=== PATIENT | female | born 1955 | race Two or more races ===

== ENCOUNTER 2016-10-27 11:21 | Inpatient (IN) | payer OTHER ==
[~2016-10-27] VITALS: Ht 152.4 cm; Wt 64.4 kg
[~2016-10-27 11:21] MED LIST: ANUSOL HC1 SUPP RECTAL; ATIVAN1 MG ORAL; AZITHROMYCIN250 MG ORAL; BACTRIM-DS1 EA ORAL; BACTRIM-DS1 EA PO; CARAFATE1 G1 ORAL; CLONIDINE HCL0.1 M1 PO; COLACE100 MG ORAL; DOC-Q-LACE100 M1 ORAL; GABAPENTIN300 MG ORAL; IBUPROFEN600 MG ORAL; KEFLEX500 MG ORAL; KEFLEX500 MG PO; LEVAQUIN500 MG ORAL; LOMOTIL TABLET1 EACH ORAL; LORAZEPAM0.5 MG ORAL; MACROBID100 MG ORAL; METRONIDAZOLE500 MG ORAL; NORCO 10-325 T1 EACH ORAL; NORCO 5-325 TA1 EACH PO; OMEPRAZOLE20 M2 ORAL; PEPCID AC20 M2 PO; PERCOCET 5-3251 EACH ORAL; POTASSIUM GLUC500 GM PO; PREDNISONE5 MG ORAL; PREVACID30 MG ORAL; PROMETHAZINE-D118 ML ORAL; PROTONIX40 MG ORAL; REGLAN10 MG ORAL; REMICADE10 MG IV; RESTORIL15 MG ORAL; RESTORIL7.5 MG ORAL; VICODIN 5-5001 EACH ORAL; ZOFRAN ODT4 MG ORAL
[2016-10-27 12:00] VITALS: BP 166/66
[2016-10-27] MEDS ORDERED: Morphine Sulfate 4mg/ml Inj IM ONE (12:45)
[2016-10-27 13:10] LABS: APPEARANCE,URINE SLIGHTLY CLOUDY; KETONES,URINE NEGATIVE (NEGATIVE); LEUKOCYTE ESTERASE ,URINE NEGATIVE (NEGATIVE); NITRITE,URINE NEGATIVE (NEGATIVE); PROTEIN,URINE NEGATIVE (NEGATIVE); UROBILINOGEN,URINE NORMAL MG/DL (0.0-1.0)
[2016-10-27 13:25] LABS: BACTERIA,URINE FEW /HPF; RBC,URINE 0-2 /HPF (0 - 2); SQUAMOUS EPITHELIAL CELL,UR FEW /LPF (NONE/OCC); WBC,URINE 0-2 /HPF (0 - 2)
[2016-10-27 13:30] VITALS: BP 129/72
[2016-10-27] MEDS ORDERED: Heparin 2000 units/Ns 1000ml IV ONE (14:00)
[2016-10-27] MEDS ORDERED: LANSOPRAZOLE30 M2 PO (14:07)
[2016-10-27] MEDS ORDERED: Lidocaine 1% Plain 30 ml INJ ONE (14:30)
[2016-10-27] MEDS ORDERED: Sodium Bicarbonate 8.4% 50ml Carp IV ONE (14:30)
[2016-10-27 15:41] VITALS: BP 170/88
[2016-10-27 15:54] LABS: BASOPHILS % (AUTO) 0.7 % (0.0-2.0); EOSINOPHILS % (AUTO) 0.2 % (0.0-3.0); LYMPHOCYTES % (AUTO) 17.4 % (20.0-45.0); MEAN CORPUSCULAR HEMOGLOBIN 24.9 PG (27.0-31.0); MEAN CORPUSCULAR HGB CONC 32.2 G/DL (32.0-36.0); MEAN CORPUSCULAR VOLUME 77 FL (80-99); MEAN PLATELET VOLUME 6.2 FL (6.5-10.1); MONOCYTES % (AUTO) 4.4 % (1.0-10.0); NEUTROPHILS % (AUTO) 77.4 % (45.0-75.0); PLATELET COUNT 460 K/UL (150-450); RED BLOOD COUNT 5.06 M/UL (4.20-5.40); RED CELL DISTRIBUTION WIDTH 15.5 % (11.6-14.8); WHITE BLOOD COUNT 14.5 K/UL (4.8-10.8)
[2016-10-27 16:05] LABS: PROTHROMBIN TIME 9.8 SEC (9.30-11.50)
--- NOTE | 2016-10-27 16:05 | Diagnostic Imaging Report ---
Indications: Needs long-term IV access Technique: Ultrasound confirms patent compressible brachial vein. Total sterile technique, including sterile probe cover and sterile gel, hat, mask,, sterile gown, large sterile drape, and preparation with 2% chlorhexidine utilized. Local anesthesia with 1% lidocaine. Under real-time ultrasound guidance, puncture brachial vein using 21-gauge needle, documented and archived, passage 0.018 guidewire under direct fluoroscopy, which was used to determine appropriate catheter length, exchange for 5 Turkish peel-away sheath. 5 Turkish Bard dual-lumen power PICC cut to 30 cm. It was inserted through the peel-away sheath. Peel-away sheath and guidewire removed. Catheter fixed to the skin. Both catheter ports aspirated and flushed. Patient tolerated procedure well, without immediate complication. Digital radiograph documents satisfactory catheter tip position, at the cavoatrial junction. Total fluoroscopy time 1.5 minutes. Total dose area product 158 dGycm2 Impression: Successful placement of left PICC under sonographic and fluoroscopic guidance, as described above.
[2016-10-27] MEDS ORDERED: Morphine Sulfate 4mg/ml Inj IVP ONE (16:15)
[2016-10-27] MEDS ORDERED: LORazepam 1mg tab ORAL ONE (16:15)
[2016-10-27 16:16] LABS: TROPONIN I < 0.30 ng/mL (<=0.30)
[2016-10-27 16:22] LABS: ALANINE AMINOTRANSFERASE 23 U/L (3-33); ALBUMIN/GLOBULIN RATIO 1.3 (1.0-2.7); ANION GAP 18 (5-15); ASPARTATE AMINO TRANSFERASE 20 U/L (5-40); CALCIUM 9.8 mg/dL (8.6-10.2); CARBON DIOXIDE 23 mEQ/L (20-30); CHLORIDE 101 mEQ/L (98-107); CREATININE 0.6 mg/dL (0.5-0.9); GLOMERULAR FILTRATION RATE > 60 mL/min (>60); HEMOLYSIS 2; MAGNESIUM 2.1 mg/dL (1.7-2.5); SODIUM 142 mEQ/L (135-145); TOTAL PROTEIN 7.2 g/dL (6.6-8.7)
[2016-10-27 16:23] LABS: REFLEX LACTIC ACID YES OR NO YES
[2016-10-27 16:32] LABS: CKMB 2.4 ng/mL (< 3.8)
--- NOTE | 2016-10-27 16:47 | Emergency Room Report ---
History of Present Illness General Chief Complaint: Generalized Weakness Source: Patient Present Illness HPI Patient has a history of IBS. She also has a history of diverticulitis. She complains of abdominal pain that is progressively worsened over the past 2 weeks. She denies nausea or vomiting. She denies dysuria or hematuria. She denies fever or chills. She states she feels terrible. Allergies: Coded Allergies: HYDROCODONE BIT (Verified Allergy, Severe, Hives, 05/16/13) Patient History Past Medical History: see triage record Past Surgical History: other - L. knee replacement, "colon surgery" Social History: Denies: alcohol use, drug use, smoking Reviewed Nursing Documentation: PMH: Agreed, PSxH: Agreed Nursing Documentation-PMH Hx Cardiac Problems: No Hx Hypertension: No Hx Pacemaker: No Hx Asthma: No Hx COPD: No Hx Diabetes: No Hx Cancer: No Hx Gastrointestinal Problems: Yes - s/p ASAD 26 years ago, diverticulitis, IBS, C-Diff Hx Dialysis: No History Of Psychiatric Problem: Yes - Anxiety Hx Neurological Problems: No Hx Cerebrovascular Accident: No Hx Seizures: No Hx Headaches: Yes Hx Numbness: Yes Review of Systems All Other Systems: negative except mentioned in HPI Physical Exam Vital Signs Date Time Temp Pulse Resp B/P Pulse Ox O2 Delivery O2 Flow Rate FiO2 10/27/16 11:28 98.2 114 26 170/68 99 Room Air Sp02 EP Interpretation: reviewed, normal General Appearance: no apparent distress, alert, GCS 15, non-toxic Head: normocephalic, atraumatic Eyes: bilateral eye PERRL, bilateral eye normal inspection ENT: hearing grossly normal, normal pharynx, no angioedema, normal voice Neck: full range of motion, supple/symm/no masses Respiratory: chest non-tender, lungs clear, normal breath sounds, speaking full sentences Cardiovascular #1: regular rate, rhythm, no edema Gastrointestinal: normal bowel sounds, soft, non-distended, no guarding, no rebound, tenderness - Diffusely TTP Rectal: deferred Musculoskeletal: back normal, gait/station normal, normal range of motion, non- tender Neurologic: alert, oriented x3, responsive, motor strength/tone normal, sensory intact, speech normal Psychiatric: judgement/insight normal, memory normal, mood/affect normal, no suicidal/homicidal ideation Skin: normal color, no rash, warm/dry, well hydrated Medical Decision Making Diagnostic Impression: Primary Impression: Abdominal pain ER Course Patient presents with ongoing abdominal pain. She has a history of diverticulitis and some colon surgery. Laboratory workup shows a mild leukocytosis and slightly elevated lactate. The patient is pending a CT abdomen and pelvis. The sister nor did Dr. Leon. Anticipate admission for abdominal pain regardless. At this time diagnosis is pending. Differential includes diverticulitis, inflammatory bowel disease, IBS, colitis to name a few. Please see Dr. Leon's note. Labs Test 10/27/16 12:15 10/27/16 15:35 Urine Color Yellow Urine Appearance Slightly cloudy Urine pH 7.0 (4.5-8.0) Urine Specific [place] 1.005 (1.005-1.035) Urine Protein Negative (NEGATIVE) Urine Glucose (UA) Negative (NEGATIVE) Urine Ketones Negative (NEGATIVE) Urine Occult Blood 1+ (NEGATIVE) Urine Nitrite Negative (NEGATIVE) Urine Bilirubin Negative (NEGATIVE) Urine Urobilinogen Normal MG/DL (0.0-1.0) Urine Leukocyte Esterase Negative (NEGATIVE) Urine RBC 0-2 /HPF (0 - 2) Urine WBC 0-2 /HPF (0 - 2) Urine Squamous Epithelial Cells Few /LPF (NONE/OCC) Urine Bacteria Few /HPF (NONE) White Blood Count 14.5 K/UL (4.8-10.8) Red Blood Count 5.06 M/UL (4.20-5.40) Hemoglobin 12.6 G/DL (12.0-16.0) Hematocrit 39.2 % (37.0-47.0) Mean Corpuscular Volume 77 FL (80-99) Mean Corpuscular Hemoglobin 24.9 PG (27.0-31.0) Mean Corpuscular Hemoglobin Concent 32.2 G/DL (32.0-36.0) Red Cell Distribution Width 15.5 % (11.6-14.8) Platelet Count 460 K/UL (150-450) Mean Platelet Volume 6.2 FL (6.5-10.1) Neutrophils (%) (Auto) 77.4 % (45.0-75.0) Lymphocytes (%) (Auto) 17.4 % (20.0-45.0) Monocytes (%) (Auto) 4.4 % (1.0-10.0) Eosinophils (%) (Auto) 0.2 % (0.0-3.0) Basophils (%) (Auto) 0.7 % (0.0-2.0) Prothrombin Time 9.8 SEC (9.30-11.50) Prothromb Time International Ratio 1.0 (0.9-1.1) Activated Partial Thromboplast Time 25 SEC (23-33) Sodium Level 142 mEQ/L (135-145) Potassium Level 4.0 mEQ/L (3.4-4.9) Chloride Level 101 mEQ/L (98-107) Carbon Dioxide Level 23 mEQ/L (20-30) Anion Gap 18 (5-15) Blood Urea Nitrogen 8 mg/dL (7-23) Creatinine 0.6 mg/dL (0.5-0.9) Estimat Glomerular Filtration Rate > 60 mL/min (>60) Glucose Level 112 mg/dL (74-106) Lactic Acid Level 2.70 mmol/L (0.66-2.22) Calcium Level 9.8 mg/dL (8.6-10.2) Magnesium Level 2.1 mg/dL (1.7-2.5) Total Bilirubin < 0.2 mg/dL (0.0-1.2) Aspartate Amino Transf (AST/SGOT) 20 U/L (5-40) Alanine Aminotransferase (ALT/SGPT) 23 U/L (3-33) Alkaline Phosphatase 117 U/L (35-104) Total Creatine Kinase 48 U/L (26-140) Creatine Kinase MB 2.4 ng/mL (< 3.8) Creatine Kinase MB Relative Index 5.0 Troponin I < 0.30 ng/mL (<=0.30) Total Protein 7.2 g/dL (6.6-8.7) Albumin 4.1 g/dL (3.5-5.2) Globulin 3.1 g/dL Albumin/Globulin Ratio 1.3 (1.0-2.7) EKG Diagnostic Results Rate: tachycardiac ST Segments: no acute changes Other Impression S.tachycardia Rhythm Strip Diag. Results EP Interpretation: yes Rate: 100's Rhythm: no PVC's, no ectopy CT/MRI/US Diagnostic Results CT/MRI/US Diagnostic Results : Imaging Test Ordered: CT abd/pelvis pending Last Vital Signs Date Time Temp Pulse Resp B/P Pulse Ox O2 Delivery O2 Flow Rate FiO2 10/27/16 16:11 98.3 10/27/16 15:41 120 21 170/88 97 Room Air Disposition: ADMITTED INPATIENT Condition: Serious Referrals: SAV ARCINIEGA,REFERRING (PCP) TIO RAMIREZ D.O. Oct 27, 2016 16:47
[2016-10-27 18:00] VITALS: BP 123/77
[2016-10-27] MEDS ORDERED: Ampicillin/Sulbactam Sod 3 GM in NS 110 ML IVPB ONE (18:45)
[2016-10-27] MEDS ORDERED: Unasyn 3gm Inj ONE (18:47)
--- NOTE | 2016-10-27 18:57 | Emergency Room Report ---
Physical Exam Vital Signs Date Time Temp Pulse Resp B/P Pulse Ox O2 Delivery O2 Flow Rate FiO2 10/27/16 11:28 98.2 114 26 170/68 99 Room Air Medical Decision Making Diagnostic Impression: Primary Impression: Intractable abdominal pain ER Course Hospital Course 61-year-old female presents to ED with abd pain Clinical course Patient initially seen and evaluated by Dr Morales; please see her note for full history and physical Patient had poor IV access. PICC Line placed Labs - noted leukocytosis, Hb/Hct stable, electrolytes ok. CT abdomen and pelvis - post surgical changes, no acute process, status post cholecystectomy Patient continues to complain of pain. Case discussed with Dr. Campbell and he agreed to accept the patient to his service for further care and support I feel this is a highly complex case requiring extensive working including EKG/ Rhythm strip, Xray/CT/US, Blood/urine lab work, repeat exams while in ED, and administration of strong opiates/narcotics for pain control, admission to hospital or close patient follow up. Diagnosis - intractable abd pain Patient admitted to floor in serious condition Labs Test 10/27/16 12:15 10/27/16 15:35 10/27/16 18:00 Urine Color Yellow Urine Appearance Slightly cloudy Urine pH 7.0 (4.5-8.0) Urine Specific [place] 1.005 (1.005-1.035) Urine Protein Negative (NEGATIVE) Urine Glucose (UA) Negative (NEGATIVE) Urine Ketones Negative (NEGATIVE) Urine Occult Blood 1+ (NEGATIVE) Urine Nitrite Negative (NEGATIVE) Urine Bilirubin Negative (NEGATIVE) Urine Urobilinogen Normal MG/DL (0.0-1.0) Urine Leukocyte Esterase Negative (NEGATIVE) Urine RBC 0-2 /HPF (0 - 2) Urine WBC 0-2 /HPF (0 - 2) Urine Squamous Epithelial Cells Few /LPF (NONE/OCC) Urine Bacteria Few /HPF (NONE) White Blood Count 14.5 K/UL (4.8-10.8) Red Blood Count 5.06 M/UL (4.20-5.40) Hemoglobin 12.6 G/DL (12.0-16.0) Hematocrit 39.2 % (37.0-47.0) Mean Corpuscular Volume 77 FL (80-99) Mean Corpuscular Hemoglobin 24.9 PG (27.0-31.0) Mean Corpuscular Hemoglobin Concent 32.2 G/DL (32.0-36.0) Red Cell Distribution Width 15.5 % (11.6-14.8) Platelet Count 460 K/UL (150-450) Mean Platelet Volume 6.2 FL (6.5-10.1) Neutrophils (%) (Auto) 77.4 % (45.0-75.0) Lymphocytes (%) (Auto) 17.4 % (20.0-45.0) Monocytes (%) (Auto) 4.4 % (1.0-10.0) Eosinophils (%) (Auto) 0.2 % (0.0-3.0) Basophils (%) (Auto) 0.7 % (0.0-2.0) Prothrombin Time 9.8 SEC (9.30-11.50) Prothromb Time International Ratio 1.0 (0.9-1.1) Activated Partial Thromboplast Time 25 SEC (23-33) Sodium Level 142 mEQ/L (135-145) Potassium Level 4.0 mEQ/L (3.4-4.9) Chloride Level 101 mEQ/L (98-107) Carbon Dioxide Level 23 mEQ/L (20-30) Anion Gap 18 (5-15) Blood Urea Nitrogen 8 mg/dL (7-23) Creatinine 0.6 mg/dL (0.5-0.9) Estimat Glomerular Filtration Rate > 60 mL/min (>60) Glucose Level 112 mg/dL (74-106) Lactic Acid Level 2.70 mmol/L (0.66-2.22) Calcium Level 9.8 mg/dL (8.6-10.2) Magnesium Level 2.1 mg/dL (1.7-2.5) Total Bilirubin < 0.2 mg/dL (0.0-1.2) Aspartate Amino Transf (AST/SGOT) 20 U/L (5-40) Alanine Aminotransferase (ALT/SGPT) 23 U/L (3-33) Alkaline Phosphatase 117 U/L (35-104) Total Creatine Kinase 48 U/L (26-140) Creatine Kinase MB 2.4 ng/mL (< 3.8) Creatine Kinase MB Relative Index 5.0 Troponin I < 0.30 ng/mL (<=0.30) Total Protein 7.2 g/dL (6.6-8.7) Albumin 4.1 g/dL (3.5-5.2) Globulin 3.1 g/dL Albumin/Globulin Ratio 1.3 (1.0-2.7) CT/MRI/US Diagnostic Results CT/MRI/US Diagnostic Results : Imaging Test Ordered: CT A/P Impression no acute process. post surgical changes distal colon. cholecystecotmy. Last Vital Signs Date Time Temp Pulse Resp B/P Pulse Ox O2 Delivery O2 Flow Rate FiO2 10/27/16 17:34 98.3 10/27/16 15:41 120 21 170/88 97 Room Air Status: unchanged Disposition: ADMITTED INPATIENT Condition: Serious Referrals: SAV ARCINIEGA,REFERRING (PCP) ONI MARROQUIN M.D. Oct 27, 2016 18:57
[2016-10-27] MEDS ORDERED: Morphine Sulfate 4mg/ml Inj IVPB PRN (20:15)
[2016-10-27 20:42] VITALS: BP 159/125
[2016-10-27 21:12] VITALS: BP 152/89
[2016-10-27] MEDS: MORPHINE SULFATE IVPB PRN (21:16)
[2016-10-27] MEDS: NS IVPB PRN (21:16)
--- NOTE | 2016-10-27 22:03 | Consultation ---
Consult Note Consult Note DATE OF CONSULTATION: 10/27/16 HEMATOLOGY/ONCOLOGY CONSULTATION CONSULTING PHYSICIAN: Brennan Esqueda M.D. REFERRING PHYSICIAN: Carie Campbell M.D. REASON FOR CONSULTATION: Evaluation of leukocytosis, thrombocytosis IDENTIFYING DATA: Dear Dr. Carie Campbell, 61-year-old female with past medical history, which is significant for chronic pain and rheumatoid arthritis at this time presents to the emergency room with diarrhea as well as nausea and vomiting. Symptoms were similar to prior admission on 08/15/16. Infectious Disease service and the patient was noted to have leukocytosis. CAT scan of the chest noted to have 5 cm nodule in the lobe of the thyroid. Was evaluated on prior admission by hematology. Patient continues to have a elevated wbc as well as a thromboytosis. Therefore, Hematology service was consulted for evaluation. PAST MEDICAL HISTORY: Rheumatoid arthritis, GERD, diarrhea, C. difficile colitis, and numbness PAST SURGICAL HISTORY: Total abdominal hysterectomy 26 years ago. MEDICATIONS: Prednisone, Neurontin, Ativan, Zofran, Restoril, morphine, Tylenol. pantoprazole, prednisone, sucralfate, temazepam, morphine, Zofran, and Minerva. ALLERGIES: Minerva SOCIAL HISTORY: Lives at home with her . Denies any alcohol, tobacco, or illicit drug use. FAMILY HISTORY: Noncontributory. REVIEW OF SYSTEMS: Constitutional: No fever, chills, or night sweats. Skin: No rashes or itching. HEENT: No headache, hearing or vision change. Breasts: No lumps, pain, or discharge. Pulmonary: No cough. No shortness of breath. Cardiovascular: No chest pain, tightness, or palpitations. Gastrointestinal: No nausea, vomiting, or diarrhea. Genitourinary: No dysuria, frequency, or urgency. Neurological: No dizziness, fainting, or seizures. PHYSICAL EXAMINATION: VITAL SIGNS: Date Time Temp Pulse Resp B/P Pulse Ox O2 Delivery O2 Flow Rate FiO2 10/27/16 21:12 107 20 152/89 95 Room Air 10/27/16 20:42 99.5 115 18 159/125 99 Room Air 10/27/16 19:14 98.3 99 12 124/71 99 Room Air 10/27/16 18:00 98.0 99 15 123/77 99 Room Air 10/27/16 17:34 98.3 10/27/16 16:11 98.3 10/27/16 15:41 120 21 170/88 97 Room Air 10/27/16 13:30 108 18 129/72 98 Room Air 10/27/16 12:00 98.2 106 16 166/66 97 Room Air 10/27/16 11:28 98.2 114 26 170/68 99 Room Air GENERAL: No acute distress PULMONARY: Decreased breath sounds CARDIOVASCULAR: Regular rate and rhythm. No M/G/R ABDOMEN: Soft, nontender, and nondistended EXTREMITIES: 1+ edema LABORATORY: Test 10/27/16 12:15 10/27/16 15:35 10/27/16 18:00 Urine Color Yellow Urine Appearance Slightly cloudy Urine pH 7.0 (4.5-8.0) Urine Specific [place] 1.005 (1.005-1.035) Urine Protein Negative (NEGATIVE) Urine Glucose (UA) Negative (NEGATIVE) Urine Ketones Negative (NEGATIVE) Urine Occult Blood 1+ (NEGATIVE) H Urine Nitrite Negative (NEGATIVE) Urine Bilirubin Negative (NEGATIVE) Urine Urobilinogen Normal MG/DL (0.0-1.0) Urine Leukocyte Esterase Negative (NEGATIVE) Urine RBC 0-2 /HPF (0 - 2) Urine WBC 0-2 /HPF (0 - 2) Urine Squamous Epithelial Cells Few /LPF (NONE/OCC) Urine Bacteria Few /HPF (NONE) White Blood Count 14.5 K/UL (4.8-10.8) H Red Blood Count 5.06 M/UL (4.20-5.40) Hemoglobin 12.6 G/DL (12.0-16.0) Hematocrit 39.2 % (37.0-47.0) Mean Corpuscular Volume 77 FL (80-99) L Mean Corpuscular Hemoglobin 24.9 PG (27.0-31.0) L Mean Corpuscular Hemoglobin Concent 32.2 G/DL (32.0-36.0) Red Cell Distribution Width 15.5 % (11.6-14.8) H Platelet Count 460 K/UL (150-450) H Mean Platelet Volume 6.2 FL (6.5-10.1) L Neutrophils (%) (Auto) 77.4 % (45.0-75.0) H Lymphocytes (%) (Auto) 17.4 % (20.0-45.0) L Monocytes (%) (Auto) 4.4 % (1.0-10.0) Eosinophils (%) (Auto) 0.2 % (0.0-3.0) Basophils (%) (Auto) 0.7 % (0.0-2.0) Erythrocyte Sedimentation Rate Pending Reticulocyte Count Pending Prothrombin Time 9.8 SEC (9.30-11.50) Prothromb Time International Ratio 1.0 (0.9-1.1) Activated Partial Thromboplast Time 25 SEC (23-33) Sodium Level 142 mEQ/L (135-145) Potassium Level 4.0 mEQ/L (3.4-4.9) Chloride Level 101 mEQ/L (98-107) Carbon Dioxide Level 23 mEQ/L (20-30) Anion Gap 18 (5-15) H Blood Urea Nitrogen 8 mg/dL (7-23) Creatinine 0.6 mg/dL (0.5-0.9) Estimat Glomerular Filtration Rate > 60 mL/min (>60) Glucose Level 112 mg/dL (74-106) H Lactic Acid Level 2.70 mmol/L (0.66-2.22) H 2.00 mmol/L (0.66-2.22) Calcium Level 9.8 mg/dL (8.6-10.2) Magnesium Level 2.1 mg/dL (1.7-2.5) Iron Level Pending Unsaturated Iron Binding Pending Ferritin Pending Total Bilirubin < 0.2 mg/dL (0.0-1.2) Aspartate Amino Transf (AST/SGOT) 20 U/L (5-40) Alanine Aminotransferase (ALT/SGPT) 23 U/L (3-33) Alkaline Phosphatase 117 U/L (35-104) H Total Creatine Kinase 48 U/L (26-140) Creatine Kinase MB 2.4 ng/mL (< 3.8) Creatine Kinase MB Relative Index 5.0 Troponin I < 0.30 ng/mL (<=0.30) C-Reactive Protein, Quantitative Pending Total Protein 7.2 g/dL (6.6-8.7) Albumin 4.1 g/dL (3.5-5.2) Globulin 3.1 g/dL Albumin/Globulin Ratio 1.3 (1.0-2.7) Vitamin B12 Level Pending Folate Pending Assessment/Plan ASSESSMENT: 1. A 2.3 cm lower pole thyroid mass noted, on thyroid us as well, TSH/T3/T4 are wnl 2. Anemia secondary to chronic disease. s/p egd which showed gastritis 3. Leukocytosis, 2/2 infection, continue to monitor 4. Hypertension secondary to prior infection. 5. Hemorrhoids 6. Clostridium difficile colitis. 7. Gastritis. RECOMMENDATIONS: 1. Monitor counts. 2. Peripheral smear ordered 3. Thyroid ultrasound reviewed and has seen endo 4. Anemia workup ordered 6. Pain management recs to follow 7. Endo f/u in future 8. Discussed with staff. Thank you for this kind referral, please do not hesitate to contact me with any further questions, MD Yin Silverman Roman L. Oct 27, 2016 22:03
--- NOTE | 2016-10-27 22:31 | Infectious Diseases Prog Note ---
Assessment/Plan Problems: (1) Leukocytosis Assessment & Plan: dehydration VS colitis , will start unasyn and flagyl, send blood culture and stool for C diff (2) Abdominal pain Assessment & Plan: colitis VS IBS flare, continue pain management , consult GI (3) Diverticulitis Assessment & Plan: on IV antibiotics , monitor symptoms. Subjective Allergies: Coded Allergies: HYDROCODONE BIT (Verified Allergy, Severe, Hives, 05/16/13) Objective Vital Signs Last 24 Hour Vital Signs Date Time Temp Pulse Resp B/P Pulse Ox O2 Delivery O2 Flow Rate FiO2 10/27/16 21:12 107 20 152/89 95 Room Air 10/27/16 20:42 99.5 115 18 159/125 99 Room Air 10/27/16 19:14 98.3 99 12 124/71 99 Room Air 10/27/16 18:00 98.0 99 15 123/77 99 Room Air 10/27/16 17:34 98.3 10/27/16 16:11 98.3 10/27/16 15:41 120 21 170/88 97 Room Air 10/27/16 13:30 108 18 129/72 98 Room Air 10/27/16 12:00 98.2 106 16 166/66 97 Room Air 10/27/16 11:28 98.2 114 26 170/68 99 Room Air Height (Feet): 5 Height (Inches): 0.00 Weight (Pounds): 142 Laboratory Tests Test 10/27/16 12:15 10/27/16 15:35 10/27/16 18:00 Urine Color Yellow Urine Appearance Slightly cloudy Urine pH 7.0 (4.5-8.0) Urine Specific [place] 1.005 (1.005-1.035) Urine Protein Negative (NEGATIVE) Urine Glucose (UA) Negative (NEGATIVE) Urine Ketones Negative (NEGATIVE) Urine Occult Blood 1+ (NEGATIVE) H Urine Nitrite Negative (NEGATIVE) Urine Bilirubin Negative (NEGATIVE) Urine Urobilinogen Normal MG/DL (0.0-1.0) Urine Leukocyte Esterase Negative (NEGATIVE) Urine RBC 0-2 /HPF (0 - 2) Urine WBC 0-2 /HPF (0 - 2) Urine Squamous Epithelial Cells Few /LPF (NONE/OCC) Urine Bacteria Few /HPF (NONE) White Blood Count 14.5 K/UL (4.8-10.8) H Red Blood Count 5.06 M/UL (4.20-5.40) Hemoglobin 12.6 G/DL (12.0-16.0) Hematocrit 39.2 % (37.0-47.0) Mean Corpuscular Volume 77 FL (80-99) L Mean Corpuscular Hemoglobin 24.9 PG (27.0-31.0) L Mean Corpuscular Hemoglobin Concent 32.2 G/DL (32.0-36.0) Red Cell Distribution Width 15.5 % (11.6-14.8) H Platelet Count 460 K/UL (150-450) H Mean Platelet Volume 6.2 FL (6.5-10.1) L Neutrophils (%) (Auto) 77.4 % (45.0-75.0) H Lymphocytes (%) (Auto) 17.4 % (20.0-45.0) L Monocytes (%) (Auto) 4.4 % (1.0-10.0) Eosinophils (%) (Auto) 0.2 % (0.0-3.0) Basophils (%) (Auto) 0.7 % (0.0-2.0) Neutrophils % (Manual) Pending Lymphocytes % (Manual) Pending Platelet Estimate Pending Platelet Morphology Pending Erythrocyte Sedimentation Rate Pending Reticulocyte Count Pending Prothrombin Time 9.8 SEC (9.30-11.50) Prothromb Time International Ratio 1.0 (0.9-1.1) Activated Partial Thromboplast Time 25 SEC (23-33) Sodium Level 142 mEQ/L (135-145) Potassium Level 4.0 mEQ/L (3.4-4.9) Chloride Level 101 mEQ/L (98-107) Carbon Dioxide Level 23 mEQ/L (20-30) Anion Gap 18 (5-15) H Blood Urea Nitrogen 8 mg/dL (7-23) Creatinine 0.6 mg/dL (0.5-0.9) Estimat Glomerular Filtration Rate > 60 mL/min (>60) Glucose Level 112 mg/dL (74-106) H Lactic Acid Level 2.70 mmol/L (0.66-2.22) H 2.00 mmol/L (0.66-2.22) Calcium Level 9.8 mg/dL (8.6-10.2) Magnesium Level 2.1 mg/dL (1.7-2.5) Iron Level 27 ug/dL (37-145) L Total Iron Binding Capacity 451 ug/dL (250-400) H Percent Iron Saturation 6 % (15-50) L Unsaturated Iron Binding 424 ug/dL (112-346) H Ferritin 35 ng/mL (13-150) Total Bilirubin < 0.2 mg/dL (0.0-1.2) Aspartate Amino Transf (AST/SGOT) 20 U/L (5-40) Alanine Aminotransferase (ALT/SGPT) 23 U/L (3-33) Alkaline Phosphatase 117 U/L (35-104) H Total Creatine Kinase 48 U/L (26-140) Creatine Kinase MB 2.4 ng/mL (< 3.8) Creatine Kinase MB Relative Index 5.0 Troponin I < 0.30 ng/mL (<=0.30) C-Reactive Protein, Quantitative 2.0 mg/dL (< 0.5) H Total Protein 7.2 g/dL (6.6-8.7) Albumin 4.1 g/dL (3.5-5.2) Globulin 3.1 g/dL Albumin/Globulin Ratio 1.3 (1.0-2.7) Vitamin B12 Level 441 pg/mL (211-946) Folate Pending Current Medications Medications (Trade) Dose Ordered Sig/Gabriel Route PRN Reason Start Time Stop Time Status Last Admin Dose Admin Acetaminophen (Tylenol) 650 mg Q4H PRN ORAL Mild Pain/Temp > 100.5 10/27/16 20:15 11/26/16 20:14 Gabapentin (Neurontin) 300 mg THREE TIMES A DAY ORAL 10/28/16 09:00 11/27/16 08:59 Lansoprazole (Prevacid) 30 mg DAILY ORAL 10/28/16 09:00 11/27/16 08:59 Morphine Sulfate/ Sodium Chloride (Morphine Sulfate/Sodium Chloride) 56 ml @ 223.751 mls/hr Q4H PRN IVPB MODERATE TO SEVERE PAIN 10/27/16 20:45 11/03/16 20:44 10/27/16 21:16 Ondansetron HCl 4 mg 4 mg Q6H PRN IVP Nausea & Vomiting 10/27/16 20:15 11/26/16 20:14 Prednisone (predniSONE) 15 mg DAILY ORAL 10/28/16 09:00 11/27/16 08:59 Sodium Chloride (0.45% NS 1000ml) 1,000 ml @ 75 mls/hr [id number] IV 10/27/16 21:00 11/26/16 20:59 10/27/16 20:42 Sucralfate (Carafate) 1 gm TID ORAL 10/28/16 09:00 11/27/16 08:59 Temazepam 15 mg 15 mg HSPRN PRN ORAL Insomnia 10/27/16 20:15 11/03/16 20:14 Ty Nguyen M.D. Oct 27, 2016 22:31
[2016-10-27] MEDS: metroNIDAZOLE 500mg 100 ML IVPB SCH (22:57)
[2016-10-27 23:25] LABS: BAND NEUTROPHILS % (MANUAL) 0 % (0-8); BASOPHILS % (MANUAL) 0 % (0-2); EOSINOPHILS % (MANUAL) 1 % (0-3); LYMPHOCYTES % (MANUAL) 12 % (20-45); NEUTROPHILS % (MANUAL) 81 % (45-75); TOTAL CELLS COUNTED 100
[2016-10-27 23:26] LABS: ANISOCYTOSIS 1+; PLATELET ESTIMATE INCREASED; POLYCHROMASIA 1+
[2016-10-27 23:28] LABS: PATH BLOOD SMEAR/OMC SENT TO PATHOLOGIST
[2016-10-28] VITALS: BP 141/84
[2016-10-28] MEDS ORDERED: Morphine Sulfate 4mg/ml Inj ONE ×3 (01:03→09:41)
[2016-10-28] MEDS: MORPHINE SULFATE IVPB PRN ×5 (01:09→22:00)
[2016-10-28] MEDS: NS IVPB PRN ×5 (01:09→22:00)
[2016-10-28] MEDS ORDERED: Ampicillin/Sulbactam Sod 3 GM in NS 110 ML IVPB SCH (03:00)
[2016-10-28] MEDS ORDERED: Unasyn 3gm Inj ONE (03:19)
[2016-10-28 04:00] VITALS: BP 136/74
[2016-10-28] MEDS: metroNIDAZOLE 500mg 100 ML IVPB SCH ×3 (05:19→22:06)
[2016-10-28 07:55] VITALS: BP 145/55
--- NOTE | 2016-10-28 08:06 | General Progress Note ---
Assessment/Plan Assessment/Plan (1) Multiple joint pain (2) Rheumatoid arthritis (3) Intractable Abdominal pain (4) IBS Assessment & Plan: We will continue the patient on Morphine 4mg IVPB Q4H PRN severe pain and start Percocet 5/325mg 1 tab Q4H PRN moderate pain. The patient was discussed with Dr. Hdez and Dr. Hdez concurred. Subjective Date patient seen: Oct 28, 2016 Time patient seen: 09:15 - am Allergies: Coded Allergies: HYDROCODONE BIT (Verified Allergy, Severe, Hives, 05/16/13) Subjective REVIEW OF SYSTEMS: Denies rash, fever, chills, sweating, dizziness, drowsiness, blurred vision, sore throat, change in hearing or weight. No nausea, vomiting, or blood in the stool or urine. No bowel or bladder incontinence. No dysuria. She is complaining of abdominal pain, multiple joint pain. SUBJECTIVE: Pt has been seen on prior admission and continues to have joint pain and now has severe abdominal pain and reports a h/o IBS. She was started on Morphine 4mg IVPB Q4H PRN pain. At this time pain is severe and has been reduced on the Morphine. Pt is waiting to see GI specialist. Objective Last 24 Hour Vital Signs Date Time Temp Pulse Resp B/P Pulse Ox O2 Delivery O2 Flow Rate FiO2 10/28/16 07:55 97.4 93 21 145/55 98 Room Air 10/28/16 04:00 100.0 109 20 136/74 96 Room Air 10/28/16 00:00 101.7 104 20 141/84 97 Room Air 10/27/16 21:12 107 20 152/89 95 Room Air 10/27/16 20:42 99.5 115 18 159/125 99 Room Air 10/27/16 19:14 98.3 99 12 124/71 99 Room Air 10/27/16 18:00 98.0 99 15 123/77 99 Room Air 10/27/16 17:34 98.3 10/27/16 16:11 98.3 10/27/16 15:41 120 21 170/88 97 Room Air 10/27/16 13:30 108 18 129/72 98 Room Air 10/27/16 12:00 98.2 106 16 166/66 97 Room Air 10/27/16 11:28 98.2 114 26 170/68 99 Room Air Intake and Output 10/27/16 10/28/16 19:00 07:00 Intake Total 0 ml 206 ml Balance 0 ml 206 ml Intake Oral 0 ml IV Total 206 ml Laboratory Tests 10/27/16 12:15: Urine Color Yellow, Urine Appearance Slightly cloudy, Urine pH 7.0, Urine Specific [place] 1.005, Urine Protein Negative, Urine Glucose (UA) Negative, Urine Ketones Negative, Urine Occult Blood 1+H, Urine Nitrite Negative, Urine Bilirubin Negative, Urine Urobilinogen Normal, Urine Leukocyte Esterase Negative , Urine RBC 0-2, Urine WBC 0-2, Urine Squamous Epithelial Cells Few, Urine Bacteria Few 10/27/16 15:35: White Blood Count 14.5H, Red Blood Count 5.06, Hemoglobin 12.6, Hematocrit 39.2 , Mean Corpuscular Volume 77L, Mean Corpuscular Hemoglobin 24.9L, Mean Corpuscular Hemoglobin Concent 32.2, Red Cell Distribution Width 15.5H, Platelet Count 460H, Mean Platelet Volume 6.2L, Neutrophils (%) (Auto) 77.4H, Lymphocytes (%) (Auto) 17.4L, Monocytes (%) (Auto) 4.4, Eosinophils (%) (Auto) 0.2, Basophils (%) (Auto) 0.7, Differential Total Cells Counted 100, Neutrophils % (Manual) 81H, Lymphocytes % (Manual) 12L, Monocytes % (Manual) 6, Eosinophils % (Manual) 1, Basophils % (Manual) 0, Band Neutrophils 0, Platelet Estimate IncreasedH, Platelet Morphology See comment, Giant Platelets Occasional , Polychromasia 1+, Anisocytosis 1+, Erythrocyte Sedimentation Rate 46H, Reticulocyte Count 1.0, Prothrombin Time 9.8, Prothromb Time International Ratio 1.0, Activated Partial Thromboplast Time 25, Sodium Level 142, Potassium Level 4.0, Chloride Level 101, Carbon Dioxide Level 23, Anion Gap 18H, Blood Urea Nitrogen 8, Creatinine 0.6, Estimat Glomerular Filtration Rate > 60, Glucose Level 112H, Lactic Acid Level 2.70H, Calcium Level 9.8, Magnesium Level 2.1, Iron Level 27L, Total Iron Binding Capacity 451H, Percent Iron Saturation 6L, Unsaturated Iron Binding 424H, Ferritin 35, Total Bilirubin < 0.2, Aspartate Amino Transf (AST/SGOT) 20, Alanine Aminotransferase (ALT/SGPT) 23, Alkaline Phosphatase 117H, Total Creatine Kinase 48, Creatine Kinase MB 2.4, Creatine Kinase MB Relative Index 5.0, Troponin I < 0.30, C-Reactive Protein, Quantitative 2.0H, Total Protein 7.2, Albumin 4.1, Globulin 3.1, Albumin/ Globulin Ratio 1.3, Vitamin B12 Level 441, Folate [Pending] 10/27/16 18:00: Lactic Acid Level 2.00 Height (Feet): 5 Height (Inches): 0.00 Weight (Pounds): 142 Objective PHYSICAL EXAMINATION: GENERAL: Alert, awake, and oriented x3. HEENT: PERRLA. NECK: Range of motion is full in all directions. No tenderness in paracervical muscles. No adenopathy. LUNGS: Clear. HEART: S1 and S2, regular. ABDOMEN: Obese, tenderness to palpation. BACK: Range of motion is decreased in flexion and extension with tenderness to paraspinal muscles. No tenderness to trapezial or rhomboid muscles. EXTREMITIES: No cyanosis. No clubbing. No edema. NEUROLOGICAL EXAM: No focal deficits. MARTHA NOVAK Oct 28, 2016 08:06
[2016-10-28 08:15] LABS: BASOPHILS % (AUTO) 0.6 % (0.0-2.0); EOSINOPHILS % (AUTO) 0.6 % (0.0-3.0); LYMPHOCYTES % (AUTO) 23.5 % (20.0-45.0); MEAN CORPUSCULAR HGB CONC 32.5 G/DL (32.0-36.0); MEAN CORPUSCULAR VOLUME 77 FL (80-99); MEAN PLATELET VOLUME 6.4 FL (6.5-10.1); MONOCYTES % (AUTO) 3.9 % (1.0-10.0); NEUTROPHILS % (AUTO) 71.5 % (45.0-75.0); PLATELET COUNT 393 K/UL (150-450); RED BLOOD COUNT 4.65 M/UL (4.20-5.40); RED CELL DISTRIBUTION WIDTH 15.7 % (11.6-14.8); WHITE BLOOD COUNT 13.9 K/UL (4.8-10.8)
[2016-10-28 08:28] LABS: ALANINE AMINOTRANSFERASE 34 U/L (3-33); ALBUMIN/GLOBULIN RATIO 1.3 (1.0-2.7); ANION GAP 17 (5-15); ASPARTATE AMINO TRANSFERASE 50 U/L (5-40); CALCIUM 9.2 mg/dL (8.6-10.2); CARBON DIOXIDE 24 mEQ/L (20-30); CHLORIDE 99 mEQ/L (98-107); CREATININE 0.7 mg/dL (0.5-0.9); GLOMERULAR FILTRATION RATE > 60 mL/min (>60); HEMOLYSIS 2; POTASSIUM 3.7 mEQ/L (3.4-4.9); SODIUM 140 mEQ/L (135-145); TOTAL PROTEIN 6.8 g/dL (6.6-8.7)
--- NOTE | 2016-10-28 08:46 | Diagnostic Imaging Report ---
Indication: SOB Technique: One view of the chest Comparison: 04/14/2016 Findings: Less optimal inspiration currently. The heart is upper limits normal in size. Lungs and pleural spaces are clear. Previously demonstrated PICC is no longer present Impression: No acute process
--- NOTE | 2016-10-28 09:03 | General Progress Note ---
Assessment/Plan Assessment/Plan ASSESSMENT: 1. Abdominal pain c/w with either IBS flare v diverticulitis 2. Anemia secondary to chronic disease. s/p egd which showed gastritis 3. Leukocytosis, 2/2 infection, continue to monitor 4. Hypertension secondary to prior infection. 5. A 2.3 cm lower pole thyroid mass noted, on thyroid us as well, TSH/T3/T4 are wnl 6. Clostridium difficile colitis. 7. Gastritis. RECOMMENDATIONS: 1. Monitor counts. 2. Peripheral smear pending 3. Antibiotics as needed 4. F/U on pain management recs 6. 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 Endo f/u in future 8. DW staff. Thank you, Brennan Esqueda MD Subjective Constitutional: Reports: no symptoms HEENT: Reports: no symptoms Cardiovascular: Reports: no symptoms Respiratory: Reports: no symptoms Gastrointestinal/Abdominal: Reports: no symptoms Genitourinary: Reports: no symptoms Neurologic/Psychiatric: Reports: no symptoms Endocrine: Reports: no symptoms Hematologic/Lymphatic: Reports: anemia Allergies: Coded Allergies: HYDROCODONE BIT (Verified Allergy, Severe, Hives, 05/16/13) Subjective does have severe abdominal pain c/w colitis flare, no hematochezia or hematemesis Objective Last 24 Hour Vital Signs Date Time Temp Pulse Resp B/P Pulse Ox O2 Delivery O2 Flow Rate FiO2 10/28/16 07:55 97.4 93 21 145/55 98 Room Air 10/28/16 04:00 100.0 109 20 136/74 96 Room Air 10/28/16 00:00 101.7 104 20 141/84 97 Room Air 10/27/16 21:12 107 20 152/89 95 Room Air 10/27/16 20:42 99.5 115 18 159/125 99 Room Air 10/27/16 19:14 98.3 99 12 124/71 99 Room Air 10/27/16 18:00 98.0 99 15 123/77 99 Room Air 10/27/16 17:34 98.3 10/27/16 16:11 98.3 10/27/16 15:41 120 21 170/88 97 Room Air 10/27/16 13:30 108 18 129/72 98 Room Air 10/27/16 12:00 98.2 106 16 166/66 97 Room Air 10/27/16 11:28 98.2 114 26 170/68 99 Room Air Intake and Output 2/7/17 2/8/17 19:00 07:00 Intake Total 0 ml 206 ml Balance 0 ml 206 ml Intake Oral 0 ml IV Total 206 ml Laboratory Tests 10/27/16 12:15: Urine Color Yellow, Urine Appearance Slightly cloudy, Urine pH 7.0, Urine Specific [place] 1.005, Urine Protein Negative, Urine Glucose (UA) Negative, Urine Ketones Negative, Urine Occult Blood 1+H, Urine Nitrite Negative, Urine Bilirubin Negative, Urine Urobilinogen Normal, Urine Leukocyte Esterase Negative , Urine RBC 0-2, Urine WBC 0-2, Urine Squamous Epithelial Cells Few, Urine Bacteria Few 10/27/16 15:35: White Blood Count 14.5H, Red Blood Count 5.06, Hemoglobin 12.6, Hematocrit 39.2 , Mean Corpuscular Volume 77L, Mean Corpuscular Hemoglobin 24.9L, Mean Corpuscular Hemoglobin Concent 32.2, Red Cell Distribution Width 15.5H, Platelet Count 460H, Mean Platelet Volume 6.2L, Neutrophils (%) (Auto) 77.4H, Lymphocytes (%) (Auto) 17.4L, Monocytes (%) (Auto) 4.4, Eosinophils (%) (Auto) 0.2, Basophils (%) (Auto) 0.7, Differential Total Cells Counted 100, Neutrophils % (Manual) 81H, Lymphocytes % (Manual) 12L, Monocytes % (Manual) 6, Eosinophils % (Manual) 1, Basophils % (Manual) 0, Band Neutrophils 0, Platelet Estimate IncreasedH, Platelet Morphology See comment, Giant Platelets Occasional , Polychromasia 1+, Anisocytosis 1+, Erythrocyte Sedimentation Rate 46H, Reticulocyte Count 1.0, Prothrombin Time 9.8, Prothromb Time International Ratio 1.0, Activated Partial Thromboplast Time 25, Sodium Level 142, Potassium Level 4.0, Chloride Level 101, Carbon Dioxide Level 23, Anion Gap 18H, Blood Urea Nitrogen 8, Creatinine 0.6, Estimat Glomerular Filtration Rate > 60, Glucose Level 112H, Lactic Acid Level 2.70H, Calcium Level 9.8, Magnesium Level 2.1, Iron Level 27L, Total Iron Binding Capacity 451H, Percent Iron Saturation 6L, Unsaturated Iron Binding 424H, Ferritin 35, Total Bilirubin < 0.2, Aspartate Amino Transf (AST/SGOT) 20, Alanine Aminotransferase (ALT/SGPT) 23, Alkaline Phosphatase 117H, Total Creatine Kinase 48, Creatine Kinase MB 2.4, Creatine Kinase MB Relative Index 5.0, Troponin I < 0.30, C-Reactive Protein, Quantitative 2.0H, Total Protein 7.2, Albumin 4.1, Globulin 3.1, Albumin/ Globulin Ratio 1.3, Vitamin B12 Level 441, Folate [Pending] 10/27/16 18:00: Lactic Acid Level 2.00 10/28/16 07:50: White Blood Count 13.9H, Red Blood Count 4.65, Hemoglobin 11.6L, Hematocrit 35.8L, Mean Corpuscular Volume 77L, Mean Corpuscular Hemoglobin 25.0L, Mean Corpuscular Hemoglobin Concent 32.5, Red Cell Distribution Width 15.7H, Platelet Count 393, Mean Platelet Volume 6.4L, Neutrophils (%) (Auto) 71.5, Lymphocytes (%) (Auto) 23.5, Monocytes (%) (Auto) 3.9, Eosinophils (%) (Auto) 0.6, Basophils (%) (Auto) 0.6, Sodium Level 140, Potassium Level 3.7, Chloride Level 99, Carbon Dioxide Level 24, Anion Gap 17H, Blood Urea Nitrogen 11, Creatinine 0.7, Estimat Glomerular Filtration Rate > 60, Glucose Level 140H, Calcium Level 9.2, Total Bilirubin 0.4, Aspartate Amino Transf (AST/SGOT) 50H, Alanine Aminotransferase (ALT/SGPT) 34H, Alkaline Phosphatase 167H, Total Protein 6.8, Albumin 3.9, Globulin 2.9, Albumin/Globulin Ratio 1.3 Height (Feet): 5 Height (Inches): 0.00 Weight (Pounds): 142 General Appearance: no apparent distress EENT: TMs normal Neck: normal alignment Cardiovascular: normal rate Respiratory/Chest: lungs clear Abdomen: soft Extremities: non-tender Edema: no edema noted Leg (L), no edema noted Leg (R) Edema: mild edema Neurologic: alert Skin: warm/dry Brennan Esqueda Oct 28, 2016 09:03
[2016-10-28] MEDS: PredniSONE 5mg tab ORAL SCH (09:44)
[2016-10-28] MEDS: Sucralfate 1gm tab ORAL SCH ×3 (09:44→17:20)
[2016-10-28 11:29] VITALS: BP 140/70
--- NOTE | 2016-10-28 12:38 | History and Physical Report ---
DATE OF ADMISSION: 10/27/2016 HISTORY OF PRESENT ILLNESS: The patient is admitted for intractable abdominal pain. The patient has irritable bowel syndrome. The patient also complains of this getting worse over the past two weeks abdominal pain as well as nausea. No vomiting. The patient also gets constipation. The patient also has rheumatoid arthritis and severe anxiety. The patient has history of diverticulitis as well. The patient whenever I go into the room he was kind of calm, but when she saw me she was twisting in pain, complaining of abdominal pain, but when I did examine the patient's abdomen was soft and benign. PAST MEDICAL HISTORY: History of diverticulitis, history of proctitis, history of GI bleeding, history of diverticulosis, chronic pain syndrome, anxiety, fatty liver, history of GERD, rheumatoid arthritis, history of MAC, history of hemorrhoids, history of C. diff and history of insomnia. PAST SURGICAL HISTORY: Removal of the part of the bowels that was causing recurrent diverticulitis. MEDICATIONS: Remicade, gabapentin, lorazepam, Prevacid, Percocet, Carafate, Restoril, questionable prednisone, we are not sure about the prednisone the patient. ALLERGIES: To Vicodin. SOCIAL HISTORY: Denies smoking, alcohol, or illicit drugs. FAMILY HISTORY: Noncontributory. REVIEW OF SYSTEMS: HEENT: Denies headache. Respiratory: Denies shortness of breath. No cough. Cardiovascular: Denies chest pain. Gastrointestinal: Reports abdominal pain that is getting worse for the past two weeks associated with nausea and constipation. No rectal bleeding. No vomiting. Extremities: Denies pain in lower extremities. Central Nervous System: feels weak. PHYSICAL EXAMINATION: VITAL SIGNS: Temperature 98.3 degrees, pulse 99, and blood pressure 124/71. HEENT: PERRLA. NECK: Supple. No lymphadenopathy. CHEST: Clear to auscultation. GASTROINTESTINAL: Abdomen is soft. No organomegaly. Positive bowel sounds. EXTREMITIES: No edema. Reflexes are equal on both sides. Able to move all four extremities. LABORATORY AND DIAGNOSTIC DATA: WBC is 14.1, hemoglobin 12.6, and platelets 460,000. Lactic acid of 270. Sodium is 140, potassium 3.7, BUN is 11, creatinine 0.7, and glucose of 140. ASSESSMENT AND PLAN: 1. Possible mild dehydration. 2. Abdominal pain. 3. Irritable bowel syndrome. 4. Nausea. 5. Constipation. 6. Chronic pain syndrome. 7. Severe anxiety. I have asked Dr. Lee, Dr. Nguyen, Dr. Hdez, and Dr. Holman, to see the patient for the above-mentioned diagnoses and treatment. Carie Campbell M.D. DR: Ethan JOB#: [id number] CC:
[2016-10-28] MEDS: Ampicillin/Sulbactam Sod 3 GM in NS 110 ML IVPB SCH ×2 (14:23→21:10)
[2016-10-28 16:00] VITALS: BP 137/78
--- NOTE | 2016-10-28 18:13 | Infectious Diseases Prog Note ---
Assessment/Plan Problems: (1) Leukocytosis Assessment & Plan: dehydration VS colitis , will start unasyn and flagyl, send blood culture and stool for C diff (2) Abdominal pain Assessment & Plan: colitis VS IBS flare, continue pain management , consult GI (3) Diverticulitis Assessment & Plan: on IV antibiotics , monitor symptoms. Subjective Gastrointestinal/Abdominal: Reports: bloating, nausea, other - pain Allergies: Coded Allergies: HYDROCODONE BIT (Verified Allergy, Severe, Hives, 05/16/13) All Systems: reviewed and negative except above Objective Vital Signs Last 24 Hour Vital Signs Date Time Temp Pulse Resp B/P Pulse Ox O2 Delivery O2 Flow Rate FiO2 10/28/16 16:44 98.2 10/28/16 11:29 98.2 96 19 140/70 97 Room Air 10/28/16 07:55 97.4 93 21 145/55 98 Room Air 10/28/16 04:00 100.0 109 20 136/74 96 Room Air 10/28/16 00:00 101.7 104 20 141/84 97 Room Air 10/27/16 21:12 107 20 152/89 95 Room Air 10/27/16 20:42 99.5 115 18 159/125 99 Room Air 10/27/16 19:14 98.3 99 12 124/71 99 Room Air Height (Feet): 5 Height (Inches): 0.00 Weight (Pounds): 142 General Appearance: WD/WN, no acute distress HEENT: normocephalic, atraumatic, anicteric, mucous membranes moist Respiratory/Chest: chest wall non-tender, lungs clear, normal breath sounds, no respiratory distress, no accessory muscle use Cardiovascular: normal peripheral pulses, normal rate, regular rhythm, no gallop/murmur Abdomen: normal bowel sounds, no organomegaly, non distended, no mass, no scars , distended, tender Extremities: no cyanosis, no clubbing Skin: no rash, no lesions, no ulcers Laboratory Tests Test 10/28/16 07:50 White Blood Count 13.9 K/UL (4.8-10.8) H Red Blood Count 4.65 M/UL (4.20-5.40) Hemoglobin 11.6 G/DL (12.0-16.0) L Hematocrit 35.8 % (37.0-47.0) L Mean Corpuscular Volume 77 FL (80-99) L Mean Corpuscular Hemoglobin 25.0 PG (27.0-31.0) L Mean Corpuscular Hemoglobin Concent 32.5 G/DL (32.0-36.0) Red Cell Distribution Width 15.7 % (11.6-14.8) H Platelet Count 393 K/UL (150-450) Mean Platelet Volume 6.4 FL (6.5-10.1) L Neutrophils (%) (Auto) 71.5 % (45.0-75.0) Lymphocytes (%) (Auto) 23.5 % (20.0-45.0) Monocytes (%) (Auto) 3.9 % (1.0-10.0) Eosinophils (%) (Auto) 0.6 % (0.0-3.0) Basophils (%) (Auto) 0.6 % (0.0-2.0) Sodium Level 140 mEQ/L (135-145) Potassium Level 3.7 mEQ/L (3.4-4.9) Chloride Level 99 mEQ/L (98-107) Carbon Dioxide Level 24 mEQ/L (20-30) Anion Gap 17 (5-15) H Blood Urea Nitrogen 11 mg/dL (7-23) Creatinine 0.7 mg/dL (0.5-0.9) Estimat Glomerular Filtration Rate > 60 mL/min (>60) Glucose Level 140 mg/dL (74-106) H Calcium Level 9.2 mg/dL (8.6-10.2) Total Bilirubin 0.4 mg/dL (0.0-1.2) Aspartate Amino Transf (AST/SGOT) 50 U/L (5-40) H Alanine Aminotransferase (ALT/SGPT) 34 U/L (3-33) H Alkaline Phosphatase 167 U/L (35-104) H Total Protein 6.8 g/dL (6.6-8.7) Albumin 3.9 g/dL (3.5-5.2) Globulin 2.9 g/dL Albumin/Globulin Ratio 1.3 (1.0-2.7) Current Medications Medications (Trade) Dose Ordered Sig/Gabriel Route PRN Reason Start Time Stop Time Status Last Admin Dose Admin Acetaminophen (Tylenol) 650 mg Q4H PRN ORAL Mild Pain/Temp > 100.5 10/27/16 20:15 11/26/16 20:14 10/28/16 04:06 Ampicillin Sodium/ Sulbactam Sodium/ Sodium Chloride (Unasyn/Sodium Chloride) 110 ml @ 220 mls/hr Q8H IVPB 10/28/16 13:00 11/04/16 12:59 10/28/16 14:23 Gabapentin (Neurontin) 300 mg THREE TIMES A DAY ORAL 10/28/16 09:00 11/27/16 08:59 10/28/16 17:20 Lorazepam (Ativan) 1 mg Q6H PRN ORAL For Anxiety 10/28/16 11:45 11/04/16 11:44 Metronidazole 100 ml @ 100 mls/hr Q8HR IVPB 10/28/16 14:00 11/04/16 13:59 10/28/16 14:26 Morphine Sulfate 4 mg/Sodium Chloride 56 ml @ 223.751 mls/hr Q4H PRN IVPB MODERATE TO SEVERE PAIN 10/27/16 20:45 11/03/16 20:44 10/28/16 16:14 Ondansetron HCl 4 mg 4 mg Q6H PRN IVP Nausea & Vomiting 10/27/16 20:15 11/26/16 20:14 10/28/16 01:30 Pantoprazole (Protonix) 40 mg DAILY ORAL 10/28/16 09:00 11/27/16 08:59 10/28/16 09:44 Prednisone (predniSONE) 15 mg DAILY ORAL 10/28/16 09:00 11/27/16 08:59 10/28/16 09:44 Sodium Chloride (0.45% NS 1000ml) 1,000 ml @ 75 mls/hr [id number] IV 10/27/16 21:00 11/26/16 20:59 10/28/16 10:49 Sucralfate (Carafate) 1 gm TID ORAL 10/28/16 09:00 11/27/16 08:59 10/28/16 17:20 Temazepam 15 mg 15 mg HSPRN PRN ORAL Insomnia 10/27/16 20:15 11/03/16 20:14 Ty Nguyen M.D. Oct 28, 2016 18:12
[2016-10-28 20:00] VITALS: BP 147/64
--- NOTE | 2016-10-28 21:38 | Consultation ---
DATE OF CONSULTATION: INFECTIOUS DISEASE CONSULTATION CONSULTING PHYSICIAN: Ty Nguyen M.D. REQUESTING PHYSICIAN: Carie Campbell M.D. REASON FOR CONSULTATION: Fever, abdominal pain, rule out colitis and sepsis, recommendation for antibiotics therapy. HISTORY OF PRESENT ILLNESS: The patient is a 61-year-old female with history of rheumatoid arthritis, presented to [facility] with recurrent abdominal pain and constipation. The patient's symptom has been going on for couple of days. She has been constipated, had difficulty moving her bowels with significant pain when she does so. The patient had history of IBS and she has been using over the counter medication for it without significant help. The patient was noted to have leukocytosis in the emergency room, had a CT scan of the abdomen and pelvis showed postsurgical changes, but no acute process. Temperature was elevated. The patient received antibiotics therapy and was admitted to the hospital for further evaluation and management by Gastroenterology and I was consulted for antibiotics treatment and management of possible sepsis and colitis. REVIEW OF SYSTEMS: A 14-point of systems reviewed were all negative apart from the one I mentioned above in my history and physical. PAST MEDICAL HISTORY: Significant for rheumatoid arthritis, gastroesophageal reflux disease, diarrhea, C. difficile colitis, and IBS. PAST SURGICAL HISTORY: She had total abdominal hysterectomy 26 years ago. ALLERGIES: She is allergic to [place]. MEDICATIONS: She received Unasyn in the emergency room. SOCIAL HISTORY: The patient lives at home with family. Denied using any drugs, tobacco, or alcohol. FAMILY HISTORY: Not contributory. PHYSICAL EXAMINATION: VITAL SIGNS: Temperature 99.5, pulse 115, respirations 18, blood pressure 159/125, and O2 saturation 99% on room air. GENERAL: A middle-aged female, obese, up in bed, awake, alert, comfortable, not in distress. HEENT: Normocephalic and atraumatic. Pupils both reactive to light equally. Moist oral mucosa. No exudate. NECK: Supple. No lymphadenopathy. CARDIOVASCULAR: Regular rate and rhythm. No murmur or gallop. LUNGS: Clear bilaterally. No wheezing or rhonchi. Normal breathing effort. ABDOMEN: Soft, obese, distended, and mildly tender. No rebound. No organomegaly. No ascites. EXTREMITIES: No edema. No cyanosis. LABORATORY AND DIAGNOSTIC DATA: Labs: White count 14.5, hemoglobin 12.6, hematocrit 39.2, and platelet count of 460,000. Sedimentation rate of 46, BUN of 8, and creatinine of 0.6. AST of 20, ALT of 23, and alkaline phosphatase of 117. Urinalysis was negative for infection. Microbiology, no results available yet. Imaging: Chest x-ray showed no acute process. ASSESSMENT AND PLAN: 1. Leukocytosis, suspect colitis versus dehydration versus intra-abdominal pathology. We will start Unasyn and Flagyl empiric treatment. Send blood culture and stool for Clostridium difficile. 2. Abdominal pain. Suspect colitis versus irritable bowel syndrome flare. Continue pain management. Gastroenterology is following. May need colonoscopy. Continue wide-spectrum antibiotics therapy with Unasyn and Flagyl pending further culture results and images. 3. Possible diverticulitis. The patient already on intravenous antibiotics. Monitor symptoms closely. 4. Rheumatoid arthritis, stable on Remicade and oral steroid. Follow up with Rheumatology. Ty Nguyen M.D. DR: JAYME JOB#: [id number] CC:
--- NOTE | 2016-10-28 22:07 | Consultation ---
DATE OF CONSULTATION: HISTORY OF PRESENT ILLNESS: The patient is a 61-year-old female with a history of anxiety disorder, IBS has been admitted for exacerbation of abdominal pain. During the evaluation, the patient presented with anxiety, agitation, psychomotor agitation, and irritable mood. Increase of her abdominal pain which is not controllable with the pain medications. She also has difficulty sleeping, has fatigue. PAST MEDICAL HISTORY: She was diagnosed with anxiety disorder has been treated with anxiolytics in the past. No psychiatric hospitalizations. No suicide attempt. PAST MEDICAL HISTORY: Includes diverticulosis, gastrointestinal bleeding, IBS, fatty liver, gastroesophageal reflux disease, rheumatoid arthritis, PAST SURGICAL HISTORY: Includes removal of part of the bowel due to diverticulitis. MEDICATIONS: Include Percocet, Prevacid, loratadine, gabapentin, Restoril, Carafate. ALLERGIES: Vicodin. SUBSTANCE ABUSE HISTORY: No history of illicit drug use or alcohol. FAMILY HISTORY: Noncontributory. MENTAL STATUS EXAMINATION: Alert and oriented x4. Mood is anxious. Affect is constricted. Congruent with mood. Thought process, there is a paucity of thought content. No suicidal or homicidal ideation. ASSESSMENT: AXIS I: Anxiety disorder. AXIS II: Deferred. AXIS III: As above. AXIS IV: Moderate. AXIS V: Global assessment of functioning is 25. PLAN: 1. The patient will be started on Ativan as needed 1 mg every 4 hours as needed for anxiety and agitation. 2. Provide the patient with supportive therapy and reality orientation. 3. We will continue to follow and readjust the medications Fabiana Bryant M.D. DR: Joaquín JOB#: [id number] CC:
[2016-10-29] VITALS: BP 135/68
[2016-10-29] MEDS ORDERED: Morphine Sulfate 4mg/ml Inj ONE ×2 (00:34→06:28)
[2016-10-29] MEDS: NS IVPB PRN ×5 (00:48→22:24)
[2016-10-29] MEDS: MORPHINE SULFATE IVPB PRN ×5 (00:48→22:24)
[2016-10-29] MEDS: Oxycodone/Acetaminophen 5-325 ORAL PRN (03:10)
[2016-10-29 03:52] VITALS: BP 127/74
[2016-10-29] MEDS: Ampicillin/Sulbactam Sod 3 GM in NS 110 ML IVPB SCH ×3 (04:35→20:18)
[2016-10-29] MEDS: metroNIDAZOLE 500mg 100 ML IVPB SCH ×3 (05:29→21:38)
--- NOTE | 2016-10-29 06:18 | Consultation ---
DATE OF CONSULTATION: 10/28/2016 GASTROLOGY CONSULTATION CHIEF COMPLAINT: I was asked to see this patient for evaluation of abdominal pain. HISTORY OF PRESENT ILLNESS: This patient is a 61-year-old woman who comes in to the hospital for abdominal pain. The patient was tearful and crying throughout the examination and it is hard to have her focus and answering the questions. However, she does state that she has had irritable bowel syndrome for about 10 years. She also states she has been diagnosed with diverticulosis and also has had a partial colectomy 10 years ago. She states she has pain and she starts crying during the interview and she states that she had two to three weeks of abdominal pain with nausea and vomiting. She has had regular bowel movements without any constipation. She does have bloating and diffuse abdominal discomfort. She states that she has been evaluated for these abdominal ailments for the past 10 years multiple times. Her last colonoscopy was three years ago, which was unremarkable and her last endoscopy was two months ago at [facility]. She is unaware of the name of the doctors or those health institutions but she states that nothing significant was found. She is repeatedly requesting narcotic medications and she takes Percocet at home. She is also on prednisone at home. The patient did have some lactic acidosis, which was mild on admission and also she had a degree of leukocytosis on admission, which has improved. Her blood tests show microcytic changes and also mild anemia. Chemistry panel is remarkable for mild iron deficient anemia. Her liver tests are also mildly elevated. PAST MEDICAL HISTORY: Remarkable for history of rheumatoid arthritis, history of gastroesophageal disease, and history of Clostridium difficile colitis. PAST SURGICAL HISTORY: Status post total abdominal hysterectomy years ago. MEDICATIONS: The patient's home medications include temazepam, morphine, [place], Restoril, Ativan and Neurontin as well as Tylenol. ALLERGIES: [place]. FAMILY HISTORY: Noncontributory. SOCIAL HISTORY: The patient lives at home with her . She denies alcohol or drug use. REVIEW OF SYSTEMS: Otherwise negative. PHYSICAL EXAMINATION: GENERAL: The patient is a tearful, isolative woman, seen in her room. HEENT: Normocephalic and atraumatic. Sclerae anicteric. Oropharynx clear. NECK: Supple. CHEST: Clear to auscultation. CARDIOVASCULAR: Regular rate. ABDOMEN: Soft and diffusely tender when the patient was not distracted but apparently was nontender with the patient was distracted. The patient also complains of tenderness with pressing of skin at different times of examination. There is no organomegaly. EXTREMITIES: No edema. NEUROLOGIC: Nonfocal. LABORATORY AND DIAGNOSTIC DATA: Noted. ASSESSMENT: This patient presents with abdominal pain of unclear etiology. She has had some leukocytosis and lactic acidosis, which are mainly concerning for a more significant pathology. On the other hand, the patient appears to have this on a long-term basis and has had extensive gastrointestinal workup including endoscopy and colonoscopy. I would await the results of the CT scan on this patient, which was done today to evaluate the findings. In the meantime, we need to observe the patient very closely and in the meantime give her a course of broad-spectrum antibiotics with Flagyl. It would also be reasonable to rule out any acid secretion. We will check the patient's stool occult blood and try to obtain her outside records with respect to her and recent endoscopy and colonoscopy. RECOMMENDATIONS: Per above discussion. All orders written in the chart. Thank you for asking me to participate in the care of this patient. Blake Lee M.D. DR: RAJEEV JOB#: [id number] CC:
[2016-10-29] MEDS: Sucralfate 1gm tab ORAL SCH ×3 (08:06→17:41)
[2016-10-29] MEDS: LORazepam 1mg tab ORAL PRN (08:07)
[2016-10-29] MEDS: PredniSONE 5mg tab ORAL SCH (08:07)
[2016-10-29 08:28] VITALS: BP 136/81
--- NOTE | 2016-10-29 08:41 | General Progress Note ---
Assessment/Plan Assessment/Plan (1) Multiple joint pain (2) Rheumatoid arthritis (3) Intractable Abdominal pain (4) IBS We will continue the patient on Morphine and Percocet. The patient was discussed with Dr. Hdez and Dr. Hdez concurred. Subjective Date patient seen: Oct 29, 2016 Time patient seen: 08:00 - am Allergies: Coded Allergies: HYDROCODONE BIT (Verified Allergy, Severe, Hives, 05/16/13) Subjective REVIEW OF SYSTEMS: Denies rash, fever, chills, sweating, dizziness, drowsiness, blurred vision, sore throat, change in hearing or weight. No nausea, vomiting, or blood in the stool or urine. No bowel or bladder incontinence. No dysuria. She is complaining of abdominal pain, multiple joint pain. SUBJECTIVE: Pt is comfortable in bed reports that the pain is reduced at a 3/10 on the medications. Objective Last 24 Hour Vital Signs Date Time Temp Pulse Resp B/P Pulse Ox O2 Delivery O2 Flow Rate FiO2 10/29/16 08:28 98.2 83 15 136/81 97 Room Air 10/29/16 03:52 98.4 88 20 127/74 95 Room Air 10/29/16 00:00 99.1 102 20 135/68 96 Room Air 10/28/16 22:30 96.9 10/28/16 20:00 96.9 96 16 147/64 94 Room Air 10/28/16 16:00 99.1 96 16 137/78 95 Room Air 10/28/16 11:29 98.2 96 19 140/70 97 Room Air Intake and Output 10/28/16 10/29/16 19:00 07:00 Intake Total 600 ml 280 ml Output Total 300 ml Balance 300 ml 280 ml Intake Oral 0 ml 280 ml IV Total 600 ml Output Urine Total 300 ml # Voids 5 # Bowel Movements 1 Laboratory Tests 10/29/16 06:00: Stool Occult Blood Negative Height (Feet): 5 Height (Inches): 0.00 Weight (Pounds): 142 Objective PHYSICAL EXAMINATION: GENERAL: Alert, awake, and oriented x3. HEENT: PERRLA. NECK: Range of motion is full in all directions. No tenderness in paracervical muscles. No adenopathy. LUNGS: Clear. HEART: S1 and S2, regular. ABDOMEN: Obese, tenderness to palpation. BACK: Range of motion is decreased in flexion and extension with tenderness to paraspinal muscles. No tenderness to trapezial or rhomboid muscles. EXTREMITIES: No cyanosis. No clubbing. No edema. NEUROLOGICAL EXAM: No focal deficits. MARTHA NOVAK Oct 29, 2016 08:41
[2016-10-29] MEDS: Pantoprazole Inj IVP SCH (08:59)
--- NOTE | 2016-10-29 10:46 | General Progress Note ---
Assessment/Plan Problem List: (1) Vomiting (2) anxiety (3) Diverticulosis ICD Codes: K57.90 - Diverticulosis SNOMED: 755240906 (4) Fatty liver ICD Codes: K76.0 - Fatty liver SNOMED: 955977844 (5) Abdominal pain ICD Codes: R10.9 - Unspecified abdominal pain SNOMED: 24168250 (6) Depressed affect ICD Codes: F32.9 - Depressed affect SNOMED: 295684627 Status: progressing Assessment/Plan intractable abd pain however the abdomen is soft no vomit today afebrile Subjective ROS Limited/Unobtainable: Yes Allergies: Coded Allergies: HYDROCODONE BIT (Verified Allergy, Severe, Hives, 05/16/13) Subjective abdominal pain Objective Last 24 Hour Vital Signs Date Time Temp Pulse Resp B/P Pulse Ox O2 Delivery O2 Flow Rate FiO2 10/29/16 08:28 98.2 83 15 136/81 97 Room Air 10/29/16 03:52 98.4 88 20 127/74 95 Room Air 10/29/16 00:00 99.1 102 20 135/68 96 Room Air 10/28/16 22:30 96.9 10/28/16 20:00 96.9 96 16 147/64 94 Room Air 10/28/16 16:00 99.1 96 16 137/78 95 Room Air 10/28/16 11:29 98.2 96 19 140/70 97 Room Air Intake and Output 10/28/16 10/29/16 19:00 07:00 Intake Total 600 ml 280 ml Output Total 300 ml Balance 300 ml 280 ml Intake Oral 0 ml 280 ml IV Total 600 ml Output Urine Total 300 ml # Voids 5 # Bowel Movements 1 Laboratory Tests 10/29/16 06:00: Stool Occult Blood Negative Height (Feet): 5 Height (Inches): 0.00 Weight (Pounds): 142 Abdomen: soft, tender Carie Campbell MD Oct 29, 2016 10:46
[2016-10-29 12:01] VITALS: BP 126/56
--- NOTE | 2016-10-29 15:20 | General Progress Note ---
Assessment/Plan Assessment/Plan ASSESSMENT: 1. Abdominal pain c/w with likely diverticulitis - improved on antibiotics, significantly 2. Anemia secondary to chronic disease. s/p egd which showed gastritis 3. Leukocytosis, 2/2 infection, continue to monitor 4. Thrombocytosis due to prior infection. 5. A 2.3 cm lower pole thyroid mass noted, on thyroid us as well, TSH/T3/T4 are wnl 6. Clostridium difficile colitis. 7. Gastritis. RECOMMENDATIONS: 1. Monitor counts. 2. Peripheral smear reviewed, wnl 3. Antibiotics as needed 4. F/U on pain management recs 6. Currently on wax molder pump 7. Endo f/u in future 8. DW staff. Thank you, Brennan Esqueda MD Subjective Constitutional: Reports: no symptoms HEENT: Reports: no symptoms Cardiovascular: Reports: no symptoms Respiratory: Reports: no symptoms Gastrointestinal/Abdominal: Reports: poor appetite Genitourinary: Reports: no symptoms Neurologic/Psychiatric: Reports: no symptoms Endocrine: Reports: no symptoms Hematologic/Lymphatic: Reports: anemia Allergies: Coded Allergies: HYDROCODONE BIT (Verified Allergy, Severe, Hives, 05/16/13) Subjective does have severe abdominal pain c/w diverticulitis, no bleeding, no hematochezia or hematemesis Objective Last 24 Hour Vital Signs Date Time Temp Pulse Resp B/P Pulse Ox O2 Delivery O2 Flow Rate FiO2 10/29/16 12:01 97.9 77 15 126/56 95 Room Air 10/29/16 08:28 98.2 83 15 136/81 97 Room Air 10/29/16 03:52 98.4 88 20 127/74 95 Room Air 10/29/16 00:00 99.1 102 20 135/68 96 Room Air 10/28/16 22:30 96.9 10/28/16 20:00 96.9 96 16 147/64 94 Room Air 10/28/16 16:00 99.1 96 16 137/78 95 Room Air Intake and Output 10/28/16 10/29/16 19:00 07:00 Intake Total 600 ml 280 ml Output Total 300 ml Balance 300 ml 280 ml Intake Oral 0 ml 280 ml IV Total 600 ml Output Urine Total 300 ml # Voids 5 # Bowel Movements 1 Laboratory Tests 10/29/16 06:00: Stool Occult Blood Negative Height (Feet): 5 Height (Inches): 0.00 Weight (Pounds): 142 General Appearance: no apparent distress EENT: TMs normal Neck: supple Cardiovascular: normal rate Respiratory/Chest: chest wall non-tender Abdomen: non tender, no organomegaly Extremities: non-tender Edema: 1+ Leg (L), 1+ Leg (R) Edema: mild edema Neurologic: alert Skin: normal pigmentation Brennan Esqueda Oct 29, 2016 15:20
[2016-10-29 16:00] VITALS: BP 143/69
--- NOTE | 2016-10-29 17:05 | Infectious Diseases Prog Note ---
Assessment/Plan Problems: (1) Leukocytosis Assessment & Plan: dehydration VS colitis , on unasyn and flagyl, blood culture is pending , and stool for C diff is pending too (2) Abdominal pain Assessment & Plan: colitis VS IBS flare, continue pain management , GI is following , may need colonoscopy (3) Diverticulitis Assessment & Plan: on IV antibiotics , monitor symptoms. (4) Rheumatoid arthritis Assessment & Plan: stable om Remicade , and steroids Subjective Gastrointestinal/Abdominal: Reports: bloating, constipation, nausea Allergies: Coded Allergies: HYDROCODONE BIT (Verified Allergy, Severe, Hives, 05/16/13) All Systems: reviewed and negative except above Objective Vital Signs Last 24 Hour Vital Signs Date Time Temp Pulse Resp B/P Pulse Ox O2 Delivery O2 Flow Rate FiO2 10/29/16 16:00 98.2 87 20 143/69 93 Room Air 10/29/16 12:01 97.9 77 15 126/56 95 Room Air 10/29/16 08:28 98.2 83 15 136/81 97 Room Air 10/29/16 03:52 98.4 88 20 127/74 95 Room Air 10/29/16 00:00 99.1 102 20 135/68 96 Room Air 10/28/16 22:30 96.9 10/28/16 20:00 96.9 96 16 147/64 94 Room Air Height (Feet): 5 Height (Inches): 0.00 Weight (Pounds): 142 General Appearance: WD/WN, no acute distress HEENT: normocephalic, atraumatic, anicteric, mucous membranes moist Respiratory/Chest: chest wall non-tender, lungs clear, normal breath sounds, no respiratory distress, no accessory muscle use Cardiovascular: normal peripheral pulses, normal rate, regular rhythm, no gallop/murmur Abdomen: normal bowel sounds, no organomegaly, no mass, no scars, distended, tender Extremities: no cyanosis, no clubbing Skin: no rash, no lesions, no ulcers Microbiology Date/Time Source Procedure Growth Status 10/27/16 15:35 Blood Blood Culture - Preliminary NO GROWTH AFTER 24 HOURS Resulted 10/27/16 15:20 Blood Blood Culture - Preliminary NO GROWTH AFTER 24 HOURS Resulted Laboratory Tests Test 10/29/16 06:00 Stool Occult Blood Negative (NEGATIVE) Current Medications Medications (Trade) Dose Ordered Sig/Gabriel Route PRN Reason Start Time Stop Time Status Last Admin Dose Admin Acetaminophen (Tylenol) 650 mg Q4H PRN ORAL Mild Pain/Temp > 100.5 10/27/16 20:15 11/26/16 20:14 10/28/16 04:06 Al Hydroxide/Mg Hydroxide (Mylanta) 30 ml Q4H PRN ORAL Abdominal cramps 10/28/16 19:30 11/27/16 19:29 10/28/16 19:32 Ampicillin Sodium/ Sulbactam Sodium/ Sodium Chloride (Unasyn/Sodium Chloride) 110 ml @ 220 mls/hr Q8H IVPB 10/28/16 13:00 11/04/16 12:59 10/29/16 12:40 Gabapentin (Neurontin) 300 mg THREE TIMES A DAY ORAL 10/28/16 09:00 11/27/16 08:59 10/29/16 12:39 Lorazepam (Ativan) 1 mg Q6H PRN ORAL For Anxiety 10/28/16 11:45 11/04/16 11:44 10/29/16 08:07 Metronidazole 100 ml @ 100 mls/hr Q8HR IVPB 10/28/16 14:00 11/04/16 13:59 10/29/16 14:32 Morphine Sulfate/ Sodium Chloride (Morphine Sulfate/Sodium Chloride) 56 ml @ 223.751 mls/hr Q4H PRN IVPB SEVERE PAIN 10/28/16 22:59 11/03/16 20:44 10/29/16 13:06 Ondansetron HCl 4 mg 4 mg Q6H PRN IVP Nausea & Vomiting 10/27/16 20:15 11/26/16 20:14 10/29/16 00:54 Oxycodone/ Acetaminophen 1 tab 1 tab Q4H PRN ORAL moderate pain 10/28/16 23:00 11/04/16 22:59 10/29/16 03:10 Pantoprazole (Protonix) 40 mg DAILY IVP 10/29/16 09:00 11/28/16 08:59 10/29/16 08:59 Prednisone (predniSONE) 15 mg DAILY ORAL 10/28/16 09:00 11/27/16 08:59 10/29/16 08:07 Sodium Chloride (0.45% NS 1000ml) 1,000 ml @ 75 mls/hr [id number] IV 10/27/16 21:00 11/26/16 20:59 10/29/16 12:40 Sucralfate (Carafate) 1 gm TID ORAL 10/28/16 09:00 11/27/16 08:59 10/29/16 12:39 Temazepam 15 mg 15 mg HSPRN PRN ORAL Insomnia 10/27/16 20:15 11/03/16 20:14 Ty Nguyen M.D. Oct 29, 2016 17:05
--- NOTE | 2016-10-29 17:51 | General Progress Note ---
Assessment/Plan Assessment/Plan Assessment - longstanding IBS - abdominal pain , ? functional - abnormal LFT - mild leukocytosis Recommendations - po as tolerated - check hepatitis serologies - OOB - d/c planning - outpatient f/u Subjective Allergies: Coded Allergies: HYDROCODONE BIT (Verified Allergy, Severe, Hives, 05/16/13) Subjective Feels better still with some pain going through PT CT results pending Objective Last 24 Hour Vital Signs Date Time Temp Pulse Resp B/P Pulse Ox O2 Delivery O2 Flow Rate FiO2 10/29/16 16:00 98.2 87 20 143/69 93 Room Air 10/29/16 12:01 97.9 77 15 126/56 95 Room Air 10/29/16 08:28 98.2 83 15 136/81 97 Room Air 10/29/16 03:52 98.4 88 20 127/74 95 Room Air 10/29/16 00:00 99.1 102 20 135/68 96 Room Air 10/28/16 22:30 96.9 10/28/16 20:00 96.9 96 16 147/64 94 Room Air Intake and Output 10/28/16 10/29/16 19:00 07:00 Intake Total 600 ml 280 ml Output Total 300 ml Balance 300 ml 280 ml Intake Oral 0 ml 280 ml IV Total 600 ml Output Urine Total 300 ml # Voids 5 # Bowel Movements 1 Laboratory Tests 10/29/16 06:00: Stool Occult Blood Negative Height (Feet): 5 Height (Inches): 0.00 Weight (Pounds): 142 Objective WDWN NCAT supple CTA RRR Soft ND, no mass no edema Non focal MAREN GUZMAN Oct 29, 2016 17:51
[2016-10-29 19:00] VITALS: BP 145/74
[2016-10-30] VITALS: BP 111/57
[2016-10-30] MEDS: Oxycodone/Acetaminophen 5-325 ORAL PRN (02:44)
[2016-10-30] MEDS: Ampicillin/Sulbactam Sod 3 GM in NS 110 ML IVPB SCH ×2 (03:59→12:56)
[2016-10-30 04:00] VITALS: BP 146/54
[2016-10-30] MEDS: metroNIDAZOLE 500mg 100 ML IVPB SCH ×2 (05:08→14:02)
[2016-10-30] MEDS: LORazepam 1mg tab ORAL PRN ×2 (05:14→19:36)
[2016-10-30 08:00] VITALS: BP 129/56
[2016-10-30] MEDS: NS IVPB PRN ×4 (08:17→21:49)
[2016-10-30] MEDS: MORPHINE SULFATE IVPB PRN ×4 (08:17→21:49)
[2016-10-30] MEDS: PredniSONE 5mg tab ORAL SCH (08:56)
[2016-10-30] MEDS: Pantoprazole Inj IVP SCH (08:56)
[2016-10-30] MEDS: Sucralfate 1gm tab ORAL SCH ×3 (08:56→18:19)
--- NOTE | 2016-10-30 09:36 | General Progress Note ---
Assessment/Plan Assessment/Plan (1) Multiple joint pain (2) Rheumatoid arthritis (3) Intractable Abdominal pain (4) IBS We will continue the patient on Morphine and Percocet. The patient was discussed with Dr. Hdez and Dr. Hdez concurred. Subjective Date patient seen: Oct 30, 2016 Time patient seen: 08:00 - am Allergies: Coded Allergies: HYDROCODONE BIT (Verified Allergy, Severe, Hives, 05/16/13) Subjective REVIEW OF SYSTEMS: Denies rash, fever, chills, sweating, dizziness, drowsiness, blurred vision, sore throat, change in hearing or weight. No nausea, vomiting, or blood in the stool or urine. No bowel or bladder incontinence. No dysuria. She is complaining of abdominal pain, multiple joint pain. SUBJECTIVE: Pain has been fluctuating and is at a 8/10 at this time reduced to a 4/10 on medication. Objective Last 24 Hour Vital Signs Date Time Temp Pulse Resp B/P Pulse Ox O2 Delivery O2 Flow Rate FiO2 10/30/16 08:00 98.4 96 20 129/56 100 Room Air 10/30/16 04:00 98.1 78 20 146/54 97 Room Air 10/30/16 03:43 98.1 10/30/16 01:37 98.1 10/30/16 00:00 98.1 76 20 111/57 96 Room Air 10/29/16 19:00 96.8 84 20 145/74 95 Room Air 10/29/16 16:00 98.2 87 20 143/69 93 Room Air 10/29/16 12:01 97.9 77 15 126/56 95 Room Air Intake and Output 10/29/16 10/30/16 19:00 07:00 Intake Total 1203 ml 1091 ml Output Total 200 ml Balance 1003 ml 1091 ml Intake Oral 0 ml IV Total 1203 ml 1091 ml Output Urine Total 200 ml # Voids 5 Height (Feet): 5 Height (Inches): 0.00 Weight (Pounds): 142 Objective PHYSICAL EXAMINATION: GENERAL: Alert, awake, and oriented x3. HEENT: PERRLA. NECK: Range of motion is full in all directions. No tenderness in paracervical muscles. No adenopathy. LUNGS: Clear. HEART: S1 and S2, regular. ABDOMEN: Obese, tenderness to palpation. BACK: Range of motion is decreased in flexion and extension with tenderness to paraspinal muscles. No tenderness to trapezial or rhomboid muscles. EXTREMITIES: No cyanosis. No clubbing. No edema. NEUROLOGICAL EXAM: No focal deficits. MARTHA NOVAK Oct 30, 2016 09:36
--- NOTE | 2016-10-30 11:00 | General Progress Note ---
Assessment/Plan Assessment/Plan ASSESSMENT: 1. Abdominal pain c/w with likely diverticulitis - has improved significantly on antibiotics 2. Anemia secondary to chronic disease. s/p egd which showed gastritis 3. Leukocytosis, 2/2 infection, continue to monitor 4. Thrombocytosis due to prior infection. 5. A 2.3 cm lower pole thyroid mass noted, on thyroid us as well, TSH/T3/T4 are wnl 6. Clostridium difficile colitis. 7. Gastritis. RECOMMENDATIONS: 1. Monitor counts. 2. Peripheral smear reviewed, wnl 3. Antibiotics as needed 4. F/U on pain management recs 6. Currently is on a chair springer pump 7. Endo f/u in future 8. DW staff. Thank you, Brennan Esqueda MD Subjective Constitutional: Reports: no symptoms HEENT: Reports: no symptoms Cardiovascular: Reports: no symptoms Respiratory: Reports: no symptoms Gastrointestinal/Abdominal: Reports: no symptoms Genitourinary: Reports: no symptoms Neurologic/Psychiatric: Reports: no symptoms Endocrine: Reports: unexplained weight loss Hematologic/Lymphatic: Reports: anemia Allergies: Coded Allergies: HYDROCODONE BIT (Verified Allergy, Severe, Hives, 05/16/13) Subjective does have severe abdominal pain c/w diverticulitis, no bleeding, no hematochezia or hematemesis Objective Last 24 Hour Vital Signs Date Time Temp Pulse Resp B/P Pulse Ox O2 Delivery O2 Flow Rate FiO2 10/30/16 08:00 98.4 96 20 129/56 100 Room Air 10/30/16 04:00 98.1 78 20 146/54 97 Room Air 10/30/16 03:43 98.1 10/30/16 01:37 98.1 10/30/16 00:00 98.1 76 20 111/57 96 Room Air 10/29/16 19:00 96.8 84 20 145/74 95 Room Air 10/29/16 16:00 98.2 87 20 143/69 93 Room Air 10/29/16 12:01 97.9 77 15 126/56 95 Room Air Intake and Output 10/29/16 10/30/16 19:00 07:00 Intake Total 1203 ml 1091 ml Output Total 200 ml Balance 1003 ml 1091 ml Intake Oral 0 ml IV Total 1203 ml 1091 ml Output Urine Total 200 ml # Voids 5 Height (Feet): 5 Height (Inches): 0.00 Weight (Pounds): 142 General Appearance: no apparent distress EENT: TMs normal Neck: normal inspection Cardiovascular: regular rhythm Respiratory/Chest: normal breath sounds Abdomen: soft Extremities: non-tender Edema: 1+ Leg (L), 1+ Pedal (L) Edema: mild edema Neurologic: alert Skin: warm/dry Brennan Esqueda Oct 30, 2016 11:00
[2016-10-30 11:32] LABS: BASOPHILS % (AUTO) 0.5 % (0.0-2.0); EOSINOPHILS % (AUTO) 0.4 % (0.0-3.0); LYMPHOCYTES % (AUTO) 11.1 % (20.0-45.0); MEAN CORPUSCULAR HEMOGLOBIN 24.1 PG (27.0-31.0); MEAN CORPUSCULAR HGB CONC 31.2 G/DL (32.0-36.0); MEAN CORPUSCULAR VOLUME 77 FL (80-99); MEAN PLATELET VOLUME 7.2 FL (6.5-10.1); MONOCYTES % (AUTO) 3.5 % (1.0-10.0); NEUTROPHILS % (AUTO) 84.6 % (45.0-75.0); PLATELET COUNT 380 K/UL (150-450); RED BLOOD COUNT 4.52 M/UL (4.20-5.40); RED CELL DISTRIBUTION WIDTH 15.9 % (11.6-14.8)
[2016-10-30 12:00] VITALS: BP 143/67
[2016-10-30 16:00] VITALS: BP 148/64
--- NOTE | 2016-10-30 17:16 | Infectious Diseases Prog Note ---
Assessment/Plan Problems: (1) Leukocytosis Assessment & Plan: most likely steroids related and dehydration , on unasyn and flagyl, blood culture is negative for 48 hours , and stool for C diff is negative too, will D/C antibiotics and observe . (2) Abdominal pain Assessment & Plan: colitis VS IBS flare, continue pain management , GI is following , may need colonoscopy (3) Rheumatoid arthritis Assessment & Plan: stable om Remicade , and steroids Subjective Gastrointestinal/Abdominal: Reports: bloating, constipation, nausea Allergies: Coded Allergies: HYDROCODONE BIT (Verified Allergy, Severe, Hives, 05/16/13) All Systems: reviewed and negative except above Objective Vital Signs Last 24 Hour Vital Signs Date Time Temp Pulse Resp B/P Pulse Ox O2 Delivery O2 Flow Rate FiO2 10/30/16 16:00 98.8 81 18 148/64 93 Room Air 10/30/16 12:00 98.2 88 18 143/67 97 Room Air 10/30/16 08:00 98.4 96 20 129/56 100 Room Air 10/30/16 04:00 98.1 78 20 146/54 97 Room Air 10/30/16 03:43 98.1 10/30/16 01:37 98.1 10/30/16 00:00 98.1 76 20 111/57 96 Room Air 10/29/16 19:00 96.8 84 20 145/74 95 Room Air Height (Feet): 5 Height (Inches): 0.00 Weight (Pounds): 142 General Appearance: WD/WN, no acute distress HEENT: normocephalic, atraumatic, anicteric, mucous membranes moist Respiratory/Chest: chest wall non-tender, lungs clear, normal breath sounds, no respiratory distress, no accessory muscle use Cardiovascular: normal peripheral pulses, normal rate, regular rhythm, no gallop/murmur, no JVD Abdomen: normal bowel sounds, soft, non tender, no organomegaly, non distended , no mass, no scars Extremities: no cyanosis, no clubbing Skin: no rash, no lesions, no ulcers Laboratory Tests Test 10/30/16 11:20 White Blood Count 15.0 K/UL (4.8-10.8) H Red Blood Count 4.52 M/UL (4.20-5.40) Hemoglobin 10.9 G/DL (12.0-16.0) L Hematocrit 34.9 % (37.0-47.0) L Mean Corpuscular Volume 77 FL (80-99) L Mean Corpuscular Hemoglobin 24.1 PG (27.0-31.0) L Mean Corpuscular Hemoglobin Concent 31.2 G/DL (32.0-36.0) L Red Cell Distribution Width 15.9 % (11.6-14.8) H Platelet Count 380 K/UL (150-450) Mean Platelet Volume 7.2 FL (6.5-10.1) Neutrophils (%) (Auto) 84.6 % (45.0-75.0) H Lymphocytes (%) (Auto) 11.1 % (20.0-45.0) L Monocytes (%) (Auto) 3.5 % (1.0-10.0) Eosinophils (%) (Auto) 0.4 % (0.0-3.0) Basophils (%) (Auto) 0.5 % (0.0-2.0) Hepatitis A IgM Antibody Pending Hepatitis B Surface Antigen Pending Hepatitis B Core IgM Antibody Pending Hepatitis C Antibody Pending Current Medications Medications (Trade) Dose Ordered Sig/Gabriel Route PRN Reason Start Time Stop Time Status Last Admin Dose Admin Acetaminophen (Tylenol) 650 mg Q4H PRN ORAL Mild Pain/Temp > 100.5 10/27/16 20:15 11/26/16 20:14 10/30/16 00:38 Al Hydroxide/Mg Hydroxide (Mylanta) 30 ml Q4H PRN ORAL Abdominal cramps 10/28/16 19:30 11/27/16 19:29 10/28/16 19:32 Ampicillin Sodium/ Sulbactam Sodium/ Sodium Chloride (Unasyn/Sodium Chloride) 110 ml @ 220 mls/hr Q8H IVPB 10/28/16 13:00 11/04/16 12:59 10/30/16 12:56 Gabapentin (Neurontin) 300 mg THREE TIMES A DAY ORAL 10/28/16 09:00 11/27/16 08:59 10/30/16 12:22 Lorazepam (Ativan) 1 mg Q6H PRN ORAL For Anxiety 10/28/16 11:45 11/04/16 11:44 10/30/16 05:14 Metronidazole 100 ml @ 100 mls/hr Q8HR IVPB 10/28/16 14:00 11/04/16 13:59 10/30/16 14:02 Morphine Sulfate/ Sodium Chloride (Morphine Sulfate/Sodium Chloride) 56 ml @ 223.751 mls/hr Q4H PRN IVPB SEVERE PAIN 10/28/16 22:59 11/03/16 20:44 10/30/16 16:29 Ondansetron HCl 4 mg 4 mg Q6H PRN IVP Nausea & Vomiting 10/27/16 20:15 11/26/16 20:14 10/29/16 21:47 Oxycodone/ Acetaminophen 1 tab 1 tab Q4H PRN ORAL moderate pain 10/28/16 23:00 11/04/16 22:59 10/30/16 02:44 Pantoprazole (Protonix) 40 mg DAILY IVP 10/29/16 09:00 11/28/16 08:59 10/30/16 08:56 Prednisone (predniSONE) 15 mg DAILY ORAL 10/28/16 09:00 11/27/16 08:59 10/30/16 08:56 Sodium Chloride (0.45% NS 1000ml) 1,000 ml @ 75 mls/hr [id number] IV 10/27/16 21:00 11/26/16 20:59 10/30/16 15:52 Sucralfate (Carafate) 1 gm TID ORAL 10/28/16 09:00 11/27/16 08:59 10/30/16 12:22 Temazepam 15 mg 15 mg HSPRN PRN ORAL Insomnia 10/27/16 20:15 11/03/16 20:14 10/30/16 00:32 Ty Nguyen M.D. Oct 30, 2016 17:16
[2016-10-30 20:00] VITALS: BP 145/64
--- NOTE | 2016-10-30 23:08 | General Progress Note ---
Assessment/Plan Assessment/Plan Assessment - longstanding IBS - abdominal pain , ? functional - suspect a significant anxiety component - abnormal LFT - ? TINEO - mild leukocytosis Recommendations - po as tolerated - check hepatitis serologies --> negative - OOB - d/c planning - outpatient f/u Subjective Allergies: Coded Allergies: HYDROCODONE BIT (Verified Allergy, Severe, Hives, 05/16/13) Subjective Feels same still with some pain going through PT CT results noted Per radiologist, multiple CT's done in last 3 years Objective Last 24 Hour Vital Signs Date Time Temp Pulse Resp B/P Pulse Ox O2 Delivery O2 Flow Rate FiO2 10/30/16 20:00 98.2 84 16 145/64 95 Room Air 10/30/16 16:00 98.8 81 18 148/64 93 Room Air 10/30/16 12:00 98.2 88 18 143/67 97 Room Air 10/30/16 08:00 98.4 96 20 129/56 100 Room Air 10/30/16 04:00 98.1 78 20 146/54 97 Room Air 10/30/16 03:43 98.1 10/30/16 01:37 98.1 10/30/16 00:00 98.1 76 20 111/57 96 Room Air Intake and Output 10/29/16 10/30/16 19:00 07:00 Intake Total 1203 ml 1091 ml Output Total 200 ml Balance 1003 ml 1091 ml Intake Oral 0 ml IV Total 1203 ml 1091 ml Output Urine Total 200 ml # Voids 5 Laboratory Tests 10/30/16 11:20: White Blood Count 15.0H, Red Blood Count 4.52, Hemoglobin 10.9L, Hematocrit 34.9L, Mean Corpuscular Volume 77L, Mean Corpuscular Hemoglobin 24.1L, Mean Corpuscular Hemoglobin Concent 31.2L, Red Cell Distribution Width 15.9H, Platelet Count 380, Mean Platelet Volume 7.2, Neutrophils (%) (Auto) 84.6H, Lymphocytes (%) (Auto) 11.1L, Monocytes (%) (Auto) 3.5, Eosinophils (%) (Auto) 0.4, Basophils (%) (Auto) 0.5, Hepatitis A IgM Antibody [Pending], Hepatitis B Surface Antigen [Pending], Hepatitis B Core IgM Antibody [Pending], Hepatitis C Antibody [Pending] Height (Feet): 5 Height (Inches): 0.00 Weight (Pounds): 142 Objective WDWN NCAT supple CTA RRR Soft ND, no mass no edema Non focal MAREN GUZMAN Oct 30, 2016 23:08
[2016-10-31] VITALS: BP 133/56
[2016-10-31] MEDS: NS IVPB PRN ×3 (02:42→19:00)
[2016-10-31] MEDS: MORPHINE SULFATE IVPB PRN ×3 (02:42→19:00)
[2016-10-31 04:00] VITALS: BP 142/70
[2016-10-31 07:55] VITALS: BP 147/67
[2016-10-31] MEDS: PredniSONE 5mg tab ORAL SCH (09:16)
[2016-10-31] MEDS: Sucralfate 1gm tab ORAL SCH ×3 (09:16→17:32)
[2016-10-31] MEDS: Pantoprazole Inj IVP SCH (09:16)
[2016-10-31 11:28] VITALS: BP 159/65
--- NOTE | 2016-10-31 12:39 | General Progress Note ---
Assessment/Plan Problem List: (1) Vomiting (2) anxiety (3) Diverticulosis ICD Codes: K57.90 - Diverticulosis SNOMED: 924305551 (4) Fatty liver ICD Codes: K76.0 - Fatty liver SNOMED: 042504375 (5) Abdominal pain ICD Codes: R10.9 - Unspecified abdominal pain SNOMED: 51568361 (6) Depressed affect ICD Codes: F32.9 - Depressed affect SNOMED: 412999310 Status: progressing Assessment/Plan intractable abd pain however the abdomen is soft no vomit today dc planning improving Subjective ROS Limited/Unobtainable: Yes Constitutional: Reports: no symptoms Allergies: Coded Allergies: HYDROCODONE BIT (Verified Allergy, Severe, Hives, 05/16/13) Subjective abdominal pain Objective Last 24 Hour Vital Signs Date Time Temp Pulse Resp B/P Pulse Ox O2 Delivery O2 Flow Rate FiO2 10/31/16 11:28 97.2 80 16 159/65 98 Room Air 10/31/16 10:43 98.2 10/31/16 07:55 98.2 85 16 147/67 94 Room Air 10/31/16 04:00 97.9 80 20 142/70 97 Room Air 10/31/16 00:00 98.2 78 20 133/56 93 Room Air 10/30/16 20:00 98.2 84 16 145/64 95 Room Air 10/30/16 16:00 98.8 81 18 148/64 93 Room Air Intake and Output 10/30/16 10/31/16 19:00 07:00 Intake Total 581 ml 1292 ml Balance 581 ml 1292 ml Intake Oral 300 ml 430 ml IV Total 281 ml 862 ml # Voids 1 4 # Bowel Movements 4 Height (Feet): 5 Height (Inches): 0.00 Weight (Pounds): 142 Neck: supple Cardiovascular: normal rate Respiratory/Chest: lungs clear Abdomen: soft Carie Campbell MD Oct 31, 2016 12:39
--- NOTE | 2016-10-31 15:42 | Infectious Diseases Prog Note ---
Assessment/Plan Problems: (1) Leukocytosis Assessment & Plan: most likely steroids related and dehydration , on unasyn and flagyl, blood culture is negative so far, and stool for C diff is negative too, will monitor off antibiotics . (2) Abdominal pain Assessment & Plan: colitis VS IBS flare, continue pain management , GI is following , may need colonoscopy (3) Rheumatoid arthritis Assessment & Plan: stable om Remicade , and steroids, follow up with rheumatology Subjective Constitutional: Denies: anorexia, chills, drenching sweats, fatigue, fever, no symptoms, other HEENT: Denies: congestion, coryza, dysphagia, hearing change, no symptoms, other, visual change Respiratory: Denies: dry cough, no symptoms, other, productive cough, shortness of breath Breasts: Denies: discharge, no symptoms, other, swelling, tenderness Cardiovascular: Denies: chest pain, dyspnea on exertion, no symptoms, other, palpitations Gastrointestinal/Abdominal: Reports: bloating, nausea Genitourinary: Denies: dysuria, frequency, hematuria, last menstrual period, no symptoms, nocturia, other, vaginal bleed/discharge Neurologic: Denies: confusion, headache, no symptoms, numbness, other, weakness Psychiatric: Denies: anxiety, depression, no symptoms, other Skin: Denies: no symptoms, other, rash, ulcer Endocrine: Denies: feels cold, feels warm, no symptoms, other Allergies: Coded Allergies: HYDROCODONE BIT (Verified Allergy, Severe, Hives, 05/16/13) Objective Vital Signs Last 24 Hour Vital Signs Date Time Temp Pulse Resp B/P Pulse Ox O2 Delivery O2 Flow Rate FiO2 10/31/16 11:28 97.2 80 16 159/65 98 Room Air 10/31/16 10:43 98.2 10/31/16 07:55 98.2 85 16 147/67 94 Room Air 10/31/16 04:00 97.9 80 20 142/70 97 Room Air 10/31/16 00:00 98.2 78 20 133/56 93 Room Air 10/30/16 20:00 98.2 84 16 145/64 95 Room Air 10/30/16 16:00 98.8 81 18 148/64 93 Room Air Height (Feet): 5 Height (Inches): 0.00 Weight (Pounds): 142 General Appearance: WD/WN, no acute distress HEENT: normocephalic, atraumatic, anicteric, mucous membranes moist Respiratory/Chest: chest wall non-tender, lungs clear, normal breath sounds, no respiratory distress, no accessory muscle use Cardiovascular: normal peripheral pulses, normal rate, regular rhythm, no gallop/murmur Abdomen: normal bowel sounds, soft, non tender, no organomegaly, non distended , no mass Extremities: no cyanosis, no clubbing Skin: no rash, no lesions Current Medications Medications (Trade) Dose Ordered Sig/Gabriel Route PRN Reason Start Time Stop Time Status Last Admin Dose Admin Acetaminophen (Tylenol) 650 mg Q4H PRN ORAL Mild Pain/Temp > 100.5 10/27/16 20:15 11/26/16 20:14 10/30/16 00:38 Al Hydroxide/Mg Hydroxide (Mylanta) 30 ml Q4H PRN ORAL Abdominal cramps 10/28/16 19:30 11/27/16 19:29 10/28/16 19:32 Gabapentin (Neurontin) 300 mg THREE TIMES A DAY ORAL 10/28/16 09:00 11/27/16 08:59 10/31/16 13:09 Lorazepam (Ativan) 1 mg Q6H PRN ORAL For Anxiety 10/28/16 11:45 11/04/16 11:44 10/30/16 19:36 Morphine Sulfate/ Sodium Chloride (Morphine Sulfate/Sodium Chloride) 56 ml @ 223.751 mls/hr Q4H PRN IVPB SEVERE PAIN 10/28/16 22:59 11/03/16 20:44 10/31/16 10:13 Ondansetron HCl 4 mg 4 mg Q6H PRN IVP Nausea & Vomiting 10/27/16 20:15 11/26/16 20:14 10/29/16 21:47 Oxycodone/ Acetaminophen 1 tab 1 tab Q4H PRN ORAL moderate pain 10/28/16 23:00 11/04/16 22:59 10/30/16 02:44 Pantoprazole (Protonix) 40 mg DAILY IVP 10/29/16 09:00 11/28/16 08:59 10/31/16 09:16 Prednisone (predniSONE) 15 mg DAILY ORAL 10/28/16 09:00 11/27/16 08:59 10/31/16 09:16 Sodium Chloride (0.45% NS 1000ml) 1,000 ml @ 75 mls/hr [id number] IV 10/27/16 21:00 11/26/16 20:59 10/31/16 07:41 Sucralfate (Carafate) 1 gm TID ORAL 10/28/16 09:00 11/27/16 08:59 10/31/16 13:09 Temazepam (Restoril) 15 mg HSPRN PRN ORAL Insomnia 10/27/16 20:15 11/03/16 20:14 10/30/16 21:39 Ty Nguyen M.D. Oct 31, 2016 15:42
[2016-10-31 15:43] VITALS: BP 154/78
[2016-10-31] MEDS: LORazepam 1mg tab ORAL PRN (15:55)
--- NOTE | 2016-10-31 16:27 | General Progress Note ---
Assessment/Plan Assessment/Plan 1. Abdominal pain c/w with likely diverticulitis - has improved significantly on antibiotics 2. Anemia secondary to chronic disease. s/p egd which showed gastritis 3. Leukocytosis, 2/2 infection, continue to monitor 4. Thrombocytosis due to prior infection. 5. A 2.3 cm lower pole thyroid mass noted, on thyroid us as well, TSH/T3/T4 are wnl 6. Clostridium difficile colitis. 7. Gastritis. RECOMMENDATIONS: 1. Monitor counts. 2. Peripheral smear reviewed, wnl 3. Antibiotics as needed 4. F/U on pain management recs 6. Currently is on a bacteriologist industrial pump 7. Endo f/u in future 8. DW staff. Thank you, Alix Esqueda MD Subjective Constitutional: Reports: no symptoms HEENT: Reports: no symptoms Cardiovascular: Reports: no symptoms Respiratory: Reports: no symptoms Gastrointestinal/Abdominal: Reports: no symptoms Genitourinary: Reports: no symptoms Neurologic/Psychiatric: Reports: no symptoms Endocrine: Reports: no symptoms Hematologic/Lymphatic: Reports: no symptoms Allergies: Coded Allergies: HYDROCODONE BIT (Verified Allergy, Severe, Hives, 05/16/13) Objective Last 24 Hour Vital Signs Date Time Temp Pulse Resp B/P Pulse Ox O2 Delivery O2 Flow Rate FiO2 10/31/16 15:43 98.6 82 15 154/78 97 Room Air 10/31/16 11:28 97.2 80 16 159/65 98 Room Air 10/31/16 10:43 98.2 10/31/16 07:55 98.2 85 16 147/67 94 Room Air 10/31/16 04:00 97.9 80 20 142/70 97 Room Air 10/31/16 00:00 98.2 78 20 133/56 93 Room Air 10/30/16 20:00 98.2 84 16 145/64 95 Room Air Intake and Output 10/30/16 10/31/16 19:00 07:00 Intake Total 581 ml 1292 ml Balance 581 ml 1292 ml Intake Oral 300 ml 430 ml IV Total 281 ml 862 ml # Voids 1 4 # Bowel Movements 4 Height (Feet): 5 Height (Inches): 0.00 Weight (Pounds): 142 General Appearance: no apparent distress EENT: normal ENT inspection Neck: supple Cardiovascular: regular rhythm Respiratory/Chest: lungs clear Abdomen: soft Edema: no edema noted Arm (L), no edema noted Arm (R), no edema noted Leg (L), no edema noted Leg (R), no edema noted Pedal (L), no edema noted Pedal (R), no edema noted Generalized Edema: mild edema Neurologic: abnormal gait Skin: normal pigmentation Lymphatic: normal anterior cervical (L), normal anterior cervical (R), normal axillary (L), normal axillary (R), normal inguinal (L), normal inguinal (R), normal other, normal posterior cervical (L), normal posterior cervical (R), normal submandibular (L), normal submandibular (R), normal supraclavicular (L), normal supraclavicular (R) ALIX ESQUEDA Oct 31, 2016 16:27
[2016-10-31 20:00] VITALS: BP 146/65
--- NOTE | 2016-10-31 21:00 | General Progress Note ---
Assessment/Plan Assessment/Plan Assessment - longstanding IBS - abdominal pain , ? functional - suspect a significant anxiety component - abnormal LFT - ? TINEO - mild leukocytosis Recommendations - po as tolerated - check hepatitis serologies --> negative - OOB - d/c planning - outpatient f/u Subjective Allergies: Coded Allergies: HYDROCODONE BIT (Verified Allergy, Severe, Hives, 05/16/13) Subjective Feels same wants to go home tolerating PO Objective Last 24 Hour Vital Signs Date Time Temp Pulse Resp B/P Pulse Ox O2 Delivery O2 Flow Rate FiO2 10/31/16 19:39 98.6 10/31/16 15:43 98.6 82 15 154/78 97 Room Air 10/31/16 11:28 97.2 80 16 159/65 98 Room Air 10/31/16 07:55 98.2 85 16 147/67 94 Room Air 10/31/16 04:00 97.9 80 20 142/70 97 Room Air 10/31/16 00:00 98.2 78 20 133/56 93 Room Air Intake and Output 10/30/16 10/31/16 19:00 07:00 Intake Total 581 ml 1292 ml Balance 581 ml 1292 ml Intake Oral 300 ml 430 ml IV Total 281 ml 862 ml # Voids 1 4 # Bowel Movements 4 Height (Feet): 5 Height (Inches): 0.00 Weight (Pounds): 142 Objective WDWN NCAT supple CTA RRR Soft ND, no mass no edema Non focal MAREN GUZMAN Oct 31, 2016 21:00
[2016-10-31] MEDS ORDERED: NS 275ml ONE (22:50)
[2016-10-31] MEDS ORDERED: Tubing IV Secondary IV ONE (22:50)
[2016-10-31] MEDS ORDERED: 1/2 NS 1000ml IV ONE (22:50)
[2016-10-31] MEDS ORDERED: NS 550ML IV ONE (22:50)
[2016-11-01] VITALS: BP 147/78
[2016-11-01] MEDS ORDERED: Morphine Sulfate 4mg/ml Inj ONE ×2 (01:12→01:34)
[2016-11-01] MEDS: NS IVPB PRN ×2 (01:52→08:39)
[2016-11-01] MEDS: MORPHINE SULFATE IVPB PRN ×2 (01:52→08:39)
[2016-11-01 04:00] VITALS: BP 140/87
[2016-11-01] MEDS: LORazepam 1mg tab ORAL PRN ×2 (04:34→20:19)
[2016-11-01 08:13] VITALS: BP 150/89
[2016-11-01] MEDS: Sucralfate 1gm tab ORAL SCH ×3 (08:38→17:30)
[2016-11-01] MEDS: PredniSONE 5mg tab ORAL SCH (08:38)
[2016-11-01] MEDS: Pantoprazole Inj IVP SCH (08:38)
--- NOTE | 2016-11-01 10:43 | General Progress Note ---
Assessment/Plan Assessment/Plan (1) Multiple joint pain (2) Rheumatoid arthritis (3) Intractable Abdominal pain (4) IBS We will continue the patient on Morphine and Percocet. The patient was discussed with Dr. Hdez and Dr. Hdez concurred. Subjective Date patient seen: Nov 01, 2016 Time patient seen: 08:00 - am Allergies: Coded Allergies: HYDROCODONE BIT (Verified Allergy, Severe, Hives, 05/16/13) Subjective REVIEW OF SYSTEMS: Denies rash, fever, chills, sweating, dizziness, drowsiness, blurred vision, sore throat, change in hearing or weight. No nausea, vomiting, or blood in the stool or urine. No bowel or bladder incontinence. No dysuria. She is complaining of abdominal pain, multiple joint pain. SUBJECTIVE: Her pain has been reducing and is now a 5/10. Objective Last 24 Hour Vital Signs Date Time Temp Pulse Resp B/P Pulse Ox O2 Delivery O2 Flow Rate FiO2 11/01/16 08:13 97.1 89 19 150/89 96 Room Air 11/01/16 04:00 98.0 88 20 140/87 93 Room Air 11/01/16 00:00 98.1 78 20 147/78 93 Room Air 10/31/16 20:00 98.6 82 20 146/65 94 Room Air 10/31/16 19:39 98.6 10/31/16 15:43 98.6 82 15 154/78 97 Room Air 10/31/16 11:28 97.2 80 16 159/65 98 Room Air Intake and Output 10/31/16 11/01/16 19:00 07:00 Intake Total 1875 ml 1222 ml Output Total 300 ml Balance 1575 ml 1222 ml Intake Oral 1500 ml 660 ml IV Total 375 ml 562 ml Output Urine Total 300 ml # Voids 4 3 # Bowel Movements 1 Height (Feet): 5 Height (Inches): 0.00 Weight (Pounds): 142 Objective PHYSICAL EXAMINATION: GENERAL: Alert, awake, and oriented x3. HEENT: PERRLA. NECK: Range of motion is full in all directions. No tenderness in paracervical muscles. No adenopathy. LUNGS: Clear. HEART: S1 and S2, regular. ABDOMEN: Obese, tenderness to palpation. BACK: Range of motion is decreased in flexion and extension with tenderness to paraspinal muscles. No tenderness to trapezial or rhomboid muscles. EXTREMITIES: No cyanosis. No clubbing. No edema. NEUROLOGICAL EXAM: No focal deficits. MARTHA NOVAK Nov 01, 2016 10:43
[2016-11-01 11:56] VITALS: BP 140/74
--- NOTE | 2016-11-01 13:07 | General Progress Note ---
Assessment/Plan Assessment/Plan ASSESSMENT: 1. Abdominal pain c/w with likely diverticulitis - has improved significantly on antibiotics 2. Anemia secondary to chronic disease. s/p egd which showed gastritis 3. Leukocytosis, 2/2 infection, continue to monitor, between 10-20k 4. Thrombocytosis due to prior infection. 5. A 2.3 cm lower pole thyroid mass noted, on thyroid us as well, TSH/T3/T4 are wnl 6. Clostridium difficile colitis. 7. Gastritis. RECOMMENDATIONS: 1. Monitor counts. 2. Peripheral smear reviewed 3. Antibiotics as needed 4. F/U on pain management recs 6. Currently on percocet and morphine 7. Endo f/u in future 8. DW staff. Thank you, Brennan Esqueda MD Subjective Constitutional: Reports: no symptoms HEENT: Reports: no symptoms Cardiovascular: Reports: no symptoms Respiratory: Reports: no symptoms Gastrointestinal/Abdominal: Reports: poor appetite Genitourinary: Reports: no symptoms Neurologic/Psychiatric: Reports: no symptoms Endocrine: Reports: no symptoms Hematologic/Lymphatic: Reports: anemia Allergies: Coded Allergies: HYDROCODONE BIT (Verified Allergy, Severe, Hives, 05/16/13) Subjective pain much better controlled, no bleeding, no hematochezia or hematemesis Objective Last 24 Hour Vital Signs Date Time Temp Pulse Resp B/P Pulse Ox O2 Delivery O2 Flow Rate FiO2 11/01/16 11:56 97.5 77 19 140/74 96 Room Air 11/01/16 09:09 97.1 11/01/16 08:13 97.1 89 19 150/89 96 Room Air 11/01/16 04:00 98.0 88 20 140/87 93 Room Air 11/01/16 00:00 98.1 78 20 147/78 93 Room Air 10/31/16 20:00 98.6 82 20 146/65 94 Room Air 10/31/16 15:43 98.6 82 15 154/78 97 Room Air Intake and Output 10/31/16 11/01/16 19:00 07:00 Intake Total 1875 ml 1222 ml Output Total 300 ml Balance 1575 ml 1222 ml Intake Oral 1500 ml 660 ml IV Total 375 ml 562 ml Output Urine Total 300 ml # Voids 4 3 # Bowel Movements 1 Height (Feet): 5 Height (Inches): 0.00 Weight (Pounds): 142 General Appearance: no apparent distress EENT: normal ENT inspection Neck: supple Cardiovascular: regular rhythm Respiratory/Chest: lungs clear Abdomen: non tender Extremities: non-tender Edema: 1+ Leg (L), 1+ Leg (R) Neurologic: alert Skin: warm/dry Brennan Esqueda Nov 01, 2016 13:07
[2016-11-01] MEDS: Oxycodone/Acetaminophen 5-325 ORAL PRN ×3 (13:16→22:49)
[2016-11-01 15:45] VITALS: BP 141/63
--- NOTE | 2016-11-01 15:57 | General Progress Note ---
Assessment/Plan Assessment/Plan Assessment - longstanding IBS - abdominal pain , ? functional - suspect a significant anxiety component - abnormal LFT - ? TINEO - mild leukocytosis Recommendations - po as tolerated - check hepatitis serologies --> negative - OOB - OK for d/c planning - outpatient f/u with primary GI - will see intermittently / PRN Subjective Allergies: Coded Allergies: HYDROCODONE BIT (Verified Allergy, Severe, Hives, 05/16/13) Subjective Feels same wants to go home tolerating PO Objective Last 24 Hour Vital Signs Date Time Temp Pulse Resp B/P Pulse Ox O2 Delivery O2 Flow Rate FiO2 11/01/16 15:45 98.4 77 20 141/63 95 11/01/16 14:15 97.5 11/01/16 11:56 97.5 77 19 140/74 96 Room Air 11/01/16 09:09 97.1 11/01/16 08:13 97.1 89 19 150/89 96 Room Air 11/01/16 04:00 98.0 88 20 140/87 93 Room Air 11/01/16 00:00 98.1 78 20 147/78 93 Room Air 10/31/16 20:00 98.6 82 20 146/65 94 Room Air Intake and Output 10/31/16 11/01/16 19:00 07:00 Intake Total 1875 ml 1222 ml Output Total 300 ml Balance 1575 ml 1222 ml Intake Oral 1500 ml 660 ml IV Total 375 ml 562 ml Output Urine Total 300 ml # Voids 4 3 # Bowel Movements 1 Height (Feet): 5 Height (Inches): 0.00 Weight (Pounds): 142 Objective WDWN NCAT supple CTA RRR Soft ND, no mass no edema Non focal MAREN GUZMAN Nov 01, 2016 15:57
[2016-11-01 20:00] VITALS: BP 139/65
[2016-11-01] MEDS ORDERED: MORPHINE SULFATE IVPB PRN (21:30)
[2016-11-01] MEDS ORDERED: NS IVPB PRN (21:30)
[2016-11-02] VITALS: BP 142/64
[2016-11-02] MEDS: Oxycodone/Acetaminophen 5-325 ORAL PRN (03:07)
[2016-11-02 04:00] VITALS: BP 144/64
[2016-11-02 07:50] VITALS: BP 134/78
[2016-11-02] MEDS: Sucralfate 1gm tab ORAL SCH ×2 (08:29→12:39)
[2016-11-02] MEDS: PredniSONE 5mg tab ORAL SCH (08:30)
--- NOTE | 2016-11-02 08:38 | General Progress Note ---
Assessment/Plan Assessment/Plan (1) Multiple joint pain (2) Rheumatoid arthritis (3) Intractable Abdominal pain (4) IBS We will continue the patient on Morphine and Percocet. The patient was discussed with Dr. Hdez and Dr. Hdez concurred. Subjective Date patient seen: Nov 02, 2016 Time patient seen: 07:30 - am Allergies: Coded Allergies: HYDROCODONE BIT (Verified Allergy, Severe, Hives, 05/16/13) Subjective REVIEW OF SYSTEMS: Denies rash, fever, chills, sweating, dizziness, drowsiness, blurred vision, sore throat, change in hearing or weight. No nausea, vomiting, or blood in the stool or urine. No bowel or bladder incontinence. No dysuria. She is complaining of abdominal pain, multiple joint pain. SUBJECTIVE: Pain has been unchanged still has complaints of severe pain which is reduced on the medications to a 5/10. Objective Last 24 Hour Vital Signs Date Time Temp Pulse Resp B/P Pulse Ox O2 Delivery O2 Flow Rate FiO2 11/02/16 07:50 98.2 107 19 134/78 96 Room Air 11/02/16 04:06 98.2 11/02/16 04:00 97.7 82 20 144/64 97 Room Air 11/02/16 00:00 98.2 85 20 142/64 94 Room Air 11/01/16 20:00 97.9 77 20 139/65 98 Room Air 11/01/16 15:45 98.4 77 20 141/63 95 11/01/16 11:56 97.5 77 19 140/74 96 Room Air 11/01/16 09:09 97.1 Intake and Output 11/01/16 11/02/16 18:59 06:59 Intake Total 973.751 ml 1299 ml Output Total 500 ml Balance 473.751 ml 1299 ml Intake Oral 450 ml 720 ml IV Total 523.751 ml 579 ml Output Urine Total 500 ml # Voids 5 Height (Feet): 5 Height (Inches): 0.00 Weight (Pounds): 142 Objective PHYSICAL EXAMINATION: GENERAL: Alert, awake, and oriented x3. HEENT: PERRLA. NECK: Range of motion is full in all directions. No tenderness in paracervical muscles. No adenopathy. LUNGS: Clear. HEART: S1 and S2, regular. ABDOMEN: Obese, tenderness to palpation. BACK: Range of motion is decreased in flexion and extension with tenderness to paraspinal muscles. No tenderness to trapezial or rhomboid muscles. EXTREMITIES: No cyanosis. No clubbing. No edema. NEUROLOGICAL EXAM: No focal deficits. MARTHA NOVAK. Nov 02, 2016 08:38
[2016-11-02] MEDS ORDERED: Oxycodone/Acetaminophen 5-325 ORAL PRN (09:00)
[2016-11-02] MEDS: LORazepam 1mg tab ORAL PRN (10:33)
--- NOTE | 2016-11-02 11:13 | General Progress Note ---
Assessment/Plan Assessment/Plan ASSESSMENT: 1. Abdominal pain c/w with likely diverticulitis - has improved on antibiotics 2. Anemia secondary to chronic disease. s/p egd which showed gastritis 3. Leukocytosis, 2/2 infection, continue to monitor, between 10-20k 4. Thrombocytosis due to previous infection. 5. A 2.3 cm lower pole thyroid mass noted, on thyroid us as well, TSH/T3/T4 are wnl 6. Clostridium difficile colitis. 7. Gastritis. RECOMMENDATIONS: 1. Monitor counts. 2. Peripheral smear reviewed 3. Antibiotics as needed 4. F/U on pain management recs 6. Currently on percocet and morphine 7. Endo f/u in future 8. DW staff. Thank you, Brennan Esqueda MD Subjective Constitutional: Reports: no symptoms HEENT: Reports: no symptoms Cardiovascular: Reports: no symptoms Respiratory: Reports: no symptoms Gastrointestinal/Abdominal: Reports: no symptoms Genitourinary: Reports: no symptoms Neurologic/Psychiatric: Reports: no symptoms Endocrine: Reports: no symptoms Hematologic/Lymphatic: Reports: anemia Allergies: Coded Allergies: HYDROCODONE BIT (Verified Allergy, Severe, Hives, 05/16/13) Subjective pain better controlled, no bleeding, no hematochezia or hematemesis Objective Last 24 Hour Vital Signs Date Time Temp Pulse Resp B/P Pulse Ox O2 Delivery O2 Flow Rate FiO2 11/02/16 07:50 98.2 107 19 134/78 96 Room Air 11/02/16 04:06 98.2 11/02/16 04:00 97.7 82 20 144/64 97 Room Air 11/02/16 00:00 98.2 85 20 142/64 94 Room Air 11/01/16 20:00 97.9 77 20 139/65 98 Room Air 11/01/16 15:45 98.4 77 20 141/63 95 11/01/16 11:56 97.5 77 19 140/74 96 Room Air Intake and Output 11/01/16 11/02/16 19:00 07:00 Intake Total 973.751 ml 1299 ml Output Total 500 ml Balance 473.751 ml 1299 ml Intake Oral 450 ml 720 ml IV Total 523.751 ml 579 ml Output Urine Total 500 ml # Voids 5 Height (Feet): 5 Height (Inches): 0.00 Weight (Pounds): 142 General Appearance: no apparent distress EENT: TMs normal Neck: supple Cardiovascular: regular rhythm Respiratory/Chest: chest wall non-tender Extremities: non-tender Edema: 1+ Leg (L), 1+ Leg (R) Edema: mild edema Neurologic: alert Skin: warm/dry Brennan Esqueda Nov 02, 2016 11:13
[2016-11-02 11:46] VITALS: BP 125/80
--- NOTE | 2016-11-02 12:32 | General Progress Note ---
Assessment/Plan Problem List: (1) Vomiting (2) anxiety (3) Diverticulosis ICD Codes: K57.90 - Diverticulosis SNOMED: 804536867 (4) Fatty liver ICD Codes: K76.0 - Fatty liver SNOMED: 077435497 (5) Abdominal pain ICD Codes: R10.9 - Unspecified abdominal pain SNOMED: 99585157 (6) Depressed affect ICD Codes: F32.9 - Depressed affect SNOMED: 219755531 Status: progressing Assessment/Plan intractable abd pain is much improvedr the abdomen is soft dc if ok w gi Subjective ROS Limited/Unobtainable: Yes Constitutional: Reports: no symptoms Allergies: Coded Allergies: HYDROCODONE BIT (Verified Allergy, Severe, Hives, 05/16/13) Subjective abdominal pain Objective Last 24 Hour Vital Signs Date Time Temp Pulse Resp B/P Pulse Ox O2 Delivery O2 Flow Rate FiO2 11/02/16 11:46 97.9 85 20 125/80 96 Room Air 11/02/16 07:50 98.2 107 19 134/78 96 Room Air 11/02/16 04:06 98.2 11/02/16 04:00 97.7 82 20 144/64 97 Room Air 11/02/16 00:00 98.2 85 20 142/64 94 Room Air 11/01/16 20:00 97.9 77 20 139/65 98 Room Air 11/01/16 15:45 98.4 77 20 141/63 95 Intake and Output 11/01/16 11/02/16 19:00 07:00 Intake Total 973.751 ml 1299 ml Output Total 500 ml Balance 473.751 ml 1299 ml Intake Oral 450 ml 720 ml IV Total 523.751 ml 579 ml Output Urine Total 500 ml # Voids 5 Height (Feet): 5 Height (Inches): 0.00 Weight (Pounds): 142 Cardiovascular: normal rate Respiratory/Chest: lungs clear Abdomen: soft Carie Campbell MD Nov 02, 2016 12:32
[2016-11-02] MEDS ORDERED: 1/2 NS 1000ml IV ONE (14:17)
--- NOTE | 2016-11-03 11:05 | Discharge Summary ---
Discharge Summary Hospital Course Date of Admission Oct 27, 2016 at 18:28 Date of Discharge Nov 02, 2016 at 14:18 Admitting Diagnosis intractable abd pain HPI Rachel Christine is a 61 year old female who was admitted on Oct 27, 2016 at 18: 28 for Intractable Abdominal Pain Hospital Course dc summary dictated # [id number] Discharge Medications Continued Medications: Gabapentin* (Gabapentin*) 300 Mg Capsule 300 MG ORAL TID, CAP Lansoprazole (Lansoprazole) 30 Mg Capsule.dr 30 MG PO, CAP Lorazepam* (Lorazepam*) 0.5 Mg Tablet 1 MG ORAL DAILY PRN for For Anxiety, TAB Oxycodone/Acetaminophen 5-325* (Percocet 5-325 Mg Tablet*) 1 Each Tablet 1 TAB ORAL Q4H PRN for For Pain, TAB Prednisone (Prednisone) 5 Mg Tab 15 MG ORAL DAILY, #10 TAB Sucralfate* (Carafate*) 1 Gm Tablet 1 GM ORAL TID, TAB Temazepam* (Restoril*) 15 Mg Capsule 15 MG ORAL BEDTIME PRN for Insomnia, CAP Discharge Condition Upon Discharge: stable Discharge Disposition Patient was discharged to Home (01) Discharge Diagnoses: Discharge Instructions Discharge Instructions Special Instructions I have been assigned to complete a D/C Summary on this account. I was not involved in the patient management Kierra Ferrera NP ([facility]anchtein) Nov 03, 2016 11:05
--- NOTE | 2016-11-03 14:52 | Cardiology Report ---
APPROVED REPORT EKG Measurement Heart [id number] N[address] abnormality Abnormal ECG
--- NOTE | 2016-11-04 01:39 | Discharge Summary 2 SIG ---
DATE OF ADMISSION: 10/27/2016 DATE OF DISCHARGE: 11/02/2016 REASON FOR HOSPITALIZATION: 61-year-old female with a history of IBS and diverticulitis, came complaining of intractable abdominal pain, which became progressively worse over the past two weeks. The patient also had a history of colon surgery. The patient denied nausea and vomiting. She denied dysuria or hematuria. No fever. No chills. She has a GI doctor, which she follows. She had a history of C. difficile colitis. Workup in the emergency room revealed mild leukocytosis and slightly elevated lactate. CT of the abdomen and pelvis did not reveal any acute intraabdominal pathology. EKG revealed sinus tachycardia, no acute ST changes. Hemoglobin and hematocrit were stable. Electrolytes stable. Again, CT of the abdomen and pelvis revealed postsurgical changes, but no acute process, status post cholecystectomy. The patient medicated for pain and admitted for further management. ADMITTING DIAGNOSES: 1. Intractable abdominal pain. 2. History of IBS and diverticulitis. HOSPITAL STAY: The patient admitted to Med/Surg floor. GI , ID , and pain management specialists consulted. The patient initially with leukocytosis. ID started on empiric antibiotics. No fevers. Blood cultures negative. Per ID, leukocytosis likely reactive secondary to steroids. The patient chronically taking steroids for rheumatoid arthritis, and ID ordered to discontinue antibiotics and observe the patient off antibiotics. No clinical evidence of infection. GI had seen the patient. The patient noted to have elevated LFT. Hepatitis panel was negative. Possible TINEO (nonalcoholic steatohepatitis) as per GI specialist. Mild anemia noted. It Quality Assurance Analyst followed. Anemia likely secondary to chronic disease. The patient had EGD previously and had evidence of gastritis. Anemia workup revealed low iron and higher ferritin. The patient with a history of rheumatoid arthritis and taking Remicade and steroids on a daily basis. Per GI doctor, abdominal pain was most likely functional, possibly a flare of IBS with significant element of anxiety. Pain was controlled with current medication regimen. Pain specialist followed. Antiemetic provided as needed. Able to tolerate diet. No nausea. No vomiting. No diarrhea. The patient cleared by all consultants for discharge and follow up with her primary GI doctor for further management, for assessment of possible TINEO as well as the management of IBS. DISCHARGE DIAGNOSES: 1. Intractable abdominal pain, likely functional with a significant element of anxiety. 2. History of irritable bowel syndrome and diverticulitis. 3. Leukocytosis, likely reactive. 4. Rheumatoid arthritis, stable. 5. Anemia of chronic disease. 6. Elevated liver function test ; possible TINEO. DISCHARGE MEDICATIONS: See medication reconciliation list. DISCHARGE INSTRUCTIONS: The patient was discharged home. Follow up with the primary GI specialist for evaluation of possible TINEO and for management of IBS. Carie Campbell M.D. I have been assigned to dictate discharge summary on this account and I was not involved in the patient's management. Kierra Ferrera ([facility] DR: BERNARDA JOB#: [id number] CC: OSKAR
--- NOTE | 2016-11-06 11:54 | Diagnostic Imaging Report ---
Indications: Abdominal pain, nausea and vomiting, history of diverticulitis Technique: Continuous helical CT imaging of the abdomen and pelvis was performed with automatic exposure control following administration of nonionic IV contrast only, on a Siemens sensation [address] scanner. Axial, coronal, sagittal images were reconstructed at 5 mm slice thickness. No oral contrast was administered per requesting physician's order, despite no contraindications listed in either submitted clinical data or tech note.. CTDI volume(s): 15 mGy Total DLP: 696 mGy-cm Findings: Comparison: 04/20/2016, 12/18/2014, 11/20/2014, 07/29/2014, 05/31/2014, 05/03/2014, 05/30/2014, 11/15/2013, 11/06/2013, 05/16/2013 Lack of oral contrast limits evaluation of gastrointestinal tract, nondilated throughout. Appendix not identified. Anastomotic sutures are again noted encircling rectosigmoid junction. Adjacent 2.5 cm calcified soft tissue mass unchanged.. No obvious mural thickening, adjacent stranding, extraluminal gas or fluid collections identified. Again noted are absence of gallbladder, presence of surgical clips in gallbladder fossa, mild prominence of bile ducts without obvious destructive stone or mass, mild diffusely decreased attenuation of liver parenchyma, 1 cm circumscribed low-attenuation focus upper pole cortex of left kidney, scattered arterial mural calcifications without obvious flow-limiting stenosis or occlusion, supraumbilical ventral hernia containing only fat, absence of uterus, nonvisualization of ovaries, unchanged. Pancreas, spleen, adrenal glands, right kidney, unopacified ureters and urinary bladder, retroperitoneum, mesentery, remainder visualized abdominopelvic anatomy unremarkable. Mild interlobular septal thickening, more discrete irregular pleural-based linear densities in both lung bases. No focal skeletal abnormalities are identified. Disc space narrowing with marginal osteophyte formation, vacuum phenomenon and lumbar, lower thoracic spine. IMPRESSION: No evidence of acute abdominopelvic disease, with limitation as described, unchanged. Subtle but potentially significant abnormalities the gastrointestinal tract may be missed. Repeat CT scan with full oral and IV contrast preparation recommended for more complete evaluation, as clinically indicated Previous cholecystectomy, hysterectomy, colorectal junction region surgery with anastomosis, probable appendectomy Stable 2.5 cm calcified soft tissue mass adjacent to region of rectosigmoid surgery, nonspecific, likely benign Other stable chronic changes as described This correlates with Dr. Bustos's preliminary report. This represents the patient's [address] abdom[address] scan in the last 3-1/2 years, all but 2 performed through the emergency department, all essentially the same, demonstrating no evidence of acute pathology. For the sake of patient safety, in the future the choice to perform repeat CT scanning should be made judiciously and alternative imaging methods not utilizing ionizing radiation should be strongly considered.
== END 2016-11-02 14:18 | disposition home or self-care (01) | DRG 254 ==
LOC: EMR 12:03 → 4E 18:28 → EDBEDREQ 18:47 → EMR 19:15
PROC: 02HV33Z Insertion of Infusion Device into Superior Vena Cava, Percutaneous Approach (ICD-10-PCS; principal; 2016-10-27)
DX: K58.9 Irritable bowel syndrome, unspecified (principal); K75.81 Nonalcoholic steatohepatitis (NASH); K76.0 Fatty (change of) liver, not elsewhere classified; F41.9 Anxiety disorder, unspecified; M06.9 Rheumatoid arthritis, unspecified; D63.8 Anemia in other chronic diseases classified elsewhere; K21.9 Gastro-esophageal reflux disease without esophagitis; E86.0 Dehydration; G89.4 Chronic pain syndrome; K57.92 Diverticulitis of intestine, part unspecified, without perforation or abscess without bleeding; K29.70 Gastritis, unspecified, without bleeding; I10 Essential (primary) hypertension; A04.7 Enterocolitis due to Clostridium difficile; K64.9 Unspecified hemorrhoids; Z88.6 Allergy status to analgesic agent; Z90.49 Acquired absence of other specified parts of digestive tract; D47.3 Essential (hemorrhagic) thrombocythemia
CPT/HCPCS: 36415; 36569; 71010; 74177; 76937; 80053; 81003; 82270; 82550; 82553; 82607; 82728; 82746; 83540; 83550; 83605; 83735; 84484; 85007; 85025; 85044; 85060; 85610; 85651; 85730; 86140; 86705; 86709; 86803; 87040; 87340; 93005; J2405

== ENCOUNTER 2017-04-06 15:23 | Emergency (ER) | payer OTHER ==
[~2017-04-06] VITALS: Ht 152.4 cm; Wt 64.4 kg
[~2017-04-06 15:23] MED LIST changes: +LANSOPRAZOLE30 M2 PO
[2017-04-06] MEDS ORDERED: PredniSONE 20mg tab ORAL ONE (16:00)
[2017-04-06] MEDS ORDERED: Morphine Sulfate 4mg/ml Inj IVP ONE (16:00)
[2017-04-06] MEDS ORDERED: DiphenhydrAMINE 50mg/ml Inj IVP ONE (16:00)
[2017-04-06] MEDS ORDERED: Solu-MEDROL 125mg Inj IVP ONE (16:15)
[2017-04-06 16:40] LABS: MEAN CORPUSCULAR HEMOGLOBIN 25.5 PG (27.0-31.0); MEAN CORPUSCULAR HGB CONC 32.1 G/DL (32.0-36.0); MEAN CORPUSCULAR VOLUME 80 FL (80-99); MEAN PLATELET VOLUME 6.9 FL (6.5-10.1); PLATELET COUNT 309 K/UL (150-450); RED BLOOD COUNT 5.02 M/UL (4.20-5.40); RED CELL DISTRIBUTION WIDTH 16.9 % (11.6-14.8); WHITE BLOOD COUNT 18.3 K/UL (4.8-10.8)
[2017-04-06 16:41] LABS: EOSINOPHILS % (AUTO) 0.1 % (0.0-3.0); LYMPHOCYTES % (AUTO) 23.4 % (20.0-45.0); MONOCYTES % (AUTO) 2.9 % (1.0-10.0); NEUTROPHILS % (AUTO) 72.5 % (45.0-75.0)
[2017-04-06 16:51] LABS: ALANINE AMINOTRANSFERASE 26 U/L (3-33); ALBUMIN/GLOBULIN RATIO 1.4 (1.0-2.7); ANION GAP 19 (5-15); ASPARTATE AMINO TRANSFERASE 28 U/L (5-40); CALCIUM 9.8 mg/dL (8.6-10.2); CARBON DIOXIDE 21 mEQ/L (20-30); CHLORIDE 103 mEQ/L (98-107); CREATININE 0.7 mg/dL (0.5-0.9); GLOMERULAR FILTRATION RATE > 60 mL/min (>60); HEMOLYSIS 34; LIPASE 16 U/L (< 60); POTASSIUM 3.9 mEQ/L (3.4-4.9); SODIUM 143 mEQ/L (135-145); TOTAL PROTEIN 8.1 g/dL (6.6-8.7)
[2017-04-06 16:52] LABS: APPEARANCE,URINE CLEAR; KETONES,URINE NEGATIVE (NEGATIVE); LEUKOCYTE ESTERASE ,URINE 1+ (NEGATIVE); NITRITE,URINE NEGATIVE (NEGATIVE); PH,URINE 6 (4.5-8.0); PROTEIN,URINE NEGATIVE (NEGATIVE); UROBILINOGEN,URINE NORMAL MG/DL (0.0-1.0)
[2017-04-06 17:17] LABS: RBC,URINE 0-2 /HPF (0 - 2)
[2017-04-06 17:18] LABS: BACTERIA,URINE OCCASIONAL /HPF; SQUAMOUS EPITHELIAL CELL,UR FEW /LPF (NONE/OCC); WBC,URINE 0-2 /HPF (0 - 2)
[2017-04-06 19:00] VITALS: BP 179/100
[2017-04-06 20:03] VITALS: BP 179/82
--- NOTE | 2017-04-07 08:40 | Diagnostic Imaging Report ---
Indication: PAIN Technique: Spiral acquisitions obtained through the abdomen and pelvis. No oral contrast utilized, per emergency room physician request No IV contrast utilized, per referring physician request.. Multiplanar reconstructions were generated. Total dose length product findings 6 mGycm. CTDIvol(s) 12 mGy. Dose reduction achieved using automated exposure control Comparison: Contrast CT 10/27/2016 Findings: There is a small fat-containing ventral hernia just to the right of midline just above the umbilicus. The appendix is not identified. No evidence of diverticulosis or diverticulitis. There is a surgical end-to-side anastomotic staple line in the distal sigmoid. There is another staple line at the rectoanal junction. No small bowel distention. No free or loculated intraperitoneal air or fluid. Lack of IV contrast limits assessment of solid organs. The gallbladder is surgically absent. There is mild central intrahepatic biliary ductal ectasia again demonstrated. The liver is mildly hypoattenuating, although this is less striking than on the previous exam. There are scattered small subcentimeter low-attenuation liver lesions, too small to characterize, probably benign simple cortical cysts or bile hamartomas. These are better visualized on the previous contrast infused exam. The pancreas, spleen, adrenals, kidneys are unremarkable. Previously demonstrated left renal cyst is not evident on noncontrast computed exam. No mesenteric or retroperitoneal mass or adenopathy. No pelvic mass or adenopathy. The uterus is absent, presumably postsurgically. The included lung bases demonstrate minimal posterior dependent atelectatic changes. The bones demonstrate degenerative spondylosis changes. Impression: No acute abnormality Post surgical changes, as described, including prior rectosigmoid surgery, hysterectomy, cholecystectomy Mild fatty liver, appears improved from the previous study Subcentimeter low-attenuation liver lesions, too small to characterize, most likely benign simple cysts or bile hamartomas. No further evaluation necessary Incidental findings noted, including posterior dependent pulmonary parenchymal atelectasis, degenerative spondylosis, small fat-containing ventral hernia This agrees with the preliminary interpretation provided overnight by Dr. Bustos The CT scanner at [facility] is accredited by the [employer] and the scans are performed using protocols designed to limit radiation exposure to as low as reasonably achievable to attain images of sufficient resolution adequate for diagnostic evaluation.
--- NOTE | 2017-04-08 06:44 | Emergency Room Report ---
History of Present Illness General Chief Complaint: Abdominal Pain Source: Patient Present Illness HPI Patient is a 61-year-old female who presented after increased abdominal pain. Patient had been recently switched from her previous medications to a new anti- inflammatory medication for her arthritis. Patient denied any fever. She reported having severe pain. Patient had prior visits for chronic pancreatitis as well as for rheumatoid arthritis pain. She denies any vomiting or diarrhea. She is chronically opiate dependent and takes Percocet home. Allergies: Coded Allergies: HYDROCODONE BIT (Verified Allergy, Severe, Hives, 05/16/13) Patient History Past Medical History: see triage record Reviewed Nursing Documentation: PMH: Agreed, PSxH: Agreed Nursing Documentation-PMH Past Medical History: No History, Except For Hx Cardiac Problems: No - Rheumatoid Arthritis Hx Hypertension: No Hx Pacemaker: No Hx Asthma: No Hx COPD: No Hx Diabetes: No Hx Cancer: No Hx Gastrointestinal Problems: Yes - s/p ASAD 26 years ago, diverticulitis, IBS, C-Diff Hx Dialysis: No Hx Neurological Problems: No Hx Cerebrovascular Accident: No Hx Seizures: No Hx Headaches: Yes Hx Numbness: Yes Hx Neurologic Surgery: No Review of Systems All Other Systems: negative except mentioned in HPI Physical Exam Vital Signs Date Time Temp Pulse Resp B/P Pulse Ox O2 Delivery O2 Flow Rate FiO2 04/06/17 15:35 98.4 110 20 171/75 99 Room Air Sp02 EP Interpretation: reviewed, normal General Appearance: normal inspection, well appearing, no apparent distress, alert, GCS 15 Head: atraumatic ENT: normal ENT inspection, hearing grossly normal, normal voice Neck: normal inspection, full range of motion, supple, no bony tend Respiratory: normal inspection, lungs clear, normal breath sounds, no respiratory distress, no retraction, no wheezing Cardiovascular #1: regular rate, rhythm, no edema Gastrointestinal: normal inspection, normal bowel sounds, non tender, soft, no guarding, no hernia Genitourinary: no CVA tenderness Musculoskeletal: back normal, normal range of motion, other - multiple deformity to extremity joints Neurologic: normal inspection, alert, oriented x3, responsive, gang boss III-XII nml as tested, speech normal Psychiatric: normal inspection, judgement/insight normal, mood/affect normal Skin: normal inspection, normal color, no rash Medical Decision Making Diagnostic Impression: Primary Impression: chronic pain ER Course Patient presented for abdominal pain. Differential diagnoses included ischemic bowel, appendicitis, perforated viscus, abdominal aortic aneurysm, inferior myocardial infarction, viral gastroenteritis Because of complexity of patient's case laboratory testing and imaging studies were ordered. Patient was given Solu-Medrol in emergency department. Patient was given pain medications. CT the head and pelvis read by radiologist showed no acute changes or evidence of bowel obstruction. The patient was noted to have elevated white blood count consistent with her chronic steroid use.The patient has adequate doses of her pain medication home.The patient is advised to follow up with primary care doctor in 1-2 days. Patient is advised to return if any worsening condition or if any changes in status that are concerning. Labs Test 04/06/17 16:05 04/06/17 16:15 Urine Color Pale yellow Urine Appearance Clear Urine pH 6 (4.5-8.0) Urine Specific [place] 1.015 (1.005-1.035) Urine Protein Negative (NEGATIVE) Urine Glucose (UA) Negative (NEGATIVE) Urine Ketones Negative (NEGATIVE) Urine Occult Blood Negative (NEGATIVE) Urine Nitrite Negative (NEGATIVE) Urine Bilirubin Negative (NEGATIVE) Urine Urobilinogen Normal MG/DL (0.0-1.0) Urine Leukocyte Esterase 1+ (NEGATIVE) Urine RBC 0-2 /HPF (0 - 2) Urine WBC 0-2 /HPF (0 - 2) Urine Squamous Epithelial Cells Few /LPF (NONE/OCC) Urine Bacteria Occasional /HPF (NONE) White Blood Count 18.3 K/UL (4.8-10.8) Red Blood Count 5.02 M/UL (4.20-5.40) Hemoglobin 12.8 G/DL (12.0-16.0) Hematocrit 39.9 % (37.0-47.0) Mean Corpuscular Volume 80 FL (80-99) Mean Corpuscular Hemoglobin 25.5 PG (27.0-31.0) Mean Corpuscular Hemoglobin Concent 32.1 G/DL (32.0-36.0) Red Cell Distribution Width 16.9 % (11.6-14.8) Platelet Count 309 K/UL (150-450) Mean Platelet Volume 6.9 FL (6.5-10.1) Neutrophils (%) (Auto) 72.5 % (45.0-75.0) Lymphocytes (%) (Auto) 23.4 % (20.0-45.0) Monocytes (%) (Auto) 2.9 % (1.0-10.0) Eosinophils (%) (Auto) 0.1 % (0.0-3.0) Basophils (%) (Auto) 1.0 % (0.0-2.0) Sodium Level 143 mEQ/L (135-145) Potassium Level 3.9 mEQ/L (3.4-4.9) Chloride Level 103 mEQ/L (98-107) Carbon Dioxide Level 21 mEQ/L (20-30) Anion Gap 19 (5-15) Blood Urea Nitrogen 11 mg/dL (7-23) Creatinine 0.7 mg/dL (0.5-0.9) Estimat Glomerular Filtration Rate > 60 mL/min (>60) Glucose Level 128 mg/dL (74-106) Calcium Level 9.8 mg/dL (8.6-10.2) Total Bilirubin 0.4 mg/dL (0.0-1.2) Aspartate Amino Transf (AST/SGOT) 28 U/L (5-40) Alanine Aminotransferase (ALT/SGPT) 26 U/L (3-33) Alkaline Phosphatase 137 U/L (35-104) Total Protein 8.1 g/dL (6.6-8.7) Albumin 4.8 g/dL (3.5-5.2) Globulin 3.3 g/dL Albumin/Globulin Ratio 1.4 (1.0-2.7) Lipase 16 U/L (< 60) Last Vital Signs Date Time Temp Pulse Resp B/P Pulse Ox O2 Delivery O2 Flow Rate FiO2 04/06/17 20:03 88 16 179/82 99 Room Air 04/06/17 17:05 98.5 Status: improved Disposition: HOME, SELF-CARE Condition: Stable Referrals: SAV ARCINIEGA,REFERRING (PCP) Patient Instructions: Chronic Pain Bart Saez Apr 08, 2017 06:44
== END 2017-04-06 19:55 | disposition home or self-care (01) ==
LOC: EMR 15:45
DX: G89.29 Other chronic pain (principal); R10.9 Unspecified abdominal pain; K57.90 Diverticulosis of intestine, part unspecified, without perforation or abscess without bleeding; K58.9 Irritable bowel syndrome, unspecified; M06.9 Rheumatoid arthritis, unspecified; Z88.6 Allergy status to analgesic agent
CPT/HCPCS: 36415; 74176; 80053; 81003; 83690; 85025; 96374; 96375; 99284; J1200; J2270; J2930

== ENCOUNTER 2018-06-08 13:54 | Emergency (ER) | payer OTHER ==
[~2018-06-08] VITALS: Ht 152.4 cm; Wt 65.8 kg
[2018-06-08] MEDS ORDERED: Morphine Sulfate 2mg/ml Inj IM ONE (14:30)
[2018-06-08 14:41] VITALS: BP 165/70
[2018-06-08 15:00] VITALS: BP 165/70
--- NOTE | 2018-06-08 15:21 | Emergency Room Report ---
History of Present Illness General Chief Complaint: Abdominal Pain Source: Patient, Family Member Present Illness HPI 62-year-old female presents ED for evaluation. Patient stating that she's been having difficulty urinating for the last 3 days. States she's had this problem for the last 1 year but states it is any progressively worse. Scheduled to see a urologist via her PMD but is waiting for the referral. Patient states she is only "dribbling" urine. Pain is sharp, 10 out of 10, nonradiating. Denies fevers or chills. Denies flank pain. Denies nausea or vomiting. No other aggravating relieving factors. Denies any other associated symptoms Allergies: Coded Allergies: HYDROCODONE BIT (Verified Allergy, Severe, Hives, 05/16/13) Patient History Past Medical History: other - diverticulitis Past Surgical History: hysterectomy Pertinent Family History: none Social History: Denies: smoking, alcohol use, drug use Now: No Immunizations: UTD Reviewed Nursing Documentation: PMH: Agreed; PSxH: Agreed Nursing Documentation-PMH Hx Cardiac Problems: No - Rheumatoid Arthritis Hx Hypertension: No Hx Pacemaker: No Hx Asthma: No Hx COPD: No Hx Diabetes: No Hx Cancer: No Hx Gastrointestinal Problems: Yes - s/p ASAD 26 years ago, diverticulitis, IBS, C-Diff Hx Dialysis: No Hx Neurological Problems: No Hx Cerebrovascular Accident: No Hx Seizures: No Hx Headaches: Yes Hx Numbness: Yes Hx Neurologic Surgery: No Review of Systems All Other Systems: negative except mentioned in HPI Physical Exam Vital Signs Date Time Temp Pulse Resp B/P (MAP) Pulse Ox O2 Delivery O2 Flow Rate FiO2 06/08/18 14:13 98.3 99 14 165/74 100 Room Air 98.2 Sp02 EP Interpretation: reviewed, normal General Appearance: alert, GCS 15, non-toxic, mild distress Head: normocephalic, atraumatic Eyes: bilateral eye normal inspection, bilateral eye PERRL ENT: hearing grossly normal, normal pharynx, no angioedema, normal voice Neck: full range of motion, supple/symm/no masses Respiratory: chest non-tender, lungs clear, normal breath sounds, speaking full sentences Cardiovascular #1: regular rate, rhythm, no edema Cardiovascular #2: 2+ carotid (R), 2+ carotid (L), 2+ radial (R), 2+ radial (L) , 2+ dorsalis pedis (R), 2+ dorsalis pedis (L) Gastrointestinal: normal bowel sounds, soft, non-distended, no guarding, no rebound, tenderness - suprapubic Rectal: deferred Genitourinary: normal inspection, no CVA tenderness Musculoskeletal: back normal, gait/station normal, normal range of motion, non- tender Neurologic: alert, oriented x3, responsive, motor strength/tone normal, sensory intact, speech normal Psychiatric: judgement/insight normal, memory normal, no suicidal/homicidal ideation, anxious Reflexes: 3+ bicep (R), 3+ bicep (L), 3+ tricep (R), 3+ tricep (L), 3+ knee (R) , 3+ knee (L) Skin: normal color, no rash, warm/dry, well hydrated Lymphatic: no adenopathy Medical Decision Making Diagnostic Impression: Primary Impression: Urinary retention Additional Impression: chronic pain ER Course Hospital Course 62-year-old M presents to ED complaining of urinary retention. Differential diagnoses include: obstruction, UTI, BPH Clinical course Patient placed on stretcher. After initial history and physical I ordered rodrigez with some urine flow. Patient given pain meds I reviewed EMR. Patient is well-known to [facility] [place] been here multiple times for chronic pain and opiate dependence. I spoke to Dr. Cohn (urology); he agrees that patient can be discharged with Rodrigez catheter and leg bag and he will see in his office Diagnosis - urinary retention, chronic pain Stable and discharged home with rodrigez + leg bag. Instructed to followup with PMD/urologist. Return to ED if symptoms recur or worsen Last Vital Signs Date Time Temp Pulse Resp B/P (MAP) Pulse Ox O2 Delivery O2 Flow Rate FiO2 06/08/18 15:00 98.3 99 16 165/70 100 Room Air 208.9 Status: improved Disposition: HOME, SELF-CARE Condition: Stable Referrals: Edgar Cohn M.D. NON PHYSICIAN (PCP) Patient Instructions: Acute Urinary Retention, Female, [id number] Mau Leon MD Jun 08, 2018 15:21
== END 2018-06-08 15:00 | disposition home or self-care (01) ==
LOC: EMR 14:40
DX: G89.29 Other chronic pain (principal); R33.9 Retention of urine, unspecified; R39.12 Poor urinary stream; Z90.710 Acquired absence of both cervix and uterus
CPT/HCPCS: 51702; 96372; 99283; J2270

== ENCOUNTER 2019-03-27 09:24 | Emergency (ER) | payer MEDICARE, OTHER ==
[~2019-03-27] VITALS: Ht 152.4 cm; Wt 60.8 kg
[2019-03-27] MEDS ORDERED: ALPRAZOLAM1 MG ORAL (09:31)
--- NOTE | 2019-03-27 09:43 | NUR ---
ED Nurse Note: pt walked in with c/o anxiety attack, pt stated she has md appt today for axiety and needs xanax 1 mg for the day because she run out of medication. seen by jamison. will continue to monitor.
[2019-03-27 09:45] VITALS: BP 156/79
[2019-03-27] MEDS ORDERED: ALPRAZolam 0.5mg tab ORAL ONE (09:45)
[2019-03-27] MEDS ORDERED: XANAX1 MG ORAL (09:47)
--- NOTE | 2019-03-27 09:57 | NUR ---
ED Nurse Note: pt medicated as ordered. pt able to tolerate
[2019-03-27 10:00] VITALS: BP 156/79
--- NOTE | 2019-03-27 10:00 | NUR ---
ER DISCHARGE NOTE: Patient is cleared to be discharged per ERMD, pt is aox4, on room air, with stable vital signs. pt was given dc and prescription instructions, pt was able to verbalize understanding, pt id band removed without complications. pt is able to ambulate with steady gait. pt took all belongings.
--- NOTE | 2019-03-27 11:15 | Emergency Room Report ---
History of Present Illness General Chief Complaint: Medication Refill Source: Patient, Significant Other Present Illness HPI 63-year-old female presents ED for evaluation. Is here for medication refill. History of anxiety and states that she ran out of her Xanax yesterday. Is not scheduled to see her PMD for another week. States she feels very anxious and is tearful. Denies SI or HI. Denies alcohol or drug use. No other aggravating relieving factors. Denies any other associated symptoms Allergies: Coded Allergies: HYDROCODONE BIT (Verified Allergy, Severe, Hives, 05/16/13) Patient History Past Medical History: psych hx, other Past Surgical History: hysterectomy Pertinent Family History: none Social History: Denies: smoking, alcohol use, drug use Now: No Immunizations: UTD Reviewed Nursing Documentation: PMH: Agreed; PSxH: Agreed Nursing Documentation-PMH Past Medical History: No History, Except For Hx Cardiac Problems: No - Rheumatoid Arthritis Hx Hypertension: No Hx Pacemaker: No Hx Asthma: No Hx COPD: No Hx Diabetes: No Hx Cancer: No Hx Gastrointestinal Problems: Yes - s/p ASAD 26 years ago, diverticulitis, IBS, C-Diff Hx Dialysis: No History Of Psychiatric Problem: Yes - anxiety Hx Neurological Problems: No Hx Cerebrovascular Accident: No Hx Seizures: No Hx Headaches: Yes Hx Numbness: Yes Hx Neurologic Surgery: No Review of Systems All Other Systems: negative except mentioned in HPI Physical Exam Vital Signs Date Time Temp Pulse Resp B/P (MAP) Pulse Ox O2 Delivery O2 Flow Rate FiO2 03/27/19 09:25 97.9 113 24 156/79 (104) 99 Room Air Sp02 EP Interpretation: reviewed, normal General Appearance: no apparent distress, alert, GCS 15, non-toxic Head: normocephalic, atraumatic Eyes: bilateral eye normal inspection, bilateral eye PERRL ENT: hearing grossly normal, normal pharynx, no angioedema, normal voice Neck: full range of motion, supple/symm/no masses Respiratory: chest non-tender, lungs clear, normal breath sounds, speaking full sentences Cardiovascular #1: regular rate, rhythm, no edema Cardiovascular #2: 2+ carotid (R), 2+ carotid (L), 2+ radial (R), 2+ radial (L) , 2+ dorsalis pedis (R), 2+ dorsalis pedis (L) Gastrointestinal: normal bowel sounds, non tender, soft, non-distended, no guarding, no rebound Rectal: deferred Genitourinary: normal inspection, no CVA tenderness Musculoskeletal: back normal, gait/station normal, non-tender Neurologic: alert, oriented x3, responsive, motor strength/tone normal, sensory intact, speech normal Psychiatric: judgement/insight normal, memory normal, no suicidal/homicidal ideation, no delusions, depressed affect, anxious Reflexes: 3+ bicep (R), 3+ bicep (L), 3+ tricep (R), 3+ tricep (L), 3+ knee (R) , 3+ knee (L) Lymphatic: no adenopathy Medical Decision Making Diagnostic Impression: Primary Impression: Encounter for medication refill Additional Impression: Anxiety ER Course 63-year-old female presents to ED refill of her medication. History of anxiety- takes xanax hospital course: After initial history and physical, she produces pill bottle which documents xanax being prescribed her. Given that, I tell patient I will write her for a 3day prescription of xanax. Patient states she will see her PMD this week for refill. Diagnosis-encounter for medication refill, anxiety Stable and discharged to home with prescription for xanax. Followup with PMD. Return to ED if symptoms recur or worsen Last Vital Signs Date Time Temp Pulse Resp B/P (MAP) Pulse Ox O2 Delivery O2 Flow Rate FiO2 03/27/19 10:00 97.9 110 24 156/79 99 Room Air Status: improved Disposition: HOME, SELF-CARE Condition: Stable Scripts Alprazolam* (XANAX*) 1 Mg Tablet 1 TAB ORAL BID, #6 TAB 0 Refills Prov: Mau Leon MD 03/27/19 Referrals: NON PHYSICIAN (PCP) Patient Instructions: Medicine Refill at the Emergency Department Mau Leon MD Mar 27, 2019 11:15
== END 2019-03-27 10:00 | disposition home or self-care (01) ==
LOC: EMR 09:55
DX: F41.9 Anxiety disorder, unspecified (principal); Z76.0 Encounter for issue of repeat prescription; Z88.6 Allergy status to analgesic agent; M06.9 Rheumatoid arthritis, unspecified; Z90.710 Acquired absence of both cervix and uterus
CPT/HCPCS: 99282

== ENCOUNTER 2019-09-13 16:03 | Emergency (ER) | payer MEDICARE, OTHER ==
[~2019-09-13] VITALS: Ht 152.4 cm; Wt 64.9 kg
[~2019-09-13 16:03] MED LIST changes: +ALPRAZOLAM1 MG ORAL; +XANAX1 MG ORAL
[2019-09-13 16:25] VITALS: BP 166/91
--- NOTE | 2019-09-13 16:26 | NUR ---
ED Nurse Note: PT WALKED IN DUE TO LOWER ABD PAIN WITH NAUSEA AND NON RADIATING X 6 DAYS ACCOMPANIED BY DYSURIA AND URINARY FREQUENCY. TEMP 102.2 AND NO MEDICATIONS TAKEN TODAY. AAOX 4 AND AMBULATORY.
[2019-09-13] MEDS ORDERED: cefTRIAXone 2 GM in NS 110 ML IV ONE (16:30)
--- NOTE | 2019-09-13 16:30 | Emergency Room Report ---
History of Present Illness General Chief Complaint: Female Urogenital Problems Source: Patient, Medical Record Present Illness HPI 64-year-old female presents with 6 days of suprapubic abdominal pain and burning on urination. Patient reported fever T-max of 102 today. Patient did not take any antipyretics prior to arrival. Patient has been using Azo with no improvement. Patient does not have a history of frequent urinary tract infections. 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, diverticulitis, IBS, C-Diff Hx Dialysis: No Hx Neurological Problems: No Hx Cerebrovascular Accident: No Hx Seizures: No Hx Headaches: Yes Hx Numbness: Yes Hx Neurologic Surgery: No Review of Systems Constitutional: Denies: chills, fever Respiratory: Denies: cough, shortness of breath Cardiovascular: Denies: chest pain, palpitations Gastrointestinal: Reports: abdominal pain; Denies: diarrhea Genitourinary: Reports: dysuria, frequency; Denies: hematuria, pain Musculoskeletal: Denies: joint swelling Skin: Denies: rash, lesions Neurological: Denies: headache, dizziness Physical Exam Vital Signs Date Time Temp Pulse Resp B/P (MAP) Pulse Ox O2 Delivery O2 Flow Rate FiO2 09/13/19 16:14 102.2 125 18 166/91 (116) 98 Room Air Sp02 EP Interpretation: reviewed General Appearance: well appearing, no apparent distress, non-toxic Head: normocephalic, atraumatic Eyes: bilateral eye normal inspection ENT: hearing grossly normal, EOM grossly intact, moist mucus membranes Neck: supple Respiratory: lungs clear, normal breath sounds, no respiratory distress, speaking full sentences Cardiovascular #1: regular rate, rhythm, normal capillary refill Cardiovascular #2: 2+ radial (R), 2+ radial (L) Gastrointestinal: soft, non-distended, no guarding, no rebound, tenderness - Suprapubic Rectal: deferred Genitourinary: CVA tenderness (R) Musculoskeletal: moves extm spontaneously, no lower extremity edema Neurologic: grossly normal Psychiatric: mood/affect normal Skin: warm/dry, normal turgor Medical Decision Making Diagnostic Impression: Primary Impression: UTI (urinary tract infection) Additional Impression: Sepsis ER Course 64-year-old female presenting with urinary complaints for 1 week duration associated with fever Abdomen tender suprapubically. We will test for urosepsis given patient meets 2 sirs criteria Normotensive at this time no signs of shock Laboratory Tests Test 09/13/19 16:30 09/13/19 17:35 09/13/19 18:00 White Blood Count 23.6 K/UL (4.8-10.8) *H Red Blood Count 5.05 M/UL (4.20-5.40) Hemoglobin 15.1 G/DL (12.0-16.0) Hematocrit 43.5 % (37.0-47.0) Mean Corpuscular Volume 86 FL (80-99) Mean Corpuscular Hemoglobin 30.0 PG (27.0-31.0) Mean Corpuscular Hemoglobin Concent 34.8 G/DL (32.0-36.0) Red Cell Distribution Width 11.8 % (11.6-14.8) Platelet Count 320 K/UL (150-450) Mean Platelet Volume 6.7 FL (6.5-10.1) Neutrophils (%) (Auto) % (45.0-75.0) Lymphocytes (%) (Auto) % (20.0-45.0) Monocytes (%) (Auto) % (1.0-10.0) Eosinophils (%) (Auto) % (0.0-3.0) Basophils (%) (Auto) % (0.0-2.0) Differential Total Cells Counted 100 Neutrophils % (Manual) 83 % (45-75) H Lymphocytes % (Manual) 10 % (20-45) L Monocytes % (Manual) 7 % (1-10) Eosinophils % (Manual) 0 % (0-3) Basophils % (Manual) 0 % (0-2) Band Neutrophils 0 % (0-8) Platelet Estimate Adequate Platelet Morphology Normal Red Blood Cell Morphology Normal Sodium Level 134 MMOL/L (136-145) L Potassium Level 3.5 MMOL/L (3.5-5.1) Chloride Level 99 MMOL/L (98-107) Carbon Dioxide Level 22 MMOL/L (21-32) Anion Gap 13 mmol/L (5-15) Blood Urea Nitrogen 14 mg/dL (7-18) Creatinine 0.9 MG/DL (0.55-1.30) Estimate Glomerular Filtration Rate > 60 mL/min (>60) Glucose Level 155 MG/DL (74-106) H Lactic Acid Level 2.10 mmol/L (0.4-2.0) H Pending Calcium Level 9.4 MG/DL (8.5-10.1) Total Bilirubin 0.9 MG/DL (0.2-1.0) Aspartate Amino Transferase (AST) 27 U/L (15-37) Alanine Aminotransferase (ALT) 22 U/L (12-78) Alkaline Phosphatase 90 U/L (46-116) Total Creatine Kinase 100 U/L (26-308) Creatine Kinase MB 0.6 NG/ML (0.0-3.6) Creatine Kinase MB Relative Index 0.6 Troponin I 0.000 ng/mL (0.000-0.056) Total Protein 8.7 G/DL (6.4-8.2) H Albumin 3.9 G/DL (3.4-5.0) Globulin 4.8 g/dL Albumin/Globulin Ratio 0.8 (1.0-2.7) L Urine Color Yellow Urine Appearance Clear Urine pH 7 (4.5-8.0) Urine Specific [place] 1.005 (1.005-1.035) Urine Protein 2+ (NEGATIVE) H Urine Glucose (UA) Negative (NEGATIVE) Urine Ketones 2+ (NEGATIVE) H Urine Blood 3+ (NEGATIVE) H Urine Nitrite Positive (NEGATIVE) H Urine Bilirubin Negative (NEGATIVE) Urine Urobilinogen Normal MG/DL (0.0-1.0) Urine Leukocyte Esterase 3+ (NEGATIVE) H Urine RBC Pending Urine WBC Pending Urine Squamous Epithelial Cells Pending Urine Bacteria Pending Lab Results Impression Elevated WBC of 23.6, chemistry significant for mild decrease sodium, elevated lactic acid of 2.10, urinalysis shows positive blood, ketones, nitrates Reevaluation Time: 18:12 Reevaluation Impression Patient's care discussed with Dr. Cullen at [facility]. Patient accepted for transfer for urosepsis Disposition: XFER [facility] Condition: Serious Sepsis Event Note Evaluation Current Stage of Sepsis: Sepsis Possible Source: Genitourinary Focused Exam Allergies: Coded Allergies: HYDROCODONE BIT (Verified Allergy, Severe, Hives, 05/16/13) Date Exam Occurred: Sep 13, 2019 Time Exam Occurred: 19:01 Laboratory Studies TestLactic Acid Level 09/13/19 16:30 2.10 mmol/L 09/13/19 18:00 1.60 mmol/L (0.66-2.22) Vital Signs Last 24 Hour Vital Signs Date Time Temp Pulse Resp B/P (MAP) Pulse Ox O2 Delivery O2 Flow Rate FiO2 09/13/19 18:14 100.6 105 14 139/68 96 Room Air 09/13/19 17:50 102.2 09/13/19 16:25 102.2 121 17 166/91 98 Room Air 09/13/19 16:14 102.2 125 18 166/91 (116) 98 Room Air Respiratory Exam: Clear Cardiovascular Exam: RRR, S1, S2, Tachycardia, Other - Tachycardia improved Capillary Refill: Less Than 2 Seconds Peripheral Pulse: Strong Pulse Location: Radial Skin Exam: Normal Emerson Oviedo M.D. Sep 13, 2019 16:30
--- NOTE | 2019-09-13 16:50 | NUR ---
ED Nurse Note: COLLECTED BLOOD SPECIMEN THEN SENT.
[2019-09-13 16:51] LABS: HEMATOCRIT 43.5 % (37.0-47.0); HEMOGLOBIN 15.1 G/DL (12.0-16.0); MEAN CORPUSCULAR VOLUME 86 FL (80-99); PLATELET COUNT 320 K/UL (150-450); RED BLOOD COUNT 5.05 M/UL (4.20-5.40); RED CELL DISTRIBUTION WIDTH 11.8 % (11.6-14.8)
[2019-09-13 16:56] LABS: WHITE BLOOD COUNT 23.6 K/UL (4.8-10.8)
[2019-09-13 17:06] LABS: ANION GAP 13 mmol/L (5-15); BLOOD UREA NITROGEN 14 mg/dL (7-18); CALCIUM 9.4 MG/DL (8.5-10.1); CARBON DIOXIDE 22 MMOL/L (21-32); CHLORIDE 99 MMOL/L (98-107); CREATININE 0.9 MG/DL (0.55-1.30); POTASSIUM 3.5 MMOL/L (3.5-5.1); SODIUM 134 MMOL/L (136-145)
--- NOTE | 2019-09-13 17:14 | NUR ---
ED Nurse Note: PT IN PAIN AT THIS TIME AND IS ASKING FOR PAIN MEDICATION. DR BORGES NOTIFIED. WAITING FOR NEW ORDERS.
[2019-09-13] MEDS ORDERED: Morphine Sulfate 4mg/ml Inj (IV USE ONLY) IVP ONE (17:15)
[2019-09-13 17:19] LABS: ALANINE AMINOTRANSFERASE 22 U/L (12-78); ALBUMIN 3.9 G/DL (3.4-5.0); ALBUMIN/GLOBULIN RATIO 0.8 (1.0-2.7); ALKALINE PHOSPHATASE 90 U/L (46-116); ASPARTATE AMINO TRANSFERASE 27 U/L (15-37); BILIRUBIN,TOTAL 0.9 MG/DL (0.2-1.0); CKMB 0.6 NG/ML (0.0-3.6); CREATINE KINASE 100 U/L (26-308)
--- NOTE | 2019-09-13 17:35 | NUR ---
ED Nurse Note: NOTED REDNESS AND SWELLING IN RIGHT HAND AFTER MORPHINE ADMINISTRATION. DR BORGES WAS NOTIFIED.
[2019-09-13] MEDS ORDERED: DiphenhydrAMINE 50mg/ml Inj IVP ONE (17:45)
[2019-09-13 18:01] LABS: APPEARANCE,URINE CLEAR; BILIRUBIN, URINE NEGATIVE (NEGATIVE); GLUCOSE, URINE (UA) NEGATIVE (NEGATIVE); KETONES,URINE 2+ (NEGATIVE); LEUKOCYTE ESTERASE ,URINE 3+ (NEGATIVE); NITRITE,URINE POSITIVE (NEGATIVE); PH,URINE 7 (4.5-8.0); PROTEIN,URINE 2+ (NEGATIVE); UROBILINOGEN,URINE NORMAL MG/DL (0.0-1.0)
[2019-09-13 18:07] LABS: COLOR,URINE YELLOW
--- NOTE | 2019-09-13 18:08 | NUR ---
ED Nurse Note: COLLECTED REPEAT LACTIC ACID SENT.
[2019-09-13 18:14] VITALS: BP 139/68
--- NOTE | 2019-09-13 18:43 | NUR ---
ED Nurse Note: REPORT GIVEN TO BESSIE CALIX OF [facility].
--- NOTE | 2019-09-13 19:05 | NUR ---
HAND-OFF: Report given to PAVAN CALIX.
--- NOTE | 2019-09-13 19:10 | NUR ---
ED Nurse Note: Report received and endorsed care from YOGI Gresham. Pt is resting comfortably in bed at this time. Pt aware of transfer to [facility]. Pt has 22g IV on R hand, patent and intact with IV fluids infusing. Pt aaox4, no acute distress noted. Vss for pt as charted.
--- NOTE | 2019-09-13 19:20 | NUR ---
Note tayo in EDM - 09/13/19 at 1934 by BEREKET ED Nurse Note: Pt temperature 102.7, ERMD notified. Will follow medication order.
--- NOTE | 2019-09-13 19:20 | NUR ---
ED Nurse Note: Pt temp 102.1, ERMD notified. Will daisha out medications orders.
[2019-09-13] MEDS ORDERED: Acetaminophen 500mg (ES) tab ORAL ONE (19:30)
[2019-09-13 19:45] VITALS: BP 157/62
--- NOTE | 2019-09-13 19:45 | NUR ---
ED Nurse Note: Pt cleared for transfer to [facility] by ARGELIA. Report given to [facility] ambulance unit [id number]. Pt is aaox4, no cardiac or respiratory distress noted. Pt able to ambulate to [facility]. Pt took all belongings. Pt stable upon transfer.
== END 2019-09-13 19:45 | disposition short-term general hospital (02) ==
LOC: EMR 16:59
DX: A41.9 Sepsis, unspecified organism (principal); N39.0 Urinary tract infection, site not specified; M06.9 Rheumatoid arthritis, unspecified
CPT/HCPCS: 36415; 80053; 81003; 82550; 82553; 83605; 84484; 85007; 85025; 87040; 87086; 93005; 96361; 96365; 96375; 99285; J0696; J1200; J2270; J7030

== ENCOUNTER 2020-02-19 20:47 | Emergency (ER) | payer MEDICARE, OTHER ==
[~2020-02-19] VITALS: Ht 152.4 cm; Wt 59.0 kg
[2020-02-19 21:08] VITALS: BP 194/100
--- NOTE | 2020-02-19 21:08 | NUR ---
ED Nurse Note: pt ambulated into ed from home CO abdominal pain 06/29 with frequent vomiting since 1200. Pt stated that she took 1 tab Zantac in AM. Pt vomited approximately 100ml of bile upon being placed in bed and on monitor. IV initiated, blood drawn. Pt unable to provide UA at this time. Pt actively retching frequently. Awaiting ERMD at bedside.
[2020-02-19 21:39] LABS: BASOPHILS % (AUTO) 1.2 % (0.0-2.0); EOSINOPHILS % (AUTO) 0.3 % (0.0-3.0); HEMATOCRIT 48.6 % (37.0-47.0); HEMOGLOBIN 15.3 G/DL (12.0-16.0); LYMPHOCYTES % (AUTO) 29.3 % (20.0-45.0); MEAN CORPUSCULAR VOLUME 89 FL (80-99); MONOCYTES % (AUTO) 4.2 % (1.0-10.0); PLATELET COUNT 322 K/UL (150-450); RED BLOOD COUNT 5.45 M/UL (4.20-5.40); RED CELL DISTRIBUTION WIDTH 14.8 % (11.6-14.8); WHITE BLOOD COUNT 15.4 K/UL (4.8-10.8)
--- NOTE | 2020-02-19 21:40 | NUR ---
ED Nurse Note: ERMD at bedside
[2020-02-19] MEDS ORDERED: Morphine Sulfate 4mg/ml Inj (IV USE ONLY) IVP ONE (21:45)
--- NOTE | 2020-02-19 21:45 | NUR ---
ED Nurse Note: all medications administered, pt tolerated well. no adverse reactions noted. will continue to monitor.
--- NOTE | 2020-02-19 21:49 | Emergency Room Report ---
History of Present Illness General Chief Complaint: Abdominal Pain Source: Patient Present Illness HPI Patient is a 64-year-old female presents after increased epigastric pain. Prior similar symptoms in the past. Prior history of chronic pain syndrome. She reports taking opiates regularly. She is followed by rheumatology and normally gets injections periodically. She is taking Percocet for pain chronically. Reports having increased epigastric pain which does not radiate associated nausea and vomiting. Allergies: Coded Allergies: HYDROCODONE BIT (Verified Allergy, Severe, Hives, 05/16/13) COVID-19 Screening Contact w/high risk pt: No Recent Travel to affected area: No Experienced COVID-19 symptoms?: No COVID-19 Testing performed VP INFORMATICS: No Patient History Past Medical History: see triage record Now: No Reviewed Nursing Documentation: PMH: Agreed; PSxH: Agreed Nursing Documentation-PMH Hx Cardiac Problems: No - Rheumatoid Arthritis Hx Hypertension: No Hx Pacemaker: No Hx Asthma: No Hx COPD: No Hx Diabetes: No Hx Cancer: No Hx Gastrointestinal Problems: Yes - s/p ASAD 26 years ago, diverticulitis, IBS, C-Diff Hx Dialysis: No Hx Neurological Problems: No Hx Cerebrovascular Accident: No Hx Seizures: No Hx Headaches: Yes Hx Numbness: Yes Hx Neurologic Surgery: No Review of Systems All Other Systems: negative except mentioned in HPI Physical Exam Vital Signs Date Time Temp Pulse Resp B/P (MAP) Pulse Ox O2 Delivery O2 Flow Rate FiO2 02/19/20 20:58 99.3 98 28 99 Sp02 EP Interpretation: reviewed, normal General Appearance: normal inspection, well appearing, no apparent distress, alert, GCS 15 Head: atraumatic ENT: normal ENT inspection, hearing grossly normal, normal voice Neck: normal inspection, full range of motion, supple, no bony tend Respiratory: normal inspection, lungs clear, normal breath sounds, no respiratory distress, no retraction, no wheezing Cardiovascular #1: regular rate, rhythm, no edema Gastrointestinal: normal inspection, normal bowel sounds, non tender, soft, no guarding, no hernia Genitourinary: no CVA tenderness Musculoskeletal: normal inspection, back normal, normal range of motion Neurologic: alert, responsive, speech normal, normal inspection Psychiatric: normal inspection, judgement/insight normal, mood/affect normal Medical Decision Making Diagnostic Impression: Primary Impression: Abdominal pain ER Course Patient presented for abdominal pain. Differential diagnoses included ischemic bowel, appendicitis, perforated viscus, abdominal aortic aneurysm, inferior myocardial infarction, viral gastroenteritis among others.Because patient's complexity laboratory testing ordered. Laboratory testing showed elevated white blood count which is patient's baseline. She is chronically on steroids. . Electrolytes were unremarkable. Patient has history of chronic pain which is related to opiate withdrawal. Patient was given pain medications. She was given prescription for further pain medications for home. She is advised to follow-up with her pain management doctor and primary care for recheck. Patient is advised to return if worse. The patient is advised to follow up with primary care doctor in 1-2 days. Patient is advised to return if any worsening condition or if any changes in status that are concerning. This report is dictated with [facility] receiving clerk software which may occasionally lead to discrepancies related to use of this software. Laboratory Tests Test 02/19/20 21:00 White Blood Count 15.4 K/UL (4.8-10.8) H Red Blood Count 5.45 M/UL (4.20-5.40) H Hemoglobin 15.3 G/DL (12.0-16.0) Hematocrit 48.6 % (37.0-47.0) H Mean Corpuscular Volume 89 FL (80-99) Mean Corpuscular Hemoglobin 28.1 PG (27.0-31.0) Mean Corpuscular Hemoglobin Concent 31.6 G/DL (32.0-36.0) L Red Cell Distribution Width 14.8 % (11.6-14.8) Platelet Count 322 K/UL (150-450) Mean Platelet Volume 8.0 FL (6.5-10.1) Neutrophils (%) (Auto) 65.0 % (45.0-75.0) Lymphocytes (%) (Auto) 29.3 % (20.0-45.0) Monocytes (%) (Auto) 4.2 % (1.0-10.0) Eosinophils (%) (Auto) 0.3 % (0.0-3.0) Basophils (%) (Auto) 1.2 % (0.0-2.0) Prothrombin Time 11.3 SEC (9.30-11.50) Prothrombin Time INR 1.0 (0.9-1.1) Activated Partial Thromboplast Time 26 SEC (23-33) Sodium Level 139 MMOL/L (136-145) Potassium Level 3.7 MMOL/L (3.5-5.1) Chloride Level 103 MMOL/L (98-107) Carbon Dioxide Level 22 MMOL/L (21-32) Anion Gap 14 mmol/L (5-15) Blood Urea Nitrogen 17 mg/dL (7-18) Creatinine 1.0 MG/DL (0.55-1.30) Estimated Glomerular Filtration Rate 55.5 mL/min (>60) Glucose Level 153 MG/DL (74-106) H Calcium Level 10.4 MG/DL (8.5-10.1) H Total Bilirubin 0.4 MG/DL (0.2-1.0) Aspartate Amino Transferase (AST) 23 U/L (15-37) Alanine Aminotransferase (ALT) 32 U/L (12-78) Alkaline Phosphatase 100 U/L (46-116) Total Protein 8.4 G/DL (6.4-8.2) H Albumin 4.4 G/DL (3.4-5.0) Globulin 4.0 g/dL Albumin/Globulin Ratio 1.1 (1.0-2.7) Lipase 93 U/L (73-393) Last Vital Signs Date Time Temp Pulse Resp B/P (MAP) Pulse Ox O2 Delivery O2 Flow Rate FiO2 02/19/20 20:58 99.3 98 28 99 Status: improved Disposition: HOME, SELF-CARE Condition: Stable Scripts Oxycodone/Acetaminophen 5-325* (PERCOCET 5-325 MG TABLET*) 1 Each Tablet 1 TAB ORAL Q6H PRN for For Pain, #10 TAB 0 Refills Prov: Bart Saez MD 02/19/20 Referrals: NON PHYSICIAN (PCP) Bart Saez MD Feb 19, 2020 21:49
[2020-02-19 21:52] LABS: ANION GAP 14 mmol/L (5-15); BLOOD UREA NITROGEN 17 mg/dL (7-18); CALCIUM 10.4 MG/DL (8.5-10.1); CARBON DIOXIDE 22 MMOL/L (21-32); CHLORIDE 103 MMOL/L (98-107); POTASSIUM 3.7 MMOL/L (3.5-5.1); SODIUM 139 MMOL/L (136-145)
[2020-02-19 21:57] LABS: ALANINE AMINOTRANSFERASE 32 U/L (12-78); ALBUMIN 4.4 G/DL (3.4-5.0); ALBUMIN/GLOBULIN RATIO 1.1 (1.0-2.7); ALKALINE PHOSPHATASE 100 U/L (46-116); ASPARTATE AMINO TRANSFERASE 23 U/L (15-37); BILIRUBIN,TOTAL 0.4 MG/DL (0.2-1.0)
--- NOTE | 2020-02-19 22:30 | NUR ---
ED Nurse Note: Pt refuses to provide UA
[2020-02-19] MEDS ORDERED: PERCOCET 5-3251 EACH ORAL (23:14)
[2020-02-19 23:17] VITALS: BP 142/92
--- NOTE | 2020-02-19 23:17 | NUR ---
ER DISCHARGE NOTE: Patient is cleared to be discharged home per ERMD, pt is aox4, 98% on room air, with stable vital signs. pt was given dc instructions, pt was able to verbalize understanding, pt id band and iv site removed without complications. pt is able to ambulate with steady gait. pt took all belongings.
== END 2020-02-19 23:17 | disposition home or self-care (01) ==
LOC: EMR 21:36
DX: R10.13 Epigastric pain (principal); Z88.6 Allergy status to analgesic agent; M06.9 Rheumatoid arthritis, unspecified
CPT/HCPCS: 36415; 80053; 83690; 85025; 85610; 85730; 93005; 96374; 96375; 99284; J2270; J2405; J7040; S0028

== ENCOUNTER 2020-07-25 00:36 | Inpatient (IN) | payer MEDICARE, OTHER ==
[~2020-07-25] VITALS: Ht 152.4 cm; Wt 70.3 kg
[2020-07-25] VITALS (8 sets, daily range): BP systolic 92–171; BP diastolic 49–96
[2020-07-25] MEDS ORDERED: Morphine Sulfate 4mg/ml Inj (IV USE ONLY) IVP ONE (00:45)
[2020-07-25] MEDS ORDERED: Acetaminophen 500mg (ES) tab ORAL ONE (00:45)
--- NOTE | 2020-07-25 00:46 | NUR ---
ED Nurse Note: pt biba from home CO fever and elevated HR per EMS. Pt states that fever began yesterday. Pt denied taking medication at home. Pt aao x 4, ambulates with steady gait, skin intact. Pt placed in gown on cardiac nurse specialist. SPAR CAP BEVELER at bedside for EKG. ERMD at bedside. Awaiting further orders. will continue to monitor.
--- NOTE | 2020-07-25 00:51 | Emergency Room Report ---
History of Present Illness General Chief Complaint: Fever Source: Patient Present Illness HPI This is a 65-year-old female with history of rheumatoid arthritis. She presents with chief complaint of fever and body pain. Onset for 24 hours. Fever spike to 103 tonight. She has generalized body pain which she described as 10 out of 10. No cough or congestion. Does have some dysuria and frequency. No hematu taylor. Did not take any medicine for this. No sick contact. Not on any immunosuppressive medication. Allergies: Coded Allergies: HYDROCODONE BIT (Verified Allergy, Severe, Hives, 05/16/13) COVID-19 Screening Contact w/high risk pt: No Recent Travel to affected area: No Experienced COVID-19 symptoms?: Yes COVID-19 Testing performed MATERIALS PLANNER/PRODUCTION PLANNER: No Patient History Past Medical History: see triage record, old chart reviewed Past Surgical History: other Pertinent Family History: none Social History: Denies: smoking Last Menstrual Period: n/a Now: No Immunizations: other Reviewed Nursing Documentation: PMH: Agreed; PSxH: Agreed Nursing Documentation-PMH Past Medical History: No Stated History Hx Cardiac Problems: No - Rheumatoid Arthritis Hx Hypertension: No Hx Pacemaker: No Hx Asthma: No Hx COPD: No Hx Diabetes: No Hx Cancer: No Hx Gastrointestinal Problems: Yes - s/p ASAD 26 years ago, diverticulitis, IBS, C-Diff Hx Dialysis: No Hx Neurological Problems: No Hx Cerebrovascular Accident: No Hx Seizures: No Hx Headaches: Yes Hx Numbness: Yes Hx Neurologic Surgery: No Review of Systems Constitutional: Reports: chills, fever Eye: Denies: eye pain, blurred vision ENT: Denies: ear pain, nose congestion, throat swelling Respiratory: Denies: cough, shortness of breath Cardiovascular: Denies: chest pain, palpitations Gastrointestinal: Denies: abdominal pain, diarrhea, nausea, vomiting Genitourinary: Reports: dysuria, frequency Musculoskeletal: Reports: back pain, joint pain Skin: Denies: rash Neurological: Denies: headache, numbness Endocrine: Denies: increased thirst, increased urine Hematologic/Lymphatic: Denies: easy bruising All Other Systems: negative except mentioned in HPI Physical Exam Vital Signs Date Time Temp Pulse Resp B/P (MAP) Pulse Ox O2 Delivery O2 Flow Rate FiO2 07/25/20 00:36 102.9 150 18 171/87 (115) 96 Room Air Vitals with fever, tachycardia and hypotension Sp02 EP Interpretation: reviewed, normal General Appearance: well appearing, no apparent distress, alert Head: normocephalic, atraumatic Eyes: bilateral eye PERRL, bilateral eye EOMI ENT: hearing grossly normal, normal pharynx Neck: full range of motion, supple, no meningismus Respiratory: chest non-tender, lungs clear, normal breath sounds Cardiovascular #1: regular rate, rhythm, no murmur Gastrointestinal: normal bowel sounds, non tender, no mass, no organomegaly, no bruit, non-distended Musculoskeletal: back normal, normal range of motion, gait/station normal, other - Degenerative joint changes consistent with rheumatoid arthritis Psychiatric: mood/affect normal Procedures Critical Care Time Critical Care Time Critical care is mandated in this patient who presented with sepsis and NSTEMI. Patient require my urgent intervention to attenuate the risks of the metabolic collapse which may lead to cardiovascular collapse and . Critical care t liya is 35 minutes excluding any reportable procedure. Critical care time included evaluation, multiple reevaluation, looking at old charts, interpreting laboratory and diagnostic data, discussing case with patient and family and consultants, and charting. Medical Decision Making Diagnostic Impression: Primary Impression: Sepsis Qualified Codes: A41.9 - Sepsis, unspecified organism; R65.20 - Severe sepsis without septic shock Additional Impressions: NSTEMI, initial episode of care UTI (urinary tract infection) Qualified Codes: N30.00 - Acute cystitis without hematuria Hypokalemia ER Course This patient presents with sepsis and generalized myalgia. Source is urine. She has no respiratory complaint. Her Covid testing was negative. However, her inflammatory markers are elevated. She does have ST depression inferior laterally on EKG. Troponin is positive. This may be secondary to her sepsis and tachycardia from demand ischemia. She received aspirin and Lovenox here. She has no chest pain. Antibiotics also given. Will admit for further work-up. I discussed the case with Dr. Cates who accepted pt for admission. EKG Diagnostic Results Troponin ordered: Yes Rate: tachycardiac Rhythm: NSR ST Segments: other - diffuse st depression Other Impression EKG #2: Sinus tachycardia at 108. ST depression much improved. ST depression is inferior laterally. Rhythm Strip Diag. Results EP Interpretation: yes Rate: 109 Rhythm: NSR, no PVC's, no ectopy Chest X-Ray Diagnostic Results Chest X-Ray Diagnostic Results : Chest X-Ray Ordered: Yes # of Views/Limited/Complete: 1 View Indication: Other EP Interpretation: Yes Interpretation: no consolidation, no effusion, no pneumothorax, no acute cardiopulmonary disease Impression: No acute disease Electronically Signed by: Mauro Jacome MD Last Vital Signs Date Time Temp Pulse Resp B/P (MAP) Pulse Ox O2 Delivery O2 Flow Rate FiO2 07/25/20 00:36 102.9 150 18 171/87 (115) 96 Room Air Status: improved Disposition: ADMITTED INPATIENT Condition: Serious Referrals: NOT CHOSEN IPA/,REFERRING (PCP) Mauro Jacome MD Jul 25, 2020 00:51
--- NOTE | 2020-07-25 01:00 | NUR ---
ED Nurse Note: all medication administered, pt tolerated well no ss of distress noted. will continue to monitor.
--- NOTE | 2020-07-25 01:10 | NUR ---
ED Nurse Note: all blood work, COVID swab sent to lab
[2020-07-25 01:34] LABS: HEMATOCRIT 49.3 % (37.0-47.0); HEMOGLOBIN 16.5 G/DL (12.0-16.0); MEAN CORPUSCULAR VOLUME 90 FL (80-99); PLATELET COUNT 143 K/UL (150-450); RED BLOOD COUNT 5.45 M/UL (4.20-5.40); RED CELL DISTRIBUTION WIDTH 14.3 % (11.6-14.8)
[2020-07-25 01:36] LABS: WHITE BLOOD COUNT 25.5 K/UL (4.8-10.8)
--- NOTE | 2020-07-25 01:40 | NUR ---
ED Nurse Note: Flu swab sent to lab
[2020-07-25 01:50] LABS: CALCIUM 9.3 MG/DL (8.5-10.1); CREATININE 1.4 MG/DL (0.55-1.30); POTASSIUM 2.8 MMOL/L (3.5-5.1)
[2020-07-25] MEDS ORDERED: Aspirin Baby 81mg ORAL ONE (02:00)
[2020-07-25] MEDS ORDERED: Enoxaparin 80mg Inj SUBQ ONE (02:00)
[2020-07-25 02:10] LABS: ALBUMIN 3.9 G/DL (3.4-5.0); ALBUMIN/GLOBULIN RATIO 1.1 (1.0-2.7); CKMB 6.6 NG/ML (0.0-3.6); INR 1.1 (0.9-1.1)
[2020-07-25] MEDS ORDERED: cefTRIAXone 1 GM in NS 55 ML IVPB ONE (02:15)
--- NOTE | 2020-07-25 02:29 | NUR ---
russell, patients [phone]
[2020-07-25] MEDS ORDERED: Azithromycin 500 MG in NS 275 ML IV ONE (02:30)
--- NOTE | 2020-07-25 02:30 | NUR ---
ED Nurse Note: all medications administered, pt tolerated well no ss of distress noted. will continue to monitor.
--- NOTE | 2020-07-25 03:00 | NUR ---
ED Nurse Note: lactic reflex sent to lab
--- NOTE | 2020-07-25 03:36 | NUR ---
ED Nurse Note: urine sent to lab
[2020-07-25 03:40] LABS: APPEARANCE,URINE SLIGHTLY CLOUDY; BILIRUBIN, URINE NEGATIVE (NEGATIVE); GLUCOSE, URINE (UA) NEGATIVE (NEGATIVE); KETONES,URINE 1+ (NEGATIVE); LEUKOCYTE ESTERASE ,URINE 3+ (NEGATIVE); NITRITE,URINE POSITIVE (NEGATIVE); PH,URINE 6 (4.5-8.0); PROTEIN,URINE 4+ (NEGATIVE); UROBILINOGEN,URINE NORMAL MG/DL (0.0-1.0)
[2020-07-25 03:49] LABS: COLOR,URINE YELLOW
--- NOTE | 2020-07-25 04:16 | NUR ---
ED Nurse Note: Report given to YOGI Peña SDU
--- NOTE | 2020-07-25 04:30 | Emergency Room Report ---
Sepsis Event Note Evaluation Current Stage of Sepsis: Sepsis Possible Source: Genitourinary Focused Exam Allergies: Coded Allergies: HYDROCODONE BIT (Verified Allergy, Severe, Hives, 05/16/13) Date Exam Occurred: Jul 25, 2020 Time Exam Occurred: 04:29 Laboratory Studies Laboratory Tests Test 07/25/20 00:40 07/25/20 02:10 07/25/20 03:00 White Blood Count 25.5 K/UL (4.8-10.8) *H Red Blood Count 5.45 M/UL (4.20-5.40) H Hemoglobin 16.5 G/DL (12.0-16.0) H Hematocrit 49.3 % (37.0-47.0) H Mean Corpuscular Volume 90 FL (80-99) Mean Corpuscular Hemoglobin 30.2 PG (27.0-31.0) Mean Corpuscular Hemoglobin Concent 33.4 G/DL (32.0-36.0) Red Cell Distribution Width 14.3 % (11.6-14.8) Platelet Count 143 K/UL (150-450) L Mean Platelet Volume 9.3 FL (6.5-10.1) Neutrophils (%) (Auto) % (45.0-75.0) Lymphocytes (%) (Auto) % (20.0-45.0) Monocytes (%) (Auto) % (1.0-10.0) Eosinophils (%) (Auto) % (0.0-3.0) Basophils (%) (Auto) % (0.0-2.0) Differential Total Cells Counted 100 Neutrophils % (Manual) 85 % (45-75) H Lymphocytes % (Manual) 14 % (20-45) L Monocytes % (Manual) 1 % (1-10) Eosinophils % (Manual) 0 % (0-3) Basophils % (Manual) 0 % (0-2) Band Neutrophils 0 % (0-8) Platelet Estimate Decreased L Platelet Morphology Normal Prothrombin Time 12.9 SEC (9.30-11.50) H Prothromb Time International Ratio 1.1 (0.9-1.1) Activated Partial Thromboplast Time 30 SEC (23-33) D-Dimer 13.87 mg/L FEU (0.00-0.49) H Sodium Level 136 MMOL/L (136-145) Potassium Level 2.8 MMOL/L (3.5-5.1) L Chloride Level 98 MMOL/L (98-107) Carbon Dioxide Level 20 MMOL/L (21-32) L Anion Gap 18 mmol/L (5-15) H Blood Urea Nitrogen 14 mg/dL (7-18) Creatinine 1.4 MG/DL (0.55-1.30) H Estimat Glomerular Filtration Rate 37.5 mL/min (>60) Glucose Level 144 MG/DL (74-106) H Lactic Acid Level 6.80 mmol/L (0.4-2.0) H 4.60 mmol/L (0.66-2.22) H Calcium Level 9.3 MG/DL (8.5-10.1) Ferritin 161 NG/ML (8-388) Total Bilirubin 1.0 MG/DL (0.2-1.0) Aspartate Amino Transf (AST/SGOT) 61 U/L (15-37) H Alanine Aminotransferase (ALT/SGPT) 46 U/L (12-78) Alkaline Phosphatase 217 U/L (46-116) H Lactate Dehydrogenase 333 U/L (81-234) H Total Creatine Kinase 526 U/L (26-308) H Creatine Kinase MB 6.6 NG/ML (0.0-3.6) H Creatine Kinase MB Relative Index 1.2 Troponin I 3.588 ng/mL (0.000-0.056) C-Reactive Protein, Quantitative 20.2 mg/dL (0.00-0.90) H Pro-B-Type Natriuretic Peptide 6608 pg/mL (0-125) H Total Protein 7.3 G/DL (6.4-8.2) Albumin 3.9 G/DL (3.4-5.0) Globulin 3.4 g/dL Albumin/Globulin Ratio 1.1 (1.0-2.7) Lipase 37 U/L (73-393) L Urine Color Yellow Urine Appearance Slightly cloudy Urine pH 6 (4.5-8.0) Urine Specific [place] 1.015 (1.005-1.035) Urine Protein 4+ (NEGATIVE) H Urine Glucose (UA) Negative (NEGATIVE) Urine Ketones 1+ (NEGATIVE) H Urine Blood 5+ (NEGATIVE) H Urine Nitrite Positive (NEGATIVE) H Urine Bilirubin Negative (NEGATIVE) Urine Urobilinogen Normal MG/DL (0.0-1.0) Urine Leukocyte Esterase 3+ (NEGATIVE) H Urine RBC Tntc /HPF (0 - 2) H Urine WBC Tntc /HPF (0 - 2) H Urine Squamous Epithelial Cells Few /LPF (NONE/OCC) Urine Bacteria Many /HPF (NONE) H Urine Mucus Few /LPF (NONE/OCC) H Vital Signs Last 24 Hour Vital Signs Date Time Temp Pulse Resp B/P (MAP) Pulse Ox O2 Delivery O2 Flow Rate FiO2 07/25/20 03:30 101.6 117 21 97/49 98 Room Air 07/25/20 01:30 101.6 107 18 102/96 98 Room Air 07/25/20 01:28 101.6 07/25/20 01:27 103.0 07/25/20 00:46 102.9 150 18 171/87 96 Room Air 07/25/20 00:46 150 18 Room Air 07/25/20 00:36 102.9 150 18 171/87 (115) 96 Room Air Respiratory Exam: Clear Cardiovascular Exam: RRR Capillary Refill: Less Than 2 Seconds Peripheral Pulse: Strong Pulse Location: Radial Skin Exam: Normal Turgor Mauro Jacome MD Jul 25, 2020 04:30
--- NOTE | 2020-07-25 04:45 | NUR ---
ER DISCHARGE NOTE: Patient is cleared to be discharged to SDU unit per ERMD, pt is aox4, 98% on room air, with stable vital signs. pt was able to verbalize understanding. pt is able to ambulate with steady gait. pt took all belongings. Report given to YOGI Valero on SDU unit. Pt transferred to unit with 1 RN and 1 BUILDING ADMIN on cardiac rn.
--- NOTE | 2020-07-25 06:00 | NUR ---
NURSE NOTES: Pt JOHAN guajardo from ED direct to room 237-2. Pt A/Ox4. PERRLA. Able to make needs known. Pt c/o pain 10/10 on back and lower extremities. 5-lead EKG shows SR at 111 bpm. BP 92/50. 97.0 Temp axil. Pt observed with N/V but no signs of emesis in basin upon observation. Pt has ambulated with walker ([facility] Walker) to bathroom x3 times during admission. Noted with UTI. On room air saturating 98%. Bed kept in lowest and locked position. Bed alarm on. Will monitor.
--- NOTE | 2020-07-25 06:39 | NUR ---
NURSE NOTES: Per Dr. Cates. Okay to start heparin drip at 1400 for NSTEMI. aware of platelets of 143. New TORB orders initiated. Will continue monitoring.
--- NOTE | 2020-07-25 06:40 | NUR ---
NURSE NOTES: Pt starting at 1400 because was given Lovenox earlier in MD. Will endorse plan of care to AM RN.
--- NOTE | 2020-07-25 07:38 | NUR ---
NURSE HAND-OFF REPORT: Important Events on Shift: KCl, Heparin Drip, and PCR Swab today. Patient Status: Stable Diet: Cardiac Pending Orders: N Pending Results/Labs: PTT after Heparin Pending MD notification: N Latest Vital Signs: Temperature 97.0 , Pulse 108 , B/P 92 /50 , Respiratory Rate 18 , O2 SAT 98 , Room Air, O2 Flow Rate . Vital Sign Comment: WNL; Afebrile EKG Rhythm: Sinus Tachycardia Rhythm change?: Jie ARIAS Notified?: Jie Cates MD Response: Order Received& Read Back Latest Perez Fall Score: 50 Fall Risk: High Risk Safety Measures: Call light Within Reach, Bed Alarm Zone 1, Side Rails Side Rails x3, Bed position Low and Locked. Fall Precautions: Yellow Socks Yellow Gown Door Sign Patient Fall Education Report given to YOGI Dent.
--- NOTE | 2020-07-25 07:40 | NUR ---
NURSE NOTES: Received patient from YOGI Gastelum under the care of Dr. Cates for the admitting dx. of NSTEMI and sepsis. Patient noted allergic to hydrocodone. Full code status. On contact and droplet precautions for PUI status, observed and maintained at all times. Patient is alert and communicative with clear speech in lithuanian. Will continue to monitor.
--- NOTE | 2020-07-25 08:00 | NUR ---
NURSE NOTES: Started patient on KCl 10meq IVP x 4 bags. IV site benign and no sign of irritation noted. Will continue to monitor.
[2020-07-25] MEDS: Atorvastatin 80mg tab ORAL SCH (08:40)
[2020-07-25] MEDS: Aspirin Baby 81mg ORAL SCH (08:40)
[2020-07-25 09:26] LABS: HEMATOCRIT 49.9 % (37.0-47.0); HEMOGLOBIN 15.4 G/DL (12.0-16.0); MEAN CORPUSCULAR VOLUME 96 FL (80-99); PLATELET COUNT 132 K/UL (150-450); RED CELL DISTRIBUTION WIDTH 15.3 % (11.6-14.8)
[2020-07-25 09:27] LABS: WHITE BLOOD COUNT 24.7 K/UL (4.8-10.8)
--- NOTE | 2020-07-25 09:43 | History & Physical ---
History of Present Illness General Reason for Hospitalization: Fever Present Illness HPI 65-year-old female with history of rheumatoid arthritis. She presents with chief complaint of fever and body pain. Onset for 24 hours. Fever spike to 103 tonight. She has generalized body pain which she described as 10 out of 10. No cough or congestion. Endorses dysuria and frequency. No hematuria Labs notable for lactic acidosis Leukocytosis UTI Elevated troponin MANDY hypokalemia Allergies: Coded Allergies: HYDROCODONE BIT (Verified Allergy, Severe, Hives, 05/16/13) COVID-19 Screening Contact w/high risk pt: No Recent Travel to affected area: No Experienced COVID-19 symptoms?: Yes Coronavirus symptoms experienc: Fever (T>100.4F or >38C), Shortness of Breath, Cough Medication History Scheduled Alprazolam* (Xanax*), 1 MG ORAL Q12HR, (Reported) Gabapentin* (Gabapentin*), 300 MG ORAL TID, (Reported) Infliximab (Remicade), 0 IV ONCE, (Reported) Prednisone (Prednisone), 15 MG ORAL DAILY, (Reported) Sucralfate* (Carafate*), 1 GM ORAL TID, (Reported) Scheduled PRN Lorazepam* (Lorazepam*), 1 MG ORAL DAILY PRN for For Anxiety, (Reported) Oxycodone/Acetaminophen 5-325* (Percocet 5-325 Mg Tablet*), 1 TAB ORAL Q4H PRN for For Pain, (Reported) Temazepam* (Restoril*), 15 MG ORAL BEDTIME PRN for Insomnia, (Reported) Miscellaneous Medications Lansoprazole (Lansoprazole), 30 MG PO, (Reported) Discontinued Medications Alprazolam* (Xanax*), 1 TAB ORAL BID Discontinued Reason: Therapy completed Oxycodone/Acetaminophen 5-325* (Percocet 5-325 Mg Tablet*), 1 TAB ORAL Q6H PRN for For Pain Discontinued Reason: Therapy completed Patient History Healthcare decision maker Resuscitation status Advanced Directive on File Review of Systems Review of Symptoms General ROS: no weight loss or fever Psychological ROS: no depression or mood changes, no memory loss Ophthalmic ROS: no visual changes or eye irritation ENT ROS: no nasal congestion, hearing loss, dizziness Allergy and Immunology ROS: no allergic symptoms or urticaria Hematological and Lymphatic ROS: no swollen glands, unusual bleeding or bruising Endocrine ROS: no polyuria, polydipsia, weight changes, temperature intolerance Respiratory ROS: no cough, shortness of breath, or wheezing Cardiovascular ROS: no chest pain or dyspnea on exertion Gastrointestinal ROS: denies abdominal pain, bright red blood in stool. Musculoskeletal ROS: no myalgias or arthralgias Neurological ROS: no TIA or stroke symptoms Dermatological ROS: no new or changing skin lesions, rashes or pruritis Physical Exam Physical Exam General appearance: alert, cooperative, no distress, appears stated age Head: Normocephalic, without obvious abnormality, atraumatic Eyes: conjunctivae/corneas clear. PERRL, EOM's intact. Fundi benign Throat: Lips, mucosa, and tongue normal. Teeth and gums normal Neck: supple, symmetrical, trachea midline, no adenopathy, thyroid: not enlarged, symmetric, no tenderness/mass/nodules, no carotid bruit and no JVD Lungs: clear to auscultation bilaterally Heart: regular rate and rhythm, S1, S2 normal, no murmur, click, rub or gallop Abdomen: soft, non-tender. Bowel sounds normal. No masses, no organomegaly Extremities: extremities normal, atraumatic, no cyanosis or edema Pulses: 2+ and symmetric Skin: Skin color, texture, turgor normal. No rashes or lesions Neurologic: Grossly normal Last 24 Hour Vital Signs Date Time Temp Pulse Resp B/P (MAP) Pulse Ox O2 Delivery O2 Flow Rate FiO2 07/25/20 06:15 108 07/25/20 05:30 97.0 111 18 92/50 (64) 98 07/25/20 04:50 Room Air 07/25/20 04:45 101.6 111 16 87/67 98 Room Air 07/25/20 03:30 101.6 117 21 97/49 98 Room Air 07/25/20 01:30 101.6 107 18 102/96 98 Room Air 07/25/20 01:28 101.6 07/25/20 01:27 103.0 07/25/20 00:46 102.9 150 18 171/87 96 Room Air 07/25/20 00:46 150 18 Room Air 07/25/20 00:36 102.9 150 18 171/87 (115) 96 Room Air Intake and Output 07/24/20 07/25/20 19:00 07:00 Intake Total 3250 ml Balance 3250 ml Intake Oral 250 ml IV Total 3000 ml # Voids 3 Laboratory Tests Test 07/25/20 00:40 07/25/20 02:10 07/25/20 03:00 07/25/20 08:40 White Blood Count 25.5 K/UL (4.8-10.8) *H 24.7 K/UL (4.8-10.8) *H Red Blood Count 5.45 M/UL (4.20-5.40) H 5.20 M/UL (4.20-5.40) Hemoglobin 16.5 G/DL (12.0-16.0) H 15.4 G/DL (12.0-16.0) Hematocrit 49.3 % (37.0-47.0) H 49.9 % (37.0-47.0) H Mean Corpuscular Volume 90 FL (80-99) 96 FL (80-99) Mean Corpuscular Hemoglobin 30.2 PG (27.0-31.0) 29.7 PG (27.0-31.0) Mean Corpuscular Hemoglobin Concent 33.4 G/DL (32.0-36.0) 30.9 G/DL (32.0-36.0) L Red Cell Distribution Width 14.3 % (11.6-14.8) 15.3 % (11.6-14.8) H Platelet Count 143 K/UL (150-450) L 132 K/UL (150-450) L Mean Platelet Volume 9.3 FL (6.5-10.1) 10.6 FL (6.5-10.1) H Neutrophils (%) (Auto) % (45.0-75.0) % (45.0-75.0) Lymphocytes (%) (Auto) % (20.0-45.0) % (20.0-45.0) Monocytes (%) (Auto) % (1.0-10.0) % (1.0-10.0) Eosinophils (%) (Auto) % (0.0-3.0) % (0.0-3.0) Basophils (%) (Auto) % (0.0-2.0) % (0.0-2.0) Differential Total Cells Counted 100 Neutrophils % (Manual) 85 % (45-75) H Pending Lymphocytes % (Manual) 14 % (20-45) L Pending Monocytes % (Manual) 1 % (1-10) Eosinophils % (Manual) 0 % (0-3) Basophils % (Manual) 0 % (0-2) Band Neutrophils 0 % (0-8) Platelet Estimate Decreased L Pending Platelet Morphology Normal Pending Prothrombin Time 12.9 SEC (9.30-11.50) H Prothromb Time International Ratio 1.1 (0.9-1.1) Activated Partial Thromboplast Time 30 SEC (23-33) D-Dimer 13.87 mg/L FEU (0.00-0.49) H Sodium Level 136 MMOL/L (136-145) Potassium Level 2.8 MMOL/L (3.5-5.1) L Chloride Level 98 MMOL/L (98-107) Carbon Dioxide Level 20 MMOL/L (21-32) L Anion Gap 18 mmol/L (5-15) H Blood Urea Nitrogen 14 mg/dL (7-18) Creatinine 1.4 MG/DL (0.55-1.30) H Estimat Glomerular Filtration Rate 37.5 mL/min (>60) Glucose Level 144 MG/DL (74-106) H Lactic Acid Level 6.80 mmol/L (0.4-2.0) H 4.60 mmol/L (0.66-2.22) H Calcium Level 9.3 MG/DL (8.5-10.1) Ferritin 161 NG/ML (8-388) Total Bilirubin 1.0 MG/DL (0.2-1.0) Aspartate Amino Transf (AST/SGOT) 61 U/L (15-37) H Alanine Aminotransferase (ALT/SGPT) 46 U/L (12-78) Alkaline Phosphatase 217 U/L (46-116) H Lactate Dehydrogenase 333 U/L (81-234) H Total Creatine Kinase 526 U/L (26-308) H Creatine Kinase MB 6.6 NG/ML (0.0-3.6) H Creatine Kinase MB Relative Index 1.2 Troponin I 3.588 ng/mL (0.000-0.056) Pending C-Reactive Protein, Quantitative 20.2 mg/dL (0.00-0.90) H Pro-B-Type Natriuretic Peptide 6608 pg/mL (0-125) H Total Protein 7.3 G/DL (6.4-8.2) Albumin 3.9 G/DL (3.4-5.0) Globulin 3.4 g/dL Albumin/Globulin Ratio 1.1 (1.0-2.7) Lipase 37 U/L (73-393) L Urine Color Yellow Urine Appearance Slightly cloudy Urine pH 6 (4.5-8.0) Urine Specific [place] 1.015 (1.005-1.035) Urine Protein 4+ (NEGATIVE) H Urine Glucose (UA) Negative (NEGATIVE) Urine Ketones 1+ (NEGATIVE) H Urine Blood 5+ (NEGATIVE) H Urine Nitrite Positive (NEGATIVE) H Urine Bilirubin Negative (NEGATIVE) Urine Urobilinogen Normal MG/DL (0.0-1.0) Urine Leukocyte Esterase 3+ (NEGATIVE) H Urine RBC Tntc /HPF (0 - 2) H Urine WBC Tntc /HPF (0 - 2) H Urine Squamous Epithelial Cells Few /LPF (NONE/OCC) Urine Bacteria Many /HPF (NONE) H Urine Mucus Few /LPF (NONE/OCC) H Microbiology Date/Time Source Procedure Growth Status 07/25/20 01:40 Nasal Nares - Final Complete 07/25/20 01:40 Nasal Nares - Final Complete 07/25/20 01:20 Nasopharynx SARS-CoV-2 RdRp Gene Assay - Final Complete Height (Feet): 5 Height (Inches): 0.00 Weight (Pounds): 155 Medications Current Medications Medications (Trade) Dose Ordered Sig/Gabriel Route PRN Reason Start Time Stop Time Status Last Admin Dose Admin Acetaminophen (Tylenol) 650 mg Q4HR PRN ORAL TEMP>100.5 07/25/20 04:30 Aspirin (ASA) 81 mg DAILY ORAL 07/25/20 09:00 09/08/20 08:59 07/25/20 08:40 Atorvastatin Calcium (Lipitor) 80 mg DAILY ORAL 07/25/20 09:00 10/23/20 08:59 07/25/20 08:40 Gabapentin (Neurontin) 300 mg TID ORAL 07/25/20 09:00 08/24/20 08:59 07/25/20 08:40 Heparin Sodium/ Dextrose 500 ml @ 16.874 mls/ hr ADJUST PER PROTOCOL IV 07/25/20 14:00 08/24/20 13:59 Ondansetron HCl (Zofran) 4 mg Q4HR PRN IVP Nausea & Vomiting 07/25/20 07:30 08/24/20 05:29 Oxycodone/ Acetaminophen (Percocet 5-325) 1 tab Q4H PRN ORAL For Pain 07/25/20 06:00 08/01/20 05:59 Pantoprazole (Protonix) 40 mg BID ORAL 07/25/20 09:00 08/24/20 08:59 07/25/20 08:40 Piperacillin Sod/ Tazobactam Sod 3.375 gm/Sodium Chloride 110 ml @ 27.5 mls/hr Q8H IVPB 07/25/20 08:00 08/01/20 07:59 Potassium Chloride 100 ml @ 100 mls/hr Q1HR IVPB 07/25/20 08:00 07/25/20 11:59 07/25/20 08:40 Sodium Chloride 1,000 ml @ 75 mls/hr [id number] IV 07/25/20 08:00 08/24/20 07:59 Sucralfate (Carafate) 1 gm BEFORE MEALS ORAL 07/25/20 11:30 10/23/20 11:29 Temazepam (Restoril) 15 mg BEDTIME PRN ORAL Insomnia 07/25/20 05:30 08/01/20 05:29 Vancomycin HCl (Vanco pharmacy to dose) 1 ea DAILY PRN MISC Per rx protocol 07/25/20 05:30 08/24/20 05:29 Vancomycin HCl 1 gm/Dextrose 275 ml @ 183.708 mls/hr Q24H IVPB 07/25/20 12:00 07/30/20 11:59 Assessment/Plan Diagnosis [place] [facility]: #Septic shock due to UTi #NSTEMI #MANDY #UTI #Sinus tach #RA - admit to [facility] - IVF - IV abx- vanco and zosyn - ID eval - follow cx - check COVID PCR - ASA - statin - echo - pain control - hold pred for now - hold infliximab for now - [facility] Hospital declaration Disposition: Once the patient is stable to leave the hospital, I anticipate the patient will likely be discharged to the following environment: H with Estimated discharge date: 07/30/20 I spent 70 minutes on this patient's case, and 35 minutes was dedicated to counseling and/or care coordination. MIPS (Merit-based Incentive Payment System) Applicable CPT: 17321, 19155 CHECK ALL THAT ARE MET: Measure #5 (CHF): All ages. Prescribe IVONE/ARB upon discharge for patients with left ventricular systolic dysfunction. If not, the reason is clearly documented in the medical chart. Measure #8 (CHF): All ages. Prescribe a beta sagar upon discharge for patients with left ventricular systolic dysfunction. If not, the reason is clearly documented in the medical chart. Measure #47 Advance care plan or surrogate decision maker documented in the medical record. Measure #130 The provider has documented, updated, or reviewed the patients current medication list and has documented it in the patients note. Measure #374 (All): Send report to referring provider. Measure #407(Sepsis due to MSSA bacteremia): Age 18+ Patient treated with a beta-lactam antibiotic (Nafcillin, Oxacillin or Cefazolin) as definitive therapy. MEDICAL COMPLEXITY High complexity medical decision making (need 2/3 categories) Problem - need 4 points Acute/new problem with new plan for workup (4 points, 1 max) Acute/new problem without additional workup (3 points, 1 max) Unstable chronic problem actively being managed (2 point each, 2 max) Stable chronic problem actively being managed (1 point each, 2 max) Self-limited/transient process (constipation, muscle ache, etc) (1 point each, 2 max) Data - need 4 points Reviewed labs/imaging studies (1 points, 2 max) Independent review of imaging (EKG, xrays, etc) (2 points, 2 max) Discussed case with consult/other MD/RN (2 points, 2 max) High Risk - qualify if have one of the following: Severe exacerbation of acute problem, acute mental status change, IV narcotics, monitoring drug levels (vancomycin, INR, tacrolimus etc) Ross Cates M.D. Jul 25, 2020 09:43
--- NOTE | 2020-07-25 10:00 | NUR ---
NURSE NOTES: Seen and examined by Dr. Garcia and Dr. San with new orders noted and carried out.
[2020-07-25] MEDS: oxyCODONE HCL/Acetaminophen 5/325mg ORAL PRN ×2 (10:03→23:29)
--- NOTE | 2020-07-25 10:42 | Cardiac Electrophysiology PN ---
Subjective Subjective [id number] Objective Last 24 Hour Vital Signs Date Time Temp Pulse Resp B/P (MAP) Pulse Ox O2 Delivery O2 Flow Rate FiO2 07/25/20 08:00 96.1 119 20 100/64 (76) 98 07/25/20 08:00 Room Air 07/25/20 06:15 108 07/25/20 05:30 97.0 111 18 92/50 (64) 98 07/25/20 04:50 Room Air 07/25/20 04:45 101.6 111 16 87/67 98 Room Air 07/25/20 03:30 101.6 117 21 97/49 98 Room Air 07/25/20 01:30 101.6 107 18 102/96 98 Room Air 07/25/20 01:28 101.6 07/25/20 01:27 103.0 07/25/20 00:46 102.9 150 18 171/87 96 Room Air 07/25/20 00:46 150 18 Room Air 07/25/20 00:36 102.9 150 18 171/87 (115) 96 Room Air Intake and Output 07/24/20 07/25/20 19:00 07:00 Intake Total 3250 ml Balance 3250 ml Intake Oral 250 ml IV Total 3000 ml # Voids 3 Laboratory Tests Test 07/25/20 00:40 07/25/20 02:10 07/25/20 03:00 07/25/20 08:40 White Blood Count 25.5 K/UL (4.8-10.8) *H 24.7 K/UL (4.8-10.8) *H Red Blood Count 5.45 M/UL (4.20-5.40) H 5.20 M/UL (4.20-5.40) Hemoglobin 16.5 G/DL (12.0-16.0) H 15.4 G/DL (12.0-16.0) Hematocrit 49.3 % (37.0-47.0) H 49.9 % (37.0-47.0) H Mean Corpuscular Volume 90 FL (80-99) 96 FL (80-99) Mean Corpuscular Hemoglobin 30.2 PG (27.0-31.0) 29.7 PG (27.0-31.0) Mean Corpuscular Hemoglobin Concent 33.4 G/DL (32.0-36.0) 30.9 G/DL (32.0-36.0) L Red Cell Distribution Width 14.3 % (11.6-14.8) 15.3 % (11.6-14.8) H Platelet Count 143 K/UL (150-450) L 132 K/UL (150-450) L Mean Platelet Volume 9.3 FL (6.5-10.1) 10.6 FL (6.5-10.1) H Neutrophils (%) (Auto) % (45.0-75.0) % (45.0-75.0) Lymphocytes (%) (Auto) % (20.0-45.0) % (20.0-45.0) Monocytes (%) (Auto) % (1.0-10.0) % (1.0-10.0) Eosinophils (%) (Auto) % (0.0-3.0) % (0.0-3.0) Basophils (%) (Auto) % (0.0-2.0) % (0.0-2.0) Differential Total Cells Counted 100 100 Neutrophils % (Manual) 85 % (45-75) H 58 % (45-75) Lymphocytes % (Manual) 14 % (20-45) L 21 % (20-45) Monocytes % (Manual) 1 % (1-10) 3 % (1-10) Eosinophils % (Manual) 0 % (0-3) 0 % (0-3) Basophils % (Manual) 0 % (0-2) 0 % (0-2) Band Neutrophils 0 % (0-8) 18 % (0-8) H Platelet Estimate Decreased L Decreased L Platelet Morphology Normal Normal Prothrombin Time 12.9 SEC (9.30-11.50) H Prothromb Time International Ratio 1.1 (0.9-1.1) Activated Partial Thromboplast Time 30 SEC (23-33) D-Dimer 13.87 mg/L FEU (0.00-0.49) H Sodium Level 136 MMOL/L (136-145) Potassium Level 2.8 MMOL/L (3.5-5.1) L Chloride Level 98 MMOL/L (98-107) Carbon Dioxide Level 20 MMOL/L (21-32) L Anion Gap 18 mmol/L (5-15) H Blood Urea Nitrogen 14 mg/dL (7-18) Creatinine 1.4 MG/DL (0.55-1.30) H Estimat Glomerular Filtration Rate 37.5 mL/min (>60) Glucose Level 144 MG/DL (74-106) H Lactic Acid Level 6.80 mmol/L (0.4-2.0) H 4.60 mmol/L (0.66-2.22) H Calcium Level 9.3 MG/DL (8.5-10.1) Ferritin 161 NG/ML (8-388) Total Bilirubin 1.0 MG/DL (0.2-1.0) Aspartate Amino Transf (AST/SGOT) 61 U/L (15-37) H Alanine Aminotransferase (ALT/SGPT) 46 U/L (12-78) Alkaline Phosphatase 217 U/L (46-116) H Lactate Dehydrogenase 333 U/L (81-234) H Total Creatine Kinase 526 U/L (26-308) H Creatine Kinase MB 6.6 NG/ML (0.0-3.6) H Creatine Kinase MB Relative Index 1.2 Troponin I 3.588 ng/mL (0.000-0.056) 2.985 ng/mL (0.000-0.056) C-Reactive Protein, Quantitative 20.2 mg/dL (0.00-0.90) H Pro-B-Type Natriuretic Peptide 6608 pg/mL (0-125) H Total Protein 7.3 G/DL (6.4-8.2) Albumin 3.9 G/DL (3.4-5.0) Globulin 3.4 g/dL Albumin/Globulin Ratio 1.1 (1.0-2.7) Lipase 37 U/L (73-393) L Urine Color Yellow Urine Appearance Slightly cloudy Urine pH 6 (4.5-8.0) Urine Specific [place] 1.015 (1.005-1.035) Urine Protein 4+ (NEGATIVE) H Urine Glucose (UA) Negative (NEGATIVE) Urine Ketones 1+ (NEGATIVE) H Urine Blood 5+ (NEGATIVE) H Urine Nitrite Positive (NEGATIVE) H Urine Bilirubin Negative (NEGATIVE) Urine Urobilinogen Normal MG/DL (0.0-1.0) Urine Leukocyte Esterase 3+ (NEGATIVE) H Urine RBC Tntc /HPF (0 - 2) H Urine WBC Tntc /HPF (0 - 2) H Urine Squamous Epithelial Cells Few /LPF (NONE/OCC) Urine Bacteria Many /HPF (NONE) H Urine Mucus Few /LPF (NONE/OCC) H Red Blood Cell Morphology Anisocytosis 1+ Test 07/25/20 10:00 Activated Partial Thromboplast Time Pending Lactic Acid Level Pending Microbiology Date/Time Source Procedure Growth Status 07/25/20 01:40 Nasal Nares - Final Complete 07/25/20 01:40 Nasal Nares - Final Complete 07/25/20 01:20 Nasopharynx SARS-CoV-2 RdRp Gene Assay - Final Complete Augustine Che MD Jul 25, 2020 10:42
[2020-07-25] MEDS: Piperacillin/Tazobactam 3.375 GM in NS 110 ML IVPB SCH ×3 (10:45→23:29)
--- NOTE | 2020-07-25 11:15 | Consultation ---
DATE OF CONSULTATION: 07/25/2020 PULMONARY CONSULTATION CONSULTING PHYSICIAN: Obed Ann MD. HISTORY OF PRESENT ILLNESS: This is a 65-year-old female with history of rheumatoid arthritis. She came to the hospital with fever and body aches. She also was febrile. She was seen and admitted to the hospital due to abnormal findings of marked leukocytosis, hypokalemia, renal failure, lactic acidemia as well as an x-ray chest which was essentially read as negative. The patient had further workup done, which showed evidence of elevated troponin of 3.5. PAST MEDICAL HISTORY: Notable for rheumatoid arthritis. The patient also has history of irritable bowel syndrome and diverticulitis. PREVIOUS SURGERIES: Notable for hysterectomy. REVIEW OF SYSTEMS: Denies any headaches, hematemesis, melena, or hematochezia. She admits to having chills, fevers, dysuria, and back pain. MEDICATIONS: Include Tylenol, aspirin, Lipitor, Neurontin, KCl, Zofran, Percocet, Protonix, Zosyn, Carafate, and temazepam. She is also on a heparin drip. PHYSICAL EXAMINATION: GENERAL: Reveals a 65-year-old female. VITAL SIGNS: Blood pressure is 92/50, heart rate 110, respirations 18. O2 saturation 98% on room air. HEENT: Unremarkable. CHEST: Decreased breath sounds bilaterally. ABDOMEN: Soft. EXTREMITIES: There is no edema. LABORATORY DATA: Notable for potassium 2.8, creatinine 1.4. Lactic acid , now 4.6. Troponin 3.5. The patient has elevation of LDH of 333 with total CK of 526, CK-MB of 6.6. Alkaline phosphatase 217. CRP is 202. Coags are negative. Urinalysis, negative. D-dimer is 13. EKG shows normal sinus rhythm with ST depression. IMAGING: X-ray chest negative. IMPRESSION: 1. Non-ST elevation MO. 2. Rheumatoid arthritis. 3. Hypokalemia. 4. Marked leukocytosis. DISCUSSION: I am unclear about the origin of leukocytosis. It would be appropriate to treat empirically for pneumonia. She has no urinary symptoms, no abdominal findings. I would be comfortable treating this presumptively as a pneumonia with broad-spectrum antibiotics. Her initial SARS COVID-19 test is negative. We will follow carefully. Thank you for this consultation. Obed Ann M.D. DR: NISHA JOB#: [id number] CC:
[2020-07-25] MEDS ORDERED: Heparin 5000 units/ml inj IV SCH (11:30)
[2020-07-25] MEDS: Sucralfate 1gm tab ORAL SCH ×2 (11:30→16:30)
[2020-07-25] MEDS ORDERED: Heparin 25,000u/D5W 500ml 500 ML IV SCH ×2 (11:30→14:00)
[2020-07-25] MEDS ORDERED: LR 1000ml 1,000 ML IVLG ONE (11:45)
[2020-07-25] MEDS: Vancomycin 1gm/D5W 275ml IVPB SCH ×2 (12:00)
--- NOTE | 2020-07-25 12:02 | General Progress Note ---
Subjective Constitutional: Reports: weakness; Denies: no symptoms, chills, diaphoresis, fever, malaise, other HEENT: Denies: no symptoms, eye pain, blurred vision, tearing, double vision, ear pain, ear discharge, nose pain, nose congestion, throat pain, throat swelling, mouth pain, mouth swelling, other Cardiovascular: Denies: no symptoms, chest pain, edema, irregular heart rate, lightheadedness, palpitations, syncope, other Respiratory: Reports: cough, sputum; Denies: no symptoms, orthopnea, shortness of breath, SOB with excertion, SOB at rest, stridor, wheezing, other Gastrointestinal/Abdominal: Denies: no symptoms, abdomen distended, abdominal pain, black stools, tarry stools, blood in stool, constipated, diarrhea, difficulty swallowing, nausea, poor appetite, poor fluid intake, rectal bleeding, vomiting, other Genitourinary: Denies: no symptoms, burning, discharge, frequency, flank pain, hematuria, incontinence, pain, urgency, other Neurologic/Psychiatric: Denies: no symptoms, anxiety, depressed, emotional problems, headache, numbness, paresthesia, pre-existing deficit, seizure, tingling, tremors, weakness, other Endocrine: Denies: no symptoms, excessive sweating, flushing, intolerance to cold, intolerance to heat, increased hunger, increased thirst, increased urine, unexplained weight gain, unexplained weight loss, other Hematologic/Lymphatic: Denies: no symptoms, anemia, easy bleeding, easy bruising, other Allergies: Coded Allergies: HYDROCODONE BIT (Verified Allergy, Severe, Hives, 05/16/13) Subjective Mrs. Christine is a 65F with PMH of RA, OA and osteoporosis who presented after one day of weakness, fevers, and body aches. She noted urinary incontinence, wet cough, malaise and worsening fevers over last 24 hours. No sick contacts or travels. No COVID exposure. She also has some diarrhea. She is on an infusion medication for her RA q3 months but unsure name. No other home medications. Has been feeling well up until yesterday. This morning patient feels very weak. Complains of back pain which is chronic. Denies feeling fever. Tired. Objective Last 24 Hour Vital Signs Date Time Temp Pulse Resp B/P (MAP) Pulse Ox O2 Delivery O2 Flow Rate FiO2 11/5/20 08:00 96.1 119 20 100/64 (76) 98 07/25/20 08:00 Room Air 07/25/20 06:15 108 07/25/20 05:30 97.0 111 18 92/50 (64) 98 07/25/20 04:50 Room Air 07/25/20 04:45 101.6 111 16 87/67 98 Room Air 07/25/20 03:30 101.6 117 21 97/49 98 Room Air 07/25/20 01:30 101.6 107 18 102/96 98 Room Air 07/25/20 01:28 101.6 07/25/20 01:27 103.0 07/25/20 00:46 102.9 150 18 171/87 96 Room Air 07/25/20 00:46 150 18 Room Air 07/25/20 00:36 102.9 150 18 171/87 (115) 96 Room Air Intake and Output 07/24/20 07/25/20 19:00 07:00 Intake Total 3250 ml Balance 3250 ml Intake Oral 250 ml IV Total 3000 ml # Voids 3 Laboratory Tests 07/25/20 00:40: White Blood Count 25.5*H, Red Blood Count 5.45H, Hemoglobin 16.5H, Hematocrit 49.3H, Mean Corpuscular Volume 90, Mean Corpuscular Hemoglobin 30.2, Mean Corpuscular Hemoglobin Concent 33.4, Red Cell Distribution Width 14.3, Platelet Count 143L, Mean Platelet Volume 9.3, Neutrophils (%) (Auto) , Lymphocytes (%) (Auto) , Monocytes (%) (Auto) , Eosinophils (%) (Auto) , Basophils (%) (Auto) , Differential Total Cells Counted 100, Neutrophils % (Manual) 85H, Lymphocytes % (Manual) 14L, Monocytes % (Manual) 1, Eosinophils % (Manual) 0, Basophils % (Manual) 0, Band Neutrophils 0, Platelet Estimate DecreasedL, Platelet Morphology Normal, Prothrombin Time 12.9H, Prothromb Time International Ratio 1.1, Activated Partial Thromboplast Time 30, D-Dimer 13.87H, Sodium Level 136, Potassium Level 2.8L, Chloride Level 98, Carbon Dioxide Level 20L, Anion Gap 18H , Blood Urea Nitrogen 14, Creatinine 1.4H, Estimat Glomerular Filtration Rate 37.5, Glucose Level 144H, Lactic Acid Level 6.80H, Calcium Level 9.3, Ferritin 161, Total Bilirubin 1.0, Aspartate Amino Transf (AST/SGOT) 61H, Alanine Aminotransferase (ALT/SGPT) 46, Alkaline Phosphatase 217H, Lactate Dehydrogenase 333H, Total Creatine Kinase 526H, Creatine Kinase MB 6.6H, Creatine Kinase MB Relative Index 1.2, Troponin I 3.588H, C-Reactive Protein, Quantitative 20.2H, Pro-B-Type Natriuretic Peptide 6608H, Total Protein 7.3, Albumin 3.9, Globulin 3.4, Albumin/Globulin Ratio 1.1, Lipase 37L 07/25/20 02:10: Urine Color Yellow, Urine Appearance Slightly cloudy, Urine pH 6, Urine Specific [place] 1.015, Urine Protein 4+H, Urine Glucose (UA) Negative, Urine Ketones 1+H , Urine Blood 5+H, Urine Nitrite PositiveH, Urine Bilirubin Negative, Urine Urobilinogen Normal, Urine Leukocyte Esterase 3+H, Urine RBC TntcH, Urine WBC TntcH, Urine Squamous Epithelial Cells Few, Urine Bacteria ManyH, Urine Mucus FewH 07/25/20 03:00: Lactic Acid Level 4.60H 07/25/20 08:40: White Blood Count 24.7*H, Red Blood Count 5.20, Hemoglobin 15.4, Hematocrit 49.9H, Mean Corpuscular Volume 96, Mean Corpuscular Hemoglobin 29.7, Mean Corpuscular Hemoglobin Concent 30.9L, Red Cell Distribution Width 15.3H, Platelet Count 132L, Mean Platelet Volume 10.6H, Neutrophils (%) (Auto) , Lymphocytes (%) (Auto) , Monocytes (%) (Auto) , Eosinophils (%) (Auto) , Basophils (%) (Auto) , Differential Total Cells Counted 100, Neutrophils % (Manual) 58, Lymphocytes % (Manual) 21, Monocytes % (Manual) 3, Eosinophils % (Manual) 0, Basophils % (Manual) 0, Band Neutrophils 18H, Platelet Estimate DecreasedL, Platelet Morphology Normal, Troponin I 2.985H, Red Blood Cell Morphology , Anisocytosis 1+ 07/25/20 10:00: Activated Partial Thromboplast Time 40H, Lactic Acid Level 9.90H Height (Feet): 5 Height (Inches): 0.00 Weight (Pounds): 155 General Appearance: alert, moderate distress, alert oriented x3 EENT: PERRL/EOMI, normal ENT inspection Neck: non-tender, normal inspection Cardiovascular: normal rate, regular rhythm, no JVD Respiratory/Chest: lungs clear, normal breath sounds, respiratory distress Abdomen: non tender, soft, no organomegaly Extremities: normal range of motion, non-tender Edema: no edema noted Arm (L), no edema noted Arm (R), no edema noted Leg (L), no edema noted Leg (R), no edema noted Pedal (L), no edema noted Pedal (R), no edema noted 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 Christine is a 65F with PMH of RA, OA and osteoporosis admitted for fevers, malaise. A: # Severe Sepsis (Leukocytosis + fevers + Tachycardia) 2/2 UTI, ?PNA # NSTEMI Type 1 vs Type 2 # UTI # Anion Gap Metabolic Acidosis 2/2 Lactic Acid # Severe Lactic Acidosis # MANDY 2/2 pre-renal azotemia vs Sepsis ATN # Prolong Qt # Leukocytosis # Thrombocytopenia # Hypokalemia # Hx of Rheumatoid Arthritis on Biologic infusion # Hx of OA # Hx of osteoporosis P: - s/p sepsis bolus in ED, SBP remains high 90-100s - will bolus additional LR - increase IVF - trend lactic acid; most recent 9 - keep MAP > 65, monitor for BP support with need for pressors - continue broad spec coverage w/ vanc, zosyn - f/u CRX, MRSA, BC, UC - COVID neg - troponin elevated - ekg: anterolateral ST depression, QTc 548 - avoid prolonging qt agents - heparin gtt per cardio - f/u ECHO for heart function, wall motion, valvular and pressure eval - f/u A1c, lipid profile - Dr. Cates, Nephrology, recs appreciated - consult Dr. Gallego, ID, recs appreciated - consult Dr. Che Cardiology, recs appreciated - consult Dr. Ann, Pulm, recs appreciated CODE: Full GI: none DVT: Heparin gtt Diet: cardio Dispo: severe sepsis work up Darshan San D.O Jul 25, 2020 12:02
--- NOTE | 2020-07-25 12:30 | Consultation ---
DATE OF CONSULTATION: 07/25/2020 CARDIOLOGY CONSULTATION CONSULTING PHYSICIAN: Augustine Che MD. REFERRING PHYSICIAN: Ross Cates MD REASON FOR CONSULTATION: Tachycardia with heart rate of 170s and elevated troponin. HISTORY OF PRESENT ILLNESS: The patient is a 65-year-old lady with history of rheumatoid arthritis was admitted to the hospital with fever of temperature 103 as well as generalized body pain that was 10/10. The patient did not have any chest pain or shortness of breath but at the time of my evaluation complains of severe back pain. Blood pressure was , pulse was 150s. Her troponin was also elevated. Cardiology consultation was obtained for further evaluation. REVIEW OF SYSTEMS: Negative other than what was mentioned in the history of present illness. PAST MEDICAL HISTORY: As mentioned above. FAMILY HISTORY: Noncontributory. SOCIAL HISTORY: She lives at home. Does not smoke or drink alcohol. PHYSICAL EXAMINATION: VITAL SIGNS: Blood pressure 100/64, pulse is 119, respirations 18, temperature max is 102, currently 96.1. HEAD AND NECK: Showed no JVD. LUNGS: Clear. CARDIOVASCULAR: Regular S1 and S2 with no gallop or murmur, tachycardic. ABDOMEN: Soft. EXTREMITIES: No pitting edema. LABORATORY AND DIAGNOSTIC DATA: Labs show white count of 25.5, hemoglobin 16.5, hematocrit 49.3, and platelet count 143. Sodium is 133, potassium 2.8, BUN of 14, creatinine 1.4, glucose of 144. Lactic acid 6.8. Troponin was 3.5, down to 2.9. Her EKG showed sinus rhythm with nonspecific ST-T wave abnormality. Echocardiogram is pending. ASSESSMENT AND PLAN: 1. Non-ST elevation myocardial infarction with troponin of 3.5. The patient however does not have any chest pain or shortness of breath and no evidence of ST elevation. The patient however also has renal failure, creatinine 1.4, and she is septic, lactic acid of 6.8, [place] [address]. We will repeat EKG and cardiac enzymes. Get an echocardiogram for further evaluation. In the meantime, keep the patient on aspirin and Lipitor. Hold off on beta-sagar in view of hypotension, blood pressure in the 80s. 2. Tachycardia with sinus tachycardia due to sepsis. The patient already on broad-spectrum IV antibiotics. 3. Hyperlipidemia on Lipitor. 4. Fever, cough, and body ache. Rapid COVID test is negative, awaiting PCR. 5. Severe back pain. The patient has chronic back pain, was on prednisone, gabapentin, and Xanax at home. Further evaluation by Rheumatology. 6. Renal failure, creatinine 1.4, as well as hypokalemia that was replaced. Thank you very much, Dr. Cates, for allowing me to participate in the care of this patient. Please do not hesitate to contact me for any questions regarding my evaluation. Sincerely, Augustine Che M.D. DR: Arabella JOB#: [id number] CC:
--- NOTE | 2020-07-25 13:27 | NUR ---
CASE MANAGEMENT: INITIAL REVIEW 65 YO F BIBA FROM HOME CC: FEVER AND SOB. PMHx; RA. s/p ASAD 26 years ago, diverticulitis, IBS, C-Diff. SI;SEPSIS. NSTEMI. VS: T 102.9 HR 150 RR 18 B/P 171/87 SATS 96% ON RA LABS: WBC 25.5 K 2.8 CO2 20 CR 1.4 GLU 144 LACTIC ACID 6.8 AST 61 ALP 217 LDH 333 TOTAL CK 526 CKMB 6.6 TROPONIN 3.588 CRP 20.2 BNP 6608 IS: NS BOLUS X2 TYLENOL PO X1 MORPHINE IV X1 ZOFRAN IV X1 LOVENOX SUBQ X1 ASA PO X1 CEFTRIAXONE IV X1 KCL PO X1 AZITHROMYCIN IV X1 CXR Impression: No acute disease PATIENT ADMITTED TO SDU 07/25/2020 @ 0230 DCP: HOME PLAN OF CARE: ID CONSULT
--- NOTE | 2020-07-25 13:53 | Infectious Diseases Prog Note ---
Assessment/Plan Assessment/Plan Full consult to follow: A) 1) uti, pyelonephritis, fevers, sepsis, leukocytosis 2) STEMI 3) rule out covid-19 infection - rapid test neg, pcr ordered 4) pmh noted 5) allergies - hydrocodone P) 1) zosyn and vancomycin 2) f/u on cultures, labs and chest 3) will f/u 4) thank you Subjective Allergies: Coded Allergies: HYDROCODONE BIT (Verified Allergy, Severe, Hives, 05/16/13) Objective Last 24 Hour Vital Signs Date Time Temp Pulse Resp B/P (MAP) Pulse Ox O2 Delivery O2 Flow Rate FiO2 07/25/20 08:00 96.1 119 20 100/64 (76) 98 07/25/20 08:00 Room Air 07/25/20 07:48 89 07/25/20 06:15 108 07/25/20 05:30 97.0 111 18 92/50 (64) 98 07/25/20 04:50 Room Air 07/25/20 04:45 101.6 111 16 87/67 98 Room Air 07/25/20 03:30 101.6 117 21 97/49 98 Room Air 07/25/20 01:30 101.6 107 18 102/96 98 Room Air 07/25/20 01:28 101.6 07/25/20 01:27 103.0 07/25/20 00:46 102.9 150 18 171/87 96 Room Air 07/25/20 00:46 150 18 Room Air 07/25/20 00:36 102.9 150 18 171/87 (115) 96 Room Air Height (Feet): 5 Height (Inches): 0.00 Weight (Pounds): 155 Microbiology Date/Time Source Procedure Growth Status 07/25/20 01:40 Nasal Nares - Final Complete 07/25/20 01:40 Nasal Nares - Final Complete 07/25/20 01:20 Nasopharynx SARS-CoV-2 RdRp Gene Assay - Final Complete Laboratory Tests Test 07/25/20 00:40 07/25/20 02:10 07/25/20 03:00 07/25/20 08:40 White Blood Count 25.5 K/UL (4.8-10.8) *H 24.7 K/UL (4.8-10.8) *H Red Blood Count 5.45 M/UL (4.20-5.40) H 5.20 M/UL (4.20-5.40) Hemoglobin 16.5 G/DL (12.0-16.0) H 15.4 G/DL (12.0-16.0) Hematocrit 49.3 % (37.0-47.0) H 49.9 % (37.0-47.0) H Mean Corpuscular Volume 90 FL (80-99) 96 FL (80-99) Mean Corpuscular Hemoglobin 30.2 PG (27.0-31.0) 29.7 PG (27.0-31.0) Mean Corpuscular Hemoglobin Concent 33.4 G/DL (32.0-36.0) 30.9 G/DL (32.0-36.0) L Red Cell Distribution Width 14.3 % (11.6-14.8) 15.3 % (11.6-14.8) H Platelet Count 143 K/UL (150-450) L 132 K/UL (150-450) L Mean Platelet Volume 9.3 FL (6.5-10.1) 10.6 FL (6.5-10.1) H Neutrophils (%) (Auto) % (45.0-75.0) % (45.0-75.0) Lymphocytes (%) (Auto) % (20.0-45.0) % (20.0-45.0) Monocytes (%) (Auto) % (1.0-10.0) % (1.0-10.0) Eosinophils (%) (Auto) % (0.0-3.0) % (0.0-3.0) Basophils (%) (Auto) % (0.0-2.0) % (0.0-2.0) Differential Total Cells Counted 100 100 Neutrophils % (Manual) 85 % (45-75) H 58 % (45-75) Lymphocytes % (Manual) 14 % (20-45) L 21 % (20-45) Monocytes % (Manual) 1 % (1-10) 3 % (1-10) Eosinophils % (Manual) 0 % (0-3) 0 % (0-3) Basophils % (Manual) 0 % (0-2) 0 % (0-2) Band Neutrophils 0 % (0-8) 18 % (0-8) H Platelet Estimate Decreased L Decreased L Platelet Morphology Normal Normal Prothrombin Time 12.9 SEC (9.30-11.50) H Prothromb Time International Ratio 1.1 (0.9-1.1) Activated Partial Thromboplast Time 30 SEC (23-33) D-Dimer 13.87 mg/L FEU (0.00-0.49) H Sodium Level 136 MMOL/L (136-145) Potassium Level 2.8 MMOL/L (3.5-5.1) L Chloride Level 98 MMOL/L (98-107) Carbon Dioxide Level 20 MMOL/L (21-32) L Anion Gap 18 mmol/L (5-15) H Blood Urea Nitrogen 14 mg/dL (7-18) Creatinine 1.4 MG/DL (0.55-1.30) H Estimat Glomerular Filtration Rate 37.5 mL/min (>60) Glucose Level 144 MG/DL (74-106) H Lactic Acid Level 6.80 mmol/L (0.4-2.0) H 4.60 mmol/L (0.66-2.22) H Calcium Level 9.3 MG/DL (8.5-10.1) Ferritin 161 NG/ML (8-388) Total Bilirubin 1.0 MG/DL (0.2-1.0) Aspartate Amino Transf (AST/SGOT) 61 U/L (15-37) H Alanine Aminotransferase (ALT/SGPT) 46 U/L (12-78) Alkaline Phosphatase 217 U/L (46-116) H Lactate Dehydrogenase 333 U/L (81-234) H Total Creatine Kinase 526 U/L (26-308) H Creatine Kinase MB 6.6 NG/ML (0.0-3.6) H Creatine Kinase MB Relative Index 1.2 Troponin I 3.588 ng/mL (0.000-0.056) 2.985 ng/mL (0.000-0.056) C-Reactive Protein, Quantitative 20.2 mg/dL (0.00-0.90) H Pro-B-Type Natriuretic Peptide 6608 pg/mL (0-125) H Total Protein 7.3 G/DL (6.4-8.2) Albumin 3.9 G/DL (3.4-5.0) Globulin 3.4 g/dL Albumin/Globulin Ratio 1.1 (1.0-2.7) Lipase 37 U/L (73-393) L Urine Color Yellow Urine Appearance Slightly cloudy Urine pH 6 (4.5-8.0) Urine Specific [place] 1.015 (1.005-1.035) Urine Protein 4+ (NEGATIVE) H Urine Glucose (UA) Negative (NEGATIVE) Urine Ketones 1+ (NEGATIVE) H Urine Blood 5+ (NEGATIVE) H Urine Nitrite Positive (NEGATIVE) H Urine Bilirubin Negative (NEGATIVE) Urine Urobilinogen Normal MG/DL (0.0-1.0) Urine Leukocyte Esterase 3+ (NEGATIVE) H Urine RBC Tntc /HPF (0 - 2) H Urine WBC Tntc /HPF (0 - 2) H Urine Squamous Epithelial Cells Few /LPF (NONE/OCC) Urine Bacteria Many /HPF (NONE) H Urine Mucus Few /LPF (NONE/OCC) H Red Blood Cell Morphology Anisocytosis 1+ Test 07/25/20 10:00 07/25/20 12:30 Activated Partial Thromboplast Time 40 SEC (23-33) H Lactic Acid Level 9.90 mmol/L (0.4-2.0) H 5.80 mmol/L (0.4-2.0) H Troponin I 6.943 ng/mL (0.000-0.056) Current Medications Medications (Trade) Dose Ordered Sig/Gabriel Route PRN Reason Start Time Stop Time Status Last Admin Dose Admin Aspirin (ASA) 81 mg DAILY ORAL 07/25/20 09:00 09/08/20 08:59 07/25/20 08:40 Atorvastatin Calcium (Lipitor) 80 mg DAILY ORAL 07/25/20 09:00 10/23/20 08:59 07/25/20 08:40 Gabapentin (Neurontin) 300 mg TID ORAL 07/25/20 09:00 08/24/20 08:59 07/25/20 13:10 Heparin Sodium/ Dextrose 500 ml @ 16.874 mls/ hr ADJUST PER PROTOCOL IV 07/25/20 14:00 08/24/20 13:59 Oxycodone/ Acetaminophen (Percocet 5-325) 1 tab Q4H PRN ORAL For Pain 07/25/20 06:00 08/01/20 05:59 07/25/20 10:03 Pantoprazole (Protonix) 40 mg BID ORAL 07/25/20 09:00 08/24/20 08:59 07/25/20 08:40 Piperacillin Sod/ Tazobactam Sod 3.375 gm/Sodium Chloride 110 ml @ 27.5 mls/hr Q8H IVPB 07/25/20 08:00 08/01/20 07:59 07/25/20 10:45 Prochlorperazine (Compazine) 10 mg Q6H PRN IVP Nausea & Vomiting 07/25/20 12:15 08/24/20 12:14 Sodium Chloride 1,000 ml @ 150 mls/hr Q6H40M IV 07/25/20 08:00 08/24/20 07:59 07/25/20 08:00 Sucralfate (Carafate) 1 gm BEFORE MEALS ORAL 07/25/20 11:30 10/23/20 11:29 07/25/20 11:30 Temazepam (Restoril) 15 mg BEDTIME PRN ORAL Insomnia 07/25/20 05:30 08/01/20 05:29 Vancomycin HCl (Vanco pharmacy to dose) 1 ea DAILY PRN MISC Per rx protocol 07/25/20 05:30 08/24/20 05:29 Vancomycin HCl 1 gm/Dextrose 275 ml @ 183.708 mls/hr Q24H IVPB 07/25/20 12:00 07/30/20 11:59 07/25/20 12:00 Brice Call MD Jul 25, 2020 13:53
--- NOTE | 2020-07-25 14:35 | General Progress Note ---
Advance Care Planning Advance Care Planning Advance Care Planning [facility] An independent Hospitalist group, where every patient is our [facility] Internal Medicine Hospitalist Advanced Care Planning Note Please contact us at Date of Discussion: A [id number] discussion with the patient regarding the patient's advanced care planning took place during this hospitalization on the above date. The discussion included the explanation and discussion of advance directives and associated forms/documents, as well as the patient's current code status. We also discussed at length the patient's medical conditions (both acute and chroni c), general prognosis, treatment options, and goals of care. The following summarizes the discussion: Advance Care Planning/Goals of Care: - Will attempt to fill out an AD and/or POLST with the patient prior to discharge, if not already completed - Continue current evaluation and management of any acute and chronic medical issues - Will continue to support the patient/family - Will continue to discuss both short- and long-term goals of care DPOA-HC/Surrogate Decision Maker: None currently appointed Code Status: Full Code Advanced Care Planning Forms/Documents Completed: Deferred until later encounter/visit A total of 17 minutes was spent on this discussion, including counseling, answering questions, and completing, if any, pertinent advanced care planning forms/documents. Time of note may not reflect time of encounter. Darshan San D.O Jul 25, 2020 14:35
--- NOTE | 2020-07-25 14:42 | Consultation ---
History of Present Illness General Date patient seen: Jul 25, 2020 Reason for Hospitalization: Fever Present Illness HPI This is a six 5-year-old female [employer] who presented [facility] complaining of generalized pain including abdominal pain was found to be febrile leukocytosis lactic acidosis septic admitted further care management and work-up. Given abdominal pain surgery called to evaluate assist with care patient seen, patient evaluate, chart reviewed. No nausea vomiting. Labs reviewed imaging reviewed Allergies: Coded Allergies: HYDROCODONE BIT (Verified Allergy, Severe, Hives, 05/16/13) COVID-19 Screening Contact w/high risk pt: No Recent Travel to affected area: No Experienced COVID-19 symptoms?: Yes Coronavirus symptoms experienc: Fever (T>100.4F or >38C), Shortness of Breath, Cough Medication History Scheduled Alprazolam* (Xanax*), 1 MG ORAL Q12HR, (Reported) Gabapentin* (Gabapentin*), 300 MG ORAL TID, (Reported) Infliximab (Remicade), 0 IV ONCE, (Reported) Prednisone (Prednisone), 15 MG ORAL DAILY, (Reported) Sucralfate* (Carafate*), 1 GM ORAL TID, (Reported) Scheduled PRN Lorazepam* (Lorazepam*), 1 MG ORAL DAILY PRN for For Anxiety, (Reported) Oxycodone/Acetaminophen 5-325* (Percocet 5-325 Mg Tablet*), 1 TAB ORAL Q4H PRN for For Pain, (Reported) Temazepam* (Restoril*), 15 MG ORAL BEDTIME PRN for Insomnia, (Reported) Miscellaneous Medications Lansoprazole (Lansoprazole), 30 MG PO, (Reported) Discontinued Medications Alprazolam* (Xanax*), 1 TAB ORAL BID Discontinued Reason: Therapy completed Oxycodone/Acetaminophen 5-325* (Percocet 5-325 Mg Tablet*), 1 TAB ORAL Q6H PRN for For Pain Discontinued Reason: Therapy completed Patient History History Provided By: Patient, Medical Record, PMD Healthcare decision maker Resuscitation status Advanced Directive on File Past Medical/Surgical History Past Medical/Surgical History: (1) Perforation of tympanic membrane (2) Cellulitis (3) Chest pain (4) proctitis (5) Chest pain (6) Acute gastrointestinal bleeding (7) Acute gastrointestinal bleeding (8) Acute gastrointestinal bleeding (9) Acute gastrointestinal bleeding (10) NSAIDS use (11) Cough (12) Bronchitis (13) Chest pain (14) Cough (15) Abdominal pain (16) Abdominal pain (17) Medication withdrawal (18) Arthritis (19) Gastroenteritis (20) Reflux esophagitis (21) Abdominal pain (22) Anxiety (23) Joint pain (24) Infection (25) blood pressure (26) Multiple joint pain (27) Rheumatoid arthritis (28) Anemia (29) CAD (coronary artery disease) (30) Leukocytosis (31) Generalized weakness (32) intractable joint pain (33) Gastritis (34) Rheumatoid arthritis (35) Diarrhea (36) Leukocytosis (37) Abdominal pain (38) Dehydration, moderate (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 difficile colitis (44) Reflux gastritis (45) Diverticulitis (46) Leukocytosis (47) Fatty liver (48) Diverticulosis (49) Abdominal pain (50) Vomiting (51) Depressed affect (52) anxiety (53) Rheumatoid arthritis (54) chronic pain (55) Medication withdrawal (56) Abdominal pain (57) Urinary retention (58) chronic pain (59) Anxiety (60) Encounter for medication refill (61) Intractable abdominal pain (62) Abdominal pain (63) Hypokalemia (64) Sepsis (65) UTI (urinary tract infection) (66) NSTEMI, initial episode of care Review of Systems Review of Symptoms General ROS: no weight loss or fever Psychological ROS: no depression or mood changes, no memory loss Ophthalmic ROS: no visual changes or eye irritation ENT ROS: no nasal congestion, hearing loss, dizziness Allergy and Immunology ROS: no allergic symptoms or urticaria Hematological and Lymphatic ROS: no swollen glands, unusual bleeding or bruising Endocrine ROS: no polyuria, polydipsia, weight changes, temperature intolerance Respiratory ROS: no cough, shortness of breath, or wheezing Cardiovascular ROS: no chest pain or dyspnea on exertion Gastrointestinal ROS: denies abdominal pain, bright red blood in stool. Musculoskeletal ROS: no myalgias or arthralgias Neurological ROS: no TIA or stroke symptoms Dermatological ROS: no new or changing skin lesions, rashes or pruritis Physical Exam Physical Exam General appearance: alert, cooperative, no distress, appears stated age Head: Normocephalic, without obvious abnormality, atraumatic Eyes: conjunctivae/corneas clear. PERRL, EOM's intact. Fundi benign Throat: Lips, mucosa, and tongue normal. Teeth and gums normal Neck: supple, symmetrical, trachea midline, no adenopathy, thyroid: not enlarged, symmetric, no tenderness/mass/nodules, no carotid bruit and no JVD Lungs: clear to auscultation bilaterally Heart: regular rate and rhythm, S1, S2 normal, no murmur, click, rub or gallop Abdomen: soft, non-tender. Bowel sounds normal. No masses, no organomegaly Extremities: extremities normal, atraumatic, no cyanosis or edema Pulses: 2+ and symmetric Skin: Skin color, texture, turgor normal. No rashes or lesions Neurologic: Grossly normal Last 24 Hour Vital Signs Date Time Temp Pulse Resp B/P (MAP) Pulse Ox O2 Delivery O2 Flow Rate FiO2 07/25/20 08:00 96.1 119 20 100/64 (76) 98 07/25/20 08:00 Room Air 07/25/20 07:48 89 07/25/20 06:15 108 07/25/20 05:30 97.0 111 18 92/50 (64) 98 07/25/20 04:50 Room Air 07/25/20 04:45 101.6 111 16 87/67 98 Room Air 07/25/20 03:30 101.6 117 21 97/49 98 Room Air 07/25/20 01:30 101.6 107 18 102/96 98 Room Air 07/25/20 01:28 101.6 07/25/20 01:27 103.0 07/25/20 00:46 102.9 150 18 171/87 96 Room Air 07/25/20 00:46 150 18 Room Air 07/25/20 00:36 102.9 150 18 171/87 (115) 96 Room Air Intake and Output 07/24/20 07/25/20 19:00 07:00 Intake Total 3250 ml Balance 3250 ml Intake Oral 250 ml IV Total 3000 ml # Voids 3 Laboratory Tests Test 07/25/20 00:40 07/25/20 02:10 07/25/20 03:00 07/25/20 08:40 White Blood Count 25.5 K/UL (4.8-10.8) *H 24.7 K/UL (4.8-10.8) *H Red Blood Count 5.45 M/UL (4.20-5.40) H 5.20 M/UL (4.20-5.40) Hemoglobin 16.5 G/DL (12.0-16.0) H 15.4 G/DL (12.0-16.0) Hematocrit 49.3 % (37.0-47.0) H 49.9 % (37.0-47.0) H Mean Corpuscular Volume 90 FL (80-99) 96 FL (80-99) Mean Corpuscular Hemoglobin 30.2 PG (27.0-31.0) 29.7 PG (27.0-31.0) Mean Corpuscular Hemoglobin Concent 33.4 G/DL (32.0-36.0) 30.9 G/DL (32.0-36.0) L Red Cell Distribution Width 14.3 % (11.6-14.8) 15.3 % (11.6-14.8) H Platelet Count 143 K/UL (150-450) L 132 K/UL (150-450) L Mean Platelet Volume 9.3 FL (6.5-10.1) 10.6 FL (6.5-10.1) H Neutrophils (%) (Auto) % (45.0-75.0) % (45.0-75.0) Lymphocytes (%) (Auto) % (20.0-45.0) % (20.0-45.0) Monocytes (%) (Auto) % (1.0-10.0) % (1.0-10.0) Eosinophils (%) (Auto) % (0.0-3.0) % (0.0-3.0) Basophils (%) (Auto) % (0.0-2.0) % (0.0-2.0) Differential Total Cells Counted 100 100 Neutrophils % (Manual) 85 % (45-75) H 58 % (45-75) Lymphocytes % (Manual) 14 % (20-45) L 21 % (20-45) Monocytes % (Manual) 1 % (1-10) 3 % (1-10) Eosinophils % (Manual) 0 % (0-3) 0 % (0-3) Basophils % (Manual) 0 % (0-2) 0 % (0-2) Band Neutrophils 0 % (0-8) 18 % (0-8) H Platelet Estimate Decreased L Decreased L Platelet Morphology Normal Normal Prothrombin Time 12.9 SEC (9.30-11.50) H Prothromb Time International Ratio 1.1 (0.9-1.1) Activated Partial Thromboplast Time 30 SEC (23-33) D-Dimer 13.87 mg/L FEU (0.00-0.49) H Sodium Level 136 MMOL/L (136-145) Potassium Level 2.8 MMOL/L (3.5-5.1) L Chloride Level 98 MMOL/L (98-107) Carbon Dioxide Level 20 MMOL/L (21-32) L Anion Gap 18 mmol/L (5-15) H Blood Urea Nitrogen 14 mg/dL (7-18) Creatinine 1.4 MG/DL (0.55-1.30) H Estimat Glomerular Filtration Rate 37.5 mL/min (>60) Glucose Level 144 MG/DL (74-106) H Lactic Acid Level 6.80 mmol/L (0.4-2.0) H 4.60 mmol/L (0.66-2.22) H Calcium Level 9.3 MG/DL (8.5-10.1) Ferritin 161 NG/ML (8-388) Total Bilirubin 1.0 MG/DL (0.2-1.0) Aspartate Amino Transf (AST/SGOT) 61 U/L (15-37) H Alanine Aminotransferase (ALT/SGPT) 46 U/L (12-78) Alkaline Phosphatase 217 U/L (46-116) H Lactate Dehydrogenase 333 U/L (81-234) H Total Creatine Kinase 526 U/L (26-308) H Creatine Kinase MB 6.6 NG/ML (0.0-3.6) H Creatine Kinase MB Relative Index 1.2 Troponin I 3.588 ng/mL (0.000-0.056) 2.985 ng/mL (0.000-0.056) C-Reactive Protein, Quantitative 20.2 mg/dL (0.00-0.90) H Pro-B-Type Natriuretic Peptide 6608 pg/mL (0-125) H Total Protein 7.3 G/DL (6.4-8.2) Albumin 3.9 G/DL (3.4-5.0) Globulin 3.4 g/dL Albumin/Globulin Ratio 1.1 (1.0-2.7) Lipase 37 U/L (73-393) L Urine Color Yellow Urine Appearance Slightly cloudy Urine pH 6 (4.5-8.0) Urine Specific [place] 1.015 (1.005-1.035) Urine Protein 4+ (NEGATIVE) H Urine Glucose (UA) Negative (NEGATIVE) Urine Ketones 1+ (NEGATIVE) H Urine Blood 5+ (NEGATIVE) H Urine Nitrite Positive (NEGATIVE) H Urine Bilirubin Negative (NEGATIVE) Urine Urobilinogen Normal MG/DL (0.0-1.0) Urine Leukocyte Esterase 3+ (NEGATIVE) H Urine RBC Tntc /HPF (0 - 2) H Urine WBC Tntc /HPF (0 - 2) H Urine Squamous Epithelial Cells Few /LPF (NONE/OCC) Urine Bacteria Many /HPF (NONE) H Urine Mucus Few /LPF (NONE/OCC) H Red Blood Cell Morphology Anisocytosis 1+ Test 07/25/20 10:00 07/25/20 12:30 Activated Partial Thromboplast Time 40 SEC (23-33) H Lactic Acid Level 9.90 mmol/L (0.4-2.0) H 5.80 mmol/L (0.4-2.0) H Troponin I 6.943 ng/mL (0.000-0.056) Microbiology Date/Time Source Procedure Growth Status 07/25/20 01:40 Nasal Nares - Final Complete 07/25/20 01:40 Nasal Nares - Final Complete 07/25/20 01:20 Nasopharynx SARS-CoV-2 RdRp Gene Assay - Final Complete Height (Feet): 5 Height (Inches): 0.00 Weight (Pounds): 155 Medications Current Medications Medications (Trade) Dose Ordered Sig/Gabriel Route PRN Reason Start Time Stop Time Status Last Admin Dose Admin Aspirin (ASA) 81 mg DAILY ORAL 07/25/20 09:00 09/08/20 08:59 07/25/20 08:40 Atorvastatin Calcium (Lipitor) 80 mg DAILY ORAL 07/25/20 09:00 10/23/20 08:59 07/25/20 08:40 Gabapentin (Neurontin) 300 mg TID ORAL 07/25/20 09:00 08/24/20 08:59 07/25/20 13:10 Heparin Sodium/ Dextrose 500 ml @ 16.874 mls/ hr ADJUST PER PROTOCOL IV 07/25/20 14:00 08/24/20 13:59 Oxycodone/ Acetaminophen (Percocet 5-325) 1 tab Q4H PRN ORAL For Pain 07/25/20 06:00 08/01/20 05:59 07/25/20 10:03 Pantoprazole (Protonix) 40 mg BID ORAL 07/25/20 09:00 08/24/20 08:59 07/25/20 08:40 Piperacillin Sod/ Tazobactam Sod 3.375 gm/Sodium Chloride 110 ml @ 27.5 mls/hr Q8H IVPB 07/25/20 08:00 08/01/20 07:59 07/25/20 10:45 Prochlorperazine (Compazine) 10 mg Q6H PRN IVP Nausea & Vomiting 07/25/20 12:15 08/24/20 12:14 Sodium Chloride 1,000 ml @ 150 mls/hr Q6H40M IV 07/25/20 08:00 08/24/20 07:59 07/25/20 08:00 Sucralfate (Carafate) 1 gm BEFORE MEALS ORAL 07/25/20 11:30 10/23/20 11:29 07/25/20 11:30 Temazepam (Restoril) 15 mg BEDTIME PRN ORAL Insomnia 07/25/20 05:30 08/01/20 05:29 Vancomycin HCl (Vanco pharmacy to dose) 1 ea DAILY PRN MISC Per rx protocol 07/25/20 05:30 08/24/20 05:29 Vancomycin HCl 1 gm/Dextrose 275 ml @ 183.708 mls/hr Q24H IVPB 07/25/20 12:00 07/30/20 11:59 07/25/20 12:00 Assessment/Plan Problem List: (1) Hypokalemia ICD Codes: E87.6 - Hypokalemia SNOMED: 61275805 (2) Rheumatoid arthritis ICD Codes: M06.9 - Rheumatoid arthritis SNOMED: 99030832 (3) Rheumatoid arthritis ICD Codes: M06.9 - Rheumatoid arthritis, unspecified SNOMED: 41566478 (4) Rheumatoid arthritis ICD Codes: M06.9 - Rheumatoid arthritis, unspecified SNOMED: 85270586 (5) Fatty liver ICD Codes: K76.0 - Fatty liver SNOMED: 043128604 (6) Joint pain ICD Codes: M25.50 - Pain in unspecified joint SNOMED: 35972223 (7) Urinary retention ICD Codes: R33.9 - Retention of urine, unspecified SNOMED: 420296212 (8) Anemia ICD Codes: D64.9 - Anemia, unspecified SNOMED: 923631853 (9) Anxiety ICD Codes: F41.9 - Anxiety disorder, unspecified SNOMED: 48297736 (10) Anxiety ICD Codes: F41.1 - Generalized anxiety disorder SNOMED: 40406525 (11) Arthritis ICD Codes: M19.90 - Unspecified osteoarthritis, unspecified site SNOMED: 7838839 (12) Generalized weakness ICD Codes: R53.1 - Weakness SNOMED: 80424451 (13) CAD (coronary artery disease) ICD Codes: I25.10 - CAD (coronary artery disease) SNOMED: 447901697 (14) Cough ICD Codes: R05 - Cough SNOMED: 29269992 (15) Cough ICD Codes: R05 - Cough SNOMED: 27315553 (16) Diarrhea ICD Codes: R19.7 - Diarrhea, unspecified SNOMED: 74587201 (17) Diverticulitis ICD Codes: K57.92 - Dvtrcli of intest, part unsp, w/o perf or abscess w/o bleed SNOMED: 154311840 (18) Diverticulosis ICD Codes: K57.90 - Diverticulosis SNOMED: 672545350 (19) Gastritis ICD Codes: K29.70 - Gastritis SNOMED: 4437621 (20) Gastroenteritis ICD Codes: K52.9 - Noninfective gastroenteritis and colitis, unspecified SNOMED: 49835392 (21) Infection ICD Codes: B99.9 - Unspecified infectious disease SNOMED: 20029957 (22) Leukocytosis ICD Codes: D72.829 - Leukocytosis SNOMED: 409001812 (23) Leukocytosis Assessment & Plan: 65-year-old female with abdominal pain lactic acidosis leukocytosis elevated liver enzymes trend febrile septic admitted for the care management IV antibiotics per infectious disease currently no imaging pending. Labs noted lactic acidosis improved with fluids UTI noted likely urosepsis.. Abdominal examination fairly benign no nausea vomiting. Okay for diet IV fluids KUB ordered Ultrasound ordered given liver enzyme elevation Elevated liver enzymes trend Unlikely bowel insult or ischemia. We will follow with recommendations thank you Mehran adame patient's care ICD Codes: D72.829 - Elevated white blood cell count, unspecified SNOMED: 095771837 (24) Leukocytosis ICD Codes: D72.829 - Elevated white blood cell count, unspecified SNOMED: 064024316 (25) Sepsis Assessment & Plan: iv abx iv fluids trend labs imaging ordered will follow with rec ICD Codes: A41.9 - Sepsis SNOMED: 97200944 Qualifiers: Qualified Codes: A41.9 - Sepsis, unspecified organism; R65.20 - Severe sepsis without septic shock (26) UTI (urinary tract infection) ICD Codes: N39.0 - UTI (urinary tract infection) SNOMED: 58480486 Qualifiers: Qualified Codes: N30.00 - Acute cystitis without hematuria (27) Reflux esophagitis ICD Codes: K21.0 - Gastro-esophageal reflux disease with esophagitis SNOMED: 328063254 (28) Abdominal pain ICD Codes: R10.9 - Unspecified abdominal pain SNOMED: 56773421 (29) Abdominal pain ICD Codes: R10.9 - Unspecified abdominal pain SNOMED: 14053516 (30) Abdominal pain ICD Codes: R10.9 - Unspecified abdominal pain SNOMED: 37310442 (31) Abdominal pain ICD Codes: R10.9 - Unspecified abdominal pain SNOMED: 99257710 (32) Abdominal pain ICD Codes: R10.9 - Unspecified abdominal pain SNOMED: 90486002 (33) Bronchitis ICD Codes: J40 - Bronchitis, not specified as acute or chronic SNOMED: 82779624 (34) Chest pain (35) Chest pain (36) Chest pain ICD Codes: R07.9 - Chest pain, unspecified SNOMED: 32601636 (37) Hemorrhoids ICD Codes: K64.9 - Hemorrhoids SNOMED: 89166519 (38) Vomiting (39) Multiple joint pain ICD Codes: M25.50 - Pain in unspecified joint SNOMED: 33933807 (40) Acute gastrointestinal bleeding ICD Codes: K92.0 - Hematemesis SNOMED: 39081782 (41) Acute gastrointestinal bleeding ICD Codes: K92.0 - Hematemesis SNOMED: 04078551 (42) Acute gastrointestinal bleeding ICD Codes: K92.0 - Hematemesis SNOMED: 64569544 (43) Acute gastrointestinal bleeding ICD Codes: K92.2 - Gastrointestinal hemorrhage, unspecified SNOMED: 94978892 (44) Hepatic steatosis ICD Codes: K76.0 - Hepatic steatosis SNOMED: 783980312 (45) Nausea & vomiting ICD Codes: R11.2 - Nausea with vomiting, unspecified SNOMED: 90399374 (46) Dehydration, moderate ICD Codes: E86.0 - Dehydration SNOMED: 5179263056964 (47) Reflux gastritis ICD Codes: K29.60 - Other gastritis without bleeding SNOMED: 59281629 (48) C. difficile colitis ICD Codes: A04.7 - C. difficile colitis SNOMED: 394193118 (49) Medication withdrawal ICD Codes: F19.939 - Other psychoactive substance use, unsp with withdrawal, unsp SNOMED: 730045564 (50) Medication withdrawal ICD Codes: F19.939 - Other psychoactive substance use, unsp with withdrawal, unsp SNOMED: 601151189 (51) NSTEMI, initial episode of care ICD Codes: I21.4 - Non-ST elevation (NSTEMI) myocardial infarction SNOMED: 93672830 (52) Mycobacterium avium complex colonization ICD Codes: Z22.39 - Carrier of other specified bacterial diseases SNOMED: 54776106 (53) Encounter for medication refill ICD Codes: Z76.0 - Encounter for issue of repeat prescription SNOMED: 165369904, 817316871, 124328193 (54) Intractable abdominal pain ICD Codes: R10.9 - Unspecified abdominal pain SNOMED: 53958975, 237073314 (55) Depressed affect ICD Codes: F32.9 - Depressed affect SNOMED: 856376678 (56) Abdominal pain (57) Abdominal pain (58) Cellulitis (59) intractable joint pain (60) NSAIDS use (61) blood pressure (62) Perforation of tympanic membrane (63) anxiety (64) chronic pain (65) chronic pain (66) proctitis Dominick Silva Jul 25, 2020 14:42
[2020-07-25] MEDS: Heparin 25,000u/D5W 500ml 500 ML IV SCH (14:53)
--- NOTE | 2020-07-25 14:53 | Diagnostic Imaging Report ---
Indication: Shortness of breath Technique: One view of the chest Comparison: 10/27/2016 Findings: Lungs and pleural spaces are clear. Heart size is normal. No significant change Impression: No acute process
--- NOTE | 2020-07-25 14:59 | Diagnostic Imaging Report ---
Indication: Cough Technique: One view of the chest Comparison: 07/25/2020 Findings: Lungs and pleural spaces are clear. Heart size is normal. No significant change Impression: No acute process
--- NOTE | 2020-07-25 15:00 | NUR ---
NURSE NOTES: Heparin drip started. Corresponding labs ordered. Patient in stable condition. Will continue to monitor.
--- NOTE | 2020-07-25 19:21 | Diagnostic Imaging Report ---
EXAM: US Abdomen Complete CLINICAL HISTORY: ABN LABS TECHNIQUE: Real-time ultrasound of the abdomen with image documentation. COMPARISON: No relevant prior studies available. FINDINGS: Liver: Echogenic liver which may be fatty infiltration. Gallbladder: Cholecystectomy. Common bile duct: CBD 4 mm. Pancreas: Unremarkable as visualized. Kidneys: No hydronephrosis. Spleen: Unremarkable. Aorta: Unremarkable as visualized. Inferior vena cava: Unremarkable as visualized. IMPRESSION: Echogenic liver which may be fatty infiltration.
--- NOTE | 2020-07-25 19:30 | NUR ---
NURSE NOTES: pt report received from Filipe RN. pt remains stable. pt is alert and oriented times 4, able to follow commands. pt is on bead inspector showing NSR. pt is on non rebreather, sating 98% O2, no acute resp distress noted. pt bed is low, locked, armed, call light within reach, bed rails up times 3. will follow plan of care.
--- NOTE | 2020-07-25 19:50 | NUR ---
NURSE HAND-OFF REPORT: Important Events on Shift:Heparin drip started. Patient Status: Stable Diet: Regular Pending Orders: Pending Results/Labs: Pending MD notification: Latest Vital Signs: Temperature 97.3 , Pulse 102 , B/P 114 /52 , Respiratory Rate 20 , O2 SAT 100 , Room Air, O2 Flow Rate . Vital Sign Comment: EKG Rhythm: Sinus Tachycardia Rhythm change?: N Notified?: N -Dr. Darryn ARIAS Response: Order Received& Read Back Latest Perez Fall Score: 50 Fall Risk: High Risk Safety Measures: Call light Within Reach, Bed Alarm Zone 1, Side Rails Side Rails x3, Bed position Low and Locked. Fall Precautions: Yellow Socks Yellow Gown Report given to YOGI Aguero.
--- NOTE | 2020-07-25 20:05 | NUR ---
NURSE NOTES: russell Christine called, gave med reconciliation of pt. will input med reconciliation.
[2020-07-25] MEDS ORDERED: NORCO 10-325 T1 EACH ORAL (20:34)
[2020-07-25] MEDS ORDERED: SIMPONI50 MG/0.5 IV (20:34)
[2020-07-25] MEDS ORDERED: PREDNISOLONE5 G1 MC (20:34)
[2020-07-25] MEDS ORDERED: GABAPENTIN100 MG ORAL (20:34)
[2020-07-25] MEDS ORDERED: OMEPRAZOLE20 M2 ORAL (20:34)
[2020-07-25 22:24] LABS: CALCIUM 7.5 MG/DL (8.5-10.1); CREATININE 1.1 MG/DL (0.55-1.30)
--- NOTE | 2020-07-25 22:48 | NUR ---
NURSE NOTES: pts PTT is 66. following Heparin drip protocol, no changes to heparin drip. timed APPT ordered for 07/26/2020 0400.
--- NOTE | 2020-07-25 23:11 | NUR ---
NURSE NOTES: spoke to Kathe Pharmacist. stated pt has taken Percocet before with no reaction. pharmacist stated if pt has taken Percocet before and no reaction has happened before, medication should be ok to give.
[2020-07-26] VITALS: BP 107/52
--- NOTE | 2020-07-26 02:00 | NUR ---
NURSE NOTES: safely assisted pt bed side commode. no stool noted. pt urinated. urine appears yellow, no abnormalities to urine. pt safely placed back to bed with bed armed.
[2020-07-26 04:00] VITALS: BP 119/58
--- NOTE | 2020-07-26 04:10 | NUR ---
NURSE NOTES: Shelley, nuclear technician in pts room, drawing AM labs.
--- NOTE | 2020-07-26 04:52 | NUR ---
NURSE NOTES: called doctor Brice Ferreira reported pts blood culture came back gram negative, times 4 bottles. awaiting call back, awaiting new orders.
--- NOTE | 2020-07-26 05:00 | NUR ---
NURSE NOTES: pts shift physical assessment paper charting is filed in pts chart.
--- NOTE | 2020-07-26 05:00 | NUR ---
NURSE NOTES: Doctor Brice Saldivar called back in regards to pts blood culture. ordered Amikacin 400mg IV times 1 pharm to dose.
[2020-07-26 05:08] LABS: HEMATOCRIT 38.1 % (37.0-47.0); HEMOGLOBIN 12.3 G/DL (12.0-16.0); MEAN CORPUSCULAR VOLUME 91 FL (80-99); PLATELET COUNT 87 K/UL (150-450); RED BLOOD COUNT 4.17 M/UL (4.20-5.40); RED CELL DISTRIBUTION WIDTH 15.1 % (11.6-14.8)
[2020-07-26] MEDS ORDERED: Amikacin Rx to dose MISC PRN (05:15)
[2020-07-26 05:34] LABS: WHITE BLOOD COUNT 51.5 K/UL (4.8-10.8)
[2020-07-26 05:37] LABS: CHOLESTEROL 72 MG/DL (< 200); HDL CHOLESTEROL 10 MG/DL (40-60); TRIGLYCERIDES 141 MG/DL (30-150)
[2020-07-26 05:49] LABS: CALCIUM 7.2 MG/DL (8.5-10.1); PHOSPHORUS 1.8 MG/DL (2.5-4.9); POTASSIUM 3.6 MMOL/L (3.5-5.1)
[2020-07-26] MEDS: Sucralfate 1gm tab ORAL SCH ×3 (06:54→17:10)
[2020-07-26] MEDS ORDERED: NS IV SCH (07:00)
[2020-07-26] MEDS ORDERED: AMIKACIN IV SCH (07:00)
--- NOTE | 2020-07-26 07:20 | NUR ---
NURSE NOTES: received patient from mimi thorne. patient is on hep drip at prescribed rate.NS @150 ml/ hr, no infiltration, patent and running. noted to be alert oriented.able to verbalize needs. noted to be SR, no acute events reported last night. skin is intact. on RA, tolerating well. will continue plan of care.
--- NOTE | 2020-07-26 07:25 | NUR ---
NURSE HAND-OFF REPORT: Important Events on Shift:[Monitoring lab values] Patient Status: [a symptomatic] Diet: [as per doctor order] Pending Orders: [Salam A to follow up with WBC trend. Darryn to follow up with PLT and trop.] Pending Results/Labs:[Salam A to follow up with WBC trend. Darryn to follow up with trop and PLT] Pending MD notification:[Salam A to follow up with WBC trend. Darryn to follow up with trop and PLT] Latest Vital Signs: Temperature 97.3 , Pulse 100 , B/P 119 /58 , Respiratory Rate 20 , O2 SAT 99 , Room Air, O2 Flow Rate . Vital Sign Comment: [stable] EKG Rhythm: Sinus Rhythm Rhythm change?: N Notified?: N -Dr. Darryn ARIAS Response: Order Received& Read Back Latest Perez Fall Score: 50 Fall Risk: High Risk Safety Measures: Call light Within Reach, Bed Alarm Zone 3, Side Rails Side Rails x3, Bed position Low and Locked. Fall Precautions: Yellow Socks Yellow Gown Patient Fall Education Report given to [Edita CALIX].
[2020-07-26 08:00] VITALS: BP 150/78
--- NOTE | 2020-07-26 08:00 | NUR ---
NURSE NOTES: performed EKG on pt. EKG filed in pts chart.
--- NOTE | 2020-07-26 08:11 | NUR ---
NURSE NOTES: called doctor Brice Ferreira reported critical WBC currently 51.5. awaiting call back. awaiting new orders.
[2020-07-26] MEDS: Aspirin Baby 81mg ORAL SCH (09:13)
[2020-07-26] MEDS: Atorvastatin 80mg tab ORAL SCH (09:13)
--- NOTE | 2020-07-26 09:18 | NUR ---
CASE MANAGEMENT: REVIEW 07/26/2020 SI:SEPSIS. NSTEMI. VS: T 97.9 HR 94 RR 19 B/P 150/78 SATS 100% ON RA LABS: WBC 51.5 CL 110 CO2 20 CA 7.2 IS:NS @ 150 ML/HR ASA PO QD LIPITOR PO QHS CARAFATE PO QAM HEPARIN DRIP PER PARAMETERS VANCO IV Q24H AMIKACIN IV Q36H MEROPENEM IV Q8H PLAN OF CARE: VENOUS DUPLEX ID CONSULT
[2020-07-26] MEDS: Meropenem 1 GM in NS 55 ML IVPB SCH ×2 (09:44→17:11)
[2020-07-26] MEDS ORDERED: LR 1000ml ONE (09:46)
[2020-07-26] MEDS ORDERED: Tubing IV Secondary IV ONE (09:46)
[2020-07-26] MEDS ORDERED: NS 275ml ONE (09:46)
--- NOTE | 2020-07-26 09:51 | General Progress Note ---
Subjective Constitutional: Reports: malaise; Denies: no symptoms, chills, diaphoresis, fever, weakness, other HEENT: Denies: no symptoms, eye pain, blurred vision, tearing, double vision, ear pain, ear discharge, nose pain, nose congestion, throat pain, throat swelling, mouth pain, mouth swelling, other Cardiovascular: Denies: no symptoms, chest pain, edema, irregular heart rate, lightheadedness, palpitations, syncope, other Respiratory: Denies: no symptoms, cough, orthopnea, shortness of breath, SOB with excertion, SOB at rest, sputum, stridor, wheezing, other Gastrointestinal/Abdominal: Denies: no symptoms, abdomen distended, abdominal pain, black stools, tarry stools, blood in stool, constipated, diarrhea, difficulty swallowing, nausea, poor appetite, poor fluid intake, rectal bleeding, vomiting, other Genitourinary: Denies: no symptoms, burning, discharge, frequency, flank pain, hematuria, incontinence, pain, urgency, other Neurologic/Psychiatric: Denies: no symptoms, anxiety, depressed, emotional problems, headache, numbness, paresthesia, pre-existing deficit, seizure, ti ngling, tremors, weakness, other Endocrine: Denies: no symptoms, excessive sweating, flushing, intolerance to cold, intolerance to heat, increased hunger, increased thirst, increased urine, unexplained weight gain, unexplained weight loss, other Hematologic/Lymphatic: Denies: no symptoms, anemia, easy bleeding, easy bruising, other Allergies: Coded Allergies: HYDROCODONE BIT (Verified Allergy, Severe, Hives, 05/16/13) Subjective No acute events overnight. No fevers. Still feels weak. Complaining about her home xanax and would like to have it. As back pain from the arthritis. WBC significantly increased will have repeat lab draw. Objective Last 24 Hour Vital Signs Date Time Temp Pulse Resp B/P (MAP) Pulse Ox O2 Delivery O2 Flow Rate FiO2 07/26/20 08:00 97.9 94 19 150/78 (102) 100 07/26/20 04:00 97.3 100 20 119/58 (78) 99 07/26/20 03:36 83 07/26/20 00:00 96 07/26/20 00:00 97.9 94 20 107/52 (70) 100 07/25/20 23:59 97.5 07/25/20 20:00 97.7 95 20 131/74 (93) 99 07/25/20 19:42 102 07/25/20 16:00 97.3 116 20 114/52 (72) 100 07/25/20 16:00 102 07/25/20 16:00 Room Air 07/25/20 12:00 116 07/25/20 12:00 Room Air 07/25/20 12:00 97.3 106 20 123/58 (79) 100 Intake and Output 07/25/20 07/26/20 19:00 07:00 Intake Total 416.874 ml 2057.488 ml Balance 416.874 ml 2057.488 ml Intake Oral 250 ml IV Total 166.874 ml 2057.488 ml # Voids 5 # Bowel Movements 8 1 Laboratory Tests 07/25/20 10:00: Activated Partial Thromboplast Time 40H, Lactic Acid Level 9.90H 07/25/20 12:30: Lactic Acid Level 5.80H, Troponin I 6.943H 07/25/20 22:05: Activated Partial Thromboplast Time 66H, Lactic Acid Level 2.50H, Troponin I 3.741H, Sodium Level 142, Potassium Level 4.0, Chloride Level 108H, Carbon Dioxide Level 19L, Anion Gap 15, Blood Urea Nitrogen 15, Creatinine 1.1, Estimat Glomerular Filtration Rate 49.6, Glucose Level 102, Calcium Level 7.5L 07/26/20 00:50: Lactic Acid Level 1.50 07/26/20 04:00: White Blood Count 51.5#*H, Red Blood Count 4.17L, Hemoglobin 12.3, Hematocrit 38.1, Mean Corpuscular Volume 91, Mean Corpuscular Hemoglobin 29.5, Mean Corpuscular Hemoglobin Concent 32.3, Red Cell Distribution Width 15.1H, Platelet Count 87L, Mean Platelet Volume 10.3H, Neutrophils (%) (Auto) , Lymphocytes (%) (Auto) , Monocytes (%) (Auto) , Eosinophils (%) (Auto) , Basophils (%) (Auto) , Neutrophils % (Manual) [Pending], Lymphocytes % (Manual) [Pending], Platelet Estimate [Pending], Platelet Morphology [Pending], Activated Partial Thromboplast Time 91H, Sodium Level 141, Potassium Level 3.6, Chloride Level 110H, Carbon Dioxide Level 20L, Anion Gap 11, Blood Urea Nitrogen 14, Creatinine 1.0, Estimat Glomerular Filtration Rate 55.3, Glucose Level 97, Hemoglobin A1c 7.1H, Lactic Acid Level 1.20, Calcium Level 7.2L, Phosphorus Level 1.8L, Magnesium Level 1.9, Troponin I 2.903H, Pro-B-Type Natriuretic Peptide [id number], Triglycerides Level 141, Cholesterol Level 72, LDL Cholesterol 22, HDL Cholesterol 10L, Cholesterol/HDL Ratio 7.2H, Thyroid Stimulating Hormone (TSH) 0.718, Free Thyroxine 1.00 07/26/20 09:00: Lactic Acid Level [Pending] Height (Feet): 5 Height (Inches): 0.00 Weight (Pounds): 155 General Appearance: alert, moderate distress, alert oriented x3 EENT: PERRL/EOMI Neck: non-tender, normal alignment Cardiovascular: normal rate, regular rhythm, no JVD Respiratory/Chest: lungs clear, normal breath sounds, no respiratory distress Abdomen: normal bowel sounds, non tender, soft Extremities: normal range of motion, non-tender Edema: no edema noted Arm (L), no edema noted Arm (R), no edema noted Leg (L), no edema noted Leg (R), no edema noted Pedal (L), no edema noted Pedal (R), no edema noted Generalized Edema: trace edema 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 Christine is a 65F with PMH of RA, OA and osteoporosis admitted for fevers, malaise. A: # Severe Sepsis (Leukocytosis + fevers + Tachycardia) 2/2 UTI, bacteremia # NSTEMI Type 1 vs Type 2 # Gram Negative Bacteremia # UTI # Anion Gap Metabolic Acidosis 2/2 Lactic Acid # Severe Lactic Acidosis - improved # MANDY 2/2 pre-renal azotemia vs Sepsis ATN # Prolong Qt # Leukocytosis # Thrombocytopenia likely 2/2 sepsis # New Diagnosis Type 2 DM # Hx of Rheumatoid Arthritis on Biologic infusion # Hx of OA # Hx of osteoporosis # NAFLD P: - hemodynamically stable - keep MAP > 65, monitor for BP support with need for pressors - lactic acidosis resolved - on vancomycin, merrem, and amikacin per ID - UC negative preliminary - BC +gram negative rods, speciation pending - CXR negative for acute cardiopulmonary diseases - troponin downtrending - ekg: anterolateral ST depression, QTc 548 - avoid prolonging qt agents - heparin gtt per cardio - ECHO: EF 65%, no wall motion abnormalities, mild LVH RSVP 15 - ISS - trend platelets - f/u HIV, hepatitis C - repeat CBC with significant elevation of leukocytosis - inflammatory markers elevated - Dr. Cates, Nephrology, recs appreciated - consult Dr. Gallego, ID, recs appreciated - consult Dr. Che Cardiology, recs appreciated - consult Dr. Ann, Pulm, recs appreciated CODE: Full GI: none DVT: Heparin gtt Diet: cardio Dispo: severe sepsis work up Time spent on this encounter was 35 minutes which included 25 minutes of counseling and care coordination. I discussed with the nurse at bedside. Time of note may not reflect time patient was seen. Darshan San D.O Jul 26, 2020 09:50
--- NOTE | 2020-07-26 10:13 | Diagnostic Imaging Report ---
Indication: Abdominal pain Technique: Supine view of the abdomen Comparison: No comparison radiographs. Reference made to abdomen pelvis CT dated 10/27/2016 Findings: Bowel gas pattern is unremarkable. There is evidence of prior bowel surgery in the pelvis. There are cholecystectomy clips again demonstrated. No masses or unusual calcifications Impression: No acute process
--- NOTE | 2020-07-26 10:30 | Pulmonology Progress Note ---
Subjective Interval Events: None new Constitutional: Reports: no symptoms HEENT: Repors: no symptoms Respiratory: Reports: no symptoms Cardiovascular: Reports: no symptoms Gastrointestinal/Abdominal: Reports: no symptoms Allergies: Coded Allergies: HYDROCODONE BIT (Verified Allergy, Severe, Hives, 05/16/13) Objective Last 24 Hour Vital Signs Date Time Temp Pulse Resp B/P (MAP) Pulse Ox O2 Delivery O2 Flow Rate FiO2 07/26/20 08:00 97.9 94 19 150/78 (102) 100 07/26/20 04:00 97.3 100 20 119/58 (78) 99 07/26/20 03:36 83 07/26/20 00:00 96 07/26/20 00:00 97.9 94 20 107/52 (70) 100 07/25/20 23:59 97.5 07/25/20 20:00 97.7 95 20 131/74 (93) 99 07/25/20 19:42 102 07/25/20 16:00 97.3 116 20 114/52 (72) 100 07/25/20 16:00 102 07/25/20 16:00 Room Air 07/25/20 12:00 116 07/25/20 12:00 Room Air 07/25/20 12:00 97.3 106 20 123/58 (79) 100 Intake and Output 07/25/20 07/26/20 19:00 07:00 Intake Total 416.874 ml 2057.488 ml Balance 416.874 ml 2057.488 ml Intake Oral 250 ml IV Total 166.874 ml 2057.488 ml # Voids 5 # Bowel Movements 8 1 General Appearance: no acute distress HEENT: normocephalic Respiratory: chest wall non-tender, lungs clear Cardiovascular: normal peripheral pulses, normal rate Abdomen: normal bowel sounds Microbiology Date/Time Source Procedure Growth Status 07/25/20 12:30 Blood Blood Culture - Preliminary Resulted 07/25/20 02:10 Urine,Clean Catch Urine Culture - Preliminary NO GROWTH Resulted 07/25/20 01:40 Nasal Nares - Final Complete 07/25/20 01:40 Nasal Nares - Final Complete 07/25/20 01:20 Nasopharynx SARS-CoV-2 RdRp Gene Assay - Final Complete 07/25/20 00:55 Blood Blood Culture - Preliminary Resulted 11/5/20 00:40 Blood Blood Culture - Preliminary Resulted Laboratory Tests 07/25/20 12:30: Lactic Acid Level 5.80H, Troponin I 6.943H 07/25/20 22:05: Lactic Acid Level 2.50H, Troponin I 3.741H, Activated Partial Thromboplast Time 66H, Sodium Level 142, Potassium Level 4.0, Chloride Level 108H, Carbon Dioxide Level 19L, Anion Gap 15, Blood Urea Nitrogen 15, Creatinine 1.1, Estimat Glomerular Filtration Rate 49.6, Glucose Level 102, Calcium Level 7.5L 07/26/20 00:50: Lactic Acid Level 1.50 07/26/20 04:00: Lactic Acid Level 1.20, Troponin I 2.903H, Activated Partial Thromboplast Time 91H, Sodium Level 141, Potassium Level 3.6, Chloride Level 110H, Carbon Dioxide Level 20L, Anion Gap 11, Blood Urea Nitrogen 14, Creatinine 1.0, Estimat Glomerular Filtration Rate 55.3, Glucose Level 97, Calcium Level 7.2L, White Blood Count 51.5#*H, Red Blood Count 4.17L, Hemoglobin 12.3, Hematocrit 38.1, Mean Corpuscular Volume 91, Mean Corpuscular Hemoglobin 29.5, Mean Corpuscular Hemoglobin Concent 32.3, Red Cell Distribution Width 15.1H, Platelet Count 87L, Mean Platelet Volume 10.3H, Neutrophils (%) (Auto) , Lymphocytes (%) (Auto) , Monocytes (%) (Auto) , Eosinophils (%) (Auto) , Basophils (%) (Auto) , Neutrophils % (Manual) [Pending], Lymphocytes % (Manual) [Pending], Platelet Estimate [Pending], Platelet Morphology [Pending], Hemoglobin A1c 7.1H, Phosphorus Level 1.8L, Magnesium Level 1.9, Pro-B-Type Natriuretic Peptide 94196R, Triglycerides Level 141, Cholesterol Level 72, LDL Cholesterol 22, HDL Cholesterol 10L, Cholesterol/HDL Ratio 7.2H, Thyroid Stimulating Hormone (TSH) 0.718, Free Thyroxine 1.00 07/26/20 09:00: Lactic Acid Level 2.30H Current Medications Medications (Trade) Dose Ordered Sig/Gabriel Route PRN Reason Start Time Stop Time Status Last Admin Dose Admin Acetaminophen/ Hydrocodone Bitart ([place] 10/325) 1 tab Q4H PRN ORAL Severe Pain (Pain Scale 7-10) 07/26/20 09:45 08/02/20 09:44 UNV Acetaminophen/ Hydrocodone Bitart ([place] 5/325) 1 tab Q4H PRN ORAL Moderate Pain (Pain Scale 4-6) 07/26/20 09:45 08/02/20 09:44 UNV Alprazolam (Xanax) 1 mg DAILY ORAL 07/26/20 10:00 08/02/20 09:59 Amikacin Protocol (Amikacin pharmacy to dose) 1 ea DAILY PRN MISC Per rx protocol 07/26/20 05:15 08/25/20 05:14 Amikacin Sulfate 825 mg/Sodium Chloride 113.3 ml @ 113.3 mls/ hr Q36H IV 07/26/20 10:00 08/02/20 09:59 Aspirin (ASA) 81 mg DAILY ORAL 07/25/20 09:00 09/08/20 08:59 07/26/20 09:13 Atorvastatin Calcium (Lipitor) 80 mg DAILY ORAL 07/25/20 09:00 10/23/20 08:59 07/26/20 09:13 Dextrose (Dextrose 50%) 25 ml Q30M PRN IV Hypoglycemia 07/26/20 10:15 10/24/20 10:14 Dextrose (Dextrose 50%) 50 ml Q30M PRN IV Hypoglycemia 07/26/20 10:15 10/24/20 10:14 Gabapentin (Neurontin) 300 mg TID ORAL 07/25/20 09:00 08/24/20 08:59 07/26/20 09:13 Heparin Sodium/ Dextrose 500 ml @ 16.874 mls/ hr ADJUST PER PROTOCOL IV 07/25/20 14:00 08/24/20 13:59 07/25/20 14:53 Insulin Aspart (NovoLOG) BEFORE MEALS AND HS SUBQ 07/26/20 11:30 10/24/20 11:29 Meropenem 1 gm/ Sodium Chloride 55 ml @ 110 mls/hr Q8HR@0100,0900,1700 IVPB 07/26/20 09:00 07/31/20 08:59 07/26/20 09:44 Pantoprazole (Protonix) 40 mg BID ORAL 07/25/20 09:00 08/24/20 08:59 07/26/20 09:13 Prochlorperazine (Compazine) 10 mg Q6H PRN IVP Nausea & Vomiting 07/25/20 12:15 08/24/20 12:14 Sodium Chloride 1,000 ml @ 150 mls/hr Q6H40M IV 07/25/20 08:00 08/24/20 07:59 07/26/20 06:55 Sucralfate (Carafate) 1 gm BEFORE MEALS ORAL 07/25/20 11:30 10/23/20 11:29 07/26/20 06:54 Temazepam (Restoril) 15 mg BEDTIME PRN ORAL Insomnia 07/25/20 05:30 08/01/20 05:29 Vancomycin HCl (Vanco pharmacy to dose) 1 ea DAILY PRN MISC Per rx protocol 07/25/20 05:30 08/24/20 05:29 Vancomycin HCl 1 gm/Dextrose 275 ml @ 183.708 mls/hr Q24H IVPB 07/25/20 12:00 07/30/20 11:59 07/25/20 12:00 Assessment/Plan Assessment/Plan IMPRESSION: 1. Non-ST elevation UT. 2. Rheumatoid arthritis. 3. Hypokalemia. 4. Marked leukocytosis. Now over 50K DISCUSSION: I am unclear about the origin of leukocytosis. It would be appropriate to treat empirically for pneumonia. She has no urinary symptoms and no abdominal findings. it is appropriate to treat presumptively as a pneumonia with broad-spectrum antibiotics. Her initial SARS COVID-19 test is negative. I will follow carefully. Zuly Fernández Omar Syed MD Jul 26, 2020 10:30
[2020-07-26] MEDS: ALPRAZolam 0.5mg tab ORAL SCH (11:19)
[2020-07-26] MEDS: AMIKACIN IV SCH (11:20)
[2020-07-26] MEDS: NS IV SCH (11:20)
[2020-07-26] MEDS: NovoLOG Insulin Flexpen SUBQ SCH ×3 (11:30→20:12)
[2020-07-26 12:00] VITALS: BP 133/77
[2020-07-26] MEDS: Vancomycin 1gm/D5W 275ml IVPB SCH ×2 (12:42)
--- NOTE | 2020-07-26 13:03 | Cardiac Electrophysiology PN ---
Assessment/Plan Assessment/Plan 1. Non-ST elevation myocardial infarction with troponin peak of 6.9. Now down to 2.9 The patient however does not have any chest pain or shortness of breath and no evidence of ST elevation. The patient however also has renal failure, creatinine 1.4, and she is septic, lactic acid [place] 6.8[place] [address]. Echocardiogram EF 65%. Continue on aspirin and Lipitor. Hold off on beta-sagar in view of hypotension, blood pressure in the 80s. 2. Tachycardia with sinus tachycardia due to sepsis. The patient already on broad-spectrum IV antibiotics. 3. Hyperlipidemia on Lipitor. 4. Fever, cough, and body ache. Rapid COVID test is negative, awaiting PCR. 5. Severe back pain. The patient has chronic back pain, was on prednisone, gabapentin, and Xanax at home. Further evaluation by Rheumatology. 6. Renal failure, creatinine 1.4, as well as hypokalemia that was replaced. Subjective Subjective No CP or SOB. Rapid Covid was negative. Awaiting Covid PCR. Troponin peak 6 that is down to 2.9 Objective Last 24 Hour Vital Signs Date Time Temp Pulse Resp B/P (MAP) Pulse Ox O2 Delivery O2 Flow Rate FiO2 07/26/20 12:00 96.8 94 19 133/77 (95) 97 07/26/20 10:52 Room Air 07/26/20 08:00 97.9 94 19 150/78 (102) 100 07/26/20 07:59 86 07/26/20 04:00 97.3 100 20 119/58 (78) 99 07/26/20 03:36 83 07/26/20 00:00 96 07/26/20 00:00 97.9 94 20 107/52 (70) 100 07/25/20 23:59 97.5 07/25/20 20:00 97.7 95 20 131/74 (93) 99 07/25/20 19:42 102 07/25/20 16:00 97.3 116 20 114/52 (72) 100 07/25/20 16:00 102 07/25/20 16:00 Room Air l Intake and Output 07/25/20 07/26/20 19:00 07:00 Intake Total 416.874 ml 2057.488 ml Balance 416.874 ml 2057.488 ml Intake Oral 250 ml IV Total 166.874 ml 2057.488 ml # Voids 5 # Bowel Movements 8 1 Laboratory Tests Test 07/25/20 22:05 07/26/20 00:50 07/26/20 04:00 07/26/20 09:00 Activated Partial Thromboplast Time 66 SEC (23-33) H 91 SEC (23-33) H Sodium Level 142 MMOL/L (136-145) 141 MMOL/L (136-145) Potassium Level 4.0 MMOL/L (3.5-5.1) 3.6 MMOL/L (3.5-5.1) Chloride Level 108 MMOL/L (98-107) H 110 MMOL/L (98-107) H Carbon Dioxide Level 19 MMOL/L (21-32) L 20 MMOL/L (21-32) L Anion Gap 15 mmol/L (5-15) 11 mmol/L (5-15) Blood Urea Nitrogen 15 mg/dL (7-18) 14 mg/dL (7-18) Creatinine 1.1 MG/DL (0.55-1.30) 1.0 MG/DL (0.55-1.30) Estimat Glomerular Filtration Rate 49.6 mL/min (>60) 55.3 mL/min (>60) Glucose Level 102 MG/DL (74-106) 97 MG/DL (74-106) Lactic Acid Level 2.50 mmol/L (0.4-2.0) H 1.50 mmol/L (0.4-2.0) 1.20 mmol/L (0.4-2.0) 2.30 mmol/L (0.4-2.0) H Calcium Level 7.5 MG/DL (8.5-10.1) L 7.2 MG/DL (8.5-10.1) L Troponin I 3.741 ng/mL (0.000-0.056) 2.903 ng/mL (0.000-0.056) White Blood Count 51.5 K/UL (4.8-10.8) #*H Red Blood Count 4.17 M/UL (4.20-5.40) L Hemoglobin 12.3 G/DL (12.0-16.0) Hematocrit 38.1 % (37.0-47.0) Mean Corpuscular Volume 91 FL (80-99) Mean Corpuscular Hemoglobin 29.5 PG (27.0-31.0) Mean Corpuscular Hemoglobin Concent 32.3 G/DL (32.0-36.0) Red Cell Distribution Width 15.1 % (11.6-14.8) H Platelet Count 87 K/UL (150-450) L Mean Platelet Volume 10.3 FL (6.5-10.1) H Neutrophils (%) (Auto) % (45.0-75.0) Lymphocytes (%) (Auto) % (20.0-45.0) Monocytes (%) (Auto) % (1.0-10.0) Eosinophils (%) (Auto) % (0.0-3.0) Basophils (%) (Auto) % (0.0-2.0) Differential Total Cells Counted 100 Neutrophils % (Manual) 73 % (45-75) Lymphocytes % (Manual) 7 % (20-45) L Monocytes % (Manual) 2 % (1-10) Eosinophils % (Manual) 0 % (0-3) Basophils % (Manual) 0 % (0-2) Band Neutrophils 18 % (0-8) H Platelet Estimate Decreased L Platelet Morphology Normal Anisocytosis 1+ Hemoglobin A1c 7.1 % (4.3-6.0) H Phosphorus Level 1.8 MG/DL (2.5-4.9) L Magnesium Level 1.9 MG/DL (1.8-2.4) Pro-B-Type Natriuretic Peptide 17870 pg/mL (0-125) H Triglycerides Level 141 MG/DL (30-150) Cholesterol Level 72 MG/DL (< 200) LDL Cholesterol 22 mg/dL (<100) HDL Cholesterol 10 MG/DL (40-60) L Cholesterol/HDL Ratio 7.2 (3.3-4.4) H Thyroid Stimulating Hormone (TSH) 0.718 uiU/mL (0.358-3.740) Free Thyroxine 1.00 NG/DL (0.76-1.46) Test 07/26/20 11:24 POC Whole Blood Glucose 93 MG/DL (74-106) Microbiology Date/Time Source Procedure Growth Status 07/25/20 12:30 Blood Blood Culture - Preliminary Resulted 07/25/20 10:00 Nasopharynx Coronavirus COVID-19 PCR ([facility]) - Final Complete 07/25/20 02:10 Urine,Clean Catch Urine Culture - Preliminary NO GROWTH Resulted 07/25/20 01:40 Nasal Nares - Final Complete 07/25/20 01:40 Nasal Nares - Final Complete 07/25/20 01:20 Nasopharynx SARS-CoV-2 RdRp Gene Assay - Final Complete 07/25/20 00:55 Blood Blood Culture - Preliminary Resulted 07/25/20 00:40 Blood Blood Culture - Preliminary Resulted Objective HEAD AND NECK: no JVD. LUNGS: Clear. CARDIOVASCULAR: Regular S1 and S2 with no gallop or murmur, tachycardic. ABDOMEN: Soft. EXTREMITIES: No pitting edema. Augustine Che MD Jul 26, 2020 13:03
--- NOTE | 2020-07-26 13:10 | NUR ---
[facility] PLAN FAX [phone] TELE [phone] CM- NOT ASSIGNED YET PENDING [facility] FAX [phone] TLELE [phone]
--- NOTE | 2020-07-26 13:28 | Nephrology Progress Note ---
Assessment/Plan Plan #Septic shock due to UTi #NSTEMI #MANDY #UTI #Sinus tach #RA - IVF - IV abx- vanco and meropenem, amikacin - ID eval - follow cx - check COVID PCR - ASA - statin - echo - pain control - hold pred for now - hold infliximab for now Subjective ROS Limited/Unobtainable: No Constitutional: Reports: weakness HEENT: Denies: no symptoms, eye pain, blurred vision, tearing, double vision, ear pain, ear discharge, nose pain, nose congestion, throat pain, throat swelling, mouth pain, mouth swelling, other Genitourinary: Denies: no symptoms, burning, discharge, frequency, flank pain, hematuria, incontinence, pain, urgency, other Neurologic/Psychiatric: Denies: no symptoms, anxiety, depressed, emotional problems, headache, numbness, paresthesia, pre-existing deficit, seizure, tingling, tremors, weakness, other Subjective Complains of diffuse pain WBC uptrending Objective Objective Last 24 Hour Vital Signs Date Time Temp Pulse Resp B/P (MAP) Pulse Ox O2 Delivery O2 Flow Rate FiO2 07/26/20 12:00 90 07/26/20 12:00 96.8 94 19 133/77 (95) 97 07/26/20 10:52 Room Air 07/26/20 08:00 97.9 94 19 150/78 (102) 100 07/26/20 07:59 86 07/26/20 04:00 97.3 100 20 119/58 (78) 99 07/26/20 03:36 83 07/26/20 00:00 96 07/26/20 00:00 97.9 94 20 107/52 (70) 100 07/25/20 23:59 97.5 07/25/20 20:00 97.7 95 20 131/74 (93) 99 07/25/20 19:42 102 07/25/20 16:00 97.3 116 20 114/52 (72) 100 07/25/20 16:00 102 07/25/20 16:00 Room Air Intake and Output 07/25/20 07/26/20 19:00 07:00 Intake Total 416.874 ml 2057.488 ml Balance 416.874 ml 2057.488 ml Intake Oral 250 ml IV Total 166.874 ml 2057.488 ml # Voids 5 # Bowel Movements 8 1 Laboratory Tests 07/25/20 22:05: Activated Partial Thromboplast Time 66H, Sodium Level 142, Potassium Level 4.0, Chloride Level 108H, Carbon Dioxide Level 19L, Anion Gap 15, Blood Urea Nitrogen 15, Creatinine 1.1, Estimat Glomerular Filtration Rate 49.6, Glucose Level 102, Lactic Acid Level 2.50H, Calcium Level 7.5L, Troponin I 3.741H 07/26/20 00:50: Lactic Acid Level 1.50 07/26/20 04:00: Activated Partial Thromboplast Time 91H, Sodium Level 141, Potassium Level 3.6, Chloride Level 110H, Carbon Dioxide Level 20L, Anion Gap 11, Blood Urea Nitrogen 14, Creatinine 1.0, Estimat Glomerular Filtration Rate 55.3, Glucose Level 97, Lactic Acid Level 1.20, Calcium Level 7.2L, Troponin I 2.903H, White Blood Count 51.5#*H, Red Blood Count 4.17L, Hemoglobin 12.3, Hematocrit 38.1, Mean Corpuscular Volume 91, Mean Corpuscular Hemoglobin 29.5, Mean Corpuscular Hemoglobin Concent 32.3, Red Cell Distribution Width 15.1H, Platelet Count 87L, Mean Platelet Volume 10.3H, Neutrophils (%) (Auto) , Lymphocytes (%) (Auto) , Monocytes (%) (Auto) , Eosinophils (%) (Auto) , Basophils (%) (Auto) , Differential Total Cells Counted 100, Neutrophils % (Manual) 73, Lymphocytes % (Manual) 7L, Monocytes % (Manual) 2, Eosinophils % (Manual) 0, Basophils % (Manual) 0, Band Neutrophils 18H, Platelet Estimate DecreasedL, Platelet Morphology Normal, Anisocytosis 1+, Hemoglobin A1c 7.1H, Phosphorus Level 1.8L, Magnesium Level 1.9, Pro-B-Type Natriuretic Peptide 83678R, Triglycerides Level 141, Cholesterol Level 72, LDL Cholesterol 22, HDL Cholesterol 10L, Cholesterol/HDL Ratio 7.2H, Thyroid Stimulating Hormone (TSH) 0.718, Free Thyroxine 1.00 07/26/20 09:00: Lactic Acid Level 2.30H 07/26/20 11:24: POC Whole Blood Glucose 93 Height (Feet): 5 Height (Inches): 0.00 Weight (Pounds): 155 General Appearance: alert, mild distress EENT: PERRL/EOMI, normal ENT inspection Neck: non-tender, normal alignment Cardiovascular: normal peripheral pulses, normal rate Respiratory/Chest: chest wall non-tender, lungs clear Abdomen: normal bowel sounds, non tender Extremities: non-tender, normal inspection Neurologic: alert, oriented x 3 Ross Cates M.D. Jul 26, 2020 13:28
[2020-07-26] MEDS: HYDROcodone/Acetamin 5/325 tab ORAL PRN ×2 (14:12→14:13)
[2020-07-26] MEDS: Heparin 25,000u/D5W 500ml 500 ML IV SCH (15:03)
[2020-07-26 16:00] VITALS: BP 128/77
--- NOTE | 2020-07-26 16:12 | Infectious Diseases Prog Note ---
Assessment/Plan Assessment/Plan Full consult dictated: A) 1) uti, pyelonephritis, gram neg bacteremia, fevers, sepsis, leukocytosis 2) NSTEMI 3) rule out covid-19 infection - rapid test neg, pcr ordered 4) pmh noted 5) allergies - hydrocodone P) 1) meropenem and amikacin 2) f/u on cultures, labs, CT abdomen and pelvis ordered 3) will f/u 4) d/w RN Subjective Allergies: Coded Allergies: HYDROCODONE BIT (Verified Allergy, Severe, Hives, 05/16/13) Objective Last 24 Hour Vital Signs Date Time Temp Pulse Resp B/P (MAP) Pulse Ox O2 Delivery O2 Flow Rate FiO2 07/26/20 12:00 90 07/26/20 12:00 96.8 94 19 133/77 (95) 97 07/26/20 10:52 Room Air 07/26/20 08:00 97.9 94 19 150/78 (102) 100 07/26/20 07:59 86 07/26/20 04:00 97.3 100 20 119/58 (78) 99 07/26/20 03:36 83 07/26/20 00:00 96 07/26/20 00:00 97.9 94 20 107/52 (70) 100 07/25/20 23:59 97.5 07/25/20 20:00 97.7 95 20 131/74 (93) 99 07/25/20 19:42 102 Height (Feet): 5 Height (Inches): 0.00 Weight (Pounds): 155 Microbiology Date/Time Source Procedure Growth Status 07/25/20 12:30 Blood Blood Culture - Preliminary Resulted 07/25/20 10:00 Nasopharynx Coronavirus COVID-19 PCR ([facility]) - Final Complete 07/25/20 02:10 Urine,Clean Catch Urine Culture - Preliminary NO GROWTH Resulted 07/25/20 01:40 Nasal Nares - Final Complete 07/25/20 01:40 Nasal Nares - Final Complete 07/25/20 01:20 Nasopharynx SARS-CoV-2 RdRp Gene Assay - Final Complete 07/25/20 00:55 Blood Blood Culture - Preliminary Resulted 07/25/20 00:40 Blood Blood Culture - Preliminary Resulted Laboratory Tests Test 07/25/20 22:05 07/26/20 00:50 07/26/20 04:00 07/26/20 09:00 Activated Partial Thromboplast Time 66 SEC (23-33) H 91 SEC (23-33) H Sodium Level 142 MMOL/L (136-145) 141 MMOL/L (136-145) Potassium Level 4.0 MMOL/L (3.5-5.1) 3.6 MMOL/L (3.5-5.1) Chloride Level 108 MMOL/L (98-107) H 110 MMOL/L (98-107) H Carbon Dioxide Level 19 MMOL/L (21-32) L 20 MMOL/L (21-32) L Anion Gap 15 mmol/L (5-15) 11 mmol/L (5-15) Blood Urea Nitrogen 15 mg/dL (7-18) 14 mg/dL (7-18) Creatinine 1.1 MG/DL (0.55-1.30) 1.0 MG/DL (0.55-1.30) Estimat Glomerular Filtration Rate 49.6 mL/min (>60) 55.3 mL/min (>60) Glucose Level 102 MG/DL (74-106) 97 MG/DL (74-106) Lactic Acid Level 2.50 mmol/L (0.4-2.0) H 1.50 mmol/L (0.4-2.0) 1.20 mmol/L (0.4-2.0) 2.30 mmol/L (0.4-2.0) H Calcium Level 7.5 MG/DL (8.5-10.1) L 7.2 MG/DL (8.5-10.1) L Troponin I 3.741 ng/mL (0.000-0.056) 2.903 ng/mL (0.000-0.056) White Blood Count 51.5 K/UL (4.8-10.8) #*H Red Blood Count 4.17 M/UL (4.20-5.40) L Hemoglobin 12.3 G/DL (12.0-16.0) Hematocrit 38.1 % (37.0-47.0) Mean Corpuscular Volume 91 FL (80-99) Mean Corpuscular Hemoglobin 29.5 PG (27.0-31.0) Mean Corpuscular Hemoglobin Concent 32.3 G/DL (32.0-36.0) Red Cell Distribution Width 15.1 % (11.6-14.8) H Platelet Count 87 K/UL (150-450) L Mean Platelet Volume 10.3 FL (6.5-10.1) H Neutrophils (%) (Auto) % (45.0-75.0) Lymphocytes (%) (Auto) % (20.0-45.0) Monocytes (%) (Auto) % (1.0-10.0) Eosinophils (%) (Auto) % (0.0-3.0) Basophils (%) (Auto) % (0.0-2.0) Differential Total Cells Counted 100 Neutrophils % (Manual) 73 % (45-75) Lymphocytes % (Manual) 7 % (20-45) L Monocytes % (Manual) 2 % (1-10) Eosinophils % (Manual) 0 % (0-3) Basophils % (Manual) 0 % (0-2) Band Neutrophils 18 % (0-8) H Platelet Estimate Decreased L Platelet Morphology Normal Anisocytosis 1+ Hemoglobin A1c 7.1 % (4.3-6.0) H Phosphorus Level 1.8 MG/DL (2.5-4.9) L Magnesium Level 1.9 MG/DL (1.8-2.4) Pro-B-Type Natriuretic Peptide 64486 pg/mL (0-125) H Triglycerides Level 141 MG/DL (30-150) Cholesterol Level 72 MG/DL (< 200) LDL Cholesterol 22 mg/dL (<100) HDL Cholesterol 10 MG/DL (40-60) L Cholesterol/HDL Ratio 7.2 (3.3-4.4) H Thyroid Stimulating Hormone (TSH) 0.718 uiU/mL (0.358-3.740) Free Thyroxine 1.00 NG/DL (0.76-1.46) Test 07/26/20 11:24 07/26/20 15:50 POC Whole Blood Glucose 93 MG/DL (74-106) Troponin I Pending Current Medications Medications (Trade) Dose Ordered Sig/Gabriel Route PRN Reason Start Time Stop Time Status Last Admin Dose Admin Acetaminophen/ Hydrocodone Bitart ([place] 10/325) 1 tab Q4H PRN ORAL Severe Pain (Pain Scale 7-10) 07/26/20 09:45 08/02/20 09:44 Acetaminophen/ Hydrocodone Bitart ([place] 5/325) 1 tab Q4H PRN ORAL Moderate Pain (Pain Scale 4-6) 07/26/20 09:45 08/02/20 09:44 07/26/20 14:12 Alprazolam (Xanax) 1 mg DAILY ORAL 07/26/20 10:00 08/02/20 09:59 07/26/20 11:19 Amikacin Protocol (Amikacin pharmacy to dose) 1 ea DAILY PRN MISC Per rx protocol 07/26/20 05:15 08/25/20 05:14 Amikacin Sulfate 825 mg/Sodium Chloride 113.3 ml @ 113.3 mls/ hr Q36H IV 07/26/20 10:00 08/02/20 09:59 07/26/20 11:20 Aspirin (ASA) 81 mg DAILY ORAL 07/25/20 09:00 09/08/20 08:59 07/26/20 09:13 Atorvastatin Calcium (Lipitor) 80 mg DAILY ORAL 07/25/20 09:00 10/23/20 08:59 07/26/20 09:13 Barium Sulfate (Readi-Cat 2) 450 ml NOW PRN ORAL Radiology Procedure 07/26/20 10:45 07/28/20 10:44 Dextrose (Dextrose 50%) 25 ml Q30M PRN IV Hypoglycemia 07/26/20 10:15 10/24/20 10:14 Dextrose (Dextrose 50%) 50 ml Q30M PRN IV Hypoglycemia 07/26/20 10:15 10/24/20 10:14 Gabapentin (Neurontin) 300 mg TID ORAL 07/25/20 09:00 08/24/20 08:59 07/26/20 12:42 Heparin Sodium/ Dextrose 500 ml @ 16.874 mls/ hr ADJUST PER PROTOCOL IV 07/25/20 14:00 08/24/20 13:59 07/26/20 15:03 Insulin Aspart (NovoLOG) BEFORE MEALS AND HS SUBQ 07/26/20 11:30 10/24/20 11:29 Meropenem 1 gm/ Sodium Chloride 55 ml @ 110 mls/hr Q8HR@0100,0900,1700 IVPB 07/26/20 09:00 07/31/20 08:59 07/26/20 09:44 Pantoprazole (Protonix) 40 mg BID ORAL 07/25/20 09:00 08/24/20 08:59 07/26/20 09:13 Prochlorperazine (Compazine) 10 mg Q6H PRN IVP Nausea & Vomiting 07/25/20 12:15 08/24/20 12:14 Sodium Chloride 1,000 ml @ 150 mls/hr Q6H40M IV 07/25/20 08:00 08/24/20 07:59 07/26/20 12:42 Sucralfate (Carafate) 1 gm BEFORE MEALS ORAL 07/25/20 11:30 10/23/20 11:29 07/26/20 11:19 Temazepam (Restoril) 15 mg BEDTIME PRN ORAL Insomnia 07/25/20 05:30 08/01/20 05:29 Vancomycin HCl (Vanco pharmacy to dose) 1 ea DAILY PRN MISC Per rx protocol 07/25/20 05:30 08/24/20 05:29 Vancomycin HCl 1 gm/Dextrose 275 ml @ 183.708 mls/hr Q24H IVPB 07/25/20 12:00 07/30/20 11:59 07/26/20 12:42 Brice Call MD Jul 26, 2020 16:12
--- NOTE | 2020-07-26 16:27 | Surgery Progress Note ---
Surgery Progress Note Subjective Symptoms: improved Additional Comments us and kub reviewed no acute events Objective Last 24 Hour Vital Signs Date Time Temp Pulse Resp B/P (MAP) Pulse Ox O2 Delivery O2 Flow Rate FiO2 07/26/20 12:00 90 07/26/20 12:00 96.8 94 19 133/77 (95) 97 07/26/20 10:52 Room Air 07/26/20 08:00 97.9 94 19 150/78 (102) 100 07/26/20 07:59 86 07/26/20 04:00 97.3 100 20 119/58 (78) 99 07/26/20 03:36 83 07/26/20 00:00 96 07/26/20 00:00 97.9 94 20 107/52 (70) 100 07/25/20 23:59 97.5 07/25/20 20:00 97.7 95 20 131/74 (93) 99 07/25/20 19:42 102 I&O Intake and Output 07/25/20 07/26/20 19:00 07:00 Intake Total 416.874 ml 2057.488 ml Balance 416.874 ml 2057.488 ml Intake Oral 250 ml IV Total 166.874 ml 2057.488 ml # Voids 5 # Bowel Movements 8 1 Dressing: other Wound: other Cardiovascular: RSR Respiratory: decreased breath sounds Abdomen: non-tender, present bowel sounds Extremities: no tenderness, no cyanosis Laboratory Tests Test 07/25/20 22:05 07/26/20 00:50 07/26/20 04:00 07/26/20 09:00 Activated Partial Thromboplast Time 66 SEC (23-33) H 91 SEC (23-33) H Sodium Level 142 MMOL/L (136-145) 141 MMOL/L (136-145) Potassium Level 4.0 MMOL/L (3.5-5.1) 3.6 MMOL/L (3.5-5.1) Chloride Level 108 MMOL/L (98-107) H 110 MMOL/L (98-107) H Carbon Dioxide Level 19 MMOL/L (21-32) L 20 MMOL/L (21-32) L Anion Gap 15 mmol/L (5-15) 11 mmol/L (5-15) Blood Urea Nitrogen 15 mg/dL (7-18) 14 mg/dL (7-18) Creatinine 1.1 MG/DL (0.55-1.30) 1.0 MG/DL (0.55-1.30) Estimat Glomerular Filtration Rate 49.6 mL/min (>60) 55.3 mL/min (>60) Glucose Level 102 MG/DL (74-106) 97 MG/DL (74-106) Lactic Acid Level 2.50 mmol/L (0.4-2.0) H 1.50 mmol/L (0.4-2.0) 1.20 mmol/L (0.4-2.0) 2.30 mmol/L (0.4-2.0) H Calcium Level 7.5 MG/DL (8.5-10.1) L 7.2 MG/DL (8.5-10.1) L Troponin I 3.741 ng/mL (0.000-0.056) 2.903 ng/mL (0.000-0.056) White Blood Count 51.5 K/UL (4.8-10.8) #*H Red Blood Count 4.17 M/UL (4.20-5.40) L Hemoglobin 12.3 G/DL (12.0-16.0) Hematocrit 38.1 % (37.0-47.0) Mean Corpuscular Volume 91 FL (80-99) Mean Corpuscular Hemoglobin 29.5 PG (27.0-31.0) Mean Corpuscular Hemoglobin Concent 32.3 G/DL (32.0-36.0) Red Cell Distribution Width 15.1 % (11.6-14.8) H Platelet Count 87 K/UL (150-450) L Mean Platelet Volume 10.3 FL (6.5-10.1) H Neutrophils (%) (Auto) % (45.0-75.0) Lymphocytes (%) (Auto) % (20.0-45.0) Monocytes (%) (Auto) % (1.0-10.0) Eosinophils (%) (Auto) % (0.0-3.0) Basophils (%) (Auto) % (0.0-2.0) Differential Total Cells Counted 100 Neutrophils % (Manual) 73 % (45-75) Lymphocytes % (Manual) 7 % (20-45) L Monocytes % (Manual) 2 % (1-10) Eosinophils % (Manual) 0 % (0-3) Basophils % (Manual) 0 % (0-2) Band Neutrophils 18 % (0-8) H Platelet Estimate Decreased L Platelet Morphology Normal Anisocytosis 1+ Hemoglobin A1c 7.1 % (4.3-6.0) H Phosphorus Level 1.8 MG/DL (2.5-4.9) L Magnesium Level 1.9 MG/DL (1.8-2.4) Pro-B-Type Natriuretic Peptide 19367 pg/mL (0-125) H Triglycerides Level 141 MG/DL (30-150) Cholesterol Level 72 MG/DL (< 200) LDL Cholesterol 22 mg/dL (<100) HDL Cholesterol 10 MG/DL (40-60) L Cholesterol/HDL Ratio 7.2 (3.3-4.4) H Thyroid Stimulating Hormone (TSH) 0.718 uiU/mL (0.358-3.740) Free Thyroxine 1.00 NG/DL (0.76-1.46) Test 07/26/20 11:24 07/26/20 15:50 POC Whole Blood Glucose 93 MG/DL (74-106) Troponin I Pending Plan Problems: (1) Hypokalemia (2) Rheumatoid arthritis (3) Rheumatoid arthritis (4) Rheumatoid arthritis (5) Fatty liver (6) Joint pain (7) Urinary retention (8) Anemia (9) Anxiety (10) Anxiety (11) Arthritis (12) Generalized weakness (13) CAD (coronary artery disease) (14) Cough (15) Cough (16) Diarrhea (17) Diverticulitis (18) Diverticulosis (19) Gastritis (20) Gastroenteritis (21) Infection (22) Leukocytosis (23) Leukocytosis Assessment & Plan: 65-year-old female with abdominal pain lactic acidosis leukocytosis elevated liver enzymes trend febrile septic admitted for the care management IV antibiotics per infectious disease currently no imaging pending. Labs noted lactic acidosis improved with fluids UTI noted likely urosepsis.. Abdominal examination fairly benign no nausea vomiting. Okay for diet IV fluids KUB ordered Ultrasound ordered given liver enzyme elevation Elevated liver enzymes trend Unlikely bowel insult or ischemia. We will follow with recommendations thank you Mehran adame patient's care kub and us okay diet okay bowel regimen labs improved (24) Leukocytosis (25) Sepsis Assessment & Plan: iv abx iv fluids trend labs imaging ordered will follow with rec (26) UTI (urinary tract infection) (27) Reflux esophagitis (28) Abdominal pain (29) Abdominal pain (30) Abdominal pain (31) Abdominal pain (32) Abdominal pain (33) Bronchitis (34) Chest pain (35) Chest pain (36) Chest pain (37) Hemorrhoids (38) Vomiting (39) Multiple joint pain (40) Acute gastrointestinal bleeding (41) Acute gastrointestinal bleeding (42) Acute gastrointestinal bleeding (43) Acute gastrointestinal bleeding (44) Hepatic steatosis (45) Nausea & vomiting (46) Dehydration, moderate (47) Reflux gastritis (48) C. 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
--- NOTE | 2020-07-26 18:30 | Consultation ---
DATE OF CONSULTATION: 07/26/2020 INFECTIOUS DISEASE CONSULTATION CONSULTING PHYSICIAN: Brice Call MD ATTENDING PHYSICIAN: Ross Cates MD REFERRING PHYSICIAN: Ross Cates MD REASON FOR CONSULTATION: Gram-negative bacteremia, sepsis, leukocytosis, fevers, UTI, pyelonephritis. CHIEF COMPLAINT: Patient's chief complaint into the hospital is non-STEMI and sepsis. HISTORY OF PRESENT ILLNESS: This is a very pleasant 65-year-old female who has history of multiple medical problems including a history of rheumatoid arthritis. Patient has fevers when she came in as high as 102.9. Patient was noted to have a significant leukocytosis and likely has severe sepsis. Workup shows that she has a urinary tract infection. She likely has pyelonephritis. She also has gram-negative bacteremia. Infectious Disease consultation requested. Patient was on Zosyn and Vanco and I changed her antibiotics to meropenem and amikacin. Imaging studies including a CT scan of the abdomen and pelvis without contrast has been ordered. Chest x-ray shows no acute process and abdominal ultrasound showed echogenic liver and possible fatty infiltration. MAR was noted. Orders noted. Notes and records reviewed. She has had fevers for at least several days. Patient was in COVID isolation, but has had 2 negative tests including a rapid test and a PCR test. Patient is currently in [facility]. I discussed with the RN several times about this case and about management and orders. REVIEW OF SYSTEMS: CONSTITUTIONAL: Patient has generalized fatigue and weakness. She has joint pain and some abdominal discomfort. Otherwise, she came in with fever and chills. HEAD AND NECK: She has no obvious headache, neck stiffness, thrush, or dysphagia. CARDIAC: No chest pain or palpitations. GASTROINTESTINAL: No nausea, vomiting, or diarrhea. Some abdominal discomfort. GENITOURINARY: She has some dysuria and frequency. No CVA tenderness. No Cruz. PULMONARY: No cough, congestion, or shortness of breath. Mild secretions. SKIN: No rash. EXTREMITIES: She has joint pain. NEUROLOGIC: No seizures. Generalized fatigue. No focal weakness. PAST MEDICAL HISTORY: Patient has a past medical history of rheumatoid arthritis. She has a history of being on steroids including prednisone. She has history of looks like CAD and non-STEMI. She currently has a non-STEMI by diagnosis. It looks like she does not have any history of diabetes or hypertension. Other past medical history includes a history of osteoarthritis, osteoporosis, and NAFLD. No history of diabetes or hypertension. ALLERGIES: She has allergies to hydrocodone. SOCIAL HISTORY: Negative for smoking, alcohol, or drug abuse. FAMILY HISTORY: Noncontributory. Negative for tuberculosis or cancer. MEDICATIONS: Upon reviewing the MAR, she is on following medications. She is on insulin. She is on Xanax, amikacin, meropenem. I have stopped Vanco and Zosyn. She is on hydrocodone. She is on heparin, Compazine, sucralfate, atorvastatin, aspirin, pantoprazole, gabapentin, temazepam, sodium chloride. Outside medications were noted and reconciliated. PHYSICAL EXAMINATION: VITAL SIGNS: Temperature 96.8, pulse rate 94, respiratory rate 19, blood pressure 133/77, saturation 97% on room air. Pulse rate has been as high as 94 today. Temperature on admission was actually as high as 103. GENERAL: Alert, responsive, no acute distress. HEAD AND NECK: Oral exam, no thrush. Eye exam, no icterus. Normocephalic. Neck is supple. No JVD. HEART: Regular. No gallop or murmur. No friction rub. ABDOMEN: Soft. Positive bowel sounds. Some discomfort. No rebound. LUNGS: Clear bilaterally. No rhonchi or rales. SKIN: No rash. MUSCULOSKELETAL: No septic arthritis. Legs are without cellulitis. PERIPHERAL VASCULAR: No gangrene or cyanosis. No other rash. GENITOURINARY: No Cruz. No CVA tenderness. LINE SITES: Without phlebitis. NEUROLOGIC: Alert, responsive, nonfocal. Alert and oriented x3. LABORATORY DATA: White count 51.5, hemoglobin 12.3. Creatinine 1.0. Creatinine has been as high as 1.4. Patient's urinalysis had too many to count white blood cells, many bacteria. Cultures, COVID testing by rapid testing is negative. PCR testing is negative. Influenza testing is negative. Blood cultures with multiple bottles of gram-negative rods, identification is pending. IMAGING STUDIES: Chest x-ray shows no acute disease. A CT scan of the abdomen and pelvis has been ordered and is pending. It is without contrast. Abdominal ultrasound shows echogenic liver with fatty infiltration. There is no mention of abscess. ASSESSMENT AND PLAN: 1. Patient has urinary tract infection and pyelonephritis. Patient has gram-negative bacteremia and gram-negative sepsis. Patient has SIRS criteria and sepsis syndrome. Patient has leukocytosis and fevers. Chest x-ray is negative. Rule out any other source of the gram-negative bacteremia. Rule out intraabdominal abscess. Patient was on Vanco and Zosyn. I have changed the antibiotics to meropenem and amikacin for gram-negative coverage. Continue meropenem and amikacin for gram-negative bacteremia and gram-negative sepsis, UTI, pyelonephritis, sepsis, leukocytosis, fevers. Check cultures and laboratories. Check CT scan of the abdomen and pelvis. Check final sensitivities. 2. Severe sepsis with SIRS criteria. 3. Patient has history of rheumatoid arthritis and been immunocompromised with history of steroids and also Remicade. 4. Patient has osteoarthritis. 5. Osteoporosis. 6. Non-STEMI. 7. CAD. 8. NAFLD. 9. Rheumatoid arthritis and immunocompromised. 10. Continue care per primary consultants. 11. Allergies to hydrocodone. 12. Social history is negative. 13. Family history is noncontributory. 14. MAR is noted. 15. Case was discussed with RN. 16. Orders were noted and entered. 17. Patient is COVID negative and isolation will be removed. 18. Case also discussed at length with nursing staff about antibiotic management and the patient's care. Brice Call M.D. DR: MARLYN JOB#: [id number] CC: OSKAR
--- NOTE | 2020-07-26 19:11 | NUR ---
NURSE HAND-OFF REPORT: Important Events on Shift:negative covid test Patient Status: full code Diet: cadriac diet Pending Orders: ct pelvis eleni, vanco trough Pending Results/Labs:vanco trough 07/28 @1130 Pending notification:[] Latest Vital Signs: Temperature 98.2 , Pulse 100 , B/P 128 /77 , Respiratory Rate 19 , O2 SAT 97 , Room Air, O2 Flow Rate . Vital Sign Comment: stable EKG Rhythm: Sinus Rhythm Rhythm change?: N Notified?: N -Dr. Darryn ARIAS Response: Order Received& Read Back Latest Perez Fall Score: 50 Fall Risk: High Risk Safety Measures: Call light Within Reach, Bed Alarm Zone 2, Side Rails Side Rails x2, Bed position Low and Locked. Fall Precautions: Yellow Socks Yellow Gown Report given to dewayne thorne.
--- NOTE | 2020-07-26 19:35 | NUR ---
NURSE NOTES: Received report from Maira Kohler, pt. in bed awake watching television- A/O x's4- able to make needs known, no signs or symptoms of acute cardiac or respiratory distress noted, bed alarm on, side rails up x's3 and safety brakes engaged, pt. aware to ask for assist if ambulating to commode as gait is unsteady-call light within easy reach, pt. appears to be sating well on room air- no distress noted- sating at 99%, pt. appears to be resting comfortably, LFA 20G running heparin drip running at 12U/KG/HR, Rt. AC 22G running NS at 150cc/hr, safety measures continued, Aspiration precautions observed- HOB elevated, will continue with plan of care.
[2020-07-26 20:00] VITALS: BP 132/73
[2020-07-26 20:57] LABS: HEMATOCRIT 40.8 % (37.0-47.0); HEMOGLOBIN 13.5 G/DL (12.0-16.0); MEAN CORPUSCULAR VOLUME 89 FL (80-99); PLATELET COUNT 83 K/UL (150-450); RED BLOOD COUNT 4.59 M/UL (4.20-5.40); RED CELL DISTRIBUTION WIDTH 15.1 % (11.6-14.8)
[2020-07-26 21:02] LABS: WHITE BLOOD COUNT 37.1 K/UL (4.8-10.8)
--- NOTE | 2020-07-26 21:12 | NUR ---
NURSE NOTES: left message for DR. Che regarding troponin trending up - EKG done- shows Sinus Tachycardia at 111- pt. remains stable- awaiting for call back from doctor.
[2020-07-27] VITALS: BP 142/72
[2020-07-27] MEDS: HYDROcodone/Acetamin 10/325 tab ORAL PRN ×4 (00:20→23:05)
[2020-07-27] MEDS: Meropenem 1 GM in NS 55 ML IVPB SCH ×3 (00:57→17:15)
[2020-07-27 04:00] VITALS: BP 145/78
[2020-07-27 04:45] LABS: HEMATOCRIT 37.4 % (37.0-47.0); HEMOGLOBIN 12.3 G/DL (12.0-16.0); MEAN CORPUSCULAR VOLUME 90 FL (80-99); PLATELET COUNT 76 K/UL (150-450); RED BLOOD COUNT 4.15 M/UL (4.20-5.40); RED CELL DISTRIBUTION WIDTH 15.5 % (11.6-14.8)
[2020-07-27 05:02] LABS: ANION GAP 9 mmol/L (5-15); CARBON DIOXIDE 22 MMOL/L (21-32); CHLORIDE 108 MMOL/L (98-107); POTASSIUM 3.2 MMOL/L (3.5-5.1); SODIUM 139 MMOL/L (136-145)
[2020-07-27 05:04] LABS: WHITE BLOOD COUNT 32.3 K/UL (4.8-10.8)
[2020-07-27] MEDS: NovoLOG Insulin Flexpen SUBQ SCH ×4 (05:34→21:00)
--- NOTE | 2020-07-27 05:38 | NUR ---
NURSE NOTES: Spoke with amanda at [facility] regarding PTT result 54- per amanda - she will put in orders for Heparin bolus and to increase 2Units- to equal 14U/KG/HR-will carry out orders. Addendum: 07/27/20 at 0546 by RADHA ITJERINA RN RN correction to message PTT is 57 not 54.
[2020-07-27 05:52] LABS: BLOOD UREA NITROGEN 11 mg/dL (7-18); CALCIUM 6.9 MG/DL (8.5-10.1); CREATININE 0.9 MG/DL (0.55-1.30); PHOSPHORUS 1.5 MG/DL (2.5-4.9)
[2020-07-27] MEDS: Sucralfate 1gm tab ORAL SCH ×3 (05:54→16:30)
--- NOTE | 2020-07-27 05:55 | NUR ---
NURSE NOTES: called pipeline to see why orders for heparin rate change and bolus have not been entered yet- per torsten Gonzalez keyboard is not working and is awaiting for another pharmacist to place orders.
[2020-07-27] MEDS ORDERED: Heparin 25,000u/D5W 500ml 500 ML IV SCH ×2 (06:15→13:30)
[2020-07-27] MEDS ORDERED: Heparin 5000 units/ml inj IV ONE (06:15)
--- NOTE | 2020-07-27 07:05 | NUR ---
NURSE HAND-OFF REPORT: Important Events on Shift:troponin trending up but now trending down. Patient Status: stable Diet: cardiac diet- but now NPO for CT abdomen/pelvis Pending Orders: Pending Results/Labs: Pending MD notification: Latest Vital Signs: Temperature 98.0 , Pulse 92 , B/P 145 /78 , Respiratory Rate 22 , O2 SAT 99 , Room Air, O2 Flow Rate . Vital Sign Comment: EKG Rhythm: Sinus Rhythm- ST Rhythm change?: Y MD Notified?: MD Response: Latest Perez Fall Score: 50 Fall Risk: High Risk Safety Measures: Call light Within Reach, Bed Alarm Zone 2, Side Rails Side Rails x2, Bed position Low and Locked. Fall Precautions: Yellow Socks Yellow Gown Report given to Francisco Javier Rn, aware to f/u on WBC trending down and Troponin trending down- f/u on any abnormal am labs.
--- NOTE | 2020-07-27 07:42 | NUR ---
NURSE NOTES: Pt awake/alert in bed, breathing easily on room air, denies SOB and denies pain at this time. Vital signs stable with SR @ 97 on monitor. IV access RAC with NS @ 150. Purewick in place draining clear yellow urine into collection canister. Pt given oral contrast to drink, finished. Bed left in low position, side rails up x 2 and call light left near pt's hand.
[2020-07-27 08:00] VITALS: BP 146/81
[2020-07-27] MEDS ORDERED: Calcium Chloride 10% 10ml carpuject IVP SCH (08:00)
[2020-07-27] MEDS ORDERED: Phospha 250 Neutral tab ORAL SCH (08:00)
--- NOTE | 2020-07-27 08:50 | Pulmonology Progress Note ---
Subjective ROS Limited/Unobtainable: No Interval Events: None new Constitutional: Reports: no symptoms HEENT: Repors: no symptoms Respiratory: Reports: no symptoms Cardiovascular: Reports: no symptoms Gastrointestinal/Abdominal: Reports: no symptoms Allergies: Coded Allergies: HYDROCODONE BIT (Verified Allergy, Severe, Hives, 05/16/13) Objective Last 24 Hour Vital Signs Date Time Temp Pulse Resp B/P (MAP) Pulse Ox O2 Delivery O2 Flow Rate FiO2 07/27/20 08:03 Room Air 07/27/20 05:40 98.0 07/27/20 04:00 Room Air 07/27/20 04:00 98.0 92 22 145/78 (100) 99 07/27/20 03:32 94 07/27/20 00:50 98.9 07/27/20 00:00 Room Air 07/27/20 00:00 98.9 109 22 142/72 (95) 97 07/26/20 23:39 115 07/26/20 20:00 98.1 98 22 132/73 (92) 98 07/26/20 20:00 104 07/26/20 16:00 100 07/26/20 16:00 98.2 95 19 128/77 (94) 97 07/26/20 12:00 90 07/26/20 12:00 96.8 94 19 133/77 (95) 97 07/26/20 10:52 Room Air Intake and Output 07/26/20 07/27/20 19:00 07:00 Intake Total 2080.622 ml 1779.488 ml Output Total 75 ml Balance 2080.622 ml 1704.488 ml Intake Oral 350 ml IV Total 1730.622 ml 1779.488 ml Output Urine Total 75 ml # Voids 4 6 # Bowel Movements 2 5 General Appearance: no acute distress HEENT: normocephalic Respiratory: chest wall non-tender, lungs clear Cardiovascular: normal peripheral pulses, normal rate Abdomen: normal bowel sounds Microbiology Date/Time Source Procedure Growth Status 07/25/20 18:45 Nasal Aspirate MRSA Culture - Final NO METHICILLIN RESISTANT STAPH AUREUS... Complete 07/25/20 12:30 Blood Blood Culture - Preliminary Resulted 07/25/20 12:20 Blood Blood Culture - Preliminary NO GROWTH AFTER 24 HOURS Resulted 07/25/20 10:00 Nasopharynx Coronavirus COVID-19 PCR ([facility]) - Final Complete 07/25/20 02:10 Urine,Clean Catch Urine Culture - Preliminary Gram Negative Matthew Resulted 07/25/20 01:40 Nasal Nares - Final Complete 07/25/20 01:40 Nasal Nares - Final Complete 07/25/20 01:20 Nasopharynx SARS-CoV-2 RdRp Gene Assay - Final Complete 07/25/20 00:55 Blood Blood Culture - Preliminary Resulted 07/25/20 00:40 Blood Blood Culture - Preliminary Resulted Laboratory Tests 07/26/20 09:00: Lactic Acid Level 2.30H 07/26/20 11:24: POC Whole Blood Glucose 93 07/26/20 15:50: Troponin I 1.361H 07/26/20 17:07: POC Whole Blood Glucose 95 07/26/20 20:00: White Blood Count 37.1*H, Red Blood Count 4.59, Hemoglobin 13.5, Hematocrit 40.8, Mean Corpuscular Volume 89, Mean Corpuscular Hemoglobin 29.4, Mean Corpuscular Hemoglobin Concent 33.1, Red Cell Distribution Width 15.1H, Platelet Count 83L, Mean Platelet Volume 10.0, Neutrophils (%) (Auto) , Lymphocytes (%) (Auto) , Monocytes (%) (Auto) , Eosinophils (%) (Auto) , Basophils (%) (Auto) , Differential Total Cells Counted 100, Neutrophils % (Manual) 75, Lymphocytes % (Manual) 7L, Monocytes % (Manual) 2, Eosinophils % (Manual) 0, Basophils % (Manual) 0, Band Neutrophils 16H, Platelet Estimate DecreasedL, Platelet Morphology Normal, Anisocytosis 1+, Lactic Acid Level 1.90, Troponin I 1.448H, Hepatitis A IgM Antibody [Pending], Hepatitis B Surface Antigen [Pending], Hepatitis B Core IgM Antibody [Pending], Hepatitis C Antibody [Pending], HIV (1&2) Antibody Rapid Negative 07/26/20 20:10: POC Whole Blood Glucose [Pending] 07/26/20 22:20: Random Amikacin Level [Pending] 07/27/20 04:00: White Blood Count 32.3*H, Red Blood Count 4.15L, Hemoglobin 12.3, Hematocrit 37.4, Mean Corpuscular Volume 90, Mean Corpuscular Hemoglobin 29.7, Mean Corpuscular Hemoglobin Concent 32.9, Red Cell Distribution Width 15.5H, Platelet Count 76L, Mean Platelet Volume 9.9, Neutrophils (%) (Auto) , Lymphocytes (%) (Auto) , Monocytes (%) (Auto) , Eosinophils (%) (Auto) , Basophils (%) (Auto) , Neutrophils % (Manual) [Pending], Lymphocytes % (Manual) [Pending], Platelet Estimate [Pending], Platelet Morphology [Pending], Lactic Acid Level 0.70, Troponin I 1.123H, Activated Partial Thromboplast Time 57H, Sodium Level 139, Potassium Level 3.2L, Chloride Level 108H, Carbon Dioxide Level 22, Anion Gap 9, Blood Urea Nitrogen 11, Creatinine 0.9, Estimat Glomerular Filtration Rate > 60, Glucose Level 91, Calcium Level 6.9L, Phosphorus Level 1.5L, Magnesium Level 2.1 07/27/20 05:13: POC Whole Blood Glucose 100 Current Medications Medications (Trade) Dose Ordered Sig/Gabriel Route PRN Reason Start Time Stop Time Status Last Admin Dose Admin Acetaminophen/ Hydrocodone Bitart ([place] 10/325) 1 tab Q4H PRN ORAL Severe Pain (Pain Scale 7-10) 07/26/20 09:45 08/02/20 09:44 07/27/20 05:10 Acetaminophen/ Hydrocodone Bitart ([place] 5/325) 1 tab Q4H PRN ORAL Moderate Pain (Pain Scale 4-6) 07/26/20 09:45 08/02/20 09:44 07/26/20 14:12 Alprazolam (Xanax) 1 mg DAILY ORAL 07/26/20 10:00 08/02/20 09:59 07/26/20 11:19 Amikacin Protocol (Amikacin pharmacy to dose) 1 ea DAILY PRN MISC Per rx protocol 07/26/20 05:15 08/25/20 05:14 Amikacin Sulfate 825 mg/Sodium Chloride 113.3 ml @ 113.3 mls/ hr Q36H IV 07/26/20 10:00 08/02/20 09:59 07/26/20 11:20 Aspirin (ASA) 81 mg DAILY ORAL 07/25/20 09:00 09/08/20 08:59 07/26/20 09:13 Atorvastatin Calcium (Lipitor) 80 mg DAILY ORAL 07/25/20 09:00 10/23/20 08:59 07/26/20 09:13 Barium Sulfate (Readi-Cat 2) 450 ml NOW PRN ORAL Radiology Procedure 07/26/20 10:45 07/28/20 10:44 Calcium Chloride (CaCl Syringe) 1,000 mg ONCE IVP 07/27/20 08:00 07/27/20 10:01 Dextrose (Dextrose 50%) 25 ml Q30M PRN IV Hypoglycemia 07/26/20 10:15 10/24/20 10:14 Dextrose (Dextrose 50%) 50 ml Q30M PRN IV Hypoglycemia 07/26/20 10:15 10/24/20 10:14 Gabapentin (Neurontin) 300 mg TID ORAL 07/25/20 09:00 08/24/20 08:59 07/26/20 17:10 Heparin Sodium/ Dextrose 500 ml @ 19.686 mls/ hr ADJUST PER PROTOCOL IV 07/27/20 06:15 08/26/20 06:14 07/27/20 06:14 Insulin Aspart (NovoLOG) BEFORE MEALS AND HS SUBQ 07/26/20 11:30 10/24/20 11:29 Meropenem 1 gm/ Sodium Chloride 55 ml @ 110 mls/hr Q8HR@0100,0900,1700 IVPB 07/26/20 09:00 07/31/20 08:59 07/27/20 00:57 Pantoprazole (Protonix) 40 mg BID ORAL 07/25/20 09:00 08/24/20 08:59 07/26/20 17:10 Phosphorus (Phospha 250 Neutral) 500 mg ONCE ORAL 07/27/20 08:00 07/27/20 10:01 Potassium Chloride (K-Dur) 60 meq ONCE ORAL 07/27/20 08:00 07/27/20 10:01 Prochlorperazine (Compazine) 10 mg Q6H PRN IVP Nausea & Vomiting 07/25/20 12:15 08/24/20 12:14 07/26/20 19:18 Sodium Chloride 1,000 ml @ 150 mls/hr Q6H40M IV 07/25/20 08:00 08/24/20 07:59 07/27/20 00:57 Sucralfate (Carafate) 1 gm BEFORE MEALS ORAL 07/25/20 11:30 10/23/20 11:29 07/27/20 05:54 Temazepam (Restoril) 15 mg BEDTIME PRN ORAL Insomnia 07/25/20 05:30 08/01/20 05:29 07/26/20 22:20 Assessment/Plan Assessment/Plan IMPRESSION: 1. Non-ST elevation WA. 2. Rheumatoid arthritis. 3. Hypokalemia. 4. Marked leukocytosis. Improved to 32K DISCUSSION: Broad spectrum abx for pyelonephritis Saturating well on RA Replace K Zuly Fernández Omar Syed MD Jul 27, 2020 08:50
--- NOTE | 2020-07-27 09:00 | General Progress Note ---
Subjective Constitutional: Reports: malaise, weakness; Denies: no symptoms, chills, diaphoresis, fever, other HEENT: Denies: no symptoms, eye pain, blurred vision, tearing, double vision, ear pain, ear discharge, nose pain, nose congestion, throat pain, throat swelling, mouth pain, mouth swelling, other Cardiovascular: Denies: no symptoms, chest pain, edema, irregular heart rate, lightheadedness, palpitations, syncope, other Respiratory: Denies: no symptoms, cough, orthopnea, shortness of breath, SOB with excertion, SOB at rest, sputum, stridor, wheezing, other Gastrointestinal/Abdominal: Denies: no symptoms, abdomen distended, abdominal pain, black stools, tarry stools, blood in stool, constipated, diarrhea, difficulty swallowing, nausea, poor appetite, poor fluid intake, rectal bleeding, vomiting, other Genitourinary: Denies: no symptoms, burning, discharge, frequency, flank pain, hematuria, incontinence, pain, urgency, other Neurologic/Psychiatric: Denies: no symptoms, anxiety, depressed, emotional problems, headache, numbness, paresthesia, pre-existing deficit, seizure, tingling, tremors, weakness, other Endocrine: Denies: no symptoms, excessive sweating, flushing, intolerance to cold, intolerance to heat, increased hunger, increased thirst, increased urine, unexplained weight gain, unexplained weight loss, other Hematologic/Lymphatic: Denies: no symptoms, anemia, easy bleeding, easy b ruising, other Allergies: Coded Allergies: HYDROCODONE BIT (Verified Allergy, Severe, Hives, 05/16/13) Subjective No acute events overnight. No fevers. Still complains of generalized malaise, but overall feels a little better then yesterday. Back pain improved. She moved to a new room due to other room AC was unable to be lowered. WBC downtrending. Objective Last 24 Hour Vital Signs Date Time Temp Pulse Resp B/P (MAP) Pulse Ox O2 Delivery O2 Flow Rate FiO2 07/27/20 08:03 Room Air 07/27/20 05:40 98.0 07/27/20 04:00 Room Air 07/27/20 04:00 98.0 92 22 145/78 (100) 99 07/27/20 03:32 94 07/27/20 00:50 98.9 07/27/20 00:00 Room Air 07/27/20 00:00 98.9 109 22 142/72 (95) 97 07/26/20 23:39 115 07/26/20 20:00 98.1 98 22 132/73 (92) 98 07/26/20 20:00 104 07/26/20 16:00 100 07/26/20 16:00 98.2 95 19 128/77 (94) 97 07/26/20 12:00 90 07/26/20 12:00 96.8 94 19 133/77 (95) 97 07/26/20 10:52 Room Air Intake and Output 07/26/20 07/27/20 19:00 07:00 Intake Total 2080.622 ml 1779.488 ml Output Total 75 ml Balance 2080.622 ml 1704.488 ml Intake Oral 350 ml IV Total 1730.622 ml 1779.488 ml Output Urine Total 75 ml # Voids 4 6 # Bowel Movements 2 5 Laboratory Tests 07/26/20 09:00: Lactic Acid Level 2.30H 07/26/20 11:24: POC Whole Blood Glucose 93 07/26/20 15:50: Troponin I 1.361H 07/26/20 17:07: POC Whole Blood Glucose 95 07/26/20 20:00: White Blood Count 37.1*H, Red Blood Count 4.59, Hemoglobin 13.5, Hematocrit 40.8, Mean Corpuscular Volume 89, Mean Corpuscular Hemoglobin 29.4, Mean Corpuscular Hemoglobin Concent 33.1, Red Cell Distribution Width 15.1H, Platelet Count 83L, Mean Platelet Volume 10.0, Neutrophils (%) (Auto) , Lymphocytes (%) (Auto) , Monocytes (%) (Auto) , Eosinophils (%) (Auto) , Basophils (%) (Auto) , Differential Total Cells Counted 100, Neutrophils % (Manual) 75, Lymphocytes % (Manual) 7L, Monocytes % (Manual) 2, Eosinophils % (Manual) 0, Basophils % (Manual) 0, Band Neutrophils 16H, Platelet Estimate DecreasedL, Platelet Morphology Normal, Anisocytosis 1+, Lactic Acid Level 1.90, Troponin I 1.448H, Hepatitis A IgM Antibody [Pending], Hepatitis B Surface Antigen [Pending], Hepatitis B Core IgM Antibody [Pending], Hepatitis C Antibody [Pending], HIV (1&2) Antibody Rapid Negative 07/26/20 20:10: POC Whole Blood Glucose [Pending] 07/26/20 22:20: Random Amikacin Level [Pending] 07/27/20 04:00: White Blood Count 32.3*H, Red Blood Count 4.15L, Hemoglobin 12.3, Hematocrit 37.4, Mean Corpuscular Volume 90, Mean Corpuscular Hemoglobin 29.7, Mean Corpuscular Hemoglobin Concent 32.9, Red Cell Distribution Width 15.5H, Platelet Count 76L, Mean Platelet Volume 9.9, Neutrophils (%) (Auto) , Lymphocytes (%) (Auto) , Monocytes (%) (Auto) , Eosinophils (%) (Auto) , Basophils (%) (Auto) , Neutrophils % (Manual) [Pending], Lymphocytes % (Manual) [Pending], Platelet Estimate [Pending], Platelet Morphology [Pending], Lactic Acid Level 0.70, Troponin I 1.123H, Activated Partial Thromboplast Time 57H, Sodium Level 139, Potassium Level 3.2L, Chloride Level 108H, Carbon Dioxide Level 22, Anion Gap 9, Blood Urea Nitrogen 11, Creatinine 0.9, Estimat Glomerular Filtration Rate > 60, Glucose Level 91, Calcium Level 6.9L, Phosphorus Level 1.5L, Magnesium Level 2.1 07/27/20 05:13: POC Whole Blood Glucose 100 07/27/20 08:15: Lactic Acid Level [Pending] Height (Feet): 5 Height (Inches): 0.00 Weight (Pounds): 155 General Appearance: no apparent distress, alert, alert oriented x3 EENT: PERRL/EOMI Neck: non-tender, normal inspection Cardiovascular: normal rate, regular rhythm, no JVD Respiratory/Chest: lungs clear, normal breath sounds, no respiratory distress Abdomen: normal bowel sounds, non tender, soft Extremities: normal range of motion, non-tender Edema: no edema noted Arm (L), no edema noted Arm (R), no edema noted Leg (L), no edema noted Leg (R), no edema noted Pedal (L), no edema noted Pedal (R), no edema noted Generalized 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 Christine is a 65F with PMH of RA, OA and osteoporosis admitted for fevers, malaise. A: # Severe Sepsis (Leukocytosis + fevers + Tachycardia) 2/2 UTI, bacteremia # NSTEMI Type 1 vs Type 2 # Gram Negative Bacteremia # UTI # Anion Gap Metabolic Acidosis 2/2 Lactic Acid # Severe Lactic Acidosis - improved # MANDY 2/2 pre-renal azotemia vs Sepsis ATN # Prolong Qt # Leukocytosis # Thrombocytopenia likely 2/2 sepsis # New Diagnosis Type 2 DM # Hx of Rheumatoid Arthritis on Biologic infusion # Hx of OA # Hx of osteoporosis # NAFLD P: - hemodynamically stable - keep MAP > 65, monitor for BP support with need for pressors - d/c vancomycin, continue merrem, and amikacin per ID - UC negative preliminary - MRSA negative - BC +gram negative rods, speciation pending - troponin downtrending - ekg: anterolateral ST depression, QTc 548 - avoid prolonging qt agents - heparin gtt per cardio - ECHO: EF 65%, no wall motion abnormalities, mild LVH RSVP 15 - ISS - trend platelets - hold anticoags < 50 - f/u HIV, hepatitis C - leukocytosis slightly improved, monitor - inflammatory markers elevated - Dr. Cates, Nephrology, recs appreciated - consult Dr. Gallego, ID, recs appreciated - consult Dr. Che Cardiology, recs appreciated - consult Dr. Ann, Pulm, recs appreciated CODE: Full GI: none DVT: Heparin gtt Diet: cardio Dispo: severe sepsis work up ongoing Time spent on this encounter was 35 minutes which included 25 minutes of co unseling and care coordination. I discussed with the nurse at bedside. Time of note may not reflect time patient was seen. Darshan San D.O Jul 27, 2020 09:00
[2020-07-27] MEDS ORDERED: Docusate 100mg cap ORAL PRN (09:15)
[2020-07-27] MEDS: Aspirin Baby 81mg ORAL SCH (09:18)
[2020-07-27] MEDS: Atorvastatin 80mg tab ORAL SCH (09:19)
[2020-07-27] MEDS: ALPRAZolam 0.5mg tab ORAL SCH (09:19)
--- NOTE | 2020-07-27 09:50 | Nephrology Progress Note ---
Assessment/Plan Plan #Septic shock due to UTi #NSTEMI #MANDY #UTI #Sinus tach #RA - replete K and phos - IV abx- vanco and meropenem, amikacin - ID eval - follow cx - check COVID PCR - ASA - statin - echo - pain control - hold pred for now - hold infliximab for now Subjective ROS Limited/Unobtainable: No Constitutional: Reports: weakness HEENT: Denies: no symptoms, eye pain, blurred vision, tearing, double vision, ear pain, ear discharge, nose pain, nose congestion, throat pain, throat swelling, mouth pain, mouth swelling, other Genitourinary: Denies: no symptoms, burning, discharge, frequency, flank pain, hematuria, incontinence, pain, urgency, other Neurologic/Psychiatric: Denies: no symptoms, anxiety, depressed, emotional problems, headache, numbness, paresthesia, pre-existing deficit, seizure, tingling, tremors, weakness, other Subjective Complains of diffuse pain WBC now downtrending K and phos low -repleted Objective Objective Last 24 Hour Vital Signs Date Time Temp Pulse Resp B/P (MAP) Pulse Ox O2 Delivery O2 Flow Rate FiO2 07/27/20 08:03 Room Air 07/27/20 08:00 98.0 104 21 146/81 (102) 97 07/27/20 08:00 98 07/27/20 05:40 98.0 07/27/20 04:00 Room Air 07/27/20 04:00 98.0 92 22 145/78 (100) 99 07/27/20 03:32 94 07/27/20 00:50 98.9 07/27/20 00:00 Room Air 07/27/20 00:00 98.9 109 22 142/72 (95) 97 07/26/20 23:39 115 07/26/20 20:00 98.1 98 22 132/73 (92) 98 07/26/20 20:00 104 07/26/20 16:00 100 07/26/20 16:00 98.2 95 19 128/77 (94) 97 07/26/20 12:00 90 07/26/20 12:00 96.8 94 19 133/77 (95) 97 07/26/20 10:52 Room Air Intake and Output 07/26/20 07/27/20 18:59 06:59 Intake Total 2199.496 ml 1827.488 ml Output Total 75 ml Balance 2199.496 ml 1752.488 ml Intake Oral 350 ml IV Total 1849.496 ml 1827.488 ml Output Urine Total 75 ml # Voids 4 6 # Bowel Movements 2 5 Laboratory Tests 07/26/20 11:24: POC Whole Blood Glucose 93 07/26/20 15:50: Troponin I 1.361H 07/26/20 17:07: POC Whole Blood Glucose 95 07/26/20 20:00: Troponin I 1.448H, White Blood Count 37.1*H, Red Blood Count 4.59, Hemoglobin 13.5, Hematocrit 40.8, Mean Corpuscular Volume 89, Mean Corpuscular Hemoglobin 29.4, Mean Corpuscular Hemoglobin Concent 33.1, Red Cell Distribution Width 15.1H, Platelet Count 83L, Mean Platelet Volume 10.0, Neutrophils (%) (Auto) , Lymphocytes (%) (Auto) , Monocytes (%) (Auto) , Eosinophils (%) (Auto) , Basophils (%) (Auto) , Differential Total Cells Counted 100, Neutrophils % (Manual) 75, Lymphocytes % (Manual) 7L, Monocytes % (Manual) 2, Eosinophils % (Manual) 0, Basophils % (Manual) 0, Band Neutrophils 16H, Platelet Estimate DecreasedL, Platelet Morphology Normal, Anisocytosis 1+, Lactic Acid Level 1.90, Hepatitis A IgM Antibody [Pending], Hepatitis B Surface Antigen [Pending], Hepatitis B Core IgM Antibody [Pending], Hepatitis C Antibody [Pending], HIV (1&2) Antibody Rapid Negative 07/26/20 20:10: POC Whole Blood Glucose [Pending] 07/26/20 22:20: Random Amikacin Level [Pending] 07/27/20 04:00: White Blood Count 32.3*H, Red Blood Count 4.15L, Hemoglobin 12.3, Hematocrit 37.4, Mean Corpuscular Volume 90, Mean Corpuscular Hemoglobin 29.7, Mean Corpuscular Hemoglobin Concent 32.9, Red Cell Distribution Width 15.5H, Platelet Count 76L, Mean Platelet Volume 9.9, Neutrophils (%) (Auto) , Lymphocytes (%) (Auto) , Monocytes (%) (Auto) , Eosinophils (%) (Auto) , Basophils (%) (Auto) , Differential Total Cells Counted 100, Neutrophils % (Manual) 82H, Lymphocytes % (Manual) 8L, Monocytes % (Manual) 3, Eosinophils % (Manual) 0, Basophils % (Manual) 0, Band Neutrophils 7, Platelet Estimate DecreasedL, Platelet Morpholo gy Normal, Anisocytosis 1+, Activated Partial Thromboplast Time 57H, Sodium Level 139, Potassium Level 3.2L, Chloride Level 108H, Carbon Dioxide Level 22, Anion Gap 9, Blood Urea Nitrogen 11, Creatinine 0.9, Estimat Glomerular Filtration Rate > 60, Glucose Level 91, Lactic Acid Level 0.70, Calcium Level 6.9L, Phosphorus Level 1.5L, Magnesium Level 2.1, Troponin I 1.123H 07/27/20 05:13: POC Whole Blood Glucose 100 07/27/20 08:15: Lactic Acid Level 0.90 Height (Feet): 5 Height (Inches): 0.00 Weight (Pounds): 155 Ross Cates M.D. Jul 27, 2020 09:49
--- NOTE | 2020-07-27 10:37 | Infectious Diseases Prog Note ---
Assessment/Plan Assessment/Plan ASSESSMENT AND PLAN: 1. gram neg uti/pyelonephritis, gram neg bacteremia/sepsis, severe sepsis, sirs, leukocytosis, fevers - meropenem and amikacin - f/u on cultures and labs - f/u on CT abdomen and pelvis - d/w RN, patient and 2. MANDY - improved 3. Patient has history of rheumatoid arthritis and been immunocompromised with history of steroids and also Remicade. 4. Patient has osteoarthritis. 5. Osteoporosis. 6. Non-STEMI. 7. CAD. 8. NAFLD. 9. Rheumatoid arthritis and immunocompromised. 10. Continue care per primary consultants. 11. Allergies to hydrocodone. 12. Social history is negative. 13. Family history is noncontributory. 14. MAR is noted. 15. Case was discussed with RN. 16. Orders were noted and entered. 17. Patient is COVID negative and isolation will be removed. 18. Case also discussed at length with nursing staff about antibiotic management and the patient's care. Subjective Constitutional: Reports: fatigue, other - feels somewhat better ; Denies: fever HEENT: Denies: dysphagia, congestion Respiratory: Denies: shortness of breath Cardiovascular: Denies: chest pain Gastrointestinal/Abdominal: Denies: nausea, vomiting, diarrhea Genitourinary: Reports: other - no rodrigez, some dysuria and cva pain Neurologic: Denies: headache Psychiatric: Denies: depression Skin: Denies: rash Hematologic: Denies: bleeding Musculoskeletal: Denies: pain Allergies: Coded Allergies: HYDROCODONE BIT (Verified Allergy, Severe, Hives, 05/16/13) Objective Last 24 Hour Vital Signs Date Time Temp Pulse Resp B/P (MAP) Pulse Ox O2 Delivery O2 Flow Rate FiO2 07/27/20 08:03 Room Air 07/27/20 08:00 98.0 104 21 146/81 (102) 97 07/27/20 08:00 98 07/27/20 05:40 98.0 07/27/20 04:00 Room Air 07/27/20 04:00 98.0 92 22 145/78 (100) 99 07/27/20 03:32 94 07/27/20 00:50 98.9 07/27/20 00:00 Room Air 07/27/20 00:00 98.9 109 22 142/72 (95) 97 07/26/20 23:39 115 07/26/20 20:00 98.1 98 22 132/73 (92) 98 07/26/20 20:00 104 07/26/20 16:00 100 07/26/20 16:00 98.2 95 19 128/77 (94) 97 07/26/20 12:00 90 07/26/20 12:00 96.8 94 19 133/77 (95) 97 07/26/20 10:52 Room Air Height (Feet): 5 Height (Inches): 0.00 Weight (Pounds): 155 General Appearance: no acute distress HEENT: normocephalic, atraumatic, anicteric, mucous membranes moist Respiratory/Chest: lungs clear, normal breath sounds, no respiratory distress, no accessory muscle use Cardiovascular: normal rate, regular rhythm, no gallop/murmur, no JVD Abdomen: normal bowel sounds, soft, non tender, no organomegaly, non distended Genitourinary: other - + cva pain, no rodrigez Extremities: no cyanosis Skin: no rash 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 Heart size is normal. No significant change Impression: No acute process Microbiology Date/Time Source Procedure Growth Status 07/25/20 18:45 Nasal Aspirate MRSA Culture - Final NO METHICILLIN RESISTANT STAPH AUREUS... Complete 07/25/20 12:30 Blood Blood Culture - Preliminary Resulted 07/25/20 12:20 Blood Blood Culture - Preliminary NO GROWTH AFTER 24 HOURS Resulted 07/25/20 10:00 Nasopharynx Coronavirus COVID-19 PCR (NASIMA) - Final Complete 07/25/20 02:10 Urine,Clean Catch Urine Culture - Preliminary Gram Negative Matthew Resulted 07/25/20 01:40 Nasal Nares - Final Complete 07/25/20 01:40 Nasal Nares - Final Complete 07/25/20 01:20 Nasopharynx SARS-CoV-2 RdRp Gene Assay - Final Complete 07/25/20 00:55 Blood Blood Culture - Preliminary Resulted 07/25/20 00:40 Blood Blood Culture - Preliminary Resulted Laboratory Tests Test 07/26/20 11:24 07/26/20 15:50 07/26/20 17:07 07/26/20 20:00 POC Whole Blood Glucose 93 MG/DL (74-106) 95 MG/DL (74-106) Troponin I 1.361 ng/mL (0.000-0.056) 1.448 ng/mL (0.000-0.056) White Blood Count 37.1 K/UL (4.8-10.8) *H Red Blood Count 4.59 M/UL (4.20-5.40) Hemoglobin 13.5 G/DL (12.0-16.0) Hematocrit 40.8 % (37.0-47.0) Mean Corpuscular Volume 89 FL (80-99) Mean Corpuscular Hemoglobin 29.4 PG (27.0-31.0) Mean Corpuscular Hemoglobin Concent 33.1 G/DL (32.0-36.0) Red Cell Distribution Width 15.1 % (11.6-14.8) H Platelet Count 83 K/UL (150-450) L Mean Platelet Volume 10.0 FL (6.5-10.1) Neutrophils (%) (Auto) % (45.0-75.0) Lymphocytes (%) (Auto) % (20.0-45.0) Monocytes (%) (Auto) % (1.0-10.0) Eosinophils (%) (Auto) % (0.0-3.0) Basophils (%) (Auto) % (0.0-2.0) Differential Total Cells Counted 100 Neutrophils % (Manual) 75 % (45-75) Lymphocytes % (Manual) 7 % (20-45) L Monocytes % (Manual) 2 % (1-10) Eosinophils % (Manual) 0 % (0-3) Basophils % (Manual) 0 % (0-2) Band Neutrophils 16 % (0-8) H Platelet Estimate Decreased L Platelet Morphology Normal Anisocytosis 1+ Lactic Acid Level 1.90 mmol/L (0.4-2.0) Hepatitis A IgM Antibody Pending Hepatitis B Surface Antigen Pending Hepatitis B Core IgM Antibody Pending Hepatitis C Antibody Pending HIV (1&2) Antibody Rapid Negative (NEGATIVE) Test 07/26/20 20:10 07/26/20 22:20 07/27/20 04:00 07/27/20 05:13 POC Whole Blood Glucose Pending 100 MG/DL (74-106) Random Amikacin Level Pending White Blood Count 32.3 K/UL (4.8-10.8) *H Red Blood Count 4.15 M/UL (4.20-5.40) L Hemoglobin 12.3 G/DL (12.0-16.0) Hematocrit 37.4 % (37.0-47.0) Mean Corpuscular Volume 90 FL (80-99) Mean Corpuscular Hemoglobin 29.7 PG (27.0-31.0) Mean Corpuscular Hemoglobin Concent 32.9 G/DL (32.0-36.0) Red Cell Distribution Width 15.5 % (11.6-14.8) H Platelet Count 76 K/UL (150-450) L Mean Platelet Volume 9.9 FL (6.5-10.1) Neutrophils (%) (Auto) % (45.0-75.0) Lymphocytes (%) (Auto) % (20.0-45.0) Monocytes (%) (Auto) % (1.0-10.0) Eosinophils (%) (Auto) % (0.0-3.0) Basophils (%) (Auto) % (0.0-2.0) Differential Total Cells Counted 100 Neutrophils % (Manual) 82 % (45-75) H Lymphocytes % (Manual) 8 % (20-45) L Monocytes % (Manual) 3 % (1-10) Eosinophils % (Manual) 0 % (0-3) Basophils % (Manual) 0 % (0-2) Band Neutrophils 7 % (0-8) Platelet Estimate Decreased L Platelet Morphology Normal Anisocytosis 1+ Activated Partial Thromboplast Time 57 SEC (23-33) H Sodium Level 139 MMOL/L (136-145) Potassium Level 3.2 MMOL/L (3.5-5.1) L Chloride Level 108 MMOL/L (98-107) H Carbon Dioxide Level 22 MMOL/L (21-32) Anion Gap 9 mmol/L (5-15) Blood Urea Nitrogen 11 mg/dL (7-18) Creatinine 0.9 MG/DL (0.55-1.30) Estimat Glomerular Filtration Rate > 60 mL/min (>60) Glucose Level 91 MG/DL (74-106) Lactic Acid Level 0.70 mmol/L (0.4-2.0) Calcium Level 6.9 MG/DL (8.5-10.1) L Phosphorus Level 1.5 MG/DL (2.5-4.9) L Magnesium Level 2.1 MG/DL (1.8-2.4) Troponin I 1.123 ng/mL (0.000-0.056) Test 07/27/20 08:15 Lactic Acid Level 0.90 mmol/L (0.4-2.0) Current Medications Medications (Trade) Dose Ordered Sig/Gabriel Route PRN Reason Start Time Stop Time Status Last Admin Dose Admin Acetaminophen/ Hydrocodone Bitart ([place] 10/325) 1 tab Q4H PRN ORAL Severe Pain (Pain Scale 7-10) 07/26/20 09:45 08/02/20 09:44 07/27/20 05:10 Acetaminophen/ Hydrocodone Bitart ([place] 5/325) 1 tab Q4H PRN ORAL Moderate Pain (Pain Scale 4-6) 07/26/20 09:45 08/02/20 09:44 07/26/20 14:12 Alprazolam (Xanax) 1 mg DAILY ORAL 07/26/20 10:00 08/02/20 09:59 07/27/20 09:19 Amikacin Protocol (Amikacin pharmacy to dose) 1 ea DAILY PRN MISC Per rx protocol 07/26/20 05:15 08/25/20 05:14 Amikacin Sulfate 825 mg/Sodium Chloride 113.3 ml @ 113.3 mls/ hr Q36H IV 07/26/20 10:00 08/02/20 09:59 07/26/20 11:20 Aspirin (ASA) 81 mg DAILY ORAL 07/25/20 09:00 09/08/20 08:59 07/27/20 09:18 Atorvastatin Calcium (Lipitor) 80 mg DAILY ORAL 07/25/20 09:00 10/23/20 08:59 07/27/20 09:19 Barium Sulfate (Readi-Cat 2) 450 ml NOW PRN ORAL Radiology Procedure 07/26/20 10:45 07/28/20 10:44 Dextrose (Dextrose 50%) 25 ml Q30M PRN IV Hypoglycemia 07/26/20 10:15 10/24/20 10:14 Dextrose (Dextrose 50%) 50 ml Q30M PRN IV Hypoglycemia 07/26/20 10:15 10/24/20 10:14 Docusate Sodium (Colace) 100 mg BID PRN ORAL Constipation 07/27/20 09:15 08/26/20 09:14 Gabapentin (Neurontin) 300 mg TID ORAL 07/25/20 09:00 08/24/20 08:59 07/27/20 09:18 Heparin Sodium/ Dextrose 500 ml @ 19.686 mls/ hr ADJUST PER PROTOCOL IV 07/27/20 06:15 08/26/20 06:14 07/27/20 06:14 Insulin Aspart (NovoLOG) BEFORE MEALS AND HS SUBQ 07/26/20 11:30 10/24/20 11:29 Meropenem 1 gm/ Sodium Chloride 55 ml @ 110 mls/hr Q8HR@0100,0900,1700 IVPB 07/26/20 09:00 07/31/20 08:59 07/27/20 09:00 Pantoprazole (Protonix) 40 mg BID ORAL 07/25/20 09:00 08/24/20 08:59 07/27/20 09:19 Prochlorperazine (Compazine) 10 mg Q6H PRN IVP Nausea & Vomiting 07/25/20 12:15 08/24/20 12:14 07/26/20 19:18 Sodium Chloride 1,000 ml @ 100 mls/hr Q10H IV 07/25/20 08:00 08/24/20 07:59 07/27/20 08:31 Sucralfate (Carafate) 1 gm BEFORE MEALS ORAL 07/25/20 11:30 10/23/20 11:29 07/27/20 05:54 Temazepam (Restoril) 15 mg BEDTIME PRN ORAL Insomnia 07/25/20 05:30 08/01/20 05:29 07/26/20 22:20 Brice Call MD Jul 27, 2020 10:37
--- NOTE | 2020-07-27 10:45 | Diagnostic Imaging Report ---
EXAM: CT Abdomen and Pelvis Without Intravenous Contrast CLINICAL HISTORY: ABSCESS TECHNIQUE: Axial computed tomography images of the abdomen and pelvis without intravenous contrast. Sagittal and coronal reformatted images were created and reviewed. CTDI is 7.3 mGy and DLP is 360.9 mGy-cm. One or more of the following dose reduction techniques were used: automated exposure control, adjustment of the mA and/or kV according to patient size, use of iterative reconstruction technique. COMPARISON: No relevant prior studies available. FINDINGS: Lung bases: See below. Pleural space: Bilateral trace pleural effusions. Dependent atelectasis in bilateral lung bases. ABDOMEN: Liver: Diffusely hypodense liver, suggesting fatty infiltration. Gallbladder and bile ducts: Status post cholecystectomy. No ductal dilation. Pancreas: Unremarkable. No ductal dilation. Spleen: Unremarkable. No splenomegaly. Adrenals: Unremarkable. No mass. Kidneys and ureters: Right perinephric stranding. No hydronephrosis or hydroureter. No visible radiodense stones. Stomach and bowel: Mild wall thickening in the duodenal C-loop. Postsurgical changes in the rectosigmoid junction. Colon and small bowel otherwise appear unremarkable. No evidence of bowel obstruction. PELVIS: Appendix: No findings to suggest acute appendicitis. Bladder: Unremarkable. No stones. Reproductive: The uterus and ovaries are not visualized and may be surgically absent. ABDOMEN and PELVIS: Intraperitoneal space: Unremarkable. No free air. No significant fluid collection. Bones/joints: Multilevel degenerative disc space loss. No acute fracture. No dislocation. Soft tissues: Unremarkable. Vasculature: Unremarkable. No abdominal aortic aneurysm. Lymph nodes: Unremarkable. No enlarged lymph nodes. Other findings: No visible intra-abdominal or intrapelvic abscess. IMPRESSION: 1. No visible intra-abdominal or intrapelvic abscess. 2. Mild wall thickening in the duodenal C-loop. This may represent a mild duodenitis or may be reactive inflammation from a subtle pancreatitis along the duodenal groove. The pancreas otherwise appears unremarkable. Recommend correlation with serum amylase and lipase. 3. Right perinephric stranding. No hydronephrosis or hydroureter. No visible radiodense stones. This raises possibility of UTI or pyelonephritis. Recommend correlation with urinalysis. 4. Bilateral trace pleural effusions. Dependent atelectasis in bilateral lung bases. 5. Status post cholecystectomy.
[2020-07-27 12:00] VITALS: BP 161/85
--- NOTE | 2020-07-27 13:21 | Surgery Progress Note ---
Surgery Progress Note Subjective Additional Comments CT reviewed WBC trending down no n/v Objective Last 24 Hour Vital Signs Date Time Temp Pulse Resp B/P (MAP) Pulse Ox O2 Delivery O2 Flow Rate FiO2 07/27/20 12:00 96.6 107 20 161/85 (110) 100 07/27/20 08:03 Room Air 07/27/20 08:00 98.0 104 21 146/81 (102) 97 07/27/20 08:00 98 07/27/20 05:40 98.0 07/27/20 04:00 Room Air 07/27/20 04:00 98.0 92 22 145/78 (100) 99 07/27/20 03:32 94 07/27/20 00:50 98.9 07/27/20 00:00 Room Air 07/27/20 00:00 98.9 109 22 142/72 (95) 97 07/26/20 23:39 115 07/26/20 20:00 98.1 98 22 132/73 (92) 98 07/26/20 20:00 104 07/26/20 16:00 100 07/26/20 16:00 98.2 95 19 128/77 (94) 97 I&O Intake and Output 07/26/20 07/27/20 19:00 07:00 Intake Total 2080.622 ml 1799.174 ml Output Total 75 ml Balance 2080.622 ml 1724.174 ml Intake Oral 350 ml IV Total 1730.622 ml 1799.174 ml Output Urine Total 75 ml # Voids 4 6 # Bowel Movements 2 5 Dressing: saturated Cardiovascular: RSR Respiratory: decreased breath sounds Abdomen: non-tender, present bowel sounds Extremities: no tenderness, no cyanosis, other Laboratory Tests Test 07/26/20 15:50 07/26/20 17:07 07/26/20 20:00 07/26/20 20:10 Troponin I 1.361 ng/mL (0.000-0.056) 1.448 ng/mL (0.000-0.056) POC Whole Blood Glucose 95 MG/DL (74-106) Pending White Blood Count 37.1 K/UL (4.8-10.8) *H Red Blood Count 4.59 M/UL (4.20-5.40) Hemoglobin 13.5 G/DL (12.0-16.0) Hematocrit 40.8 % (37.0-47.0) Mean Corpuscular Volume 89 FL (80-99) Mean Corpuscular Hemoglobin 29.4 PG (27.0-31.0) Mean Corpuscular Hemoglobin Concent 33.1 G/DL (32.0-36.0) Red Cell Distribution Width 15.1 % (11.6-14.8) H Platelet Count 83 K/UL (150-450) L Mean Platelet Volume 10.0 FL (6.5-10.1) Neutrophils (%) (Auto) % (45.0-75.0) Lymphocytes (%) (Auto) % (20.0-45.0) Monocytes (%) (Auto) % (1.0-10.0) Eosinophils (%) (Auto) % (0.0-3.0) Basophils (%) (Auto) % (0.0-2.0) Differential Total Cells Counted 100 Neutrophils % (Manual) 75 % (45-75) Lymphocytes % (Manual) 7 % (20-45) L Monocytes % (Manual) 2 % (1-10) Eosinophils % (Manual) 0 % (0-3) Basophils % (Manual) 0 % (0-2) Band Neutrophils 16 % (0-8) H Platelet Estimate Decreased L Platelet Morphology Normal Anisocytosis 1+ Lactic Acid Level 1.90 mmol/L (0.4-2.0) Hepatitis A IgM Antibody Pending Hepatitis B Surface Antigen Pending Hepatitis B Core IgM Antibody Pending Hepatitis C Antibody Pending HIV (1&2) Antibody Rapid Negative (NEGATIVE) Test 07/26/20 22:20 07/27/20 04:00 07/27/20 05:13 07/27/20 08:15 Random Amikacin Level Pending White Blood Count 32.3 K/UL (4.8-10.8) *H Red Blood Count 4.15 M/UL (4.20-5.40) L Hemoglobin 12.3 G/DL (12.0-16.0) Hematocrit 37.4 % (37.0-47.0) Mean Corpuscular Volume 90 FL (80-99) Mean Corpuscular Hemoglobin 29.7 PG (27.0-31.0) Mean Corpuscular Hemoglobin Concent 32.9 G/DL (32.0-36.0) Red Cell Distribution Width 15.5 % (11.6-14.8) H Platelet Count 76 K/UL (150-450) L Mean Platelet Volume 9.9 FL (6.5-10.1) Neutrophils (%) (Auto) % (45.0-75.0) Lymphocytes (%) (Auto) % (20.0-45.0) Monocytes (%) (Auto) % (1.0-10.0) Eosinophils (%) (Auto) % (0.0-3.0) Basophils (%) (Auto) % (0.0-2.0) Differential Total Cells Counted 100 Neutrophils % (Manual) 82 % (45-75) H Lymphocytes % (Manual) 8 % (20-45) L Monocytes % (Manual) 3 % (1-10) Eosinophils % (Manual) 0 % (0-3) Basophils % (Manual) 0 % (0-2) Band Neutrophils 7 % (0-8) Platelet Estimate Decreased L Platelet Morphology Normal Anisocytosis 1+ Activated Partial Thromboplast Time 57 SEC (23-33) H Sodium Level 139 MMOL/L (136-145) Potassium Level 3.2 MMOL/L (3.5-5.1) L Chloride Level 108 MMOL/L (98-107) H Carbon Dioxide Level 22 MMOL/L (21-32) Anion Gap 9 mmol/L (5-15) Blood Urea Nitrogen 11 mg/dL (7-18) Creatinine 0.9 MG/DL (0.55-1.30) Estimat Glomerular Filtration Rate > 60 mL/min (>60) Glucose Level 91 MG/DL (74-106) Lactic Acid Level 0.70 mmol/L (0.4-2.0) 0.90 mmol/L (0.4-2.0) Calcium Level 6.9 MG/DL (8.5-10.1) L Phosphorus Level 1.5 MG/DL (2.5-4.9) L Magnesium Level 2.1 MG/DL (1.8-2.4) Troponin I 1.123 ng/mL (0.000-0.056) POC Whole Blood Glucose 100 MG/DL (74-106) Test 07/27/20 12:20 Activated Partial Thromboplast Time 58 SEC (23-33) H Lactic Acid Level 1.80 mmol/L (0.4-2.0) Troponin I 0.714 ng/mL (0.000-0.056) Plan Problems: (1) Hypokalemia (2) Rheumatoid arthritis (3) Rheumatoid arthritis (4) Rheumatoid arthritis (5) Fatty liver (6) Joint pain (7) Urinary retention (8) Anemia (9) Anxiety (10) Anxiety (11) Arthritis (12) Generalized weakness (13) CAD (coronary artery disease) (14) Cough (15) Cough (16) Diarrhea (17) Diverticulitis (18) Diverticulosis (19) Gastritis (20) Gastroenteritis (21) Infection (22) Leukocytosis (23) Leukocytosis Assessment & Plan: 65-year-old female with abdominal pain lactic acidosis leukocytosis elevated liver enzymes trend febrile septic admitted for the care management IV antibiotics per infectious disease currently no imaging pending. Labs noted lactic acidosis improved with fluids UTI noted likely urosepsis.. Abdominal examination fairly benign no nausea vomiting. Okay for diet IV fluids KUB ordered Ultrasound ordered given liver enzyme elevation Elevated liver enzymes trend Unlikely bowel insult or ischemia. We will follow with recommendations thank you Mehran adame patient's care kub and us okay diet okay bowel regimen labs improved (24) Leukocytosis (25) Sepsis Assessment & Plan: iv abx iv fluids trend labs imaging ordered will follow with rec Liver: Diffusely hypodense liver, suggesting fatty infiltration. Gallbladder and bile ducts: Status post cholecystectomy. No ductal dilation. Pancreas: Unremarkable. No ductal dilation. Spleen: Unremarkable. No splenomegaly. Adrenals: Unremarkable. No mass. Kidneys and ureters: Right perinephric stranding. No hydronephrosis or hydroureter. No visible radiodense stones. Stomach and bowel: Mild wall thickening in the duodenal C-loop. Postsurgical changes in the rectosigmoid junction. Colon and small bowel otherwise appear unremarkable. No evidence of bowel obstruction. PELVIS: Appendix: No findings to suggest acute appendicitis. Bladder: Unremarkable. No stones. Reproductive: The uterus and ovaries are not visualized and may be surgically absent. ABDOMEN and PELVIS: Intraperitoneal space: Unremarkable. No free air. No significant fluid collection. Bones/joints: Multilevel degenerative disc space loss. No acute fracture. No dislocation. Soft tissues: Unremarkable. Vasculature: Unremarkable. No abdominal aortic aneurysm. Lymph nodes: Unremarkable. No enlarged lymph nodes. Other findings: No visible intra-abdominal or intrapelvic abscess. IMPRESSION: 1. No visible intra-abdominal or intrapelvic abscess. 2. Mild wall thickening in the duodenal C-loop. This may represent a mild duodenitis or may be reactive inflammation from a subtle pancreatitis along the duodenal groove. The pancreas otherwise appears unremarkable. Recommend correlation with serum amylase and lipase. 3. Right perinephric stranding. No hydronephrosis or hydroureter. No visible radiodense stones. This raises possibility of UTI or pyelonephritis. Recommend correlation with urinalysis. 4. Bilateral trace pleural effusions. Dependent atelectasis in bilateral lung bases. 5. Status post cholecystectomy.a (26) UTI (urinary tract infection) (27) Reflux esophagitis (28) Abdominal pain (29) Abdominal pain (30) Abdominal pain (31) Abdominal pain (32) Abdominal pain (33) Bronchitis (34) Chest pain (35) Chest pain (36) Chest pain (37) Hemorrhoids (38) Vomiting (39) Multiple joint pain (40) Acute gastrointestinal bleeding (41) Acute gastrointestinal bleeding (42) Acute gastrointestinal bleeding (43) Acute gastrointestinal bleeding (44) Hepatic steatosis (45) Nausea & vomiting (46) Dehydration, moderate (47) Reflux gastritis (48) C. 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
[2020-07-27] MEDS ORDERED: Heparin 5000 units/ml inj IV SCH (13:30)
--- NOTE | 2020-07-27 13:47 | Cardiac Electrophysiology PN ---
Assessment/Plan Assessment/Plan 1. Non-ST elevation myocardial infarction with troponin peak of 6.9. Now down to 0.714 Denies any chest pain or shortness of breath and ECG shows no ST elevation. The patient however also has renal failure, creatinine 1.4, and she is septic, lactic acid of 6.8, [place] [address]. EF 65%. Continue on aspirin and Lipitor. Add Lopressor 25 bid 2. Tachycardia with sinus tachycardia due to sepsis. The patient already on broad-spectrum IV antibiotics.Add Lopressor 3. Hyperlipidemia on Lipitor. 4. Gram neg uti/pyelonephritis, bacteremia/sepsis with WBC 50K, Fever, cough, and body ache. COVID test is negative On iv Abx per Dr Gallego 5. Severe back pain. The patient has chronic back pain, was on prednisone, gabapentin, and Xanax at home. Further evaluation by Rheumatology. 6. Renal failure, creatinine 1.4, resolved Cr 1.0 now DW RN Subjective Subjective Off isolation as Covid PCR is negative. Troponin peak 6 that is down to 0.714. No CP or SOB Objective Last 24 Hour Vital Signs Date Time Temp Pulse Resp B/P (MAP) Pulse Ox O2 Delivery O2 Flow Rate FiO2 07/27/20 12:00 96.6 107 20 161/85 (110) 100 07/27/20 08:03 Room Air 07/27/20 08:00 98.0 104 21 146/81 (102) 97 07/27/20 08:00 98 07/27/20 05:40 98.0 07/27/20 04:00 Room Air 07/27/20 04:00 98.0 92 22 145/78 (100) 99 07/27/20 03:32 94 07/27/20 00:50 98.9 07/27/20 00:00 Room Air 07/27/20 00:00 98.9 109 22 142/72 (95) 97 07/26/20 23:39 115 07/26/20 20:00 98.1 98 22 132/73 (92) 98 07/26/20 20:00 104 07/26/20 16:00 100 07/26/20 16:00 98.2 95 19 128/77 (94) 97 Intake and Output 07/26/20 07/27/20 19:00 07:00 Intake Total 2080.622 ml 1799.174 ml Output Total 75 ml Balance 2080.622 ml 1724.174 ml Intake Oral 350 ml IV Total 1730.622 ml 1799.174 ml Output Urine Total 75 ml # Voids 4 6 # Bowel Movements 2 5 Laboratory Tests Test 07/26/20 15:50 07/26/20 17:07 07/26/20 20:00 07/26/20 20:10 Troponin I 1.361 ng/mL (0.000-0.056) 1.448 ng/mL (0.000-0.056) POC Whole Blood Glucose 95 MG/DL (74-106) Pending White Blood Count 37.1 K/UL (4.8-10.8) *H Red Blood Count 4.59 M/UL (4.20-5.40) Hemoglobin 13.5 G/DL (12.0-16.0) Hematocrit 40.8 % (37.0-47.0) Mean Corpuscular Volume 89 FL (80-99) Mean Corpuscular Hemoglobin 29.4 PG (27.0-31.0) Mean Corpuscular Hemoglobin Concent 33.1 G/DL (32.0-36.0) Red Cell Distribution Width 15.1 % (11.6-14.8) H Platelet Count 83 K/UL (150-450) L Mean Platelet Volume 10.0 FL (6.5-10.1) Neutrophils (%) (Auto) % (45.0-75.0) Lymphocytes (%) (Auto) % (20.0-45.0) Monocytes (%) (Auto) % (1.0-10.0) Eosinophils (%) (Auto) % (0.0-3.0) Basophils (%) (Auto) % (0.0-2.0) Differential Total Cells Counted 100 Neutrophils % (Manual) 75 % (45-75) Lymphocytes % (Manual) 7 % (20-45) L Monocytes % (Manual) 2 % (1-10) Eosinophils % (Manual) 0 % (0-3) Basophils % (Manual) 0 % (0-2) Band Neutrophils 16 % (0-8) H Platelet Estimate Decreased L Platelet Morphology Normal Anisocytosis 1+ Lactic Acid Level 1.90 mmol/L (0.4-2.0) Hepatitis A IgM Antibody Pending Hepatitis B Surface Antigen Pending Hepatitis B Core IgM Antibody Pending Hepatitis C Antibody Pending HIV (1&2) Antibody Rapid Negative (NEGATIVE) Test 07/26/20 22:20 07/27/20 04:00 07/27/20 05:13 07/27/20 08:15 Random Amikacin Level Pending White Blood Count 32.3 K/UL (4.8-10.8) *H Red Blood Count 4.15 M/UL (4.20-5.40) L Hemoglobin 12.3 G/DL (12.0-16.0) Hematocrit 37.4 % (37.0-47.0) Mean Corpuscular Volume 90 FL (80-99) Mean Corpuscular Hemoglobin 29.7 PG (27.0-31.0) Mean Corpuscular Hemoglobin Concent 32.9 G/DL (32.0-36.0) Red Cell Distribution Width 15.5 % (11.6-14.8) H Platelet Count 76 K/UL (150-450) L Mean Platelet Volume 9.9 FL (6.5-10.1) Neutrophils (%) (Auto) % (45.0-75.0) Lymphocytes (%) (Auto) % (20.0-45.0) Monocytes (%) (Auto) % (1.0-10.0) Eosinophils (%) (Auto) % (0.0-3.0) Basophils (%) (Auto) % (0.0-2.0) Differential Total Cells Counted 100 Neutrophils % (Manual) 82 % (45-75) H Lymphocytes % (Manual) 8 % (20-45) L Monocytes % (Manual) 3 % (1-10) Eosinophils % (Manual) 0 % (0-3) Basophils % (Manual) 0 % (0-2) Band Neutrophils 7 % (0-8) Platelet Estimate Decreased L Platelet Morphology Normal Anisocytosis 1+ Activated Partial Thromboplast Time 57 SEC (23-33) H Sodium Level 139 MMOL/L (136-145) Potassium Level 3.2 MMOL/L (3.5-5.1) L Chloride Level 108 MMOL/L (98-107) H Carbon Dioxide Level 22 MMOL/L (21-32) Anion Gap 9 mmol/L (5-15) Blood Urea Nitrogen 11 mg/dL (7-18) Creatinine 0.9 MG/DL (0.55-1.30) Estimat Glomerular Filtration Rate > 60 mL/min (>60) Glucose Level 91 MG/DL (74-106) Lactic Acid Level 0.70 mmol/L (0.4-2.0) 0.90 mmol/L (0.4-2.0) Calcium Level 6.9 MG/DL (8.5-10.1) L Phosphorus Level 1.5 MG/DL (2.5-4.9) L Magnesium Level 2.1 MG/DL (1.8-2.4) Troponin I 1.123 ng/mL (0.000-0.056) POC Whole Blood Glucose 100 MG/DL (74-106) Test 07/27/20 12:20 Activated Partial Thromboplast Time 58 SEC (23-33) H Lactic Acid Level 1.80 mmol/L (0.4-2.0) Troponin I 0.714 ng/mL (0.000-0.056) Microbiology Date/Time Source Procedure Growth Status 07/25/20 18:45 Nasal Aspirate MRSA Culture - Final NO METHICILLIN RESISTANT STAPH AUREUS... Complete 07/25/20 12:30 Blood Blood Culture - Preliminary Resulted 07/25/20 12:20 Blood Blood Culture - Preliminary NO GROWTH AFTER 24 HOURS Resulted 07/25/20 10:00 Nasopharynx Coronavirus COVID-19 PCR ([facility]) - Final Complete 07/25/20 02:10 Urine,Clean Catch Urine Culture - Preliminary Gram Negative Matthew Resulted 07/25/20 01:40 Nasal Nares - Final Complete 07/25/20 01:40 Nasal Nares - Final Complete 07/25/20 01:20 Nasopharynx SARS-CoV-2 RdRp Gene Assay - Final Complete 07/25/20 00:55 Blood Blood Culture - Preliminary Resulted 07/25/20 00:40 Blood Blood Culture - Preliminary Resulted Objective HEAD AND NECK: no JVD. LUNGS: Clear. CARDIOVASCULAR: Regular S1 and S2 with no gallop or murmur, tachycardic. ABDOMEN: Soft. EXTREMITIES: No pitting edema. Augustine Che MD Jul 27, 2020 13:47
[2020-07-27 16:00] VITALS: BP 174/91
--- NOTE | 2020-07-27 19:21 | NUR ---
NURSE NOTES: Pt received from OYGI Mcintyre alert and oriented x4 with no acute s/s of distress noted. IV site asymptomatic and patent on R ac 22g and L fa 20g, running NS at 100 as ordered. c unix developer on - Sinus Tachycardia (104). Bed alarm on, fall risk precautions educated. Pt verbalized understanding. Bed in lowest position, call light and belongings within reach.
[2020-07-27 20:00] VITALS: BP 145/74
[2020-07-27 20:13] LABS: HEMATOCRIT 44.4 % (37.0-47.0); HEMOGLOBIN 14.5 G/DL (12.0-16.0); MEAN CORPUSCULAR VOLUME 92 FL (80-99); PLATELET COUNT 98 K/UL (150-450); RED BLOOD COUNT 4.81 M/UL (4.20-5.40); RED CELL DISTRIBUTION WIDTH 15.7 % (11.6-14.8)
[2020-07-27 20:20] LABS: WHITE BLOOD COUNT 25.5 K/UL (4.8-10.8)
[2020-07-27] MEDS ORDERED: NS 275ml ONE (21:01)
[2020-07-27] MEDS: NS IV SCH (21:20)
[2020-07-27] MEDS: AMIKACIN IV SCH (21:20)
[2020-07-27] MEDS: Heparin 5000 units/ml inj SUBQ SCH (21:20)
[2020-07-28] VITALS: BP 152/71
[2020-07-28] MEDS: Meropenem 1 GM in NS 55 ML IVPB SCH ×2 (01:35→08:24)
[2020-07-28 04:00] VITALS: BP 148/72
[2020-07-28] MEDS: HYDROcodone/Acetamin 10/325 tab ORAL PRN (05:03)
[2020-07-28] MEDS: Sucralfate 1gm tab ORAL SCH ×3 (05:03→17:08)
[2020-07-28 05:08] LABS: BASOPHILS % (AUTO) 2.8 % (0.0-2.0); EOSINOPHILS % (AUTO) 0.2 % (0.0-3.0); HEMATOCRIT 39.6 % (37.0-47.0); HEMOGLOBIN 13.1 G/DL (12.0-16.0); LYMPHOCYTES % (AUTO) 14.1 % (20.0-45.0); MEAN CORPUSCULAR VOLUME 90 FL (80-99); NEUTROPHILS % (AUTO) 70.8 % (45.0-75.0); PLATELET COUNT 103 K/UL (150-450); RED BLOOD COUNT 4.39 M/UL (4.20-5.40); RED CELL DISTRIBUTION WIDTH 15.6 % (11.6-14.8); WHITE BLOOD COUNT 16.8 K/UL (4.8-10.8)
[2020-07-28] MEDS: NovoLOG Insulin Flexpen SUBQ SCH ×4 (05:13→21:00)
[2020-07-28 05:31] LABS: ANION GAP 9 mmol/L (5-15); BLOOD UREA NITROGEN 8 mg/dL (7-18); CALCIUM 7.7 MG/DL (8.5-10.1); CARBON DIOXIDE 24 MMOL/L (21-32); CHLORIDE 105 MMOL/L (98-107); CREATININE 0.9 MG/DL (0.55-1.30); PHOSPHORUS 1.6 MG/DL (2.5-4.9); POTASSIUM 2.8 MMOL/L (3.5-5.1); SODIUM 138 MMOL/L (136-145)
--- NOTE | 2020-07-28 07:10 | NUR ---
NURSE HAND-OFF REPORT: Important Events on Shift: Wise PRN given x2. Potassium 2.[address] Che who provided orders for Potassium repeat in the morning, Dr. San personally placed in orders for Potassium. Patient Status: Stable Diet: Cardiac Pending Orders: n/a Pending Results/Labs: n/a Pending MD notification: n/a Latest Vital Signs: Temperature 97.7 , Pulse 88 , B/P 148 /72 , Respiratory Rate 19 , O2 SAT 98 , Room Air, O2 Flow Rate . Vital Sign Comment: WNL EKG Rhythm: Sinus Rhythm Rhythm change?: N MD Notified?: N -Dr. Darryn ARIAS Response: Order Received& Read Back Latest Perez Fall Score: 50 Fall Risk: High Risk Safety Measures: Call light Within Reach, Bed Alarm Zone 2, Side Rails Side Rails x2, Bed position Low and Locked. Fall Precautions: Yes Yellow Socks Yellow Gown Report given to YOGI French and YOGI Goodson.
--- NOTE | 2020-07-28 07:25 | NUR ---
NURSE NOTES: Potassium level of 2.[address] Che[address] Dr. San personally placed in orders for Potassium PO to replenish low potassium. Dr. Che provided order for Potassium redraw tomorrow at 0400. Will follow through with orders and communicate with incoming nurse.
--- NOTE | 2020-07-28 07:35 | NUR ---
NURSE NOTES: Received report from YOGI Jewell.
[2020-07-28] MEDS ORDERED: Phospha 250 Neutral tab ORAL SCH (07:45)
[2020-07-28 08:00] VITALS: BP 144/71
--- NOTE | 2020-07-28 08:12 | NUR ---
NURSE NOTES: Pt is awake, calm, and appropriate. A+Ox4. No signs of respiratory/cardiac distress. Pt is on room air and satting at 99%. case monitor shows SR. Purewick on, draining yellow urine with no sediments. R AC 22g and L FA 20g patent, asymptomatic, intact, and flushing well. L FA running NS 100/hr. Call light within reach, HOB elevated, side rails up x2, bed locked and in lowest position. Will continue to monitor.
[2020-07-28] MEDS: Atorvastatin 80mg tab ORAL SCH (08:24)
[2020-07-28] MEDS: Aspirin Baby 81mg ORAL SCH (08:24)
[2020-07-28] MEDS: ALPRAZolam 0.5mg tab ORAL SCH (08:26)
[2020-07-28] MEDS: Heparin 5000 units/ml inj SUBQ SCH ×2 (08:28→20:54)
[2020-07-28] MEDS: LR 1000ml 1,000 ML IV SCH ×2 (08:31→21:03)
--- NOTE | 2020-07-28 10:48 | NUR ---
NURSE NOTES: Pt complained of [place], but refused [place] PRN. She is calm and cooperative. Called and left message for Dr. Cates for Excedrin. Will continue to monitor.
--- NOTE | 2020-07-28 11:13 | Pulmonology Progress Note ---
Subjective ROS Limited/Unobtainable: No Interval Events: None new Constitutional: Reports: fatigue, other - feels somewhat better ; Denies: fever HEENT: Repors: no symptoms Respiratory: Reports: no symptoms Cardiovascular: Reports: no symptoms Gastrointestinal/Abdominal: Denies: nausea, vomiting, diarrhea Psychiatric: Denies: depression Skin: Denies: rash Musculoskeletal: Denies: pain Allergies: Coded Allergies: HYDROCODONE BIT (Verified Allergy, Severe, Hives, 05/16/13) Objective Last 24 Hour Vital Signs Date Time Temp Pulse Resp B/P (MAP) Pulse Ox O2 Delivery O2 Flow Rate FiO2 07/28/20 08:25 88 148/72 07/28/20 08:00 98.1 101 23 144/71 (95) 100 07/28/20 08:00 88 07/28/20 08:00 Room Air 07/28/20 04:00 Room Air 07/28/20 04:00 97.7 98 19 148/72 (97) 98 07/28/20 04:00 88 07/28/20 00:00 Room Air 07/28/20 00:00 88 07/28/20 00:00 93 07/28/20 00:00 98.1 103 19 152/71 (98) 99 07/27/20 21:19 103 145/74 07/27/20 20:00 97.7 103 21 145/74 (97) 97 07/27/20 20:00 Room Air 07/27/20 19:25 103 07/27/20 17:49 190/116 07/27/20 16:00 104 07/27/20 16:00 97.7 117 24 174/91 (118) 99 07/27/20 15:41 Room Air 07/27/20 12:00 106 07/27/20 12:00 96.6 107 20 161/85 (110) 100 Intake and Output 07/27/20 07/28/20 19:00 07:00 Intake Total 538.744 ml 1276.6 ml Output Total 300 ml Balance 538.744 ml 976.6 ml Intake Oral 360 ml 340 ml IV Total 178.744 ml 936.6 ml Output Urine Total 300 ml # Voids 7 6 # Bowel Movements 5 1 General Appearance: no acute distress HEENT: normocephalic Respiratory: chest wall non-tender, lungs clear Cardiovascular: normal peripheral pulses, normal rate Abdomen: normal bowel sounds Microbiology Date/Time Source Procedure Growth Status 07/25/20 18:45 Nasal Aspirate MRSA Culture - Final NO METHICILLIN RESISTANT STAPH AUREUS... Complete 07/25/20 12:30 Blood Blood Culture - Final Escherichia Coli Complete 07/25/20 12:20 Blood Blood Culture - Final Escherichia Coli Complete Laboratory Tests 07/27/20 12:20: Activated Partial Thromboplast Time 58H, Lactic Acid Level 1.80, Troponin I 0.714H 07/27/20 20:00: Lactic Acid Level 1.30, Troponin I 0.695H, White Blood Count 25.5*H, Red Blood Count 4.81, Hemoglobin 14.5, Hematocrit 44.4, Mean Corpuscular Volume 92, Mean Corpuscular Hemoglobin 30.2, Mean Corpuscular Hemoglobin Concent 32.7, Red Cell Distribution Width 15.7H, Platelet Count 98L, Mean Platelet Volume 9.4, Neutrophils (%) (Auto) , Lymphocytes (%) (Auto) , Monocytes (%) (Auto) , Eosinophils (%) (Auto) , Basophils (%) (Auto) , Differential Total Cells Counted 100, Neutrophils % (Manual) 79H, Lymphocytes % (Manual) 17L, Monocytes % (Manual) 2, Eosinophils % (Manual) 0, Basophils % (Manual) 0, Band Neutrophils 2, Smudge Cells Occasional, Platelet Estimate DecreasedL, Platelet Morphology Normal, Red Blood Cell Morphology Normal 07/27/20 20:06: POC Whole Blood Glucose 104 07/28/20 03:30: Troponin I 0.421H, Sodium Level 138, Potassium Level 2.8L, Chloride Level 105, Carbon Dioxide Level 24, Anion Gap 9, Blood Urea Nitrogen 8, Creatinine 0.9, Estimat Glomerular Filtration Rate > 60, Glucose Level 101, Calcium Level 7.7L, Phosphorus Level 1.6L, Magnesium Level 1.8, C-Reactive Protein, Quantitative 13.3H 07/28/20 04:00: White Blood Count 16.8H, Red Blood Count 4.39, Hemoglobin 13.1, Hematocrit 39.6, Mean Corpuscular Volume 90, Mean Corpuscular Hemoglobin 29.8, Mean Corpuscular Hemoglobin Concent 33.1, Red Cell Distribution Width 15.6H, Platelet Count 103L, Mean Platelet Volume 9.7, Neutrophils (%) (Auto) 70.8, Lymphocytes (%) (Auto) 14.1L, Monocytes (%) (Auto) 12.0H, Eosinophils (%) (Auto) 0.2, Basophils (%) (Auto) 2.8H 07/28/20 05:02: POC Whole Blood Glucose 103 Current Medications Medications (Trade) Dose Ordered Sig/Gabriel Route PRN Reason Start Time Stop Time Status Last Admin Dose Admin Acetaminophen (Tylenol) 650 mg Q4H PRN ORAL Mild Pain (Pain Scale 1-3) 07/28/20 11:00 08/27/20 10:59 Acetaminophen/ Hydrocodone Bitart ([place] 10/325) 1 tab Q4H PRN ORAL Severe Pain (Pain Scale 7-10) 07/26/20 09:45 08/02/20 09:44 07/28/20 05:03 Acetaminophen/ Hydrocodone Bitart ([place] 5/325) 1 tab Q4H PRN ORAL Moderate Pain (Pain Scale 4-6) 07/26/20 09:45 08/02/20 09:44 07/26/20 14:12 Alprazolam (Xanax) 1 mg DAILY ORAL 07/26/20 10:00 08/02/20 09:59 07/28/20 08:26 Amikacin Protocol (Amikacin pharmacy to dose) 1 ea DAILY PRN MISC Per rx protocol 07/26/20 05:15 08/25/20 05:14 Amikacin Sulfate 825 mg/Sodium Chloride 113.3 ml @ 113.3 mls/ hr Q36H IV 07/26/20 10:00 08/02/20 09:59 07/27/20 21:20 Aspirin (ASA) 81 mg DAILY ORAL 07/25/20 09:00 09/08/20 08:59 07/28/20 08:24 Atorvastatin Calcium (Lipitor) 80 mg DAILY ORAL 07/25/20 09:00 10/23/20 08:59 07/28/20 08:24 Dextrose (Dextrose 50%) 25 ml Q30M PRN IV Hypoglycemia 07/26/20 10:15 10/24/20 10:14 Dextrose (Dextrose 50%) 50 ml Q30M PRN IV Hypoglycemia 07/26/20 10:15 10/24/20 10:14 Docusate Sodium (Colace) 100 mg BID PRN ORAL Constipation 07/27/20 09:15 08/26/20 09:14 Gabapentin (Neurontin) 300 mg TID ORAL 07/25/20 09:00 08/24/20 08:59 07/28/20 08:26 Heparin Sodium (Porcine) (Heparin 5000 units/ml) 5,000 units EVERY 12 HOURS SUBQ 07/27/20 21:00 09/10/20 20:59 07/27/20 21:20 Hydralazine HCl (Apresoline) 10 mg Q4H PRN IV For High Blood Pressure 07/27/20 17:15 10/25/20 17:14 07/27/20 17:49 Insulin Aspart (NovoLOG) BEFORE MEALS AND HS SUBQ 07/26/20 11:30 10/24/20 11:29 Lactated Ringer's 1,000 ml @ 75 mls/hr [id number] IV 07/28/20 07:45 08/27/20 07:44 07/28/20 08:31 Meropenem 1 gm/ Sodium Chloride 55 ml @ 110 mls/hr Q8HR@0100,0900,1700 IVPB 07/26/20 09:00 07/31/20 08:59 07/28/20 08:24 Metoprolol Tartrate (Lopressor) 25 mg Q12HR ORAL 07/27/20 21:00 10/25/20 20:59 07/28/20 08:25 Ondansetron HCl (Zofran) 4 mg Q8H PRN IVP Nausea & Vomiting 07/27/20 12:45 08/26/20 12:44 Pantoprazole (Protonix) 40 mg BID ORAL 07/25/20 09:00 08/24/20 08:59 07/28/20 08:26 Prochlorperazine (Compazine) 10 mg Q6H PRN IVP Nausea & Vomiting 07/25/20 12:15 08/24/20 12:14 07/27/20 12:35 Sucralfate (Carafate) 1 gm BEFORE MEALS ORAL 07/25/20 11:30 10/23/20 11:29 07/28/20 05:03 Temazepam (Restoril) 15 mg BEDTIME PRN ORAL Insomnia 11/5/20 05:30 08/01/20 05:29 07/26/20 22:20 Assessment/Plan Assessment/Plan IMPRESSION: 1. Non-ST elevation VT. 2. Rheumatoid arthritis. 3. Hypokalemia. 4. Marked leukocytosis. Improved to 16 K now DISCUSSION: Broad spectrum abx for pyelonephritis Saturating well on RA Zuly Fernández Omar Syed MD Jul 28, 2020 11:13
--- NOTE | 2020-07-28 11:26 | General Progress Note ---
Subjective Constitutional: Reports: weakness; Denies: no symptoms, chills, diaphoresis, fever, malaise, other HEENT: Denies: no symptoms, eye pain, blurred vision, tearing, double vision, ear pain, ear discharge, nose pain, nose congestion, throat pain, throat swelling, mouth pain, mouth swelling, other Cardiovascular: Denies: no symptoms, chest pain, edema, irregular heart rate, lightheadedness, palpitations, syncope, other Respiratory: Denies: no symptoms, cough, orthopnea, shortness of breath, SOB with excertion, SOB at rest, sputum, stridor, wheezing, other Gastrointestinal/Abdominal: Denies: no symptoms, abdomen distended, abdominal pain, black stools, tarry stools, blood in stool, constipated, diarrhea, difficulty swallowing, nausea, poor appetite, poor fluid intake, rectal bleeding, vomiting, other Genitourinary: Denies: no symptoms, burning, discharge, frequency, flank pain, hematuria, incontinence, pain, urgency, other Neurologic/Psychiatric: Denies: no symptoms, anxiety, depressed, emotional problems, headache, numbness, paresthesia, pre-existing deficit, seizure, ti ngling, tremors, weakness, other Endocrine: Denies: no symptoms, excessive sweating, flushing, intolerance to cold, intolerance to heat, increased hunger, increased thirst, increased urine, unexplained weight gain, unexplained weight loss, other Hematologic/Lymphatic: Denies: no symptoms, anemia, easy bleeding, easy bruising, other Allergies: Coded Allergies: HYDROCODONE BIT (Verified Allergy, Severe, Hives, 05/16/13) Subjective No acute events overnight. Feels better this morning but has generalized weakness. No fevers. Inflammatory markers downtrending. Doing better. Objective Last 24 Hour Vital Signs Date Time Temp Pulse Resp B/P (MAP) Pulse Ox O2 Delivery O2 Flow Rate FiO2 07/28/20 08:25 88 148/72 07/28/20 08:00 98.1 101 23 144/71 (95) 100 07/28/20 08:00 88 07/28/20 08:00 Room Air 07/28/20 04:00 Room Air 07/28/20 04:00 97.7 98 19 148/72 (97) 98 07/28/20 04:00 88 11/8/20 00:00 Room Air 07/28/20 00:00 88 07/28/20 00:00 93 07/28/20 00:00 98.1 103 19 152/71 (98) 99 07/27/20 21:19 103 145/74 07/27/20 20:00 97.7 103 21 145/74 (97) 97 07/27/20 20:00 Room Air 07/27/20 19:25 103 07/27/20 17:49 190/116 07/27/20 16:00 104 07/27/20 16:00 97.7 117 24 174/91 (118) 99 07/27/20 15:41 Room Air 07/27/20 12:00 106 07/27/20 12:00 96.6 107 20 161/85 (110) 100 Intake and Output 07/27/20 07/28/20 19:00 07:00 Intake Total 538.744 ml 1276.6 ml Output Total 300 ml Balance 538.744 ml 976.6 ml Intake Oral 360 ml 340 ml IV Total 178.744 ml 936.6 ml Output Urine Total 300 ml # Voids 7 6 # Bowel Movements 5 1 Laboratory Tests 07/27/20 12:20: Activated Partial Thromboplast Time 58H, Lactic Acid Level 1.80, Troponin I 0.714H 07/27/20 20:00: Lactic Acid Level 1.30, Troponin I 0.695H, White Blood Count 25.5*H, Red Blood Count 4.81, Hemoglobin 14.5, Hematocrit 44.4, Mean Corpuscular Volume 92, Mean Corpuscular Hemoglobin 30.2, Mean Corpuscular Hemoglobin Concent 32.7, Red Cell Distribution Width 15.7H, Platelet Count 98L, Mean Platelet Volume 9.4, Ne utrophils (%) (Auto) , Lymphocytes (%) (Auto) , Monocytes (%) (Auto) , Eosinophils (%) (Auto) , Basophils (%) (Auto) , Differential Total Cells Counted 100, Neutrophils % (Manual) 79H, Lymphocytes % (Manual) 17L, Monocytes % (Manual) 2, Eosinophils % (Manual) 0, Basophils % (Manual) 0, Band Neutrophils 2, Smudge Cells Occasional, Platelet Estimate DecreasedL, Platelet Morphology Normal, Red Blood Cell Morphology Normal 07/27/20 20:06: POC Whole Blood Glucose 104 07/28/20 03:30: Troponin I 0.421H, Sodium Level 138, Potassium Level 2.8L, Chloride Level 105, Carbon Dioxide Level 24, Anion Gap 9, Blood Urea Nitrogen 8, Creatinine 0.9, Estimat Glomerular Filtration Rate > 60, Glucose Level 101, Calcium Level 7.7L, Phosphorus Level 1.6L, Magnesium Level 1.8, C-Reactive Protein, Quantitative 13.3H 07/28/20 04:00: White Blood Count 16.8H, Red Blood Count 4.39, Hemoglobin 13.1, Hematocrit 39.6, Mean Corpuscular Volume 90, Mean Corpuscular Hemoglobin 29.8, Mean Corpuscular Hemoglobin Concent 33.1, Red Cell Distribution Width 15.6H, Platelet Count 103L, Mean Platelet Volume 9.7, Neutrophils (%) (Auto) 70.8, Lymphocytes (%) (Auto) 14.1L, Monocytes (%) (Auto) 12.0H, Eosinophils (%) (Auto) 0.2, Basophils (%) (Auto) 2.8H 07/28/20 05:02: POC Whole Blood Glucose 103 Height (Feet): 5 Height (Inches): 0.00 Weight (Pounds): 155 General Appearance: no apparent distress, alert, alert oriented x3 EENT: PERRL/EOMI, normal ENT inspection Neck: normal alignment, normal inspection Cardiovascular: normal rate, regular rhythm, no JVD Respiratory/Chest: lungs clear, normal breath sounds, no respiratory distress Abdomen: normal bowel sounds, non tender, soft Extremities: normal range of motion, non-tender Edema: no edema noted Arm (L), no edema noted Arm (R), no edema noted Leg (L), no edema noted Leg (R), no edema noted Pedal (L), no edema noted Pedal (R), no edema noted 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 Christine is a 65F with PMH of RA, OA and osteoporosis admitted for fevers, malaise. A: # Severe Sepsis (Leukocytosis + fevers + Tachycardia) 2/2 Bacteremia, Pyelonephritis # Right Sided Pyelonephritis # NSTEMI Type 2 # E. Coli Bacteremia # UTI # Anion Gap Metabolic Acidosis 2/2 Lactic Acid - resolved # Severe Lactic Acidosis - resolved # MANDY 2/2 pre-renal azotemia vs Sepsis ATN - resolved # Prolong Qt # Leukocytosis - improving # Thrombocytopenia likely 2/2 sepsis - improving # New Diagnosis Type 2 DM # Hx of Rheumatoid Arthritis on Biologic infusion # Hx of OA # Hx of osteoporosis # NAFLD P: - hemodynamically stable - keep MAP > 65, monitor for BP support with need for pressors - continue merrem, and amikacin per ID - BC +gram negative rods, Ecoli - CT A/P reviewed showing right sided perinephric stranding cuong pyelo - troponin downtrending - ekg: anterolateral ST depression, QTc 548 - avoid prolonging qt agents - heparin gtt d/c yesterday - ECHO: EF 65%, no wall motion abnormalities, mild LVH RSVP 15 - ISS - trend platelets - hold anticoags < 50 - f/u HIV, hepatitis C > negative - leukocytosis improving - Dr. Cates, Nephrology, recs appreciated - consult Dr. Gallego, ID, recs appreciated - consult Dr. Che Cardiology, recs appreciated - consult Dr. Ann, Pulm, recs appreciated - PT CODE: Full GI: none DVT: Heparin 5000U BID Diet: cardio Dispo: possible discharge tomorrow Time spent on this encounter was 31 minutes which included 21 minutes of counseling and care coordination. I discussed with the nurse at bedside. Time of note may not reflect time patient was seen. Darshan San D.O Jul 28, 2020 11:26
--- NOTE | 2020-07-28 11:30 | NUR ---
Pt denied pain or discomfort. Tylenol PRN held. BG 100, no insulin given. visited for 5 minutes. Addendum: 07/28/20 at 1526 by Gillian Gillis RN NURSE NOTES:
[2020-07-28 12:00] VITALS: BP 149/53
--- NOTE | 2020-07-28 12:24 | Nephrology Progress Note ---
Assessment/Plan Plan #Septic shock due to UTi and pyelnephritis #hypokalemia and hypophosphatemia #NSTEMI #MANDY #UTI #Sinus tach #RA - replete K and phos - IV abx-, amikacin - ID eval - follow cx - check COVID PCR neg - ASA - statin - cardiology eval - pain control - hold pred for now - hold infliximab for now Subjective Subjective Complains of diffuse pain WBC now downtrending K and phos low -repleted Objective Objective Last 24 Hour Vital Signs Date Time Temp Pulse Resp B/P (MAP) Pulse Ox O2 Delivery O2 Flow Rate FiO2 07/28/20 08:25 88 148/72 07/28/20 08:00 98.1 101 23 144/71 (95) 100 07/28/20 08:00 88 07/28/20 08:00 Room Air 07/28/20 04:00 Room Air 07/28/20 04:00 97.7 98 19 148/72 (97) 98 07/28/20 04:00 88 07/28/20 00:00 Room Air 07/28/20 00:00 88 07/28/20 00:00 93 07/28/20 00:00 98.1 103 19 152/71 (98) 99 07/27/20 21:19 103 145/74 07/27/20 20:00 97.7 103 21 145/74 (97) 97 07/27/20 20:00 Room Air 07/27/20 19:25 103 07/27/20 17:49 190/116 07/27/20 16:00 104 07/27/20 16:00 97.7 117 24 174/91 (118) 99 07/27/20 15:41 Room Air Intake and Output 07/27/20 07/28/20 19:00 07:00 Intake Total 538.744 ml 1276.6 ml Output Total 300 ml Balance 538.744 ml 976.6 ml Intake Oral 360 ml 340 ml IV Total 178.744 ml 936.6 ml Output Urine Total 300 ml # Voids 7 6 # Bowel Movements 5 1 Laboratory Tests 07/27/20 20:00: White Blood Count 25.5*H, Red Blood Count 4.81, Hemoglobin 14.5, Hematocrit 44.4, Mean Corpuscular Volume 92, Mean Corpuscular Hemoglobin 30.2, Mean Corpuscular Hemoglobin Concent 32.7, Red Cell Distribution Width 15.7H, Platelet Count 98L, Mean Platelet Volume 9.4, Neutrophils (%) (Auto) , Lymphocytes (%) (Auto) , Monocytes (%) (Auto) , Eosinophils (%) (Auto) , Basophils (%) (Auto) , Differential Total Cells Counted 100, Neutrophils % (Manual) 79H, Lymphocytes % (Manual) 17L, Monocytes % (Manual) 2, Eosinophils % (Manual) 0, Basophils % (Manual) 0, Band Neutrophils 2, Smudge Cells Occasional, Platelet Estimate DecreasedL, Platelet Morphology Normal, Red Blood Cell Morphology Normal, Lactic Acid Level 1.30, Troponin I 0.695H 07/27/20 20:06: POC Whole Blood Glucose 104 07/28/20 03:30: Troponin I 0.421H, Sodium Level 138, Potassium Level 2.8L, Chloride Level 105, Carbon Dioxide Level 24, Anion Gap 9, Blood Urea Nitrogen 8, Creatinine 0.9, Estimat Glomerular Filtration Rate > 60, Glucose Level 101, Calcium Level 7.7L, Phosphorus Level 1.6L, Magnesium Level 1.8, C-Reactive Protein, Quantitative 13.3H 07/28/20 04:00: White Blood Count 16.8H, Red Blood Count 4.39, Hemoglobin 13.1, Hematocrit 39.6, Mean Corpuscular Volume 90, Mean Corpuscular Hemoglobin 29.8, Mean Corpuscular Hemoglobin Concent 33.1, Red Cell Distribution Width 15.6H, Platelet Count 103L, Mean Platelet Volume 9.7, Neutrophils (%) (Auto) 70.8, Lymphocytes (%) (Auto) 14.1L, Monocytes (%) (Auto) 12.0H, Eosinophils (%) (Auto) 0.2, Basophils (%) (Auto) 2.8H 07/28/20 05:02: POC Whole Blood Glucose 103 07/28/20 11:25: POC Whole Blood Glucose 100 Height (Feet): 5 Height (Inches): 0.00 Weight (Pounds): 155 Ross Cates M.D. Jul 28, 2020 12:24
--- NOTE | 2020-07-28 13:00 | NUR ---
NURSE NOTES: Seen by Dr. Gallego. No new orders.
[2020-07-28] MEDS: Potassium Phosphate 15mm/250ml 250 ML IVPB SCH ×2 (13:29→18:27)
--- NOTE | 2020-07-28 13:53 | Infectious Diseases Prog Note ---
Assessment/Plan Assessment/Plan ASSESSMENT AND PLAN: 1. e.coli uti/pyelonephritis, e.coli bacteremia/sepsis, severe sepsis, sirs, leukocytosis, fevers - change antibiotic to ceftriaxone - day # 4 antibiotics total - monitor labs, f/u on surveillance blood cultures - CT abdomen and pelvis with right perinephric stranding - d/w RN and patient 2. MANDY - improved 3. Patient has history of rheumatoid arthritis and been immunocompromised with history of steroids and also Remicade. 4. Patient has osteoarthritis. 5. Osteoporosis. 6. Non-STEMI. 7. CAD. 8. NAFLD. 9. Rheumatoid arthritis and immunocompromised. 10. Continue care per primary consultants. 11. Allergies to hydrocodone. 12. Social history is negative. 13. Family history is noncontributory. 14. MAR is noted. 15. Case was discussed with RN. 16. Orders were noted and entered. 17. Patient is COVID negative and isolation will be removed. 18. Case also discussed at length with nursing staff about antibiotic management and the patient's care. Subjective Constitutional: Reports: fatigue; Denies: fever HEENT: Denies: congestion Respiratory: Denies: shortness of breath Cardiovascular: Denies: chest pain Gastrointestinal/Abdominal: Denies: nausea, vomiting, diarrhea Genitourinary: Reports: dysuria - less, frequency - less; Denies: hematuria, other Neurologic: Denies: headache Skin: Denies: rash Endocrine: Denies: feels warm Musculoskeletal: Denies: pain Allergies: Coded Allergies: HYDROCODONE BIT (Verified Allergy, Severe, Hives, 05/16/13) Objective Last 24 Hour Vital Signs Date Time Temp Pulse Resp B/P (MAP) Pulse Ox O2 Delivery O2 Flow Rate FiO2 07/28/20 08:25 88 148/72 07/28/20 08:00 98.1 101 23 144/71 (95) 100 07/28/20 08:00 88 07/28/20 08:00 Room Air 07/28/20 04:00 Room Air 07/28/20 04:00 97.7 98 19 148/72 (97) 98 07/28/20 04:00 88 07/28/20 00:00 Room Air 07/28/20 00:00 88 07/28/20 00:00 93 07/28/20 00:00 98.1 103 19 152/71 (98) 99 07/27/20 21:19 103 145/74 07/27/20 20:00 97.7 103 21 145/74 (97) 97 07/27/20 20:00 Room Air 07/27/20 19:25 103 07/27/20 17:49 190/116 07/27/20 16:00 104 07/27/20 16:00 97.7 117 24 174/91 (118) 99 07/27/20 15:41 Room Air Height (Feet): 5 Height (Inches): 0.00 Weight (Pounds): 155 General Appearance: no acute distress HEENT: normocephalic, atraumatic, anicteric, mucous membranes moist Respiratory/Chest: lungs clear, normal breath sounds, no respiratory distress, no accessory muscle use Cardiovascular: normal rate, regular rhythm, no gallop/murmur, no JVD Abdomen: normal bowel sounds, soft, non tender, no organomegaly, non distended Genitourinary: other - no rodrigez Extremities: no cyanosis Skin: no rash 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 Heart size is normal. No significant change Impression: No acute process CT abdomen and pelvis: IMPRESSION: 1. No visible intra-abdominal or intrapelvic abscess. 2. Mild wall thickening in the duodenal C-loop. This may represent a mild duodenitis or may be reactive inflammation from a subtle pancreatitis along the duodenal groove. The pancreas otherwise appears unremarkable. Recommend correlation with serum amylase and lipase. 3. Right perinephric stranding. No hydronephrosis or hydroureter. No visible radiodense stones. This raises possibility of UTI or pyelonephritis. Recommend correlation with urinalysis. 4. Bilateral trace pleural effusions. Dependent atelectasis in bilateral lung bases. 5. Status post cholecystectomy. Microbiology Date/Time Source Procedure Growth Status 07/25/20 18:45 Nasal Aspirate MRSA Culture - Final NO METHICILLIN RESISTANT STAPH AUREUS... Complete 07/25/20 12:30 Blood Blood Culture - Final Escherichia Coli Complete 07/25/20 02:10 Urine,Clean Catch Urine Culture - Final Escherichia Coli Complete Microbiology Date/Time Source Procedure Growth Status 07/25/20 18:45 Nasal Aspirate MRSA Culture - Final NO METHICILLIN RESISTANT STAPH AUREUS... Complete Laboratory Tests Test 07/27/20 20:00 07/27/20 20:06 07/28/20 03:30 07/28/20 04:00 White Blood Count 25.5 K/UL (4.8-10.8) *H 16.8 K/UL (4.8-10.8) H Red Blood Count 4.81 M/UL (4.20-5.40) 4.39 M/UL (4.20-5.40) Hemoglobin 14.5 G/DL (12.0-16.0) 13.1 G/DL (12.0-16.0) Hematocrit 44.4 % (37.0-47.0) 39.6 % (37.0-47.0) Mean Corpuscular Volume 92 FL (80-99) 90 FL (80-99) Mean Corpuscular Hemoglobin 30.2 PG (27.0-31.0) 29.8 PG (27.0-31.0) Mean Corpuscular Hemoglobin Concent 32.7 G/DL (32.0-36.0) 33.1 G/DL (32.0-36.0) Red Cell Distribution Width 15.7 % (11.6-14.8) H 15.6 % (11.6-14.8) H Platelet Count 98 K/UL (150-450) L 103 K/UL (150-450) L Mean Platelet Volume 9.4 FL (6.5-10.1) 9.7 FL (6.5-10.1) Neutrophils (%) (Auto) % (45.0-75.0) 70.8 % (45.0-75.0) Lymphocytes (%) (Auto) % (20.0-45.0) 14.1 % (20.0-45.0) L Monocytes (%) (Auto) % (1.0-10.0) 12.0 % (1.0-10.0) H Eosinophils (%) (Auto) % (0.0-3.0) 0.2 % (0.0-3.0) Basophils (%) (Auto) % (0.0-2.0) 2.8 % (0.0-2.0) H Differential Total Cells Counted 100 Neutrophils % (Manual) 79 % (45-75) H Lymphocytes % (Manual) 17 % (20-45) L Monocytes % (Manual) 2 % (1-10) Eosinophils % (Manual) 0 % (0-3) Basophils % (Manual) 0 % (0-2) Band Neutrophils 2 % (0-8) Smudge Cells Occasional Platelet Estimate Decreased L Platelet Morphology Normal Red Blood Cell Morphology Normal Lactic Acid Level 1.30 mmol/L (0.4-2.0) Troponin I 0.695 ng/mL (0.000-0.056) 0.421 ng/mL (0.000-0.056) POC Whole Blood Glucose 104 MG/DL (74-106) Sodium Level 138 MMOL/L (136-145) Potassium Level 2.8 MMOL/L (3.5-5.1) L Chloride Level 105 MMOL/L (98-107) Carbon Dioxide Level 24 MMOL/L (21-32) Anion Gap 9 mmol/L (5-15) Blood Urea Nitrogen 8 mg/dL (7-18) Creatinine 0.9 MG/DL (0.55-1.30) Estimat Glomerular Filtration Rate > 60 mL/min (>60) Glucose Level 101 MG/DL (74-106) Calcium Level 7.7 MG/DL (8.5-10.1) L Phosphorus Level 1.6 MG/DL (2.5-4.9) L Magnesium Level 1.8 MG/DL (1.8-2.4) C-Reactive Protein, Quantitative 13.3 mg/dL (0.00-0.90) H Test 07/28/20 05:02 07/28/20 11:25 07/28/20 12:15 POC Whole Blood Glucose 103 MG/DL (74-106) 100 MG/DL (74-106) Troponin I 0.311 ng/mL (0.000-0.056) Current Medications Medications (Trade) Dose Ordered Sig/Gabriel Route PRN Reason Start Time Stop Time Status Last Admin Dose Admin Acetaminophen (Tylenol) 650 mg Q4H PRN ORAL Mild Pain (Pain Scale 1-3) 11/8/20 11:00 08/27/20 10:59 Acetaminophen/ Hydrocodone Bitart ([place] 10/325) 1 tab Q4H PRN ORAL Severe Pain (Pain Scale 7-10) 07/26/20 09:45 08/02/20 09:44 07/28/20 05:03 Acetaminophen/ Hydrocodone Bitart ([place] 5/325) 1 tab Q4H PRN ORAL Moderate Pain (Pain Scale 4-6) 07/26/20 09:45 08/02/20 09:44 07/26/20 14:12 Alprazolam (Xanax) 1 mg DAILY ORAL 07/26/20 10:00 08/02/20 09:59 07/28/20 08:26 Aspirin (ASA) 81 mg DAILY ORAL 07/25/20 09:00 09/08/20 08:59 07/28/20 08:24 Atorvastatin Calcium (Lipitor) 80 mg DAILY ORAL 07/25/20 09:00 10/23/20 08:59 07/28/20 08:24 Ceftriaxone Sodium 1 gm/ Dextrose 50 ml @ 100 mls/hr Q24H IVPB 07/28/20 14:00 08/04/20 13:59 Dextrose (Dextrose 50%) 25 ml Q30M PRN IV Hypoglycemia 07/26/20 10:15 10/24/20 10:14 Dextrose (Dextrose 50%) 50 ml Q30M PRN IV Hypoglycemia 07/26/20 10:15 10/24/20 10:14 Docusate Sodium (Colace) 100 mg BID PRN ORAL Constipation 07/27/20 09:15 08/26/20 09:14 Gabapentin (Neurontin) 300 mg TID ORAL 07/25/20 09:00 08/24/20 08:59 07/28/20 13:26 Heparin Sodium (Porcine) (Heparin 5000 units/ml) 5,000 units EVERY 12 HOURS SUBQ 07/27/20 21:00 09/10/20 20:59 07/27/20 21:20 Hydralazine HCl (Apresoline) 10 mg Q4H PRN IV For High Blood Pressure 07/27/20 17:15 10/25/20 17:14 07/27/20 17:49 Insulin Aspart (NovoLOG) BEFORE MEALS AND HS SUBQ 07/26/20 11:30 2/4/21 11:29 Lactated Ringer's 1,000 ml @ 75 mls/hr [id number] IV 07/28/20 07:45 08/27/20 07:44 07/28/20 08:31 Metoprolol Tartrate (Lopressor) 25 mg Q12HR ORAL 07/27/20 21:00 10/25/20 20:59 07/28/20 08:25 Ondansetron HCl (Zofran) 4 mg Q8H PRN IVP Nausea & Vomiting 07/27/20 12:45 08/26/20 12:44 Pantoprazole (Protonix) 40 mg BID ORAL 07/25/20 09:00 08/24/20 08:59 07/28/20 08:26 Potassium Phosphate 250 ml @ 62.5 mls/hr Q4H IVPB 07/28/20 13:30 07/28/20 21:29 07/28/20 13:29 Prochlorperazine (Compazine) 10 mg Q6H PRN IVP Nausea & Vomiting 07/25/20 12:15 08/24/20 12:14 07/27/20 12:35 Sucralfate (Carafate) 1 gm BEFORE MEALS ORAL 07/25/20 11:30 10/23/20 11:29 07/28/20 11:41 Temazepam (Restoril) 15 mg BEDTIME PRN ORAL Insomnia 07/25/20 05:30 08/01/20 05:29 07/26/20 22:20 Brice Call MD Jul 28, 2020 13:52
--- NOTE | 2020-07-28 14:55 | Cardiology Report ---
APPROVED REPORT EKG Measurement Heart [id number] [place] 124P71 [id number] <Conclusion> Normal sinus rhythm Nonspecific ST abnormality Abnormal ECG
--- NOTE | 2020-07-28 14:57 | Cardiology Report ---
APPROVED REPORT EKG Measurement Heart [id number] CT 128P53 [id number] <Conclusion> Sinus tachycardia Nonspecific ST abnormality Abnormal ECG
[2020-07-28] MEDS: cefTRIAXone 1 GM in D5W 50 ML IVPB SCH (14:58)
--- NOTE | 2020-07-28 15:01 | Cardiology Report ---
APPROVED REPORT EKG Measurement Heart [id number] [place] 132P55 [id number] <Conclusion> Sinus tachycardia Right superior axis deviation Incomplete right bundle branch block Nonspecific ST abnormality Prolonged QT Abnormal ECG
[2020-07-28 16:00] VITALS: BP 158/83
--- NOTE | 2020-07-28 16:45 | Cardiac Electrophysiology PN ---
Assessment/Plan Assessment/Plan 1. Non-ST elevation myocardial infarction with troponin peak of 6.9. Now down to 0.714 Denies any chest pain or shortness of breath and ECG shows no ST elevation. The patient however also has renal failure, creatinine 1.4, and she is septic, lactic acid of 6.8, [place] [id number]. EF 65%. Continue on aspirin,Lipitor and Lopressor 25 bid Needs Cardiac cath after sepsis is resolved.Watch on tele 2. Sinus tachycardia due to sepsis. The patient already on broad-spectrum IV antibiotics. On Lopressor 3. Hyperlipidemia on Lipitor. 4. Gram neg uti/pyelonephritis, bacteremia/sepsis with WBC 50K, Fever, cough, and body ache. COVID test is negative On iv Abx per Dr Gallego 5. Severe back pain. The patient has chronic back pain, was on prednisone, gabapentin, and Xanax at home. Further evaluation by Rheumatology. 6. Renal failure, creatinine 1.4, resolved Cr 1.0 now DW RN Subjective Subjective Off isolation as Covid PCR is negative. Troponin peak was 6 that is down to 0.714. No CP or SOB. Off heparin drip Objective Last 24 Hour Vital Signs Date Time Temp Pulse Resp B/P (MAP) Pulse Ox O2 Delivery O2 Flow Rate FiO2 07/28/20 15:23 99 07/28/20 12:00 Room Air 07/28/20 12:00 97.3 91 20 149/53 (85) 99 07/28/20 11:41 93 07/28/20 08:25 88 148/72 07/28/20 08:00 98.1 101 23 144/71 (95) 100 07/28/20 08:00 88 07/28/20 08:00 Room Air 07/28/20 04:00 Room Air 07/28/20 04:00 97.7 98 19 148/72 (97) 98 07/28/20 04:00 88 07/28/20 00:00 Room Air 07/28/20 00:00 88 07/28/20 00:00 93 07/28/20 00:00 98.1 103 19 152/71 (98) 99 07/27/20 21:19 103 145/74 07/27/20 20:00 97.7 103 21 145/74 (97) 97 07/27/20 20:00 Room Air 07/27/20 19:25 103 07/27/20 17:49 190/116 Intake and Output 07/27/20 07/28/20 19:00 07:00 Intake Total 538.744 ml 1276.6 ml Output Total 300 ml Balance 538.744 ml 976.6 ml Intake Oral 360 ml 340 ml IV Total 178.744 ml 936.6 ml Output Urine Total 300 ml # Voids 7 6 # Bowel Movements 5 1 Laboratory Tests Test 07/27/20 20:00 07/27/20 20:06 07/28/20 03:30 07/28/20 04:00 White Blood Count 25.5 K/UL (4.8-10.8) *H 16.8 K/UL (4.8-10.8) H Red Blood Count 4.81 M/UL (4.20-5.40) 4.39 M/UL (4.20-5.40) Hemoglobin 14.5 G/DL (12.0-16.0) 13.1 G/DL (12.0-16.0) Hematocrit 44.4 % (37.0-47.0) 39.6 % (37.0-47.0) Mean Corpuscular Volume 92 FL (80-99) 90 FL (80-99) Mean Corpuscular Hemoglobin 30.2 PG (27.0-31.0) 29.8 PG (27.0-31.0) Mean Corpuscular Hemoglobin Concent 32.7 G/DL (32.0-36.0) 33.1 G/DL (32.0-36.0) Red Cell Distribution Width 15.7 % (11.6-14.8) H 15.6 % (11.6-14.8) H Platelet Count 98 K/UL (150-450) L 103 K/UL (150-450) L Mean Platelet Volume 9.4 FL (6.5-10.1) 9.7 FL (6.5-10.1) Neutrophils (%) (Auto) % (45.0-75.0) 70.8 % (45.0-75.0) Lymphocytes (%) (Auto) % (20.0-45.0) 14.1 % (20.0-45.0) L Monocytes (%) (Auto) % (1.0-10.0) 12.0 % (1.0-10.0) H Eosinophils (%) (Auto) % (0.0-3.0) 0.2 % (0.0-3.0) Basophils (%) (Auto) % (0.0-2.0) 2.8 % (0.0-2.0) H Differential Total Cells Counted 100 Neutrophils % (Manual) 79 % (45-75) H Lymphocytes % (Manual) 17 % (20-45) L Monocytes % (Manual) 2 % (1-10) Eosinophils % (Manual) 0 % (0-3) Basophils % (Manual) 0 % (0-2) Band Neutrophils 2 % (0-8) Smudge Cells Occasional Platelet Estimate Decreased L Platelet Morphology Normal Red Blood Cell Morphology Normal Lactic Acid Level 1.30 mmol/L (0.4-2.0) Troponin I 0.695 ng/mL (0.000-0.056) 0.421 ng/mL (0.000-0.056) POC Whole Blood Glucose 104 MG/DL (74-106) Sodium Level 138 MMOL/L (136-145) Potassium Level 2.8 MMOL/L (3.5-5.1) L Chloride Level 105 MMOL/L (98-107) Carbon Dioxide Level 24 MMOL/L (21-32) Anion Gap 9 mmol/L (5-15) Blood Urea Nitrogen 8 mg/dL (7-18) Creatinine 0.9 MG/DL (0.55-1.30) Estimat Glomerular Filtration Rate > 60 mL/min (>60) Glucose Level 101 MG/DL (74-106) Calcium Level 7.7 MG/DL (8.5-10.1) L Phosphorus Level 1.6 MG/DL (2.5-4.9) L Magnesium Level 1.8 MG/DL (1.8-2.4) C-Reactive Protein, Quantitative 13.3 mg/dL (0.00-0.90) H Test 07/28/20 05:02 07/28/20 11:25 07/28/20 12:15 POC Whole Blood Glucose 103 MG/DL (74-106) 100 MG/DL (74-106) Troponin I 0.311 ng/mL (0.000-0.056) Microbiology Date/Time Source Procedure Growth Status 07/25/20 18:45 Nasal Aspirate MRSA Culture - Final NO METHICILLIN RESISTANT STAPH AUREUS... Complete Objective HEAD AND NECK: no JVD. LUNGS: Clear. CARDIOVASCULAR: Regular S1 and S2 with no gallop or murmur, tachycardic. ABDOMEN: Soft. EXTREMITIES: No pitting edema. Augustine Che MD Jul 28, 2020 16:45
[2020-07-28] MEDS: HYDROcodone/Acetamin 5/325 tab ORAL PRN (17:08)
--- NOTE | 2020-07-28 17:30 | NUR ---
NURSE NOTES: at beside. Pt refused cleaning/bathing and linen change. Appears calm and follows commands. Will continue to monitor.
--- NOTE | 2020-07-28 19:00 | Surgery Progress Note ---
Surgery Progress Note Subjective Additional Comments wbc improving on abx comfortable no n/v id input noted Objective Last 24 Hour Vital Signs Date Time Temp Pulse Resp B/P (MAP) Pulse Ox O2 Delivery O2 Flow Rate FiO2 07/28/20 16:00 98.8 102 19 158/83 (108) 97 07/28/20 16:00 Room Air 07/28/20 15:23 99 07/28/20 12:00 Room Air 07/28/20 12:00 97.3 91 20 149/53 (85) 99 07/28/20 11:41 93 07/28/20 08:25 88 148/72 07/28/20 08:00 98.1 101 23 144/71 (95) 100 07/28/20 08:00 88 07/28/20 08:00 Room Air 07/28/20 04:00 Room Air 07/28/20 04:00 97.7 98 19 148/72 (97) 98 07/28/20 04:00 88 07/28/20 00:00 Room Air 07/28/20 00:00 88 07/28/20 00:00 93 07/28/20 00:00 98.1 103 19 152/71 (98) 99 07/27/20 21:19 103 145/74 07/27/20 20:00 97.7 103 21 145/74 (97) 97 07/27/20 20:00 Room Air 07/27/20 19:25 103 I&O Intake and Output 07/27/20 07/28/20 19:00 07:00 Intake Total 538.744 ml 1276.6 ml Output Total 300 ml Balance 538.744 ml 976.6 ml Intake Oral 360 ml 340 ml IV Total 178.744 ml 936.6 ml Output Urine Total 300 ml # Voids 7 6 # Bowel Movements 5 1 Cardiovascular: RSR Respiratory: decreased breath sounds Abdomen: soft, flat, non-tender, present bowel sounds Extremities: no edema, no tenderness, no cyanosis Laboratory Tests Test 07/27/20 20:00 07/27/20 20:06 07/28/20 03:30 07/28/20 04:00 White Blood Count 25.5 K/UL (4.8-10.8) *H 16.8 K/UL (4.8-10.8) H Red Blood Count 4.81 M/UL (4.20-5.40) 4.39 M/UL (4.20-5.40) Hemoglobin 14.5 G/DL (12.0-16.0) 13.1 G/DL (12.0-16.0) Hematocrit 44.4 % (37.0-47.0) 39.6 % (37.0-47.0) Mean Corpuscular Volume 92 FL (80-99) 90 FL (80-99) Mean Corpuscular Hemoglobin 30.2 PG (27.0-31.0) 29.8 PG (27.0-31.0) Mean Corpuscular Hemoglobin Concent 32.7 G/DL (32.0-36.0) 33.1 G/DL (32.0-36.0) Red Cell Distribution Width 15.7 % (11.6-14.8) H 15.6 % (11.6-14.8) H Platelet Count 98 K/UL (150-450) L 103 K/UL (150-450) L Mean Platelet Volume 9.4 FL (6.5-10.1) 9.7 FL (6.5-10.1) Neutrophils (%) (Auto) % (45.0-75.0) 70.8 % (45.0-75.0) Lymphocytes (%) (Auto) % (20.0-45.0) 14.1 % (20.0-45.0) L Monocytes (%) (Auto) % (1.0-10.0) 12.0 % (1.0-10.0) H Eosinophils (%) (Auto) % (0.0-3.0) 0.2 % (0.0-3.0) Basophils (%) (Auto) % (0.0-2.0) 2.8 % (0.0-2.0) H Differential Total Cells Counted 100 Neutrophils % (Manual) 79 % (45-75) H Lymphocytes % (Manual) 17 % (20-45) L Monocytes % (Manual) 2 % (1-10) Eosinophils % (Manual) 0 % (0-3) Basophils % (Manual) 0 % (0-2) Band Neutrophils 2 % (0-8) Smudge Cells Occasional Platelet Estimate Decreased L Platelet Morphology Normal Red Blood Cell Morphology Normal Lactic Acid Level 1.30 mmol/L (0.4-2.0) Troponin I 0.695 ng/mL (0.000-0.056) 0.421 ng/mL (0.000-0.056) POC Whole Blood Glucose 104 MG/DL (74-106) Sodium Level 138 MMOL/L (136-145) Potassium Level 2.8 MMOL/L (3.5-5.1) L Chloride Level 105 MMOL/L (98-107) Carbon Dioxide Level 24 MMOL/L (21-32) Anion Gap 9 mmol/L (5-15) Blood Urea Nitrogen 8 mg/dL (7-18) Creatinine 0.9 MG/DL (0.55-1.30) Estimat Glomerular Filtration Rate > 60 mL/min (>60) Glucose Level 101 MG/DL (74-106) Calcium Level 7.7 MG/DL (8.5-10.1) L Phosphorus Level 1.6 MG/DL (2.5-4.9) L Magnesium Level 1.8 MG/DL (1.8-2.4) C-Reactive Protein, Quantitative 13.3 mg/dL (0.00-0.90) H Test 07/28/20 05:02 07/28/20 11:25 07/28/20 12:15 07/28/20 17:14 POC Whole Blood Glucose 103 MG/DL (74-106) 100 MG/DL (74-106) 92 MG/DL (74-106) Troponin I 0.311 ng/mL (0.000-0.056) Plan Problems: (1) Hypokalemia (2) Rheumatoid arthritis (3) Rheumatoid arthritis (4) Rheumatoid arthritis (5) Fatty liver (6) Joint pain (7) Urinary retention (8) Anemia (9) Anxiety (10) Anxiety (11) Arthritis (12) Generalized weakness (13) CAD (coronary artery disease) (14) Cough (15) Cough (16) Diarrhea (17) Diverticulitis (18) Diverticulosis (19) Gastritis (20) Gastroenteritis (21) Infection (22) Leukocytosis (23) Leukocytosis Assessment & Plan: 65-year-old female with abdominal pain lactic acidosis leukocytosis elevated liver enzymes trend febrile septic admitted for the care management IV antibiotics per infectious disease currently no imaging pending. Labs noted lactic acidosis improved with fluids UTI noted likely urosepsis.. Abdominal examination fairly benign no nausea vomiting. Okay for diet IV fluids KUB ordered Ultrasound ordered given liver enzyme elevation Elevated liver enzymes trend Unlikely bowel insult or ischemia. We will follow with recommendations thank you Mehran adame patient's care kub and us okay diet okay bowel regimen labs improved (24) Leukocytosis (25) Sepsis Assessment & Plan: iv abx iv fluids trend labs imaging ordered will follow with rec Liver: Diffusely hypodense liver, suggesting fatty infiltration. Gallbladder and bile ducts: Status post cholecystectomy. No ductal dilation. Pancreas: Unremarkable. No ductal dilation. Spleen: Unremarkable. No splenomegaly. Adrenals: Unremarkable. No mass. Kidneys and ureters: Right perinephric stranding. No hydronephrosis or hydroureter. No visible radiodense stones. Stomach and bowel: Mild wall thickening in the duodenal C-loop. Postsurgical changes in the rectosigmoid junction. Colon and small bowel otherwise appear unremarkable. No evidence of bowel obstruction. PELVIS: Appendix: No findings to suggest acute appendicitis. Bladder: Unremarkable. No stones. Reproductive: The uterus and ovaries are not visualized and may be surgically absent. ABDOMEN and PELVIS: Intraperitoneal space: Unremarkable. No free air. No significant fluid collection. Bones/joints: Multilevel degenerative disc space loss. No acute fracture. No dislocation. Soft tissues: Unremarkable. Vasculature: Unremarkable. No abdominal aortic aneurysm. Lymph nodes: Unremarkable. No enlarged lymph nodes. Other findings: No visible intra-abdominal or intrapelvic abscess. IMPRESSION: 1. No visible intra-abdominal or intrapelvic abscess. 2. Mild wall thickening in the duodenal C-loop. This may represent a mild duodenitis or may be reactive inflammation from a subtle pancreatitis along the duodenal groove. The pancreas otherwise appears unremarkable. Recommend correlation with serum amylase and lipase. 3. Right perinephric stranding. No hydronephrosis or hydroureter. No visible radiodense stones. This raises possibility of UTI or pyelonephritis. Recommend correlation with urinalysis. 4. Bilateral trace pleural effusions. Dependent atelectasis in bilateral lung bases. 5. Status post cholecystectomy.a (26) UTI (urinary tract infection) (27) Reflux esophagitis (28) Abdominal pain (29) Abdominal pain (30) Abdominal pain (31) Abdominal pain (32) Abdominal pain (33) Bronchitis (34) Chest pain (35) Chest pain (36) Chest pain (37) Hemorrhoids (38) Vomiting (39) Multiple joint pain (40) Acute gastrointestinal bleeding (41) Acute gastrointestinal bleeding (42) Acute gastrointestinal bleeding (43) Acute gastrointestinal bleeding (44) Hepatic steatosis (45) Nausea & vomiting (46) Dehydration, moderate (47) Reflux gastritis (48) C. 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
--- NOTE | 2020-07-28 19:20 | NUR ---
NURSE NOTES: received report from Kellee CALIX. pt remains stable. pt is alert and oriented times 4, no acute neuro deficit. pt is on gambling monitor showing NSR, no acute cardiac distress noted. pt is room air, sating 99% O2. no acute resp distress noted. pt bed is low, locked, armed, call light within reach, bed rails up times 3. will follow plan of care.
--- NOTE | 2020-07-28 19:40 | NUR ---
NURSE HAND-OFF REPORT: Important Events on Shift:[Orders to move to tele] Patient Status: [Stable] Diet: [Cardiac Diet] Pending Orders: [NA] Pending Results/Labs:[NA] Pending MD notification:[NA] Latest Vital Signs: Temperature 98.8 , Pulse 102 , B/P 158 /83 , Respiratory Rate 19 , O2 SAT 97 , Room Air, O2 Flow Rate . Vital Sign Comment: [NA] EKG Rhythm: Sinus Tachycardia Rhythm change?: N MD Notified?: N -Dr. Darryn ARIAS Response: Order Received& Read Back Latest Perez Fall Score: 50 Fall Risk: High Risk Safety Measures: Call light Within Reach, Bed Alarm Zone 2, Side Rails Side Rails x2, Bed position Low and Locked. Fall Precautions: Yellow Socks Yellow Gown Report given to [YOGI Holland].
[2020-07-28 20:00] VITALS: BP 144/82
[2020-07-28] MEDS ORDERED: LR 1000ml ONE (21:41)
[2020-07-28] MEDS ORDERED: Tubing IV Secondary IV ONE (21:41)
[2020-07-28] MEDS ORDERED: NS 275ml ONE (21:41)
--- NOTE | 2020-07-28 23:30 | NUR ---
NURSE NOTES: assisted pt to bed side commode. no stool noted. yellow urine noted. no abnormal odor to urine.
[2020-07-29] VITALS: BP 159/95
[2020-07-29] MEDS: HYDROcodone/Acetamin 5/325 tab ORAL PRN ×3 (01:27→18:50)
--- NOTE | 2020-07-29 01:30 | NUR ---
NURSE NOTES: pt reported generalized pain that feels aching. pt stated pain is 7/ 10. [place] pill given. will reassess pts pain.
--- NOTE | 2020-07-29 03:29 | NUR ---
NURSE NOTES: pt appears to be resting in bed comfortably. no apparent distress noted. vital signs stable.
[2020-07-29 04:00] VITALS: BP 142/93
--- NOTE | 2020-07-29 05:12 | NUR ---
NURSE NOTES: pt is sleeping. vital signs stable. pts IV fluids running as Doctor ordered. bed is low, locked, armed.
[2020-07-29] MEDS: Sucralfate 1gm tab ORAL SCH ×3 (06:18→16:48)
[2020-07-29] MEDS: NovoLOG Insulin Flexpen SUBQ SCH ×4 (06:21→20:40)
[2020-07-29 07:06] LABS: ANION GAP 9 mmol/L (5-15); BLOOD UREA NITROGEN 6 mg/dL (7-18); CALCIUM 7.2 MG/DL (8.5-10.1); CARBON DIOXIDE 24 MMOL/L (21-32); CHLORIDE 104 MMOL/L (98-107); CREATININE 0.9 MG/DL (0.55-1.30); POTASSIUM 3.1 MMOL/L (3.5-5.1); SODIUM 137 MMOL/L (136-145)
[2020-07-29 07:12] LABS: BASOPHILS % (AUTO) 2.6 % (0.0-2.0); EOSINOPHILS % (AUTO) 0.4 % (0.0-3.0); HEMATOCRIT 38.2 % (37.0-47.0); HEMOGLOBIN 12.5 G/DL (12.0-16.0); LYMPHOCYTES % (AUTO) 12.4 % (20.0-45.0); MEAN CORPUSCULAR VOLUME 90 FL (80-99); MONOCYTES % (AUTO) 14.3 % (1.0-10.0); NEUTROPHILS % (AUTO) 70.3 % (45.0-75.0); PLATELET COUNT 135 K/UL (150-450); RED BLOOD COUNT 4.26 M/UL (4.20-5.40); RED CELL DISTRIBUTION WIDTH 15.3 % (11.6-14.8); WHITE BLOOD COUNT 14.2 K/UL (4.8-10.8)
--- NOTE | 2020-07-29 07:20 | NUR ---
NURSE HAND-OFF REPORT: Important Events on Shift:[Pain manage] Patient Status: [Stable] Diet: [As per doctor order] Pending Orders: [NA] Pending Results/Labs:[NA] Pending MD notification:[NA] Latest Vital Signs: Temperature 98.9 , Pulse 105 , B/P 142 /93 , Respiratory Rate 18 , O2 SAT 98 , Room Air, O2 Flow Rate . Vital Sign Comment: [Stable] EKG Rhythm: Sinus Tachycardia Rhythm change?: N MD Notified?: N -Dr. Darryn ARIAS Response: Order Received& Read Back Latest Perez Fall Score: 50 Fall Risk: High Risk Safety Measures: Call light Within Reach, Bed Alarm Zone 2, Side Rails Side Rails x2, Bed position Low and Locked. Fall Precautions: Yellow Socks Yellow Gown Report given to [Geoff RN].
--- NOTE | 2020-07-29 07:42 | NUR ---
NURSE NOTES: Received report from YOGI Aguero. Patient in bed resting, no active s/s cardiac, respiratory distress noticed at this time. Patient AOx4, denies chest pain, but c/o flank pain. Patient on room air, o2 sat 99%. IV on left FA 20G, asymptomatic, patent, intact. IVF LR running @ 100ml/h. Bed side commode easy reach, Bed in lowest position, side rails upx2, call light within reach, bed alarm on, Will continue to monitor.
[2020-07-29 08:00] VITALS: BP 156/93
[2020-07-29] MEDS: ALPRAZolam 0.5mg tab ORAL SCH (08:55)
[2020-07-29] MEDS: Aspirin Baby 81mg ORAL SCH (08:55)
[2020-07-29] MEDS: Atorvastatin 80mg tab ORAL SCH (08:55)
--- NOTE | 2020-07-29 08:58 | General Progress Note ---
Subjective Constitutional: Reports: malaise, weakness; Denies: no symptoms, chills, diaphoresis, fever, other HEENT: Denies: no symptoms, eye pain, blurred vision, tearing, double vision, ear pain, ear discharge, nose pain, nose congestion, throat pain, throat swelling, mouth pain, mouth swelling, other Cardiovascular: Denies: no symptoms, chest pain, edema, irregular heart rate, lightheadedness, palpitations, syncope, other Respiratory: Denies: no symptoms, cough, orthopnea, shortness of breath, SOB with excertion, SOB at rest, sputum, stridor, wheezing, other Gastrointestinal/Abdominal: Denies: no symptoms, abdomen distended, abdominal pain, black stools, tarry stools, blood in stool, constipated, diarrhea, difficulty swallowing, nausea, poor appetite, poor fluid intake, rectal bleeding, vomiting, other Genitourinary: Denies: no symptoms, burning, discharge, frequency, flank pain, hematuria, incontinence, pain, urgency, other Neurologic/Psychiatric: Denies: no symptoms, anxiety, depressed, emotional problems, headache, numbness, paresthesia, pre-existing deficit, seizure, tingling, tremors, weakness, other Endocrine: Denies: no symptoms, excessive sweating, flushing, intolerance to cold, intolerance to heat, increased hunger, increased thirst, increased urine, unexplained weight gain, unexplained weight loss, other Hematologic/Lymphatic: Denies: no symptoms, anemia, easy bleeding, easy b ruising, other Allergies: Coded Allergies: HYDROCODONE BIT (Verified Allergy, Severe, Hives, 05/16/13) Subjective No acute events overnight. Patient still feels generalized weakness and malaise. Has not had physical therapy yet. However does feel strong enough to go home if indicated. No fevers. Objective Last 24 Hour Vital Signs Date Time Temp Pulse Resp B/P (MAP) Pulse Ox O2 Delivery O2 Flow Rate FiO2 07/29/20 08:00 97.5 95 18 156/93 (114) 100 07/29/20 06:49 98.9 07/29/20 04:00 Room Air 07/29/20 04:00 99.0 110 18 142/93 (109) 98 07/29/20 04:00 105 07/29/20 01:57 98.3 07/29/20 00:00 97.3 86 18 159/95 (116) 98 07/29/20 00:00 Room Air 07/28/20 23:29 86 07/28/20 21:02 84 143/74 07/28/20 20:00 92 07/28/20 20:00 Room Air 07/28/20 20:00 99.1 99 20 144/82 (102) 99 07/28/20 16:00 98.8 102 19 158/83 (108) 97 07/28/20 16:00 Room Air 07/28/20 15:23 99 07/28/20 12:00 Room Air 07/28/20 12:00 97.3 91 20 149/53 (85) 99 07/28/20 11:41 93 Intake and Output 07/28/20 07/29/20 19:00 07:00 Intake Total 2016.25 ml 825 ml Output Total 1200 ml 1001 ml Balance 816.25 ml -176 ml Intake Oral 800 ml IV Total 1216.25 ml 825 ml Output Urine Total 1200 ml 1000 ml Stool Total 1 ml Laboratory Tests 07/28/20 11:25: POC Whole Blood Glucose 100 07/28/20 12:15: Troponin I 0.311H 07/28/20 17:14: POC Whole Blood Glucose 92 07/28/20 21:01: POC Whole Blood Glucose 89 07/29/20 03:52: White Blood Count 14.2H, Red Blood Count 4.26, Hemoglobin 12.5, Hematocrit 38.2, Mean Corpuscular Volume 90, Mean Corpuscular Hemoglobin 29.4, Mean Corpuscular Hemoglobin Concent 32.8, Red Cell Distribution Width 15.3H, Platelet Count 135L, Mean Platelet Volume 8.1, Neutrophils (%) (Auto) 70.3, Lymphocytes (%) (Auto) 12.4L, Monocytes (%) (Auto) 14.3H, Eosinophils (%) (Auto) 0.4, Basophils (%) (Auto) 2.6H, Sodium Level 137, Potassium Level 3.1L, Chloride Level 104, Carbon Dioxide Level 24, Anion Gap 9, Blood Urea Nitrogen 6L, Creatinine 0.9, Estimat Glomerular Filtration Rate > 60, Glucose Level 84, Calcium Level 7.2L, Phosphorus Level 2.3L, Magnesium Level 1.8 11/9/20 06:21: POC Whole Blood Glucose 97 Height (Feet): 5 Height (Inches): 0.00 Weight (Pounds): 155 General Appearance: no apparent distress, alert, alert oriented x3 EENT: PERRL/EOMI Neck: non-tender, normal inspection Cardiovascular: normal rate, regular rhythm, no JVD Respiratory/Chest: lungs clear, normal breath sounds, no respiratory distress Abdomen: normal bowel sounds, non tender, soft Extremities: normal range of motion, non-tender Edema: no edema noted Arm (L), no edema noted Arm (R), no edema noted Leg (L), no edema noted Leg (R), no edema noted Pedal (L), no edema noted Pedal (R), no edema noted Generalized Neurologic: monotyper II-XII grossly normal, alert, oriented x 3 Skin: normal pigmentation, warm/dry Assessment/Plan Assessment/Plan: Mrs. Christine is a 65F with PMH of RA, OA and osteoporosis admitted for fevers, malaise. A: # Severe Sepsis (Leukocytosis + fevers + Tachycardia) 2/2 Bacteremia, Pyelonephritis # Right Sided Pyelonephritis # NSTEMI Type 2 # E. Coli Bacteremia # UTI # Anion Gap Metabolic Acidosis 2/2 Lactic Acid - resolved # Severe Lactic Acidosis - resolved # MANDY 2/2 pre-renal azotemia vs Sepsis ATN - resolved # Prolong Qt # Leukocytosis - improving # Thrombocytopenia likely 2/2 sepsis - improving # New Diagnosis Type 2 DM # Hx of Rheumatoid Arthritis on Biologic infusion # Hx of OA # Hx of osteoporosis # NAFLD P: - hemodynamically stable - keep MAP > 65, monitor for BP support with need for pressors - On Rocephin per ID - BC +gram negative rods, Ecoli - CT A/P reviewed showing right sided perinephric stranding likley pyelo - avoid prolonging qt agents - ISS - trend plateletsimproving - hold anticoags < 50 - leukocytosis improving - Dr. Cates, Nephrology, recs appreciated - consult Dr. Gallego, ID, recs appreciated - consult Dr. Che Cardiology, recs appreciated - consult Dr. Ann, Pulm, recs appreciated - PT CODE: Full GI: none DVT: Heparin 5000U BID Diet: cardio Dispo: possible discharge tomorrow, pending ID clearance Time spent on this encounter was 31 minutes which included 18 minutes of counseling and care coordination. I discussed with the nurse at bedside. Time of note may not reflect time patient was seen. Darshan San D.O Jul 29, 2020 08:58
[2020-07-29] MEDS: Heparin 5000 units/ml inj SUBQ SCH ×2 (09:00→20:40)
[2020-07-29] MEDS ORDERED: Calcium Gluconate 1gm/50ml 50 ML IVPB ONE (09:00)
--- NOTE | 2020-07-29 09:50 | NUR ---
PT EVALUATION NOTE Patient seen for initial evaluation and treatment initiated. Patient presents with generalized weakness and BLE pain which impairs patient's ability to perform mobility tasks safely. Patient able to transfer with SBA and FWW, unsteady upon standing. Patient able to ambulate 15 ft with CGA and FWW. Activity tolerance limited by c/o BLE pain. Patient will benefit from skilled inpatient PT intervention to increase strength and postural stability for improved balance, functional mobility and safety. Recommend discharge home with family assistance and home PT vs short term SNF for continued rehab. Patient lives in a second floor apartment without elevator access with her and son. Patient has necessary DME at home. Addendum: 07/29/20 at 1252 by TIFFANY BRYAN PT Amended: Links added.
--- NOTE | 2020-07-29 10:04 | Cardiology Report ---
APPROVED REPORT EXAM: Two-dimensional and M-mode echocardiogram with Doppler and color Doppler. INDICATION Arrhythmia M-Mode DIMENSIONS IVSd0.7 (0.7-1.1cm)Left Atrium (MM)3.0 (1.6-4.0cm) LVDd2.9 (3.5-5.6cm)Aortic Root2.7 (2.0-3.7cm) PWd0.9 (0.7-1.1cm)Aortic Cusp Exc.1.7 (1.5-2.0cm) IVSs1.2 cmEPSS0.3 (>1.0cm) LVDs1.3 (2.5-4.0cm) PWs1.1 cm Other Information Technically limited study due to poor parasternal windows <Conclusion> Normal left ventricular chamber size, systolic function and wall motion to extent visualized. Left ventricular ejection fraction grossly estimated to be 65 %. Borderline left ventricular hypertrophy. Anterior Echo-free space, may be due to pericardial fat or effusion. All other cardiac chamber sizes are within normal limits. Focal aortic valve sclerosis with adequate cusp excursion. Thickened mitral valve leaflets with normal excursion. Mitral annulus and aortic root calcification. Pulmonic valve not well visualized. Normal tricuspid valve structure. IVC at normal size with physiologic collapse. A color flow and spectral Doppler study was performed and revealed: No aortic regurgitation. Trace to mild mitral regurgitation. Mitral diastolic velocities suggest normal LV diastolic function. Trace tricuspid regurgitation. Tricuspid systolic velocities suggests peak right ventricular systolic pressure of 15 mmHg. No pulmonic regurgitation present.
[2020-07-29] MEDS: LR 1000ml 1,000 ML IV SCH (10:25)
--- NOTE | 2020-07-29 10:29 | NUR ---
NURSE NOTES: Patient accidently pulled out IV, no IV access at this time, Per Dr. San, PICC insertion ordered. Called Radiology, spoke to Lukasz, picc insertion will be done between [id number]. Called pharmacist, Horace, clarified order for calcium gluconate cannot given at this time.
--- NOTE | 2020-07-29 10:58 | Pulmonology Progress Note ---
Subjective ROS Limited/Unobtainable: No Interval Events: None new Constitutional: Reports: fatigue; Denies: fever HEENT: Repors: no symptoms Respiratory: Reports: no symptoms Cardiovascular: Reports: no symptoms Gastrointestinal/Abdominal: Denies: nausea, vomiting, diarrhea Psychiatric: Denies: depression Skin: Denies: rash Musculoskeletal: Denies: pain Allergies: Coded Allergies: HYDROCODONE BIT (Verified Allergy, Severe, Hives, 05/16/13) Objective Last 24 Hour Vital Signs Date Time Temp Pulse Resp B/P (MAP) Pulse Ox O2 Delivery O2 Flow Rate FiO2 07/29/20 08:56 95 156/93 07/29/20 08:00 134 07/29/20 08:00 97.5 95 18 156/93 (114) 100 07/29/20 08:00 Room Air 07/29/20 06:49 98.9 07/29/20 04:00 Room Air 07/29/20 04:00 99.0 110 18 142/93 (109) 98 07/29/20 04:00 105 07/29/20 01:57 98.3 07/29/20 00:00 97.3 86 18 159/95 (116) 98 07/29/20 00:00 Room Air 07/28/20 23:29 86 07/28/20 21:02 84 143/74 07/28/20 20:00 92 07/28/20 20:00 Room Air 07/28/20 20:00 99.1 99 20 144/82 (102) 99 07/28/20 16:00 98.8 102 19 158/83 (108) 97 07/28/20 16:00 Room Air 07/28/20 15:23 99 07/28/20 12:00 Room Air 07/28/20 12:00 97.3 91 20 149/53 (85) 99 07/28/20 11:41 93 Intake and Output 07/28/20 07/29/20 19:00 07:00 Intake Total 2016.25 ml 825 ml Output Total 1200 ml 1001 ml Balance 816.25 ml -176 ml Intake Oral 800 ml IV Total 1216.25 ml 825 ml Output Urine Total 1200 ml 1000 ml Stool Total 1 ml General Appearance: no acute distress HEENT: normocephalic Respiratory: chest wall non-tender, lungs clear Cardiovascular: normal peripheral pulses, normal rate Abdomen: normal bowel sounds Laboratory Tests 07/28/20 11:25: POC Whole Blood Glucose 100 07/28/20 12:15: Troponin I 0.311H 07/28/20 17:14: POC Whole Blood Glucose 92 07/28/20 21:01: POC Whole Blood Glucose 89 07/29/20 03:52: White Blood Count 14.2H, Red Blood Count 4.26, Hemoglobin 12.5, Hematocrit 38.2, Mean Corpuscular Volume 90, Mean Corpuscular Hemoglobin 29.4, Mean Corpuscular Hemoglobin Concent 32.8, Red Cell Distribution Width 15.3H, Platelet Count 135L, Mean Platelet Volume 8.1, Neutrophils (%) (Auto) 70.3, Lymphocytes (%) (Auto) 12.4L, Monocytes (%) (Auto) 14.3H, Eosinophils (%) (Auto) 0.4, Basophils (%) (Auto) 2.6H, Sodium Level 137, Potassium Level 3.1L, Chloride Level 104, Carbon Dioxide Level 24, Anion Gap 9, Blood Urea Nitrogen 6L, Creatinine 0.9, Estimat Glomerular Filtration Rate > 60, Glucose Level 84, Calcium Level 7.2L, Phosphorus Level 2.3L, Magnesium Level 1.8 07/29/20 06:21: POC Whole Blood Glucose 97 Current Medications Medications (Trade) Dose Ordered Sig/Gabriel Route PRN Reason Start Time Stop Time Status Last Admin Dose Admin Acetaminophen (Tylenol) 650 mg Q4H PRN ORAL Mild Pain (Pain Scale 1-3) 07/28/20 11:00 08/27/20 10:59 Acetaminophen/ Hydrocodone Bitart ([place] 10/325) 1 tab Q4H PRN ORAL Severe Pain (Pain Scale 7-10) 07/26/20 09:45 08/02/20 09:44 07/28/20 05:03 Acetaminophen/ Hydrocodone Bitart ([place] 5/325) 1 tab Q4H PRN ORAL Moderate Pain (Pain Scale 4-6) 07/26/20 09:45 08/02/20 09:44 07/29/20 06:19 Alprazolam (Xanax) 1 mg DAILY ORAL 07/26/20 10:00 08/02/20 09:59 07/29/20 08:55 Aspirin (ASA) 81 mg DAILY ORAL 07/25/20 09:00 09/08/20 08:59 07/29/20 08:55 Atorvastatin Calcium (Lipitor) 80 mg DAILY ORAL 07/25/20 09:00 10/23/20 08:59 07/29/20 08:55 Ceftriaxone Sodium 1 gm/ Dextrose 50 ml @ 100 mls/hr Q24H IVPB 07/28/20 14:00 08/04/20 13:59 07/28/20 14:58 Dextrose (Dextrose 50%) 25 ml Q30M PRN IV Hypoglycemia 07/26/20 10:15 10/24/20 10:14 Dextrose (Dextrose 50%) 50 ml Q30M PRN IV Hypoglycemia 07/26/20 10:15 10/24/20 10:14 Docusate Sodium (Colace) 100 mg BID PRN ORAL Constipation 07/27/20 09:15 08/26/20 09:14 Gabapentin (Neurontin) 300 mg TID ORAL 07/25/20 09:00 08/24/20 08:59 07/29/20 08:55 Heparin Sodium (Porcine) (Heparin 5000 units/ml) 5,000 units EVERY 12 HOURS SUBQ 07/27/20 21:00 09/10/20 20:59 07/27/20 21:20 Hydralazine HCl (Apresoline) 10 mg Q4H PRN IV For High Blood Pressure 07/27/20 17:15 10/25/20 17:14 07/27/20 17:49 Insulin Aspart (NovoLOG) BEFORE MEALS AND HS SUBQ 07/26/20 11:30 10/24/20 11:29 Lactated Ringer's 1,000 ml @ 75 mls/hr [id number] IV 07/28/20 07:45 08/27/20 07:44 07/28/20 21:03 Metoprolol Tartrate (Lopressor) 25 mg Q12HR ORAL 07/27/20 21:00 10/25/20 20:59 07/29/20 08:56 Ondansetron HCl (Zofran) 4 mg Q8H PRN IVP Nausea & Vomiting 07/27/20 12:45 08/26/20 12:44 Pantoprazole (Protonix) 40 mg BID ORAL 07/25/20 09:00 08/24/20 08:59 07/29/20 08:55 Prochlorperazine (Compazine) 10 mg Q6H PRN IVP Nausea & Vomiting 07/25/20 12:15 08/24/20 12:14 07/27/20 12:35 Sucralfate (Carafate) 1 gm BEFORE MEALS ORAL 07/25/20 11:30 10/23/20 11:29 07/29/20 06:18 Temazepam (Restoril) 15 mg BEDTIME PRN ORAL Insomnia 07/25/20 05:30 08/01/20 05:29 07/28/20 21:02 Assessment/Plan Assessment/Plan IMPRESSION: 1. Non-ST elevation KS. 2. Rheumatoid arthritis. 3. Hypokalemia. 4. Marked leukocytosis. Improved to 14 K now DISCUSSION: Broad spectrum abx for pyelonephritis Saturating well on RA Zuly Fernández Omar Syed MD Jul 29, 2020 10:58
[2020-07-29 12:00] VITALS: BP 136/81
--- NOTE | 2020-07-29 12:39 | Infectious Diseases Prog Note ---
Assessment/Plan Assessment/Plan ASSESSMENT AND PLAN: 1. e.coli uti/pyelonephritis, e.coli bacteremia/sepsis, severe sepsis, sirs, leukocytosis, fevers - change antibiotic to ceftriaxone - day # 5 antibiotics total - monitor labs, f/u on surveillance blood cultures - CT abdomen and pelvis with right perinephric stranding - d/w RN and patient - consider oral ciprofloxacin 500 mg bid for 7 days upon discharge if surveillance blood cultures negative - d/w Dr. San 2. MANDY - improved 3. Patient has history of rheumatoid arthritis and been immunocompromised with history of steroids and also Remicade. 4. Patient has osteoarthritis. 5. Osteoporosis. 6. Non-STEMI. 7. CAD. 8. NAFLD. 9. Rheumatoid arthritis and immunocompromised. 10. Continue care per primary consultants. 11. Allergies to hydrocodone. 12. Social history is negative. 13. Family history is noncontributory. 14. MAR is noted. 15. Case was discussed with RN. 16. Orders were noted and entered. 17. Patient is COVID negative and isolation will be removed. 18. Case also discussed at length with nursing staff about antibiotic management and the patient's care. Subjective Constitutional: Denies: fever HEENT: Denies: congestion Respiratory: Denies: shortness of breath Cardiovascular: Denies: chest pain Gastrointestinal/Abdominal: Denies: nausea Allergies: Coded Allergies: HYDROCODONE BIT (Verified Allergy, Severe, Hives, 05/16/13) Objective Last 24 Hour Vital Signs Date Time Temp Pulse Resp B/P (MAP) Pulse Ox O2 Delivery O2 Flow Rate FiO2 07/29/20 12:00 96.6 91 16 136/81 (99) 100 07/29/20 12:00 Room Air 07/29/20 08:56 95 156/93 07/29/20 08:00 134 07/29/20 08:00 97.5 95 18 156/93 (114) 100 07/29/20 08:00 Room Air 07/29/20 06:49 98.9 07/29/20 04:00 Room Air 07/29/20 04:00 99.0 110 18 142/93 (109) 98 07/29/20 04:00 105 07/29/20 01:57 98.3 07/29/20 00:00 97.3 86 18 159/95 (116) 98 07/29/20 00:00 Room Air 07/28/20 23:29 86 07/28/20 21:02 84 143/74 07/28/20 20:00 92 07/28/20 20:00 Room Air 07/28/20 20:00 99.1 99 20 144/82 (102) 99 07/28/20 16:00 98.8 102 19 158/83 (108) 97 07/28/20 16:00 Room Air 07/28/20 15:23 99 Height (Feet): 5 Height (Inches): 0.00 Weight (Pounds): 155 General Appearance: no acute distress HEENT: normocephalic, atraumatic, anicteric Respiratory/Chest: lungs clear, normal breath sounds, no respiratory distress, no accessory muscle use Cardiovascular: normal rate, regular rhythm, regularly irregular, no gallop/murmur Abdomen: normal bowel sounds, soft, non tender, no organomegaly Chest x-ray -07/27/20 - Procedure: XRAY Chest 1v Indication: Cough Technique: One view of the chest Comparison: 07/25/2020 Findings: Lungs and pleural spaces are clear. Heart size is normal. No significant change Impression: No acute process CT abdomen and pelvis: IMPRESSION: 1. No visible intra-abdominal or intrapelvic abscess. 2. Mild wall thickening in the duodenal C-loop. This may represent a mild duodenitis or may be reactive inflammation from a subtle pancreatitis along the duodenal groove. The pancreas otherwise appears unremarkable. Recommend correlation with serum amylase and lipase. 3. Right perinephric stranding. No hydronephrosis or hydroureter. No visible radiodense stones. This raises possibility of UTI or pyelonephritis. Recommend correlation with urinalysis. 4. Bilateral trace pleural effusions. Dependent atelectasis in bilateral lung bases. 5. Status post cholecystectomy. Laboratory Tests Test 07/28/20 17:14 07/28/20 21:01 07/29/20 03:52 07/29/20 06:21 POC Whole Blood Glucose 92 MG/DL (74-106) 89 MG/DL (74-106) 97 MG/DL (74-106) White Blood Count 14.2 K/UL (4.8-10.8) H Red Blood Count 4.26 M/UL (4.20-5.40) Hemoglobin 12.5 G/DL (12.0-16.0) Hematocrit 38.2 % (37.0-47.0) Mean Corpuscular Volume 90 FL (80-99) Mean Corpuscular Hemoglobin 29.4 PG (27.0-31.0) Mean Corpuscular Hemoglobin Concent 32.8 G/DL (32.0-36.0) Red Cell Distribution Width 15.3 % (11.6-14.8) H Platelet Count 135 K/UL (150-450) L Mean Platelet Volume 8.1 FL (6.5-10.1) Neutrophils (%) (Auto) 70.3 % (45.0-75.0) Lymphocytes (%) (Auto) 12.4 % (20.0-45.0) L Monocytes (%) (Auto) 14.3 % (1.0-10.0) H Eosinophils (%) (Auto) 0.4 % (0.0-3.0) Basophils (%) (Auto) 2.6 % (0.0-2.0) H Sodium Level 137 MMOL/L (136-145) Potassium Level 3.1 MMOL/L (3.5-5.1) L Chloride Level 104 MMOL/L (98-107) Carbon Dioxide Level 24 MMOL/L (21-32) Anion Gap 9 mmol/L (5-15) Blood Urea Nitrogen 6 mg/dL (7-18) L Creatinine 0.9 MG/DL (0.55-1.30) Estimat Glomerular Filtration Rate > 60 mL/min (>60) Glucose Level 84 MG/DL (74-106) Calcium Level 7.2 MG/DL (8.5-10.1) L Phosphorus Level 2.3 MG/DL (2.5-4.9) L Magnesium Level 1.8 MG/DL (1.8-2.4) Test 07/29/20 11:25 POC Whole Blood Glucose Pending Current Medications Medications (Trade) Dose Ordered Sig/Gabriel Route PRN Reason Start Time Stop Time Status Last Admin Dose Admin Acetaminophen (Tylenol) 650 mg Q4H PRN ORAL Mild Pain (Pain Scale 1-3) 07/28/20 11:00 08/27/20 10:59 Acetaminophen/ Hydrocodone Bitart ([place] 10) 1 tab Q4H PRN ORAL Severe Pain (Pain Scale 7-10) 07/26/20 09:45 08/02/20 09:44 07/28/20 05:03 Acetaminophen/ Hydrocodone Bitart ([place] 5/325) 1 tab Q4H PRN ORAL Moderate Pain (Pain Scale 4-6) 07/26/20 09:45 08/02/20 09:44 07/29/20 06:19 Alprazolam (Xanax) 1 mg DAILY ORAL 07/26/20 10:00 08/02/20 09:59 07/29/20 08:55 Aspirin (ASA) 81 mg DAILY ORAL 07/25/20 09:00 09/08/20 08:59 07/29/20 08:55 Atorvastatin Calcium (Lipitor) 80 mg DAILY ORAL 07/25/20 09:00 10/23/20 08:59 07/29/20 08:55 Ceftriaxone Sodium 1 gm/ Dextrose 50 ml @ 100 mls/hr Q24H IVPB 07/28/20 14:00 08/04/20 13:59 07/28/20 14:58 Dextrose (Dextrose 50%) 25 ml Q30M PRN IV Hypoglycemia 07/26/20 10:15 10/24/20 10:14 Dextrose (Dextrose 50%) 50 ml Q30M PRN IV Hypoglycemia 07/26/20 10:15 10/24/20 10:14 Docusate Sodium (Colace) 100 mg BID PRN ORAL Constipation 07/27/20 09:15 08/26/20 09:14 Gabapentin (Neurontin) 300 mg TID ORAL 07/25/20 09:00 08/24/20 08:59 07/29/20 08:55 Heparin Sodium (Porcine) (Heparin 5000 units/ml) 5,000 units EVERY 12 HOURS SUBQ 07/27/20 21:00 09/10/20 20:59 07/27/20 21:20 Hydralazine HCl (Apresoline) 10 mg Q4H PRN IV For High Blood Pressure 07/27/20 17:15 10/25/20 17:14 07/27/20 17:49 Insulin Aspart (NovoLOG) BEFORE MEALS AND HS SUBQ 07/26/20 11:30 10/24/20 11:29 Lactated Ringer's 1,000 ml @ 75 mls/hr [id number] IV 07/28/20 07:45 08/27/20 07:44 07/28/20 21:03 Metoprolol Tartrate (Lopressor) 25 mg Q12HR ORAL 07/27/20 21:00 10/25/20 20:59 07/29/20 08:56 Ondansetron HCl (Zofran) 4 mg Q8H PRN IVP Nausea & Vomiting 07/27/20 12:45 08/26/20 12:44 Pantoprazole (Protonix) 40 mg BID ORAL 07/25/20 09:00 08/24/20 08:59 07/29/20 08:55 Prochlorperazine (Compazine) 10 mg Q6H PRN IVP Nausea & Vomiting 07/25/20 12:15 08/24/20 12:14 07/27/20 12:35 Sucralfate (Carafate) 1 gm BEFORE MEALS ORAL 07/25/20 11:30 10/23/20 11:29 07/29/20 11:26 Temazepam (Restoril) 15 mg BEDTIME PRN ORAL Insomnia 07/25/20 05:30 08/01/20 05:29 07/28/20 21:02 Brice Call MD Jul 29, 2020 12:39
--- NOTE | 2020-07-29 12:48 | NUR ---
NURSE NOTES: Per Dr. Call, cancel PICC line insertion, per discussed with Dr. San. Order noted, entered, carried out.
--- NOTE | 2020-07-29 12:49 | NUR ---
NURSE NOTES: Called ext 0526, made aware MD cancelled insertion of PICC.
--- NOTE | 2020-07-29 13:04 | NUR ---
NURSE NOTES: Paged Dr. San regarding unable to administer calcium gluconate at this time. Per MD change to calcium carbonate 650mg PO once, order noted, entered, carried out.
[2020-07-29] MEDS ORDERED: Calcium Carbonate 650mg Tab ORAL SCH (13:13)
--- NOTE | 2020-07-29 13:25 | Diagnostic Imaging Report ---
. Indication: Bilateral lower extremity pain Technique: Grayscale and duplex images of the bilateral lower extremity veins Comparison: Findings: Bilaterally, grayscale and duplex images demonstrate no evidence of intraluminal thrombus. Normal phasic Doppler waveforms, demonstrating normal augmentation response and no evidence of valvular insufficiency. Greater saphenous vein(s) and tibial veins are patent. Normal compressibility. Impression: Negative for evidence of lower extremity deep venous thrombosis bilaterally
[2020-07-29] MEDS: HYDROcodone/Acetamin 10/325 tab ORAL PRN ×2 (14:58→22:57)
--- NOTE | 2020-07-29 15:02 | Cardiac Electrophysiology PN ---
Assessment/Plan Assessment/Plan 1. Non-ST elevation myocardial infarction with troponin peak of 6.9. Now down to 0.714 Denies any chest pain or shortness of breath and ECG shows no ST elevation. The patient however also has renal failure, creatinine 1.4, and she is septic, lactic acid [place] 6.8[place] [address]. EF 65%. Continue on aspirin,Lipitor and Lopressor 25 bid Needs Cardiac cath after sepsis is resolved.Watch on tele. 2. Sinus tachycardia due to sepsis. Already on broad-spectrum IV antibiotics. On Lopressor 3. Hyperlipidemia on Lipitor. 4. Gram neg uti/pyelonephritis, bacteremia/sepsis with WBC 50K, Fever, cough, and body ache. COVID test is negative On iv Abx per Dr Gallego 5. Severe back pain. On prednisone, gabapentin, and Xanax at home. Further evaluation by Rheumatology. 6. Renal failure, creatinine 1.4, resolved Cr 1.0 now DW RN Subjective Subjective Off isolation as Covid PCR is negative. Troponin peak was 6 that is down to 0.714. No CP or SOB. Objective Last 24 Hour Vital Signs Date Time Temp Pulse Resp B/P (MAP) Pulse Ox O2 Delivery O2 Flow Rate FiO2 07/29/20 12:00 86 07/29/20 12:00 96.6 91 16 136/81 (99) 100 07/29/20 12:00 Room Air 07/29/20 08:56 95 156/93 07/29/20 08:00 134 07/29/20 08:00 97.5 95 18 156/93 (114) 100 07/29/20 08:00 Room Air 07/29/20 06:49 98.9 07/29/20 04:00 Room Air 07/29/20 04:00 99.0 110 18 142/93 (109) 98 07/29/20 04:00 105 07/29/20 01:57 98.3 07/29/20 00:00 97.3 86 18 159/95 (116) 98 07/29/20 00:00 Room Air 07/28/20 23:29 86 07/28/20 21:02 84 143/74 07/28/20 20:00 92 07/28/20 20:00 Room Air 07/28/20 20:00 99.1 99 20 144/82 (102) 99 07/28/20 16:00 98.8 102 19 158/83 (108) 97 07/28/20 16:00 Room Air 07/28/20 15:23 99 Intake and Output 07/28/20 07/29/20 19:00 07:00 Intake Total 2016.25 ml 825 ml Output Total 1200 ml 1001 ml Balance 816.25 ml -176 ml Intake Oral 800 ml IV Total 1216.25 ml 825 ml Output Urine Total 1200 ml 1000 ml Stool Total 1 ml Laboratory Tests Test 07/28/20 17:14 07/28/20 21:01 07/29/20 03:52 07/29/20 06:21 POC Whole Blood Glucose 92 MG/DL (74-106) 89 MG/DL (74-106) 97 MG/DL (74-106) White Blood Count 14.2 K/UL (4.8-10.8) H Red Blood Count 4.26 M/UL (4.20-5.40) Hemoglobin 12.5 G/DL (12.0-16.0) Hematocrit 38.2 % (37.0-47.0) Mean Corpuscular Volume 90 FL (80-99) Mean Corpuscular Hemoglobin 29.4 PG (27.0-31.0) Mean Corpuscular Hemoglobin Concent 32.8 G/DL (32.0-36.0) Red Cell Distribution Width 15.3 % (11.6-14.8) H Platelet Count 135 K/UL (150-450) L Mean Platelet Volume 8.1 FL (6.5-10.1) Neutrophils (%) (Auto) 70.3 % (45.0-75.0) Lymphocytes (%) (Auto) 12.4 % (20.0-45.0) L Monocytes (%) (Auto) 14.3 % (1.0-10.0) H Eosinophils (%) (Auto) 0.4 % (0.0-3.0) Basophils (%) (Auto) 2.6 % (0.0-2.0) H Sodium Level 137 MMOL/L (136-145) Potassium Level 3.1 MMOL/L (3.5-5.1) L Chloride Level 104 MMOL/L (98-107) Carbon Dioxide Level 24 MMOL/L (21-32) Anion Gap 9 mmol/L (5-15) Blood Urea Nitrogen 6 mg/dL (7-18) L Creatinine 0.9 MG/DL (0.55-1.30) Estimat Glomerular Filtration Rate > 60 mL/min (>60) Glucose Level 84 MG/DL (74-106) Calcium Level 7.2 MG/DL (8.5-10.1) L Phosphorus Level 2.3 MG/DL (2.5-4.9) L Magnesium Level 1.8 MG/DL (1.8-2.4) Test 07/29/20 11:25 POC Whole Blood Glucose Pending Objective HEAD AND NECK: no JVD. LUNGS: Clear. CARDIOVASCULAR: Regular S1 and S2 with no gallop or murmur, tachycardic. ABDOMEN: Soft. EXTREMITIES: No pitting edema. Augustine Che MD Jul 29, 2020 15:02
[2020-07-29 16:00] VITALS: BP 132/78
--- NOTE | 2020-07-29 16:06 | Nephrology Progress Note ---
Assessment/Plan Plan #Septic shock due to UTi and pyelnephritis #hypokalemia and hypophosphatemia #NSTEMI #MANDY #UTI #Sinus tach #RA - replete K and phos - IV abx-, amikacin - ID eval - follow cx - check COVID PCR neg - ASA - statin - cardiology eval - pain control - hold pred for now - hold infliximab for now Subjective ROS Limited/Unobtainable: No Constitutional: Reports: weakness HEENT: Denies: no symptoms, eye pain, blurred vision, tearing, double vision, ear pain, ear discharge, nose pain, nose congestion, throat pain, throat swelling, mouth pain, mouth swelling, other Genitourinary: Denies: no symptoms, burning, discharge, frequency, flank pain, hematuria, incontinence, pain, urgency, other Neurologic/Psychiatric: Denies: no symptoms, anxiety, depressed, emotional problems, headache, numbness, paresthesia, pre-existing deficit, seizure, tingling, tremors, weakness, other Subjective Complains of diffuse pain WBC now downtrending K and phos low -repleted Objective Objective Last 24 Hour Vital Signs Date Time Temp Pulse Resp B/P (MAP) Pulse Ox O2 Delivery O2 Flow Rate FiO2 07/29/20 12:00 86 07/29/20 12:00 96.6 91 16 136/81 (99) 100 07/29/20 12:00 Room Air 07/29/20 08:56 95 156/93 07/29/20 08:00 134 07/29/20 08:00 97.5 95 18 156/93 (114) 100 07/29/20 08:00 Room Air 07/29/20 06:49 98.9 07/29/20 04:00 Room Air 07/29/20 04:00 99.0 110 18 142/93 (109) 98 07/29/20 04:00 105 07/29/20 01:57 98.3 07/29/20 00:00 97.3 86 18 159/95 (116) 98 07/29/20 00:00 Room Air 07/28/20 23:29 86 07/28/20 21:02 84 143/74 07/28/20 20:00 92 07/28/20 20:00 Room Air 07/28/20 20:00 99.1 99 20 144/82 (102) 99 Intake and Output 07/28/20 07/29/20 19:00 07:00 Intake Total 2016.25 ml 825 ml Output Total 1200 ml 1001 ml Balance 816.25 ml -176 ml Intake Oral 800 ml IV Total 1216.25 ml 825 ml Output Urine Total 1200 ml 1000 ml Stool Total 1 ml Laboratory Tests 07/28/20 17:14: POC Whole Blood Glucose 92 07/28/20 21:01: POC Whole Blood Glucose 89 07/29/20 03:52: White Blood Count 14.2H, Red Blood Count 4.26, Hemoglobin 12.5, Hematocrit 38.2, Mean Corpuscular Volume 90, Mean Corpuscular Hemoglobin 29.4, Mean Corpuscular Hemoglobin Concent 32.8, Red Cell Distribution Width 15.3H, Platelet Count 135L, Mean Platelet Volume 8.1, Neutrophils (%) (Auto) 70.3, Lymphocytes (%) (Auto) 12.4L, Monocytes (%) (Auto) 14.3H, Eosinophils (%) (Auto) 0.4, Basophils (%) (Au to) 2.6H, Sodium Level 137, Potassium Level 3.1L, Chloride Level 104, Carbon Dioxide Level 24, Anion Gap 9, Blood Urea Nitrogen 6L, Creatinine 0.9, Estimat Glomerular Filtration Rate > 60, Glucose Level 84, Calcium Level 7.2L, Phosphorus Level 2.3L, Magnesium Level 1.8 07/29/20 06:21: POC Whole Blood Glucose 97 07/29/20 11:25: POC Whole Blood Glucose [Pending] Height (Feet): 5 Height (Inches): 0.00 Weight (Pounds): 155 Ross Cates M.D. Jul 29, 2020 16:06
[2020-07-29] MEDS: cefTRIAXone 1 GM in D5W 50 ML IVPB SCH (16:30)
--- NOTE | 2020-07-29 16:34 | NUR ---
DISCHARGE PLANNING PATIENT IS CURRENTLY ON SERVICE WITH [facility] T: [phone]
--- NOTE | 2020-07-29 16:42 | NUR ---
NURSE NOTES: Per Dr. Cates, change IV potassium phosphate to PO phos neutral 500mg once. Carried out the order. Will continue plan of care.
[2020-07-29] MEDS ORDERED: Phospha 250 Neutral tab ORAL SCH (16:45)
[2020-07-29] MEDS ORDERED: Potassium Phosphate 15mm/250ml 250 ML IVPB ONE (17:00)
--- NOTE | 2020-07-29 17:04 | Surgery Progress Note ---
Surgery Progress Note Subjective Additional Comments labs noted exam stable comfortable appearing Objective Last 24 Hour Vital Signs Date Time Temp Pulse Resp B/P (MAP) Pulse Ox O2 Delivery O2 Flow Rate FiO2 07/29/20 12:00 86 07/29/20 12:00 96.6 91 16 136/81 (99) 100 07/29/20 12:00 Room Air 07/29/20 08:56 95 156/93 07/29/20 08:00 134 07/29/20 08:00 97.5 95 18 156/93 (114) 100 07/29/20 08:00 Room Air 07/29/20 06:49 98.9 07/29/20 04:00 Room Air 07/29/20 04:00 99.0 110 18 142/93 (109) 98 07/29/20 04:00 105 07/29/20 01:57 98.3 07/29/20 00:00 97.3 86 18 159/95 (116) 98 07/29/20 00:00 Room Air 07/28/20 23:29 86 07/28/20 21:02 84 143/74 07/28/20 20:00 92 07/28/20 20:00 Room Air 07/28/20 20:00 99.1 99 20 144/82 (102) 99 I&O Intake and Output 07/28/20 07/29/20 19:00 07:00 Intake Total 2016.25 ml 825 ml Output Total 1200 ml 1001 ml Balance 816.25 ml -176 ml Intake Oral 800 ml IV Total 1216.25 ml 825 ml Output Urine Total 1200 ml 1000 ml Stool Total 1 ml Dressing: saturated Cardiovascular: RSR Respiratory: decreased breath sounds Abdomen: non-tender, present bowel sounds Extremities: no edema, no tenderness, no cyanosis Laboratory Tests Test 07/28/20 17:14 07/28/20 21:01 07/29/20 03:52 07/29/20 06:21 POC Whole Blood Glucose 92 MG/DL (74-106) 89 MG/DL (74-106) 97 MG/DL (74-106) White Blood Count 14.2 K/UL (4.8-10.8) H Red Blood Count 4.26 M/UL (4.20-5.40) Hemoglobin 12.5 G/DL (12.0-16.0) Hematocrit 38.2 % (37.0-47.0) Mean Corpuscular Volume 90 FL (80-99) Mean Corpuscular Hemoglobin 29.4 PG (27.0-31.0) Mean Corpuscular Hemoglobin Concent 32.8 G/DL (32.0-36.0) Red Cell Distribution Width 15.3 % (11.6-14.8) H Platelet Count 135 K/UL (150-450) L Mean Platelet Volume 8.1 FL (6.5-10.1) Neutrophils (%) (Auto) 70.3 % (45.0-75.0) Lymphocytes (%) (Auto) 12.4 % (20.0-45.0) L Monocytes (%) (Auto) 14.3 % (1.0-10.0) H Eosinophils (%) (Auto) 0.4 % (0.0-3.0) Basophils (%) (Auto) 2.6 % (0.0-2.0) H Sodium Level 137 MMOL/L (136-145) Potassium Level 3.1 MMOL/L (3.5-5.1) L Chloride Level 104 MMOL/L (98-107) Carbon Dioxide Level 24 MMOL/L (21-32) Anion Gap 9 mmol/L (5-15) Blood Urea Nitrogen 6 mg/dL (7-18) L Creatinine 0.9 MG/DL (0.55-1.30) Estimat Glomerular Filtration Rate > 60 mL/min (>60) Glucose Level 84 MG/DL (74-106) Calcium Level 7.2 MG/DL (8.5-10.1) L Phosphorus Level 2.3 MG/DL (2.5-4.9) L Magnesium Level 1.8 MG/DL (1.8-2.4) Test 07/29/20 11:25 POC Whole Blood Glucose Pending Plan Problems: (1) Hypokalemia (2) Rheumatoid arthritis (3) Rheumatoid arthritis (4) Rheumatoid arthritis (5) Fatty liver (6) Joint pain (7) Urinary retention (8) Anemia (9) Anxiety (10) Anxiety (11) Arthritis (12) Generalized weakness (13) CAD (coronary artery disease) (14) Cough (15) Cough (16) Diarrhea (17) Diverticulitis (18) Diverticulosis (19) Gastritis (20) Gastroenteritis (21) Infection (22) Leukocytosis (23) Leukocytosis Assessment & Plan: 65-year-old female with abdominal pain lactic acidosis leukocytosis elevated liver enzymes trend febrile septic admitted for the care management IV antibiotics per infectious disease currently no imaging pending. Labs noted lactic acidosis improved with fluids UTI noted likely urosepsis.. Abdominal examination fairly benign no nausea vomiting. Okay for diet IV fluids KUB ordered Ultrasound ordered given liver enzyme elevation Elevated liver enzymes trend Unlikely bowel insult or ischemia. We will follow with recommendations thank you Mehran adame patient's care kub and us okay diet okay bowel regimen labs improved (24) Leukocytosis (25) Sepsis Assessment & Plan: iv abx iv fluids trend labs imaging ordered will follow with rec Liver: Diffusely hypodense liver, suggesting fatty infiltration. Gallbladder and bile ducts: Status post cholecystectomy. No ductal dilation. Pancreas: Unremarkable. No ductal dilation. Spleen: Unremarkable. No splenomegaly. Adrenals: Unremarkable. No mass. Kidneys and ureters: Right perinephric stranding. No hydronephrosis or hydroureter. No visible radiodense stones. Stomach and bowel: Mild wall thickening in the duodenal C-loop. Postsurgical changes in the rectosigmoid junction. Colon and small bowel otherwise appear unremarkable. No evidence of bowel obstruction. PELVIS: Appendix: No findings to suggest acute appendicitis. Bladder: Unremarkable. No stones. Reproductive: The uterus and ovaries are not visualized and may be surgically absent. ABDOMEN and PELVIS: Intraperitoneal space: Unremarkable. No free air. No significant fluid collection. Bones/joints: Multilevel degenerative disc space loss. No acute fracture. No dislocation. Soft tissues: Unremarkable. Vasculature: Unremarkable. No abdominal aortic aneurysm. Lymph nodes: Unremarkable. No enlarged lymph nodes. Other findings: No visible intra-abdominal or intrapelvic abscess. IMPRESSION: 1. No visible intra-abdominal or intrapelvic abscess. 2. Mild wall thickening in the duodenal C-loop. This may represent a mild duodenitis or may be reactive inflammation from a subtle pancreatitis along the duodenal groove. The pancreas otherwise appears unremarkable. Recommend correlation with serum amylase and lipase. 3. Right perinephric stranding. No hydronephrosis or hydroureter. No visible radiodense stones. This raises possibility of UTI or pyelonephritis. Recommend correlation with urinalysis. 4. Bilateral trace pleural effusions. Dependent atelectasis in bilateral lung bases. 5. Status post cholecystectomy.a (26) UTI (urinary tract infection) (27) Reflux esophagitis (28) Abdominal pain (29) Abdominal pain (30) Abdominal pain (31) Abdominal pain (32) Abdominal pain (33) Bronchitis (34) Chest pain (35) Chest pain (36) Chest pain (37) Hemorrhoids (38) Vomiting (39) Multiple joint pain (40) Acute gastrointestinal bleeding (41) Acute gastrointestinal bleeding (42) Acute gastrointestinal bleeding (43) Acute gastrointestinal bleeding (44) Hepatic steatosis (45) Nausea & vomiting (46) Dehydration, moderate (47) Reflux gastritis (48) C. 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
--- NOTE | 2020-07-29 17:41 | NUR ---
INSURANCE CLINICALS/PROGRESS NOTES FAXED TO [facility] (07/25-07/29) FX [phone] PH [phone] FX [phone] PH [phone]
--- NOTE | 2020-07-29 18:00 | NUR ---
NURSE NOTES: Dr. Kimble and Dr. Cates made aware only IV on right axillary, unable to administer IVF. No new order received at this time, will continue to monitor.
--- NOTE | 2020-07-29 18:40 | NUR ---
TRANSFER TO FLOOR: Patient transferred to 2E , per Dr. San. Report given to YOGI Cancino. Belongings and medications given to YOGI Cancino . Family and or S/O informed of transfer.
--- NOTE | 2020-07-29 18:43 | NUR ---
NURSE NOTES: pt received from Talya CALIX. Pt in bed stable. bed low and locked. Call light within reach. vitals as follows 156/70, 89bpm, 18 resp, 96% on RA. 97.8 temp. Pain 9/10in lower back and legs. Will provide pain medication.
--- NOTE | 2020-07-29 18:52 | NUR ---
NURSE NOTES: Per Dr. San , discontinue IVF, order noted, entered, carried out.
--- NOTE | 2020-07-29 18:59 | NUR ---
NURSE HAND-OFF REPORT: Important Events on Shift:[Transferred to [facility] at 1830. pain 9/10 in back and legs. [place] 5 given] Patient Status: [in bed stable awake alert] Diet: [Cardiac] Pending Orders: [] Pending Results/Labs:[] Pending MD notification:[] Latest Vital Signs: Temperature 96.8 , Pulse 97 , B/P 132 /78 , Respiratory Rate 16 , O2 SAT 98 , Room Air, O2 Flow Rate . Vital Sign Comment: [] EKG Rhythm: Sinus Rhythm Rhythm change?: N Notified?: N -Dr. Darryn ARIAS Response: Order Received& Read Back Latest Perez Fall Score: 50 Fall Risk: High Risk Safety Measures: Call light Within Reach, Bed Alarm Zone 2, Side Rails Side Rails x2, Bed position Low and Locked. Fall Precautions: Yellow Socks Patient Fall Education Report given to [Pending RN assignment]. Addendum: 07/29/20 at 1926 by Julita Tovar RN Report given to Therese CALIX
--- NOTE | 2020-07-29 19:10 | NUR ---
NURSE NOTES: RECEIVED REPORT FROM YOGI RIOS. PATIENT IS AWAKE IN BED, OX4, VERBALLY RESPONSIVE AND ABLE TO MAKE NEEDS KNOWN. PATIENT COMPLAINS OF FLANK PAIN, BUT STATES IT IS TOLERABLE AND CAN WAIT UNTIL NEXT PAIN MEDICATION DOSE. 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 BREATHING IS EVEN AND UNLABORED ON ROOM AIR, NO S/SX OF DISTRESS NOTED AT THIS TIME. IV SITE ON RIGHT AXILLARY PATENT, INTACT, ASYMPTOMATIC, AND SALINE-LOCKED. PUREWICK IN PLACE, DRAINING WELL TO WALL SUCTION. EDUCATED PATIENT ON FALL PREVENTION- REMINDED PATIENT TO CALL FOR ASSISTANCE PRIOR TO GETTING OOB TO USE BSC. BED LOCKED AND IN LOWEST POSITION, SIDERAILS UP X 2. CALL LIGHT WITHIN REACH, WILL CONTINUE TO MONITOR PER POC.
[2020-07-29 20:00] VITALS: BP 138/78
--- NOTE | 2020-07-29 20:30 | NUR ---
NURSE NOTES: PATIENT REPORTED HAVING "A LITTLE BLOOD" COME OUT FROM HER NOSE WHEN SHE SNEEZED; UNABLE TO ASSESS/RECORD AMOUNT OF BLOOD PATIENT ALREADY THREW AWAY TISSUE PAPER. PER PATIENT, SHE IS NO LONGER BLEEDING AND HAS NOT NOTICED ANY OTHER S/SX OF UNUSUAL BLEEDING. HEPARIN HELD. WILL CONTINUE TO MONITOR.
[2020-07-30] VITALS: BP 130/49
[2020-07-30] MEDS: HYDROcodone/Acetamin 10/325 tab ORAL PRN ×4 (03:11→21:11)
[2020-07-30 04:00] VITALS: BP 154/52
[2020-07-30] MEDS: Sucralfate 1gm tab ORAL SCH ×3 (06:14→17:10)
[2020-07-30] MEDS: HYDROcodone/Acetamin 5/325 tab ORAL PRN (06:15)
[2020-07-30] MEDS: NovoLOG Insulin Flexpen SUBQ SCH ×4 (06:15→20:54)
--- NOTE | 2020-07-30 06:28 | NUR ---
NURSE HAND-OFF REPORT: Important Events on Shift: TRANSFER FROM SDU, PATIENT REPORTS HAVING "A LITTLE BLOOD" WHEN SNEEZING, PAIN MANAGEMENT Patient Status: STABLE Diet: CARDIAC Pending Orders: POSSIBLE DC HOME WITH HH PENDING ID CLEARANCE Pending Results/Labs: AM LABS Pending notification: N/A Latest Vital Signs: Temperature 99.3 , Pulse 86 , B/P 154 /52 , Respiratory Rate 16 , O2 SAT 97 , Room Air, O2 Flow Rate . Vital Sign Comment: STABLE EKG Rhythm: Sinus Rhythm Rhythm change?: N Notified?: N -Dr. Darryn ARIAS Response: Order Received& Read Back Latest Perez Fall Score: 50 Fall Risk: High Risk Safety Measures: Call light Within Reach, Bed Alarm Zone 1, Side Rails Side Rails x2, Bed position Low and Locked. Fall Precautions: Yellow Socks Yellow Gown Patient Fall Education Report given to WILL AMEND ONCE REPORT GIVEN TO ASSIGNED NURSE. Addendum: 07/30/20 at 0800 by Therese Bianchi RN REPORT GIVEN TO YOGI ONTIVEROS.
[2020-07-30 07:39] LABS: BASOPHILS % (AUTO) 1.5 % (0.0-2.0); EOSINOPHILS % (AUTO) 1.4 % (0.0-3.0); HEMATOCRIT 36.6 % (37.0-47.0); HEMOGLOBIN 12.6 G/DL (12.0-16.0); MEAN CORPUSCULAR VOLUME 87 FL (80-99); NEUTROPHILS % (AUTO) 57.2 % (45.0-75.0); PLATELET COUNT 215 K/UL (150-450); RED BLOOD COUNT 4.19 M/UL (4.20-5.40); RED CELL DISTRIBUTION WIDTH 15.1 % (11.6-14.8); WHITE BLOOD COUNT 11.2 K/UL (4.8-10.8)
[2020-07-30 07:46] LABS: ANION GAP 9 mmol/L (5-15); BLOOD UREA NITROGEN 5 mg/dL (7-18); CALCIUM 7.7 MG/DL (8.5-10.1); CARBON DIOXIDE 26 MMOL/L (21-32); CHLORIDE 106 MMOL/L (98-107); CREATININE 0.8 MG/DL (0.55-1.30); POTASSIUM 2.9 MMOL/L (3.5-5.1); SODIUM 140 MMOL/L (136-145)
--- NOTE | 2020-07-30 07:51 | NUR ---
CASE MANAGEMENT:REVIEW 07/29/20 SI: SEPSIS D/T E COLI BACTEREMIA. NSTEMI 99.0 110 18 142/93 98% ON RA WBC+14.2 K-3.1 PHOS-2.3 IS: CA CARB PO X1 K-DUR PO X1 IV ROCEPHIN Q24 HEPARIN SQ Q12 : STEP DOWN UNIT DCP: FROM HOME
--- NOTE | 2020-07-30 07:59 | NUR ---
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
[2020-07-30 08:00] VITALS: BP 151/65
--- NOTE | 2020-07-30 08:35 | NUR ---
NURSE NOTES: pt in bed, pt complained a chest tightness but no shortness of breath, reassessed pt. she states she feels better. pt on cloth spreader. notified doctor Darryn of pt's latest labs. Bed in lowest position locked. Call light within reach. will continue to monitor .
[2020-07-30] MEDS: Aspirin Baby 81mg ORAL SCH (09:00)
[2020-07-30] MEDS: Heparin 5000 units/ml inj SUBQ SCH ×2 (09:00→20:55)
[2020-07-30] MEDS: ALPRAZolam 0.5mg tab ORAL SCH (09:01)
[2020-07-30] MEDS: Atorvastatin 80mg tab ORAL SCH (09:01)
--- NOTE | 2020-07-30 10:58 | Pulmonology Progress Note ---
Subjective ROS Limited/Unobtainable: No Interval Events: None new Constitutional: Denies: fever HEENT: Repors: no symptoms Respiratory: Reports: no symptoms Cardiovascular: Reports: no symptoms Gastrointestinal/Abdominal: Denies: nausea Psychiatric: Denies: depression Skin: Denies: rash Musculoskeletal: Denies: pain Allergies: Coded Allergies: HYDROCODONE BIT (Verified Allergy, Severe, Hives, 05/16/13) Objective Last 24 Hour Vital Signs Date Time Temp Pulse Resp B/P (MAP) Pulse Ox O2 Delivery O2 Flow Rate FiO2 07/30/20 09:02 86 151/65 07/30/20 08:00 98.4 86 16 151/65 (93) 98 07/30/20 04:00 84 07/30/20 04:00 99.3 86 16 154/52 (86) 97 07/30/20 01:01 99.0 07/30/20 00:00 84 07/30/20 00:00 100.4 83 16 130/49 (76) 97 07/29/20 21:00 Room Air 07/29/20 20:41 90 138/78 07/29/20 20:00 96 07/29/20 20:00 99.3 86 17 138/78 (98) 97 07/29/20 19:20 96.8 07/29/20 16:00 97 07/29/20 16:00 Room Air 07/29/20 16:00 96.8 92 16 132/78 (96) 98 07/29/20 12:00 86 07/29/20 12:00 96.6 91 16 136/81 (99) 100 07/29/20 12:00 Room Air Intake and Output 07/29/20 07/30/20 19:00 07:00 Intake Total 675 ml 480 ml Output Total 300 ml 500 ml Balance 375 ml -20 ml Intake Oral 400 ml 480 ml IV Total 275 ml Output Urine Total 300 ml 500 ml # Voids 4 # Bowel Movements 4 General Appearance: no acute distress HEENT: normocephalic Respiratory: chest wall non-tender, lungs clear Cardiovascular: normal peripheral pulses, normal rate Abdomen: normal bowel sounds Laboratory Tests 07/29/20 11:25: POC Whole Blood Glucose [Pending] 07/29/20 17:13: POC Whole Blood Glucose 120H 07/29/20 20:38: POC Whole Blood Glucose 110H 07/30/20 06:01: POC Whole Blood Glucose 110H 07/30/20 06:11: White Blood Count 11.2H, Red Blood Count 4.19L, Hemoglobin 12.6, Hematocrit 36.6L, Mean Corpuscular Volume 87, Mean Corpuscular Hemoglobin 30.1, Mean Corpuscular Hemoglobin Concent 34.4, Red Cell Distribution Width 15.1H, Platelet Count 215#, Mean Platelet Volume 8.0, Neutrophils (%) (Auto) 57.2, Lymphocytes (%) (Auto) 28.0, Monocytes (%) (Auto) 12.0H, Eosinophils (%) (Auto) 1.4, Basophils (%) (Auto) 1.5, Sodium Level 140, Potassium Level 2.9L, Chloride Level 106, Carbon Dioxide Level 26, Anion Gap 9, Blood Urea Nitrogen 5L, Creatinine 0.8, Estimat Glomerular Filtration Rate > 60, Glucose Level 103, Calcium Level 7.7L, Magnesium Level 2.0 07/30/20 10:54: POC Whole Blood Glucose 115H Current Medications Medications (Trade) Dose Ordered Sig/Gabriel Route PRN Reason Start Time Stop Time Status Last Admin Dose Admin Acetaminophen (Tylenol) 650 mg Q4H PRN ORAL Mild Pain (Pain Scale 1-3) 07/28/20 11:00 08/27/20 10:59 07/30/20 00:31 Acetaminophen/ Hydrocodone Bitart ([place] 10/325) 1 tab Q4H PRN ORAL Severe Pain (Pain Scale 7-10) 07/26/20 09:45 08/02/20 09:44 07/30/20 09:02 Acetaminophen/ Hydrocodone Bitart ([place] 5/325) 1 tab Q4H PRN ORAL Moderate Pain (Pain Scale 4-6) 07/26/20 09:45 08/02/20 09:44 07/30/20 06:15 Alprazolam (Xanax) 1 mg DAILY ORAL 07/26/20 10:00 08/02/20 09:59 07/30/20 09:01 Aspirin (ASA) 81 mg DAILY ORAL 07/25/20 09:00 09/08/20 08:59 07/30/20 09:00 Atorvastatin Calcium (Lipitor) 80 mg DAILY ORAL 07/25/20 09:00 10/23/20 08:59 07/30/20 09:01 Ceftriaxone Sodium 1 gm/ Dextrose 50 ml @ 100 mls/hr Q24H IVPB 07/28/20 14:00 08/04/20 13:59 07/29/20 16:30 Dextrose (Dextrose 50%) 25 ml Q30M PRN IV Hypoglycemia 07/26/20 10:15 10/24/20 10:14 Dextrose (Dextrose 50%) 50 ml Q30M PRN IV Hypoglycemia 07/26/20 10:15 10/24/20 10:14 Docusate Sodium (Colace) 100 mg BID PRN ORAL Constipation 07/27/20 09:15 08/26/20 09:14 Gabapentin (Neurontin) 300 mg TID ORAL 07/25/20 09:00 08/24/20 08:59 07/30/20 09:01 Heparin Sodium (Porcine) (Heparin 5000 units/ml) 5,000 units EVERY 12 HOURS SUBQ 07/27/20 21:00 09/10/20 20:59 07/30/20 09:00 Hydralazine HCl (Apresoline) 10 mg Q4H PRN IV For High Blood Pressure 07/27/20 17:15 10/25/20 17:14 07/27/20 17:49 Insulin Aspart (NovoLOG) BEFORE MEALS AND HS SUBQ 07/26/20 11:30 10/24/20 11:29 Metoprolol Tartrate (Lopressor) 25 mg Q12HR ORAL 07/27/20 21:00 10/25/20 20:59 07/30/20 09:02 Ondansetron HCl (Zofran) 4 mg Q8H PRN IVP Nausea & Vomiting 07/27/20 12:45 08/26/20 12:44 Pantoprazole (Protonix) 40 mg BID ORAL 07/25/20 09:00 08/24/20 08:59 07/30/20 09:01 Potassium Chloride (K-Dur) 60 meq ONCE ORAL 07/30/20 10:15 07/30/20 11:00 Prochlorperazine (Compazine) 10 mg Q6H PRN IVP Nausea & Vomiting 07/25/20 12:15 08/24/20 12:14 07/27/20 12:35 Sucralfate (Carafate) 1 gm BEFORE MEALS ORAL 07/25/20 11:30 10/23/20 11:29 07/30/20 06:14 Temazepam (Restoril) 15 mg BEDTIME PRN ORAL Insomnia 07/25/20 05:30 08/01/20 05:29 07/29/20 20:40 Assessment/Plan Assessment/Plan IMPRESSION: 1. Non-ST elevation NV. 2. Rheumatoid arthritis. 3. Hypokalemia. 4. Marked leukocytosis. Improved to 14 K now DISCUSSION: Broad spectrum abx for pyelonephritis Saturating well on RA Zuly Fernández Omar Syed MD Jul 30, 2020 10:58
--- NOTE | 2020-07-30 11:10 | NUR ---
RD ASSESSMENT & RECOMMENDATIONS SEE CARE ACTIVITY FOR COMPLETE ASSESSMENT DAILY ESTIMATED NEEDS: Needs based on Sepsis, obese 51.8kg abw 25-30kcal/kg kcals/kg 0598-7789 total kcals 1-2 g protein/kg 52-104 g total protein 25-30 mL/kg 1997-1942 total fluid mLs NUTRITION DIAGNOSIS: Altered nutrition related lab values R/T Sepsis as evidence by WBC on adm 32.3, now trending down, febrile (Tmax 100.4). CURRENT DIET:cardiac PO DIET RECOMMENDATIONS: Low Na diet/ liberalized w/ variable po intake ADDITIONAL RECOMMENDATIONS: 1) Add Glucerna 1 tetra BID in b/w meals 2) Maintain calibrated bed scale wts 3) replete lytes as needed (Low K) 4) W/ elev BG and >50% po intake rec carb control diet
--- NOTE | 2020-07-30 11:21 | Cardiac Electrophysiology PN ---
Assessment/Plan Assessment/Plan 1. Non-ST elevation myocardial infarction with troponin peak of 6.9. Now down to 0.714 Denies any chest pain or shortness of breath and ECG shows no ST elevation. The patient however also has renal failure, creatinine 1.4, and she is septic, lactic acid [place] 6.8[place] [address]. EF 65%. Continue on aspirin,Lipitor and Lopressor 25 bid Will transfer to [facility] for Cardiac cath 2. Sinus tachycardia due to sepsis. Already on antibiotics. On Lopressor 3. Hyperlipidemia on Lipitor. 4. Gram neg uti/pyelonephritis, bacteremia/sepsis with WBC 50K, Fever, cough, and body ache. COVID test is negative On iv Abx per Dr Gallego that is now will be changed to PO 5. Severe back pain. On prednisone, gabapentin, and Xanax at home. Further evaluation by Rheumatology. 6. Renal failure, creatinine 1.4, resolved Cr 1.0 now DW RN and Transfer Ctr Subjective Subjective Off isolation as Covid PCR is negative. Troponin peak was 6.9 that is down to 0.714. No CP or SOB. Iv Abx is being changed to PO. at bedside Objective Last 24 Hour Vital Signs Date Time Temp Pulse Resp B/P (MAP) Pulse Ox O2 Delivery O2 Flow Rate FiO2 07/30/20 09:02 86 151/65 07/30/20 08:00 98.4 86 16 151/65 (93) 98 07/30/20 04:00 84 07/30/20 04:00 99.3 86 16 154/52 (86) 97 07/30/20 01:01 99.0 07/30/20 00:00 84 07/30/20 00:00 100.4 83 16 130/49 (76) 97 07/29/20 21:00 Room Air 07/29/20 20:41 90 138/78 07/29/20 20:00 96 07/29/20 20:00 99.3 86 17 138/78 (98) 97 07/29/20 19:20 96.8 07/29/20 16:00 97 07/29/20 16:00 Room Air 07/29/20 16:00 96.8 92 16 132/78 (96) 98 07/29/20 12:00 86 07/29/20 12:00 96.6 91 16 136/81 (99) 100 07/29/20 12:00 Room Air Intake and Output 07/29/20 07/30/20 19:00 07:00 Intake Total 675 ml 480 ml Output Total 300 ml 500 ml Balance 375 ml -20 ml Intake Oral 400 ml 480 ml IV Total 275 ml Output Urine Total 300 ml 500 ml # Voids 4 # Bowel Movements 4 Laboratory Tests Test 07/29/20 11:25 07/29/20 17:13 07/29/20 20:38 07/30/20 06:01 POC Whole Blood Glucose Pending 120 MG/DL (74-106) H 110 MG/DL (74-106) H 110 MG/DL (74-106) H Test 07/30/20 06:11 07/30/20 10:54 White Blood Count 11.2 K/UL (4.8-10.8) H Red Blood Count 4.19 M/UL (4.20-5.40) L Hemoglobin 12.6 G/DL (12.0-16.0) Hematocrit 36.6 % (37.0-47.0) L Mean Corpuscular Volume 87 FL (80-99) Mean Corpuscular Hemoglobin 30.1 PG (27.0-31.0) Mean Corpuscular Hemoglobin Concent 34.4 G/DL (32.0-36.0) Red Cell Distribution Width 15.1 % (11.6-14.8) H Platelet Count 215 K/UL (150-450) # Mean Platelet Volume 8.0 FL (6.5-10.1) Neutrophils (%) (Auto) 57.2 % (45.0-75.0) Lymphocytes (%) (Auto) 28.0 % (20.0-45.0) Monocytes (%) (Auto) 12.0 % (1.0-10.0) H Eosinophils (%) (Auto) 1.4 % (0.0-3.0) Basophils (%) (Auto) 1.5 % (0.0-2.0) Sodium Level 140 MMOL/L (136-145) Potassium Level 2.9 MMOL/L (3.5-5.1) L Chloride Level 106 MMOL/L (98-107) Carbon Dioxide Level 26 MMOL/L (21-32) Anion Gap 9 mmol/L (5-15) Blood Urea Nitrogen 5 mg/dL (7-18) L Creatinine 0.8 MG/DL (0.55-1.30) Estimat Glomerular Filtration Rate > 60 mL/min (>60) Glucose Level 103 MG/DL (74-106) Calcium Level 7.7 MG/DL (8.5-10.1) L Magnesium Level 2.0 MG/DL (1.8-2.4) POC Whole Blood Glucose 115 MG/DL (74-106) H Objective HEAD AND NECK: No JVD. LUNGS: Clear. CARDIOVASCULAR: Regular S1 and S2 with no gallop or murmur, tachycardic. ABDOMEN: Soft. EXTREMITIES: No pitting edema. Augustine Che MD Jul 30, 2020 11:21
--- NOTE | 2020-07-30 11:57 | Surgery Progress Note ---
Surgery Progress Note Subjective Additional Comments no acute events labs noted pending transfer comfortable Objective Last 24 Hour Vital Signs Date Time Temp Pulse Resp B/P (MAP) Pulse Ox O2 Delivery O2 Flow Rate FiO2 07/30/20 09:02 86 151/65 07/30/20 08:00 98.4 86 16 151/65 (93) 98 07/30/20 04:00 84 07/30/20 04:00 99.3 86 16 154/52 (86) 97 07/30/20 01:01 99.0 07/30/20 00:00 84 07/30/20 00:00 100.4 83 16 130/49 (76) 97 07/29/20 21:00 Room Air 07/29/20 20:41 90 138/78 07/29/20 20:00 96 07/29/20 20:00 99.3 86 17 138/78 (98) 97 07/29/20 19:20 96.8 07/29/20 16:00 97 07/29/20 16:00 Room Air 07/29/20 16:00 96.8 92 16 132/78 (96) 98 07/29/20 12:00 86 07/29/20 12:00 96.6 91 16 136/81 (99) 100 07/29/20 12:00 Room Air I&O Intake and Output 07/29/20 07/30/20 19:00 07:00 Intake Total 675 ml 480 ml Output Total 300 ml 500 ml Balance 375 ml -20 ml Intake Oral 400 ml 480 ml IV Total 275 ml Output Urine Total 300 ml 500 ml # Voids 4 # Bowel Movements 4 Dressing: other Wound: other Cardiovascular: RSR Respiratory: decreased breath sounds Abdomen: non-tender, present bowel sounds Extremities: no edema, no tenderness, no cyanosis Laboratory Tests Test 07/29/20 17:13 07/29/20 20:38 07/30/20 06:01 07/30/20 06:11 POC Whole Blood Glucose 120 MG/DL (74-106) H 110 MG/DL (74-106) H 110 MG/DL (74-106) H White Blood Count 11.2 K/UL (4.8-10.8) H Red Blood Count 4.19 M/UL (4.20-5.40) L Hemoglobin 12.6 G/DL (12.0-16.0) Hematocrit 36.6 % (37.0-47.0) L Mean Corpuscular Volume 87 FL (80-99) Mean Corpuscular Hemoglobin 30.1 PG (27.0-31.0) Mean Corpuscular Hemoglobin Concent 34.4 G/DL (32.0-36.0) Red Cell Distribution Width 15.1 % (11.6-14.8) H Platelet Count 215 K/UL (150-450) # Mean Platelet Volume 8.0 FL (6.5-10.1) Neutrophils (%) (Auto) 57.2 % (45.0-75.0) Lymphocytes (%) (Auto) 28.0 % (20.0-45.0) Monocytes (%) (Auto) 12.0 % (1.0-10.0) H Eosinophils (%) (Auto) 1.4 % (0.0-3.0) Basophils (%) (Auto) 1.5 % (0.0-2.0) Sodium Level 140 MMOL/L (136-145) Potassium Level 2.9 MMOL/L (3.5-5.1) L Chloride Level 106 MMOL/L (98-107) Carbon Dioxide Level 26 MMOL/L (21-32) Anion Gap 9 mmol/L (5-15) Blood Urea Nitrogen 5 mg/dL (7-18) L Creatinine 0.8 MG/DL (0.55-1.30) Estimat Glomerular Filtration Rate > 60 mL/min (>60) Glucose Level 103 MG/DL (74-106) Calcium Level 7.7 MG/DL (8.5-10.1) L Magnesium Level 2.0 MG/DL (1.8-2.4) Test 07/30/20 10:54 POC Whole Blood Glucose 115 MG/DL (74-106) H Plan Problems: (1) Hypokalemia (2) Rheumatoid arthritis (3) Rheumatoid arthritis (4) Rheumatoid arthritis (5) Fatty liver (6) Joint pain (7) Urinary retention (8) Anemia (9) Anxiety (10) Anxiety (11) Arthritis (12) Generalized weakness (13) CAD (coronary artery disease) (14) Cough (15) Cough (16) Diarrhea (17) Diverticulitis (18) Diverticulosis (19) Gastritis (20) Gastroenteritis (21) Infection (22) Leukocytosis (23) Leukocytosis Assessment & Plan: 65-year-old female with abdominal pain lactic acidosis leukocytosis elevated liver enzymes trend febrile septic admitted for the care management IV antibiotics per infectious disease currently no imaging pending. Labs noted lactic acidosis improved with fluids UTI noted likely urosepsis.. Abdominal examination fairly benign no nausea vomiting. Okay for diet IV fluids KUB ordered Ultrasound ordered given liver enzyme elevation Elevated liver enzymes trend Unlikely bowel insult or ischemia. We will follow with recommendations thank you Mehran adame patient's care kub and us okay diet okay bowel regimen labs improved DAILY ESTIMATED NEEDS: Needs based on Sepsis, obese 51.8kg abw 25-30kcal/kg kcals/kg 5927-2190 total kcals 1-2 g protein/kg 52-104 g total protein 25-30 mL/kg 9413-0433 total fluid mLs NUTRITION DIAGNOSIS: Altered nutrition related lab values R/T Sepsis as evidence by WBC on adm 32.3, now trending down, febrile (Tmax 100.4). CURRENT DIET:cardiac PO DIET RECOMMENDATIONS: Low Na diet/ liberalized w/ variable po intake ADDITIONAL RECOMMENDATIONS: 1) Add Glucerna 1 tetra BID in b/w meals 2) Maintain calibrated bed scale wts 3) replete lytes as needed (Low K) 4) W/ elev BG and >50% po intake rec carb control diet (24) Leukocytosis (25) Sepsis Assessment & Plan: iv abx iv fluids trend labs imaging ordered will follow with rec Liver: Diffusely hypodense liver, suggesting fatty infiltration. Gallbladder and bile ducts: Status post cholecystectomy. No ductal dilation. Pancreas: Unremarkable. No ductal dilation. Spleen: Unremarkable. No splenomegaly. Adrenals: Unremarkable. No mass. Kidneys and ureters: Right perinephric stranding. No hydronephrosis or hydroureter. No visible radiodense stones. Stomach and bowel: Mild wall thickening in the duodenal C-loop. Postsurgical changes in the rectosigmoid junction. Colon and small bowel otherwise appear unremarkable. No evidence of bowel obstruction. PELVIS: Appendix: No findings to suggest acute appendicitis. Bladder: Unremarkable. No stones. Reproductive: The uterus and ovaries are not visualized and may be surgically absent. ABDOMEN and PELVIS: Intraperitoneal space: Unremarkable. No free air. No significant fluid collection. Bones/joints: Multilevel degenerative disc space loss. No acute fracture. No dislocation. Soft tissues: Unremarkable. Vasculature: Unremarkable. No abdominal aortic aneurysm. Lymph nodes: Unremarkable. No enlarged lymph nodes. Other findings: No visible intra-abdominal or intrapelvic abscess. IMPRESSION: 1. No visible intra-abdominal or intrapelvic abscess. 2. Mild wall thickening in the duodenal C-loop. This may represent a mild duodenitis or may be reactive inflammation from a subtle pancreatitis along the duodenal groove. The pancreas otherwise appears unremarkable. Recommend correlation with serum amylase and lipase. 3. Right perinephric stranding. No hydronephrosis or hydroureter. No visible radiodense stones. This raises possibility of UTI or pyelonephritis. Recommend correlation with urinalysis. 4. Bilateral trace pleural effusions. Dependent atelectasis in bilateral lung bases. 5. Status post cholecystectomy.a (26) UTI (urinary tract infection) (27) Reflux esophagitis (28) Abdominal pain (29) Abdominal pain (30) Abdominal pain (31) Abdominal pain (32) Abdominal pain (33) Bronchitis (34) Chest pain (35) Chest pain (36) Chest pain (37) Hemorrhoids (38) Vomiting (39) Multiple joint pain (40) Acute gastrointestinal bleeding (41) Acute gastrointestinal bleeding (42) Acute gastrointestinal bleeding (43) Acute gastrointestinal bleeding (44) Hepatic steatosis (45) Nausea & vomiting (46) Dehydration, moderate (47) Reflux gastritis (48) C. 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
[2020-07-30 12:00] VITALS: BP 128/52
--- NOTE | 2020-07-30 13:11 | Nephrology Progress Note ---
Assessment/Plan Plan #Septic shock due to UTi and pyelnephritis #hypokalemia and hypophosphatemia #NSTEMI #MANDY #UTI #Sinus tach #RA - plan to transfer to [facility] or [facility] - IV abx-, cevtriaxone - ID eval - follow cx - ASA - statin - cardiology eval - pain control - hold pred for now - hold infliximab for now Subjective ROS Limited/Unobtainable: No Constitutional: Reports: weakness HEENT: Denies: no symptoms, eye pain, blurred vision, tearing, double vision, ear pain, ear discharge, nose pain, nose congestion, throat pain, throat swelling, mouth pain, mouth swelling, other Genitourinary: Denies: no symptoms, burning, discharge, frequency, flank pain, hematuria, incontinence, pain, urgency, other Neurologic/Psychiatric: Denies: no symptoms, anxiety, depressed, emotional problems, headache, numbness, paresthesia, pre-existing deficit, seizure, tin gling, tremors, weakness, other Subjective WBC now downtrending K and phos low -repleted plan to transfer to [facility] or [facility] for [facility] Objective Objective Last 24 Hour Vital Signs Date Time Temp Pulse Resp B/P (MAP) Pulse Ox O2 Delivery O2 Flow Rate FiO2 07/30/20 12:00 74 07/30/20 12:00 98.1 71 16 128/52 (77) 99 07/30/20 09:32 98.4 07/30/20 09:02 86 151/65 07/30/20 09:00 Room Air 07/30/20 08:00 98.4 86 16 151/65 (93) 98 07/30/20 04:00 84 07/30/20 04:00 99.3 86 16 154/52 (86) 97 07/30/20 01:01 99.0 07/30/20 00:00 84 07/30/20 00:00 100.4 83 16 130/49 (76) 97 07/29/20 21:00 Room Air 07/29/20 20:41 90 138/78 07/29/20 20:00 96 07/29/20 20:00 99.3 86 17 138/78 (98) 97 07/29/20 19:20 96.8 11/9/20 16:00 97 07/29/20 16:00 Room Air 07/29/20 16:00 96.8 92 16 132/78 (96) 98 Intake and Output 07/29/20 07/30/20 19:00 07:00 Intake Total 675 ml 480 ml Output Total 300 ml 500 ml Balance 375 ml -20 ml Intake Oral 400 ml 480 ml IV Total 275 ml Output Urine Total 300 ml 500 ml # Voids 4 # Bowel Movements 4 Laboratory Tests 07/29/20 17:13: POC Whole Blood Glucose 120H 07/29/20 20:38: POC Whole Blood Glucose 110H 07/30/20 06:01: POC Whole Blood Glucose 110H 07/30/20 06:11: White Blood Count 11.2H, Red Blood Count 4.19L, Hemoglobin 12.6, Hematocrit 36.6L, Mean Corpuscular Volume 87, Mean Corpuscular Hemoglobin 30.1, Mean Corpuscular Hemoglobin Concent 34.4, Red Cell Distribution Width 15.1H, Platelet Count 215#, Mean Platelet Volume 8.0, Neutrophils (%) (Auto) 57.2, Lymphocytes (%) (Auto) 28.0, Monocytes (%) (Auto) 12.0H, Eosinophils (%) (Auto) 1.4, Basophils (%) (Auto) 1.5, Sodium Level 140, Potassium Level 2.9L, Chloride Level 106, Carbon Dioxide Level 26, Anion Gap 9, Blood Urea Nitrogen 5L, Creatinine 0.8, Estimat Glomerular Filtration Rate > 60, Glucose Level 103, Calcium Level 7.7L, Magnesium Level 2.0 07/30/20 10:54: POC Whole Blood Glucose 115H Height (Feet): 5 Height (Inches): 0.00 Weight (Pounds): 155 Ross Cates M.D. Jul 30, 2020 13:11
[2020-07-30] MEDS: cefTRIAXone 1 GM in D5W 50 ML IVPB SCH (14:34)
--- NOTE | 2020-07-30 14:50 | NUR ---
TRANSFER UPDATE LEFT VMM WITH CASE MANAGEMENT DEPARTMENT AT [facility] REQUESTING AUTHORIZATION TO TRANSFER TO [facility] FOR CARDIAC CATH HEALTH PLAN MAY CHANGE FACILITIES FOR CATH AWAIT RETURN CALL T: [phone] OPT 4
[2020-07-30 16:00] VITALS: BP 150/77
--- NOTE | 2020-07-30 16:30 | General Progress Note ---
Subjective Allergies: Coded Allergies: HYDROCODONE BIT (Verified Allergy, Severe, Hives, 05/16/13) Objective Last 24 Hour Vital Signs Date Time Temp Pulse Resp B/P (MAP) Pulse Ox O2 Delivery O2 Flow Rate FiO2 07/30/20 12:00 74 07/30/20 12:00 98.1 71 16 128/52 (77) 99 07/30/20 09:32 98.4 07/30/20 09:02 86 151/65 07/30/20 09:00 Room Air 07/30/20 08:00 98.4 86 16 151/65 (93) 98 07/30/20 04:00 84 07/30/20 04:00 99.3 86 16 154/52 (86) 97 07/30/20 01:01 99.0 07/30/20 00:00 84 07/30/20 00:00 100.4 83 16 130/49 (76) 97 07/29/20 21:00 Room Air 07/29/20 20:41 90 138/78 07/29/20 20:00 96 07/29/20 20:00 99.3 86 17 138/78 (98) 97 07/29/20 19:20 96.8 Intake and Output 07/29/20 07/30/20 19:00 07:00 Intake Total 675 ml 480 ml Output Total 300 ml 500 ml Balance 375 ml -20 ml Intake Oral 400 ml 480 ml IV Total 275 ml Output Urine Total 300 ml 500 ml # Voids 4 # Bowel Movements 4 Laboratory Tests 07/29/20 17:13: POC Whole Blood Glucose 120H 07/29/20 20:38: POC Whole Blood Glucose 110H 07/30/20 06:01: POC Whole Blood Glucose 110H 07/30/20 06:11: White Blood Count 11.2H, Red Blood Count 4.19L, Hemoglobin 12.6, Hematocrit 36.6L, Mean Corpuscular Volume 87, Mean Corpuscular Hemoglobin 30.1, Mean Corpuscular Hemoglobin Concent 34.4, Red Cell Distribution Width 15.1H, Platelet Count 215#, Mean Platelet Volume 8.0, Neutrophils (%) (Auto) 57.2, Lymphocytes (%) (Auto) 28.0, Monocytes (%) (Auto) 12.0H, Eosinophils (%) (Auto) 1.4, Basophils (%) (Auto) 1.5, Sodium Level 140, Potassium Level 2.9L, Chloride Level 106, Carbon Dioxide Level 26, Anion Gap 9, Blood Urea Nitrogen 5L, Creatinine 0.8, Estimat Glomerular Filtration Rate > 60, Glucose Level 103, Calcium Level 7.7L, Magnesium Level 2.0 07/30/20 10:54: POC Whole Blood Glucose 115H 07/30/20 15:57: POC Whole Blood Glucose 108H Height (Feet): 5 Height (Inches): 0.00 Weight (Pounds): 155 General Appearance: no apparent distress, alert EENT: PERRL/EOMI, pharynx normal Neck: supple, normal inspection, abnormal alignment Cardiovascular: normal peripheral pulses, normal rate, regular rhythm, no gallop/murmur Respiratory/Chest: chest wall non-tender, lungs clear, normal breath sounds, no respiratory distress, no accessory muscle use Abdomen: normal bowel sounds, soft, no mass Extremities: normal range of motion, normal inspection Edema: no edema noted Arm (L), no edema noted Arm (R), no edema noted Leg (L), no edema noted Leg (R) 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 Coli Bacteremia # UTI # Anion Gap Metabolic Acidosis 2/2 Lactic Acid - resolved # Severe Lactic Acidosis - resolved # MANDY 2/2 pre-renal azotemia vs Sepsis ATN - resolved # Prolong Qt # Leukocytosis - improving # Thrombocytopenia likely 2/2 sepsis - improving # New Diagnosis Type 2 DM # Hx of Rheumatoid Arthritis on Biologic infusion # Hx of OA # Hx of osteoporosis # NAFLD P: - hemodynamically stable - keep MAP > 65, monitor for BP support with need for pressors - On Rocephin per ID, considering transition to PO ciprofloxacin 500 mg BID for 1 week - BC +gram negative rods, Ecoli - CT A/P reviewed showing right sided perinephric stranding likley pyelo - avoid prolonging qt agents - ISS - trend plateletsimproving - hold anticoags < 50 - leukocytosis improving - Dr. Cates, Nephrology, recs appreciated - consult Dr. Gallego, ID, recs appreciated - consult Dr. Che Cardiology, recs appreciated - consult Dr. Ann, Pulm, recs appreciated - PT CODE: Full GI: none DVT: Heparin 5000U BID Diet: cardio Dispo: possible transfer to [facility] today for cardiac cath by Edenilson Stuart M.D. Jul 30, 2020 16:30
--- NOTE | 2020-07-30 17:23 | Infectious Diseases Prog Note ---
Assessment/Plan Assessment/Plan ASSESSMENT AND PLAN: 1. e.coli uti/pyelonephritis, e.coli bacteremia/sepsis, severe sepsis, sirs, leukocytosis, fevers - change antibiotic to ceftriaxone - day # 6 antibiotics total - monitor labs, f/u on surveillance blood cultures - CT abdomen and pelvis with right perinephric stranding - d/w RN and patient - consider oral ciprofloxacin 500 mg bid for 7 days upon discharge if surveillance blood cultures negative - d/w Dr. Lugo 2. MANDY - improved 3. Patient has history of rheumatoid arthritis and been immunocompromised with history of steroids and also Remicade. 4. Patient has osteoarthritis. 5. Osteoporosis. 6. Non-STEMI - to transfer to [facility] for heart cath per d/w RN and patient 7. CAD. 8. NAFLD. 9. Rheumatoid arthritis and immunocompromised. 10. Continue care per primary consultants. 11. Allergies to hydrocodone. 12. Social history is negative. 13. Family history is noncontributory. 14. MAR is noted. 15. Case was discussed with RN. 16. Orders were noted and entered. 17. Patient is COVID negative and isolation will be removed. 18. Case also discussed at length with nursing staff about antibiotic management and the patient's care. Subjective Constitutional: Denies: fever HEENT: Denies: congestion Respiratory: Denies: shortness of breath Cardiovascular: Denies: chest pain Gastrointestinal/Abdominal: Denies: nausea, vomiting, diarrhea Neurologic: Denies: headache Psychiatric: Denies: depression Skin: Denies: rash Hematologic: Denies: bleeding Musculoskeletal: Denies: pain Allergies: Coded Allergies: HYDROCODONE BIT (Verified Allergy, Severe, Hives, 05/16/13) Objective Last 24 Hour Vital Signs Date Time Temp Pulse Resp B/P (MAP) Pulse Ox O2 Delivery O2 Flow Rate FiO2 07/30/20 12:00 74 07/30/20 12:00 98.1 71 16 128/52 (77) 99 07/30/20 09:32 98.4 07/30/20 09:02 86 151/65 07/30/20 09:00 Room Air 07/30/20 08:00 98.4 86 16 151/65 (93) 98 07/30/20 04:00 84 07/30/20 04:00 99.3 86 16 154/52 (86) 97 07/30/20 01:01 99.0 07/30/20 00:00 84 07/30/20 00:00 100.4 83 16 130/49 (76) 97 07/29/20 21:00 Room Air 07/29/20 20:41 90 138/78 07/29/20 20:00 96 07/29/20 20:00 99.3 86 17 138/78 (98) 97 07/29/20 19:20 96.8 Height (Feet): 5 Height (Inches): 0.00 Weight (Pounds): 155 General Appearance: no acute distress HEENT: normocephalic, atraumatic, anicteric, mucous membranes moist Respiratory/Chest: lungs clear, normal breath sounds, no respiratory distress, no accessory muscle use Cardiovascular: normal rate, regular rhythm, no gallop/murmur, no JVD Abdomen: normal bowel sounds, soft, non tender, no organomegaly, non distended Genitourinary: other - no Extremities: no cyanosis Skin: no rash Neurologic/Psychiatric: legal examiner II-XII grossly normal, alert, oriented x 3, responsive Lymphatic: no neck adenopathy Musculoskeletal: no effusion Chest x-ray -07/27/20 - Procedure: XRAY Chest 1v Indication: Cough Technique: One view of the chest Comparison: 07/25/2020 Findings: Lungs and pleural spaces are clear. Heart size is normal. No significant change Impression: No acute process CT abdomen and pelvis: IMPRESSION: 1. No visible intra-abdominal or intrapelvic abscess. 2. Mild wall thickening in the duodenal C-loop. This may represent a mild duodenitis or may be reactive inflammation from a subtle pancreatitis along the duodenal groove. The pancreas otherwise appears unremarkable. Recommend correlation with serum amylase and lipase. 3. Right perinephric stranding. No hydronephrosis or hydroureter. No visible radiodense stones. This raises possibility of UTI or pyelonephritis. Recommend correlation with urinalysis. 4. Bilateral trace pleural effusions. Dependent atelectasis in bilateral lung bases. 5. Status post cholecystectomy. Microbiology Date/Time Source Procedure Growth Status 07/25/20 18:45 Nasal Aspirate MRSA Culture - Final NO METHICILLIN RESISTANT STAPH AUREUS... Complete 07/25/20 12:30 Blood Blood Culture - Final Escherichia Coli Complete 07/25/20 02:10 Urine,Clean Catch Urine Culture - Final Escherichia Coli Complete Laboratory Tests Test 07/29/20 20:38 07/30/20 06:01 07/30/20 06:11 07/30/20 10:54 POC Whole Blood Glucose 110 MG/DL (74-106) H 110 MG/DL (74-106) H 115 MG/DL (74-106) H White Blood Count 11.2 K/UL (4.8-10.8) H Red Blood Count 4.19 M/UL (4.20-5.40) L Hemoglobin 12.6 G/DL (12.0-16.0) Hematocrit 36.6 % (37.0-47.0) L Mean Corpuscular Volume 87 FL (80-99) Mean Corpuscular Hemoglobin 30.1 PG (27.0-31.0) Mean Corpuscular Hemoglobin Concent 34.4 G/DL (32.0-36.0) Red Cell Distribution Width 15.1 % (11.6-14.8) H Platelet Count 215 K/UL (150-450) # Mean Platelet Volume 8.0 FL (6.5-10.1) Neutrophils (%) (Auto) 57.2 % (45.0-75.0) Lymphocytes (%) (Auto) 28.0 % (20.0-45.0) Monocytes (%) (Auto) 12.0 % (1.0-10.0) H Eosinophils (%) (Auto) 1.4 % (0.0-3.0) Basophils (%) (Auto) 1.5 % (0.0-2.0) Sodium Level 140 MMOL/L (136-145) Potassium Level 2.9 MMOL/L (3.5-5.1) L Chloride Level 106 MMOL/L (98-107) Carbon Dioxide Level 26 MMOL/L (21-32) Anion Gap 9 mmol/L (5-15) Blood Urea Nitrogen 5 mg/dL (7-18) L Creatinine 0.8 MG/DL (0.55-1.30) Estimat Glomerular Filtration Rate > 60 mL/min (>60) Glucose Level 103 MG/DL (74-106) Calcium Level 7.7 MG/DL (8.5-10.1) L Magnesium Level 2.0 MG/DL (1.8-2.4) Test 07/30/20 15:57 POC Whole Blood Glucose 108 MG/DL (74-106) H Current Medications Medications (Trade) Dose Ordered Sig/Gabriel Route PRN Reason Start Time Stop Time Status Last Admin Dose Admin Acetaminophen (Tylenol) 650 mg Q4H PRN ORAL Mild Pain (Pain Scale 1-3) 07/28/20 11:00 08/27/20 10:59 07/30/20 00:31 Acetaminophen/ Hydrocodone Bitart (Ladson 10/325) 1 tab Q4H PRN ORAL Severe Pain (Pain Scale 7-10) 07/26/20 09:45 08/02/20 09:44 07/30/20 09:02 Acetaminophen/ Hydrocodone Bitart (Ladson 5/325) 1 tab Q4H PRN ORAL Moderate Pain (Pain Scale 4-6) 07/26/20 09:45 08/02/20 09:44 07/30/20 06:15 Alprazolam (Xanax) 1 mg DAILY ORAL 07/26/20 10:00 08/02/20 09:59 07/30/20 09:01 Aspirin (ASA) 81 mg DAILY ORAL 07/25/20 09:00 09/08/20 08:59 07/30/20 09:00 Atorvastatin Calcium (Lipitor) 80 mg DAILY ORAL 07/25/20 09:00 10/23/20 08:59 07/30/20 09:01 Ceftriaxone Sodium 1 gm/ Dextrose 50 ml @ 100 mls/hr Q24H IVPB 07/28/20 14:00 08/04/20 13:59 07/30/20 14:34 Dextrose (Dextrose 50%) 25 ml Q30M PRN IV Hypoglycemia 07/26/20 10:15 10/24/20 10:14 Dextrose (Dextrose 50%) 50 ml Q30M PRN IV Hypoglycemia 07/26/20 10:15 10/24/20 10:14 Docusate Sodium (Colace) 100 mg BID PRN ORAL Constipation 07/27/20 09:15 08/26/20 09:14 Gabapentin (Neurontin) 300 mg TID ORAL 07/25/20 09:00 08/24/20 08:59 07/30/20 12:16 Heparin Sodium (Porcine) (Heparin 5000 units/ml) 5,000 units EVERY 12 HOURS SUBQ 07/27/20 21:00 12/22/20 20:59 07/30/20 09:00 Hydralazine HCl (Apresoline) 10 mg Q4H PRN IV For High Blood Pressure 07/27/20 17:15 10/25/20 17:14 07/27/20 17:49 Insulin Aspart (NovoLOG) BEFORE MEALS AND HS SUBQ 07/26/20 11:30 10/24/20 11:29 Metoprolol Tartrate (Lopressor) 25 mg Q12HR ORAL 07/27/20 21:00 10/25/20 20:59 07/30/20 09:02 Ondansetron HCl (Zofran) 4 mg Q8H PRN IVP Nausea & Vomiting 07/27/20 12:45 08/26/20 12:44 Pantoprazole (Protonix) 40 mg BID ORAL 07/25/20 09:00 08/24/20 08:59 07/30/20 09:01 Prochlorperazine (Compazine) 10 mg Q6H PRN IVP Nausea & Vomiting 07/25/20 12:15 08/24/20 12:14 07/27/20 12:35 Sucralfate (Carafate) 1 gm BEFORE MEALS ORAL 07/25/20 11:30 10/23/20 11:29 07/30/20 12:16 Temazepam (Restoril) 15 mg BEDTIME PRN ORAL Insomnia 07/25/20 05:30 08/01/20 05:29 07/29/20 20:40 Brice Call MD Jul 30, 2020 17:23
--- NOTE | 2020-07-30 19:15 | NUR ---
NURSE NOTES: RECEIVED REPORT FROM YOGI ONTIVEROS. PATIENT ASLEEP, EASILY AROUSABLE, OPENS EYES SPONTANEOUSLY TO VOICE STIMULI. NO S/SX OF PAIN OR DISCOMFORT NOTED AT THIS TIME. BREATHING IS EVEN AND UNLABORED ON ROOM AIR, NO S/SX OF DISTRESS NOTED. IV SITE ON RIGHT AXILLARY PATENT, INTACT, AND ASYMPTOMATIC- FLUSHES WITHOUT REPORTS OF PAIN OR DISCOMFORT BY THE PATIENT. FALL PRECAUTIONS IN PLACE- REMINDED PATIENT TO CALL FOR ASSISTANCE PRIOR TO GETTING OOB. BED LOCKED AND IN LOWEST POSITION, SIDERAILS UP X 2. CALL LIGHT WITHIN REACH. BSC NOTED AT BEDSIDE. WILL CONTINUE TO MONITOR PER POC.
[2020-07-30 20:00] VITALS: BP 142/72
--- NOTE | 2020-07-30 23:02 | General Progress Note ---
Subjective Date patient seen: Jul 30, 2020 ROS Limited/Unobtainable: No Constitutional: Reports: weakness; Denies: chills, fever HEENT: Denies: eye pain, ear pain, ear discharge, throat pain, mouth pain Cardiovascular: Denies: chest pain, irregular heart rate, lightheadedness Respiratory: Denies: cough, shortness of breath Gastrointestinal/Abdominal: Denies: abdomen distended, blood in stool, constipated, diarrhea, difficulty swallowing, nausea, poor appetite Genitourinary: Denies: burning, discharge, frequency Neurologic/Psychiatric: Denies: headache, numbness, paresthesia Endocrine: Denies: excessive sweating, intolerance to cold, intolerance to heat Hematologic/Lymphatic: Denies: anemia, easy bleeding Allergies: Coded Allergies: HYDROCODONE BIT (Verified Allergy, Severe, Hives, 05/16/13) Subjective Today patient reports still having flank pain from infection, though improving compared to past few days. Otherwise no new complaints. Objective Last 24 Hour Vital Signs Date Time Temp Pulse Resp B/P (MAP) Pulse Ox O2 Delivery O2 Flow Rate FiO2 07/30/20 20:54 98 142/72 07/30/20 20:00 99.0 98 20 142/72 (95) 98 07/30/20 17:40 99.8 07/30/20 16:00 90 07/30/20 16:00 98.6 67 20 150/77 (101) 96 07/30/20 12:00 74 07/30/20 12:00 98.1 71 16 128/52 (77) 99 07/30/20 09:32 98.4 07/30/20 09:02 86 151/65 07/30/20 09:00 Room Air 07/30/20 08:00 98.4 86 16 151/65 (93) 98 07/30/20 08:00 81 07/30/20 04:00 84 07/30/20 04:00 99.3 86 16 154/52 (86) 97 07/30/20 01:01 99.0 07/30/20 00:00 84 07/30/20 00:00 100.4 83 16 130/49 (76) 97 Intake and Output 07/29/20 07/30/20 19:00 07:00 Intake Total 675 ml 480 ml Output Total 300 ml 500 ml Balance 375 ml -20 ml Intake Oral 400 ml 480 ml IV Total 275 ml Output Urine Total 300 ml 500 ml # Voids 4 # Bowel Movements 4 Laboratory Tests 07/30/20 06:01: POC Whole Blood Glucose 110H 07/30/20 06:11: White Blood Count 11.2H, Red Blood Count 4.19L, Hemoglobin 12.6, Hematocrit 36.6L, Mean Corpuscular Volume 87, Mean Corpuscular Hemoglobin 30.1, Mean Corpuscular Hemoglobin Concent 34.4, Red Cell Distribution Width 15.1H, Platelet Count 215#, Mean Platelet Volume 8.0, Neutrophils (%) (Auto) 57.2, Lymphocytes (%) (Auto) 28.0, Monocytes (%) (Auto) 12.0H, Eosinophils (%) (Auto) 1.4, Basophils (%) (Auto) 1.5, Sodium Level 140, Potassium Level 2.9L, Chloride Level 106, Carbon Dioxide Level 26, Anion Gap 9, Blood Urea Nitrogen 5L, Creatinine 0.8, Estimat Glomerular Filtration Rate > 60, Glucose Level 103, Calcium Level 7.7L, Magnesium Level 2.0 07/30/20 10:54: POC Whole Blood Glucose 115H 07/30/20 15:57: POC Whole Blood Glucose 108H 07/30/20 20:47: POC Whole Blood Glucose 132H Height (Feet): 5 Height (Inches): 0.00 Weight (Pounds): 155 Objective General Appearance: no apparent distress, alert EENT: PERRL/EOMI, pharynx normal Neck: supple, normal inspection, abnormal alignment Cardiovascular: normal peripheral pulses, normal rate, regular rhythm, no gallop/murmur Respiratory/Chest: chest wall non-tender, lungs clear, normal breath sounds, no respiratory distress, no accessory muscle use Abdomen: normal bowel sounds, soft, no mass Extremities: normal range of motion, normal inspection Edema: no edema noted Arm (L), no edema noted Arm (R), no edema noted Leg (L), no edema noted Leg (R) 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 Coli Bacteremia # UTI # Anion Gap Metabolic Acidosis 2/2 Lactic Acid - resolved # Severe Lactic Acidosis - resolved # MANDY 2/2 pre-renal azotemia vs Sepsis ATN - resolved # Prolong Qt # Leukocytosis - improving # Thrombocytopenia likely 2/2 sepsis - improving # New Diagnosis Type 2 DM # Hx of Rheumatoid Arthritis on Biologic infusion # Hx of OA # Hx of osteoporosis # NAFLD P: - hemodynamically stable - keep MAP > 65, monitor for BP support with need for pressors - On Rocephin per ID, considering transition to PO ciprofloxacin 500 mg BID for 1 week upon discharge - BC +gram negative rods, Ecoli - CT A/P reviewed showing right sided perinephric stranding cuong pyelo - avoid prolonging qt agents - ISS - trend plateletsimproving - hold anticoags < 50 - leukocytosis continuing to improve - Dr. Cates, Nephrology, recs appreciated - consult Dr. Gallego, ID, recs appreciated - consult Dr. Che Cardiology, recs appreciated - plan for transfer to [facility] for cardiac cath given troponin elevation - consult Dr. Ann, Pulm, recs appreciated - PT CODE: Full GI: none DVT: Heparin 5000U BID Diet: cardio Dispo: possible transfer to [facility] today for cardiac cath by Dr. Che Time spent on this encounter was 33 minutes which included 19 minutes of counseling and care coordination. I discussed with the nurse and patient and at bedside. Time of note may not reflect time patient was seen. Edenilson Lugo M.D. Jul 30, 2020 23:02
[2020-07-31] VITALS (7 sets, daily range): BP systolic 127–196; BP diastolic 52–86
[2020-07-31] MEDS: HYDROcodone/Acetamin 10/325 tab ORAL PRN ×4 (01:25→19:02)
[2020-07-31] MEDS: Sucralfate 1gm tab ORAL SCH ×3 (05:39→18:05)
[2020-07-31] MEDS: NovoLOG Insulin Flexpen SUBQ SCH ×4 (06:00→20:32)
--- NOTE | 2020-07-31 06:00 | NUR ---
NURSE NOTES: PATIENT NOTED TO BE CRYING, VERBALIZING SHE FEELS "ANXIOUS". PER PATIENT, SHE IS IN PAIN AND DOES NOT KNOW WHY. ENCOURAGED PATIENT TO PERFORM DEEP BREATHING EXERCISES. PAIN MEDICATION GIVEN ORDERED. PATIENT NOW APPEARS CALM AND COMFORTABLE IN BED. WILL CONTINUE TO MONITOR.
--- NOTE | 2020-07-31 06:32 | NUR ---
NURSE HAND-OFF REPORT: Important Events on Shift: PAIN MANAGEMENT, EPISODE OF CRYING Patient Status: STABLE Diet: CARDIAC Pending Orders: TRANSFER TO [facility] FOR CARDIAC CATH PENDING INSURANCE APPROVAL Pending Results/Labs: AM LABS Pending MD notification: N/A Latest Vital Signs: Temperature 98.7 , Pulse 80 , B/P 140 /78 , Respiratory Rate 20 , O2 SAT 98 , Room Air, O2 Flow Rate . Vital Sign Comment: STABLE EKG Rhythm: Sinus Rhythm Rhythm change?: N Notified?: N -Dr. Darryn ARIAS Response: Order Received& Read Back Latest Perez Fall Score: 50 Fall Risk: High Risk Safety Measures: Call light Within Reach, Bed Alarm Zone 1, Side Rails Side Rails x2, Bed position Low and Locked. Fall Precautions: Yellow Socks Yellow Gown Patient Fall Education Report given to WILL AMEND ONCE REPORT GIVEN TO ASSIGNED NURSE. Addendum: 07/31/20 at 0750 by Therese Bianchi RN REPORT GIVEN TO YOGI ONTIVEROS.
[2020-07-31 07:28] LABS: BASOPHILS % (AUTO) 2.7 % (0.0-2.0); EOSINOPHILS % (AUTO) 0.8 % (0.0-3.0); HEMATOCRIT 38.8 % (37.0-47.0); HEMOGLOBIN 12.7 G/DL (12.0-16.0); LYMPHOCYTES % (AUTO) 16.4 % (20.0-45.0); MEAN CORPUSCULAR VOLUME 91 FL (80-99); MONOCYTES % (AUTO) 13.7 % (1.0-10.0); NEUTROPHILS % (AUTO) 66.4 % (45.0-75.0); PLATELET COUNT 312 K/UL (150-450); RED BLOOD COUNT 4.28 M/UL (4.20-5.40); RED CELL DISTRIBUTION WIDTH 15.3 % (11.6-14.8); WHITE BLOOD COUNT 12.4 K/UL (4.8-10.8)
[2020-07-31 07:58] LABS: ALANINE AMINOTRANSFERASE 37 U/L (12-78); ALBUMIN 2.7 G/DL (3.4-5.0); ALBUMIN/GLOBULIN RATIO 0.6 (1.0-2.7); ALKALINE PHOSPHATASE 192 U/L (46-116); ANION GAP 7 mmol/L (5-15); ASPARTATE AMINO TRANSFERASE 71 U/L (15-37); BILIRUBIN,TOTAL 0.5 MG/DL (0.2-1.0); BLOOD UREA NITROGEN 6 mg/dL (7-18); CALCIUM 8.3 MG/DL (8.5-10.1); CARBON DIOXIDE 25 MMOL/L (21-32); CHLORIDE 104 MMOL/L (98-107); CREATININE 0.7 MG/DL (0.55-1.30); POTASSIUM 5.6 MMOL/L (3.5-5.1); SODIUM 136 MMOL/L (136-145)
--- NOTE | 2020-07-31 08:04 | NUR ---
NURSE NOTES: pt in bed just had a BM. pt on pillowcase sewer no signs of cardiac or respiratory distress. pt uses walker to use restroom and has been educated to use call light to be assisted to the toilet. Pt has verbalized understanding. Bed is locked and in lowest position, bed alarm is on, call light is within reach. will continue to monitor pt, she has a transfer to another hospital for cardiac cath.
[2020-07-31] MEDS: Aspirin Baby 81mg ORAL SCH (09:02)
[2020-07-31] MEDS: ALPRAZolam 0.5mg tab ORAL SCH (09:03)
[2020-07-31] MEDS: Atorvastatin 80mg tab ORAL SCH (09:03)
[2020-07-31] MEDS: Heparin 5000 units/ml inj SUBQ SCH ×2 (09:05→20:41)
--- NOTE | 2020-07-31 09:32 | NUR ---
CASE MANAGEMENT:REVIEW 07/31/20 SI: SEPSIS D/T E COLI BACTEREMIA 99.0 81 20 140/78 98% ON RA WBC+12.4 K+5.6 LAST TROPONIN(+) 0.311 IS: IV ROCEPHIN Q24 HEPARIN SQ Q12 LOPRESSOR PO Q12 ASA PO QD LIPITOR PO QHS : NOW ON TELEMETRY UNIT DCP: FROM HOME PLAN: TRANSFER TO HIGHER LEVEL OF CARE FOR CARDIAC CATH LEFT MESSAGE YESTERDAY @ T: [phone] OPT #4 ~ NEVER RECEIVED A RETURN CALL LEFT MESSAGE THIS MORNING FOR CASEY T: [phone] AND MADI T: [phone] *NEED AUTHROIZATION TO TRANSFER
--- NOTE | 2020-07-31 09:37 | NUR ---
TRANSFER UPDATE TRANSFER TO HIGHER LEVEL OF CARE FOR CARDIAC CATH LEFT MESSAGE YESTERDAY @ T: [phone] OPT #4 ~ NEVER RECEIVED A RETURN CALL LEFT MESSAGE THIS MORNING FOR CASEY T: [phone] AND MADI T: [phone] *NEED AUTHORIZATION TO TRANSFER Addendum: 07/31/20 at 1203 by FELECIA THOMASON LVN LVN RECEIVED CALL BACK FROM SAV DEMIAN TRANSFER OPTIONS ARE [facility]
--- NOTE | 2020-07-31 09:57 | Pulmonology Progress Note ---
Subjective ROS Limited/Unobtainable: No Interval Events: None new Constitutional: Denies: fever HEENT: Repors: no symptoms Respiratory: Reports: no symptoms Cardiovascular: Reports: no symptoms Gastrointestinal/Abdominal: Denies: nausea, vomiting, diarrhea Psychiatric: Denies: depression Skin: Denies: rash Musculoskeletal: Denies: pain Allergies: Coded Allergies: HYDROCODONE BIT (Verified Allergy, Severe, Hives, 05/16/13) Objective Last 24 Hour Vital Signs Date Time Temp Pulse Resp B/P (MAP) Pulse Ox O2 Delivery O2 Flow Rate FiO2 07/31/20 09:03 94 196/86 07/31/20 04:00 98.7 80 20 140/78 (98) 98 07/31/20 04:00 81 07/31/20 00:00 87 07/31/20 00:00 99.0 87 20 138/70 (92) 98 07/30/20 21:00 Room Air 07/30/20 20:54 98 142/72 07/30/20 20:00 99.0 98 20 142/72 (95) 98 07/30/20 20:00 94 07/30/20 17:40 99.8 07/30/20 16:00 90 07/30/20 16:00 98.6 67 20 150/77 (101) 96 07/30/20 12:00 74 07/30/20 12:00 98.1 71 16 128/52 (77) 99 Intake and Output 07/30/20 07/31/20 19:00 07:00 Intake Total 480 ml 720 ml Output Total 1200 ml Balance 480 ml -480 ml Intake Oral 480 ml 720 ml Output Urine Total 1200 ml # Voids 3 # Bowel Movements 1 3 General Appearance: no acute distress HEENT: normocephalic Respiratory: chest wall non-tender, lungs clear Cardiovascular: normal peripheral pulses, normal rate Abdomen: normal bowel sounds Laboratory Tests 07/30/20 10:54: POC Whole Blood Glucose 115H 07/30/20 15:57: POC Whole Blood Glucose 108H 07/30/20 20:47: POC Whole Blood Glucose 132H 07/31/20 05:58: POC Whole Blood Glucose 117H 07/31/20 06:32: White Blood Count 12.4H, Red Blood Count 4.28, Hemoglobin 12.7, Hematocrit 38.8, Mean Corpuscular Volume 91, Mean Corpuscular Hemoglobin 29.8, Mean Corpuscular Hemoglobin Concent 32.9, Red Cell Distribution Width 15.3H, Platelet Count 312, Mean Platelet Volume 7.5, Neutrophils (%) (Auto) 66.4, Lymphocytes (%) (Auto) 16.4L, Monocytes (%) (Auto) 13.7H, Eosinophils (%) (Auto) 0.8, Basophils (%) (Auto) 2.7H, Sodium Level 136, Potassium Level 5.6#H, Chloride Level 104, Carbon Dioxide Level 25, Anion Gap 7, Blood Urea Nitrogen 6L, Creatinine 0.7, Estimat Glomerular Filtration Rate > 60, Glucose Level 124H, Calcium Level 8.3L, Total Bilirubin 0.5, Aspartate Amino Transf (AST/SGOT) 71H, Alanine Aminotransferase (ALT/SGPT) 37, Alkaline Phosphatase 192H, Total Protein 7.0, Albumin 2.7L, Globulin 4.3, Albumin/Globulin Ratio 0.6L Current Medications Medications (Trade) Dose Ordered Sig/Gabriel Route PRN Reason Start Time Stop Time Status Last Admin Dose Admin Acetaminophen (Tylenol) 650 mg Q4H PRN ORAL Mild Pain (Pain Scale 1-3) 07/28/20 11:00 08/27/20 10:59 07/30/20 00:31 Acetaminophen/ Hydrocodone Bitart ([place] 10/325) 1 tab Q4H PRN ORAL Severe Pain (Pain Scale 7-10) 07/26/20 09:45 08/02/20 09:44 07/31/20 05:39 Acetaminophen/ Hydrocodone Bitart ([place] 5/325) 1 tab Q4H PRN ORAL Moderate Pain (Pain Scale 4-6) 07/26/20 09:45 08/02/20 09:44 07/30/20 06:15 Alprazolam (Xanax) 1 mg DAILY ORAL 07/26/20 10:00 08/02/20 09:59 07/31/20 09:03 Aspirin (ASA) 81 mg DAILY ORAL 07/25/20 09:00 09/08/20 08:59 07/31/20 09:02 Atorvastatin Calcium (Lipitor) 80 mg DAILY ORAL 07/25/20 09:00 10/23/20 08:59 07/31/20 09:03 Ceftriaxone Sodium 1 gm/ Dextrose 50 ml @ 100 mls/hr Q24H IVPB 07/28/20 14:00 08/04/20 13:59 07/30/20 14:34 Dextrose (Dextrose 50%) 25 ml Q30M PRN IV Hypoglycemia 07/26/20 10:15 10/24/20 10:14 Dextrose (Dextrose 50%) 50 ml Q30M PRN IV Hypoglycemia 07/26/20 10:15 10/24/20 10:14 Docusate Sodium (Colace) 100 mg BID PRN ORAL Constipation 07/27/20 09:15 08/26/20 09:14 Gabapentin (Neurontin) 300 mg TID ORAL 07/25/20 09:00 08/24/20 08:59 07/31/20 09:02 Heparin Sodium (Porcine) (Heparin 5000 units/ml) 5,000 units EVERY 12 HOURS SUBQ 07/27/20 21:00 09/10/20 20:59 07/31/20 09:05 Hydralazine HCl (Apresoline) 10 mg Q4H PRN IV For High Blood Pressure 07/27/20 17:15 10/25/20 17:14 07/27/20 17:49 Insulin Aspart (NovoLOG) BEFORE MEALS AND HS SUBQ 07/26/20 11:30 10/24/20 11:29 Metoprolol Tartrate (Lopressor) 25 mg Q12HR ORAL 07/27/20 21:00 10/25/20 20:59 07/31/20 09:03 Ondansetron HCl (Zofran) 4 mg Q8H PRN IVP Nausea & Vomiting 07/27/20 12:45 08/26/20 12:44 Pantoprazole (Protonix) 40 mg BID ORAL 07/25/20 09:00 08/24/20 08:59 07/31/20 09:03 Prochlorperazine (Compazine) 10 mg Q6H PRN IVP Nausea & Vomiting 07/25/20 12:15 08/24/20 12:14 07/27/20 12:35 Sucralfate (Carafate) 1 gm BEFORE MEALS ORAL 07/25/20 11:30 10/23/20 11:29 07/31/20 05:39 Temazepam (Restoril) 15 mg BEDTIME PRN ORAL Insomnia 07/25/20 05:30 08/01/20 05:29 07/30/20 22:19 Assessment/Plan Assessment/Plan IMPRESSION: 1. Non-ST elevation HI. 2. Rheumatoid arthritis. 3. Hypokalemia. 4. Marked leukocytosis. Improved to 14 K now DISCUSSION: Broad spectrum abx for pyelonephritis Saturating well on RA Zuly Fernández Omar Syed MD Jul 31, 2020 09:57
[2020-07-31] MEDS ORDERED: NS 275ml ONE (10:13)
[2020-07-31] MEDS ORDERED: Tubing IV Secondary IV ONE ×3 (10:13→13:46)
--- NOTE | 2020-07-31 12:19 | Cardiac Electrophysiology PN ---
Assessment/Plan Assessment/Plan 1. Non-ST elevation myocardial infarction with troponin peak of 6.9. Now down to 0.714 Denies any chest pain or shortness of breath and ECG shows no ST elevation. The patient however also has renal failure, creatinine 1.4, and she is septic, lactic acid of 6.8, [place] [address]. EF 65%. Continue on aspirin,Lipitor and Lopressor 25 bid Awaiting transfer to [facility] for Cardiac cath 2. Sinus tachycardia due to sepsis. Already on antibiotics. On Lopressor 3. Hyperlipidemia on Lipitor. 4. Gram neg uti/pyelonephritis, bacteremia/sepsis with WBC 50K, Fever, cough, and body ache. COVID test is negative On Abx per Dr Gallego 5. Severe back pain. On prednisone, gabapentin, and Xanax at home. Further evaluation by Rheumatology. 6. Renal failure, creatinine 1.4, resolved Cr 1.0 now DW RN and Transfer Ctr Subjective Subjective Off isolation as Covid PCR is negative. Troponin peak was 6.9 that is down to 0.714. No CP or SOB. Awaiting transfer to [facility] for cardiac cath at bedside Objective Last 24 Hour Vital Signs Date Time Temp Pulse Resp B/P (MAP) Pulse Ox O2 Delivery O2 Flow Rate FiO2 07/31/20 09:03 94 196/86 07/31/20 04:00 98.7 80 20 140/78 (98) 98 07/31/20 04:00 81 07/31/20 00:00 87 07/31/20 00:00 99.0 87 20 138/70 (92) 98 07/30/20 21:00 Room Air 07/30/20 20:54 98 142/72 07/30/20 20:00 99.0 98 20 142/72 (95) 98 07/30/20 20:00 94 07/30/20 17:40 99.8 07/30/20 16:00 90 07/30/20 16:00 98.6 67 20 150/77 (101) 96 Intake and Output 07/30/20 07/31/20 19:00 07:00 Intake Total 480 ml 720 ml Output Total 1200 ml Balance 480 ml -480 ml Intake Oral 480 ml 720 ml Output Urine Total 1200 ml # Voids 3 # Bowel Movements 1 3 Laboratory Tests Test 07/30/20 15:57 07/30/20 20:47 07/31/20 05:58 07/31/20 06:32 POC Whole Blood Glucose 108 MG/DL (74-106) H 132 MG/DL (74-106) H 117 MG/DL (74-106) H White Blood Count 12.4 K/UL (4.8-10.8) H Red Blood Count 4.28 M/UL (4.20-5.40) Hemoglobin 12.7 G/DL (12.0-16.0) Hematocrit 38.8 % (37.0-47.0) Mean Corpuscular Volume 91 FL (80-99) Mean Corpuscular Hemoglobin 29.8 PG (27.0-31.0) Mean Corpuscular Hemoglobin Concent 32.9 G/DL (32.0-36.0) Red Cell Distribution Width 15.3 % (11.6-14.8) H Platelet Count 312 K/UL (150-450) Mean Platelet Volume 7.5 FL (6.5-10.1) Neutrophils (%) (Auto) 66.4 % (45.0-75.0) Lymphocytes (%) (Auto) 16.4 % (20.0-45.0) L Monocytes (%) (Auto) 13.7 % (1.0-10.0) H Eosinophils (%) (Auto) 0.8 % (0.0-3.0) Basophils (%) (Auto) 2.7 % (0.0-2.0) H Sodium Level 136 MMOL/L (136-145) Potassium Level 5.6 MMOL/L (3.5-5.1) #H Chloride Level 104 MMOL/L (98-107) Carbon Dioxide Level 25 MMOL/L (21-32) Anion Gap 7 mmol/L (5-15) Blood Urea Nitrogen 6 mg/dL (7-18) L Creatinine 0.7 MG/DL (0.55-1.30) Estimat Glomerular Filtration Rate > 60 mL/min (>60) Glucose Level 124 MG/DL (74-106) H Calcium Level 8.3 MG/DL (8.5-10.1) L Total Bilirubin 0.5 MG/DL (0.2-1.0) Aspartate Amino Transf (AST/SGOT) 71 U/L (15-37) H Alanine Aminotransferase (ALT/SGPT) 37 U/L (12-78) Alkaline Phosphatase 192 U/L (46-116) H Total Protein 7.0 G/DL (6.4-8.2) Albumin 2.7 G/DL (3.4-5.0) L Globulin 4.3 g/dL Albumin/Globulin Ratio 0.6 (1.0-2.7) L Objective HEAD AND NECK: No JVD. LUNGS: Clear. CARDIOVASCULAR: Regular S1 and S2 with no gallop or murmur, tachycardic. ABDOMEN: Soft. EXTREMITIES: No pitting edema. Augustine Che MD Jul 31, 2020 12:19
--- NOTE | 2020-07-31 13:39 | Nephrology Progress Note ---
Assessment/Plan Plan #Septic shock due to UTi and pyelnephritis #hypokalemia and hypophosphatemia #NSTEMI #MANDY #UTI #Sinus tach #RA - plan to transfer to [facility] or [facility] for [facility] - IV abx-, cevtriaxone - ID eval - follow cx - ASA - statin - cardiology eval - pain control - hold pred for now - hold infliximab for now Subjective ROS Limited/Unobtainable: No Constitutional: Reports: weakness HEENT: Denies: no symptoms, eye pain, blurred vision, tearing, double vision, ear pain, ear discharge, nose pain, nose congestion, throat pain, throat swelling, mouth pain, mouth swelling, other Genitourinary: Denies: no symptoms, burning, discharge, frequency, flank pain, hematuria, incontinence, pain, urgency, other Neurologic/Psychiatric: Denies: no symptoms, anxiety, depressed, emotional problems, headache, numbness, paresthesia, pre-existing deficit, seizure, tin gling, tremors, weakness, other Subjective WBC now downtrending K and phos low -repleted plan to transfer to [facility] or [facility] for [facility] Objective Objective Last 24 Hour Vital Signs Date Time Temp Pulse Resp B/P (MAP) Pulse Ox O2 Delivery O2 Flow Rate FiO2 07/31/20 12:00 98.8 81 19 146/66 (92) 97 07/31/20 09:05 155/72 (99) 07/31/20 09:03 94 196/86 07/31/20 08:00 98.6 84 20 196/86 (122) 96 07/31/20 04:00 98.7 80 20 140/78 (98) 98 07/31/20 04:00 81 07/31/20 00:00 87 07/31/20 00:00 99.0 87 20 138/70 (92) 98 07/30/20 21:00 Room Air 07/30/20 20:54 98 142/72 07/30/20 20:00 99.0 98 20 142/72 (95) 98 07/30/20 20:00 94 07/30/20 17:40 99.8 07/30/20 16:00 90 07/30/20 16:00 98.6 67 20 150/77 (101) 96 Intake and Output 07/30/20 07/31/20 19:00 07:00 Intake Total 480 ml 720 ml Output Total 1200 ml Balance 480 ml -480 ml Intake Oral 480 ml 720 ml Output Urine Total 1200 ml # Voids 3 # Bowel Movements 1 3 Laboratory Tests 07/30/20 15:57: POC Whole Blood Glucose 108H 07/30/20 20:47: POC Whole Blood Glucose 132H 07/31/20 05:58: POC Whole Blood Glucose 117H 07/31/20 06:32: White Blood Count 12.4H, Red Blood Count 4.28, Hemoglobin 12.7, Hematocrit 38.8, Mean Corpuscular Volume 91, Mean Corpuscular Hemoglobin 29.8, Mean Corpuscular Hemoglobin Concent 32.9, Red Cell Distribution Width 15.3H, Platelet Count 312, Mean Platelet Volume 7.5, Neutrophils (%) (Auto) 66.4, Lymphocytes (%) (Auto) 16.4L, Monocytes (%) (Auto) 13.7H, Eosinophils (%) (Auto) 0.8, Basophils (%) (Auto) 2.7H, Sodium Level 136, Potassium Level 5.6#H, Chloride Level 104, Carbon Dioxide Level 25, Anion Gap 7, Blood Urea Nitrogen 6L, Creatinine 0.7, Estimat Glomerular Filtration Rate > 60, Glucose Level 124H, Calcium Level 8.3L, Total Bilirubin 0.5, Aspartate Amino Transf (AST/SGOT) 71H, Alanine Aminotransferase (ALT/SGPT) 37, Alkaline Phosphatase 192H, Total Protein 7.0, Albumin 2.7L, Globulin 4.3, Albumin/Globulin Ratio 0.6L Height (Feet): 5 Height (Inches): 0.00 Weight (Pounds): 155 Ross Cates M.D. Jul 31, 2020 13:39
[2020-07-31] MEDS: cefTRIAXone 1 GM in D5W 50 ML IVPB SCH (14:00)
--- NOTE | 2020-07-31 15:06 | Surgery Progress Note ---
Surgery Progress Note Subjective Additional Comments afebrile, HD stable comfortable no n/v dressings going well labs noted wbc 12k Objective Last 24 Hour Vital Signs Date Time Temp Pulse Resp B/P (MAP) Pulse Ox O2 Delivery O2 Flow Rate FiO2 07/31/20 12:00 98.8 81 19 146/66 (92) 97 07/31/20 09:05 155/72 (99) 07/31/20 09:03 94 196/86 07/31/20 08:00 98.6 84 20 196/86 (122) 96 07/31/20 04:00 98.7 80 20 140/78 (98) 98 07/31/20 04:00 81 07/31/20 00:00 87 07/31/20 00:00 99.0 87 20 138/70 (92) 98 07/30/20 21:00 Room Air 07/30/20 20:54 98 142/72 07/30/20 20:00 99.0 98 20 142/72 (95) 98 07/30/20 20:00 94 07/30/20 17:40 99.8 07/30/20 16:00 90 07/30/20 16:00 98.6 67 20 150/77 (101) 96 I&O Intake and Output 07/30/20 07/31/20 19:00 07:00 Intake Total 480 ml 720 ml Output Total 1200 ml Balance 480 ml -480 ml Intake Oral 480 ml 720 ml Output Urine Total 1200 ml # Voids 3 # Bowel Movements 1 3 Cardiovascular: RSR Respiratory: clear, decreased breath sounds Abdomen: soft, flat, non-tender, present bowel sounds Extremities: no edema, no tenderness, no cyanosis Laboratory Tests Test 07/30/20 15:57 07/30/20 20:47 07/31/20 05:58 07/31/20 06:32 POC Whole Blood Glucose 108 MG/DL (74-106) H 132 MG/DL (74-106) H 117 MG/DL (74-106) H White Blood Count 12.4 K/UL (4.8-10.8) H Red Blood Count 4.28 M/UL (4.20-5.40) Hemoglobin 12.7 G/DL (12.0-16.0) Hematocrit 38.8 % (37.0-47.0) Mean Corpuscular Volume 91 FL (80-99) Mean Corpuscular Hemoglobin 29.8 PG (27.0-31.0) Mean Corpuscular Hemoglobin Concent 32.9 G/DL (32.0-36.0) Red Cell Distribution Width 15.3 % (11.6-14.8) H Platelet Count 312 K/UL (150-450) Mean Platelet Volume 7.5 FL (6.5-10.1) Neutrophils (%) (Auto) 66.4 % (45.0-75.0) Lymphocytes (%) (Auto) 16.4 % (20.0-45.0) L Monocytes (%) (Auto) 13.7 % (1.0-10.0) H Eosinophils (%) (Auto) 0.8 % (0.0-3.0) Basophils (%) (Auto) 2.7 % (0.0-2.0) H Sodium Level 136 MMOL/L (136-145) Potassium Level 5.6 MMOL/L (3.5-5.1) #H Chloride Level 104 MMOL/L (98-107) Carbon Dioxide Level 25 MMOL/L (21-32) Anion Gap 7 mmol/L (5-15) Blood Urea Nitrogen 6 mg/dL (7-18) L Creatinine 0.7 MG/DL (0.55-1.30) Estimat Glomerular Filtration Rate > 60 mL/min (>60) Glucose Level 124 MG/DL (74-106) H Calcium Level 8.3 MG/DL (8.5-10.1) L Total Bilirubin 0.5 MG/DL (0.2-1.0) Aspartate Amino Transf (AST/SGOT) 71 U/L (15-37) H Alanine Aminotransferase (ALT/SGPT) 37 U/L (12-78) Alkaline Phosphatase 192 U/L (46-116) H Total Protein 7.0 G/DL (6.4-8.2) Albumin 2.7 G/DL (3.4-5.0) L Globulin 4.3 g/dL Albumin/Globulin Ratio 0.6 (1.0-2.7) L Plan Problems: (1) Hypokalemia (2) Rheumatoid arthritis (3) Rheumatoid arthritis (4) Rheumatoid arthritis (5) Fatty liver (6) Joint pain (7) Urinary retention (8) Anemia (9) Anxiety (10) Anxiety (11) Arthritis (12) Generalized weakness (13) CAD (coronary artery disease) (14) Cough (15) Cough (16) Diarrhea (17) Diverticulitis (18) Diverticulosis (19) Gastritis (20) Gastroenteritis (21) Infection (22) Leukocytosis (23) Leukocytosis Assessment & Plan: 65-year-old female with abdominal pain lactic acidosis leukocytosis elevated liver enzymes trend febrile septic admitted for the care management IV antibiotics per infectious disease currently no imaging pending. Labs noted lactic acidosis improved with fluids UTI noted likely urosepsis.. Abdominal examination fairly benign no nausea vomiting. Okay for diet IV fluids KUB ordered Ultrasound ordered given liver enzyme elevation Elevated liver enzymes trend Unlikely bowel insult or ischemia. We will follow with recommendations thank you Mehran adame patient's care kub and us okay diet okay bowel regimen labs improved DAILY ESTIMATED NEEDS: Needs based on Sepsis, obese 51.8kg abw 25-30kcal/kg kcals/kg 4405-5244 total kcals 1-2 g protein/kg 52-104 g total protein 25-30 mL/kg 5335-5977 total fluid mLs NUTRITION DIAGNOSIS: Altered nutrition related lab values R/T Sepsis as evidence by WBC on adm 32.3, now trending down, febrile (Tmax 100.4). CURRENT DIET:cardiac PO DIET RECOMMENDATIONS: Low Na diet/ liberalized w/ variable po intake ADDITIONAL RECOMMENDATIONS: 1) Add Glucerna 1 tetra BID in b/w meals 2) Maintain calibrated bed scale wts 3) replete lytes as needed (Low K) 4) W/ elev BG and >50% po intake rec carb control diet (24) Leukocytosis (25) Sepsis Assessment & Plan: iv abx iv fluids trend labs imaging ordered will follow with rec Liver: Diffusely hypodense liver, suggesting fatty infiltration. Gallbladder and bile ducts: Status post cholecystectomy. No ductal dilation. Pancreas: Unremarkable. No ductal dilation. Spleen: Unremarkable. No splenomegaly. Adrenals: Unremarkable. No mass. Kidneys and ureters: Right perinephric stranding. No hydronephrosis or hydroureter. No visible radiodense stones. Stomach and bowel: Mild wall thickening in the duodenal C-loop. Postsurgical changes in the rectosigmoid junction. Colon and small bowel otherwise appear unremarkable. No evidence of bowel obstruction. PELVIS: Appendix: No findings to suggest acute appendicitis. Bladder: Unremarkable. No stones. Reproductive: The uterus and ovaries are not visualized and may be surgically absent. ABDOMEN and PELVIS: Intraperitoneal space: Unremarkable. No free air. No significant fluid collection. Bones/joints: Multilevel degenerative disc space loss. No acute fracture. No dislocation. Soft tissues: Unremarkable. Vasculature: Unremarkable. No abdominal aortic aneurysm. Lymph nodes: Unremarkable. No enlarged lymph nodes. Other findings: No visible intra-abdominal or intrapelvic abscess. IMPRESSION: 1. No visible intra-abdominal or intrapelvic abscess. 2. Mild wall thickening in the duodenal C-loop. This may represent a mild duodenitis or may be reactive inflammation from a subtle pancreatitis along the duodenal groove. The pancreas otherwise appears unremarkable. Recommend correlation with serum amylase and lipase. 3. Right perinephric stranding. No hydronephrosis or hydroureter. No visible radiodense stones. This raises possibility of UTI or pyelonephritis. Recommend correlation with urinalysis. 4. Bilateral trace pleural effusions. Dependent atelectasis in bilateral lung bases. 5. Status post cholecystectomy.a (26) UTI (urinary tract infection) (27) Reflux esophagitis (28) Abdominal pain (29) Abdominal pain (30) Abdominal pain (31) Abdominal pain (32) Abdominal pain (33) Bronchitis (34) Chest pain (35) Chest pain (36) Chest pain (37) Hemorrhoids (38) Vomiting (39) Multiple joint pain (40) Acute gastrointestinal bleeding (41) Acute gastrointestinal bleeding (42) Acute gastrointestinal bleeding (43) Acute gastrointestinal bleeding (44) Hepatic steatosis (45) Nausea & vomiting (46) Dehydration, moderate (47) Reflux gastritis (48) C. 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
--- NOTE | 2020-07-31 15:24 | NUR ---
TRANSFER UPDATE REFERRED TO [facility] FOR CARDIAC CATH ~ NO BEDS AVAILABLE HEALTH PLAN HAS A BED AT [facility] PENDING MD TO MD CONVERSATION MESSAGE LEFT FOR DR MARTIN TO CALL DR AGNIESZKA DUGAN T: [phone] PROVIDE HEALTH PLAN WITH NURSES STATION NUMBER
[2020-07-31 16:33] LABS: ANION GAP 9 mmol/L (5-15); BLOOD UREA NITROGEN 5 mg/dL (7-18); CALCIUM 8.7 MG/DL (8.5-10.1); CARBON DIOXIDE 26 MMOL/L (21-32); CHLORIDE 105 MMOL/L (98-107); CREATININE 0.8 MG/DL (0.55-1.30); POTASSIUM 3.2 MMOL/L (3.5-5.1); SODIUM 140 MMOL/L (136-145)
--- NOTE | 2020-07-31 20:15 | NUR ---
NURSE HAND-OFF REPORT: Important Events on Shift:pt able to walk with assistance to bathroom. pt had a low fever 99.7 applied cooling measures Patient Status: full Diet: cardiac Pending Orders: oder to transfer for cardiac cath Pending Results/Labs: Pending MD notification: Latest Vital Signs: Temperature 99.7 , Pulse 81 , B/P 127 /86 , Respiratory Rate 18 , O2 SAT 97 , Room Air, O2 Flow Rate . Vital Sign Comment: EKG Rhythm: Sinus Rhythm Rhythm change?: N Notified?: N -Dr. Darryn ARIAS Response: Order Received& Read Back Latest Perez Fall Score: 50 Fall Risk: High Risk Safety Measures: Call light Within Reach, Bed Alarm Zone 1, Side Rails Side Rails x2, Bed position Low and Locked. Fall Precautions: y Yellow Socks y Yellow Gown y Patient Fall Education Report given to Jude Dunn/RN.
--- NOTE | 2020-07-31 20:20 | NUR ---
NURSE NOTES: Patient received from YOGI Lizama. Patient is awake, alert and oriented x 4. Patient is able to verbalize her needs and is very talkative. Patient complaining of pain but says the medication that has been given to her is starting to work. Patient is able to stand up and use the bedside commode. Patient has an IV on her right axillary 24 gauge. Patient is on room air with no signs of respiratory distress. Bed is in the lowest position and locked, call light within reach. Will continue to monitor.
--- NOTE | 2020-07-31 22:53 | General Progress Note ---
Subjective Allergies: Coded Allergies: HYDROCODONE BIT (Verified Allergy, Severe, Hives, 05/16/13) Subjective Constitutional: Reports: weakness; Denies: chills, fever HEENT: Denies: eye pain, ear pain, ear discharge, throat pain, mouth pain Cardiovascular: Denies: chest pain, irregular heart rate, lightheadedness Respiratory: Denies: cough, shortness of breath Gastrointestinal/Abdominal: Denies: abdomen distended, blood in stool, constipated, diarrhea, difficulty swallowing, nausea, poor appetite Genitourinary: Reports flank pain. Denies: burning, discharge, frequency Neurologic/Psychiatric: Denies: headache, numbness, paresthesia Endocrine: Denies: excessive sweating, intolerance to cold, intolerance to heat Hematologic/Lymphatic: Denies: anemia, easy bleeding No acute events overnight. Patient still pending transfer. Patient complaining of flank pain, generally gradually improving over past few days. Otherwise no new complaints. Objective Last 24 Hour Vital Signs Date Time Temp Pulse Resp B/P (MAP) Pulse Ox O2 Delivery O2 Flow Rate FiO2 07/31/20 20:40 87 147/52 07/31/20 20:00 100.2 83 20 147/52 (83) 97 07/31/20 16:00 99.7 81 18 127/86 (100) 97 07/31/20 16:00 92 07/31/20 12:00 86 07/31/20 12:00 98.8 81 19 146/66 (92) 97 07/31/20 09:05 155/72 (99) 07/31/20 09:03 94 196/86 07/31/20 09:00 Room Air 07/31/20 08:00 90 07/31/20 08:00 98.6 84 20 196/86 (122) 96 07/31/20 04:00 98.7 80 20 140/78 (98) 98 07/31/20 04:00 81 07/31/20 00:00 87 07/31/20 00:00 99.0 87 20 138/70 (92) 98 Intake and Output 07/30/20 07/31/20 19:00 07:00 Intake Total 480 ml 720 ml Output Total 1200 ml Balance 480 ml -480 ml Intake Oral 480 ml 720 ml Output Urine Total 1200 ml # Voids 3 # Bowel Movements 1 3 Laboratory Tests 07/31/20 05:58: POC Whole Blood Glucose 117H 07/31/20 06:32: White Blood Count 12.4H, Red Blood Count 4.28, Hemoglobin 12.7, Hematocrit 38.8, Mean Corpuscular Volume 91, Mean Corpuscular Hemoglobin 29.8, Mean Corpuscular Hemoglobin Concent 32.9, Red Cell Distribution Width 15.3H, Platelet Count 312, Mean Platelet Volume 7.5, Neutrophils (%) (Auto) 66.4, Lymphocytes (%) (Auto) 16.4L, Monocytes (%) (Auto) 13.7H, Eosinophils (%) (Auto) 0.8, Basophils (%) (Auto) 2.7H, Sodium Level 136, Potassium Level 5.6#H, Chloride Level 104, Carbon Dioxide Level 25, Anion Gap 7, Blood Urea Nitrogen 6L, Creatinine 0.7, Estimat Glomerular Filtration Rate > 60, Glucose Level 124H, Calcium Level 8.3L, Total Bilirubin 0.5, Aspartate Amino Transf (AST/SGOT) 71H, Alanine Aminotransferase (ALT/SGPT) 37, Alkaline Phosphatase 192H, Total Protein 7.0, Albumin 2.7L, Globulin 4.3, Albumin/Globulin Ratio 0.6L 07/31/20 15:30: POC Whole Blood Glucose 113H 07/31/20 15:40: Sodium Level 140, Potassium Level 3.2L, Chloride Level 105, Carbon Dioxide Level 26, Anion Gap 9, Blood Urea Nitrogen 5L, Creatinine 0.8, Estimat Glomerular Filtration Rate > 60, Glucose Level 109H, Calcium Level 8.7 07/31/20 17:18: POC Whole Blood Glucose 121H 07/31/20 20:26: POC Whole Blood Glucose 132H Height (Feet): 5 Height (Inches): 0.00 Weight (Pounds): 155 Objective General Appearance: no apparent distress, alert EENT: PERRL/EOMI, pharynx normal Neck: supple, normal inspection, abnormal alignment Cardiovascular: normal peripheral pulses, normal rate, regular rhythm, no gallop/murmur Respiratory/Chest: chest wall non-tender, lungs clear, normal breath sounds, no respiratory distress, no accessory muscle use Abdomen: normal bowel sounds, soft, no mass, moderately tender in flank Extremities: normal range of motion, normal inspection Edema: no edema noted Arm (L), no edema noted Arm (R), no edema noted Leg (L), no edema noted Leg (R) 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 Coli Bacteremia # UTI # Anion Gap Metabolic Acidosis 2/2 Lactic Acid - resolved # Severe Lactic Acidosis - resolved # MANDY 2/2 pre-renal azotemia vs Sepsis ATN - resolved # Prolong Qt # Leukocytosis - improving # Thrombocytopenia likely 2/2 sepsis - improving # New Diagnosis Type 2 DM # Hx of Rheumatoid Arthritis on Biologic infusion # Hx of OA # Hx of osteoporosis # NAFLD P: - hemodynamically stable - keep MAP > 65, monitor for BP support with need for pressors - Still pending transfer to [facility] or other hospital for cardiac cath - On Rocephin per ID, considering transition to PO ciprofloxacin 500 mg BID for 1 week upon discharge - BC +gram negative rods, Ecoli - CT A/P reviewed showing right sided perinephric stranding likely pyelonephritis - avoid prolonging qt agents - ISS - trend plateletsimproving - hold anticoags < 50 - leukocytosis continuing to improve - Dr. Cates, Nephrology, recs appreciated - consult Dr. Gallego, ID, recs appreciated - consult Dr. Che Cardiology, recs appreciated - plan for transfer to [facility] for cardiac cath given troponin elevation - consult Dr. Ann, Pul, recs appreciated - PT CODE: Full GI: none DVT: Heparin 5000U BID Diet: cardio Dispo: possible transfer to [facility] today or tomorrow for cardiac cath by Dr. Che Time spent on this encounter was 31 minutes which included 16 minutes of counseling and care coordination. I discussed with the nurse and patient and at bedside. Time of note may not reflect time patient was seen. Edenilson Lugo M.D. Jul 31, 2020 22:53
[2020-08-01] VITALS: BP 151/68
[2020-08-01] MEDS: HYDROcodone/Acetamin 10/325 tab ORAL PRN ×4 (00:02→18:47)
[2020-08-01 04:00] VITALS: BP 139/68
[2020-08-01] MEDS: Sucralfate 1gm tab ORAL SCH ×3 (05:40→17:21)
[2020-08-01] MEDS: NovoLOG Insulin Flexpen SUBQ SCH ×4 (05:45→21:00)
--- NOTE | 2020-08-01 07:30 | NUR ---
NURSE HAND-OFF REPORT: Important Events on Shift:[Patient complained of generalized pain. Provided medication. Pending cardiac catheterization. Patient able to use the restroom with assist] Patient Status: [stable] Diet: [cardiac] Pending Orders: [] Pending Results/Labs:[] Pending MD notification:[] Latest Vital Signs: Temperature 98.1 , Pulse 88 , B/P 139 /68 , Respiratory Rate 20 , O2 SAT 96 , Room Air, O2 Flow Rate . Vital Sign Comment: [] EKG Rhythm: Sinus Rhythm Rhythm change?: N Notified?: N -Dr. Darryn ARIAS Response: Order Received& Read Back Latest Perez Fall Score: 50 Fall Risk: High Risk Safety Measures: Call light Within Reach, Bed Alarm Zone 1, Side Rails Side Rails x2, Bed position Low and Locked. Fall Precautions: Yellow Socks Yellow Gown Patient Fall Education Report given to [YOGI Anderson].
[2020-08-01 07:33] LABS: BASOPHILS % (AUTO) 1.4 % (0.0-2.0); HEMATOCRIT 36.7 % (37.0-47.0); HEMOGLOBIN 12.6 G/DL (12.0-16.0); LYMPHOCYTES % (AUTO) 23.7 % (20.0-45.0); MEAN CORPUSCULAR VOLUME 87 FL (80-99); MONOCYTES % (AUTO) 8.4 % (1.0-10.0); NEUTROPHILS % (AUTO) 65.5 % (45.0-75.0); PLATELET COUNT 371 K/UL (150-450); RED BLOOD COUNT 4.22 M/UL (4.20-5.40); RED CELL DISTRIBUTION WIDTH 15.3 % (11.6-14.8); WHITE BLOOD COUNT 12.9 K/UL (4.8-10.8)
--- NOTE | 2020-08-01 07:35 | NUR ---
NURSE NOTES: Received patient from YOGI Jo under the care of Dr. Cates for the admitting dx. of Sepsis and NSTEMI. Patient noted allergic to hydrocodone. Full code status and no isolation noted. Patient is A+Ox4, verbally responsive with clear speech in [place]. Patinet is under fall precaution for unsteady gait. No acute distress or discomfort noted on room air. Denies pain at this time and able to eat breakfast with set-up assistance only. Will continue to monitor.
[2020-08-01 08:00] VITALS: BP 152/73
[2020-08-01] MEDS: Aspirin Baby 81mg ORAL SCH (08:51)
[2020-08-01] MEDS: ALPRAZolam 0.5mg tab ORAL SCH (08:51)
[2020-08-01] MEDS: Atorvastatin 80mg tab ORAL SCH (08:51)
[2020-08-01] MEDS: Heparin 5000 units/ml inj SUBQ SCH ×2 (08:54→21:00)
--- NOTE | 2020-08-01 09:19 | Pulmonology Progress Note ---
Subjective ROS Limited/Unobtainable: No Interval Events: None new Constitutional: Denies: fever HEENT: Repors: no symptoms Respiratory: Reports: no symptoms Cardiovascular: Reports: no symptoms Gastrointestinal/Abdominal: Denies: nausea, vomiting, diarrhea Psychiatric: Denies: depression Skin: Denies: rash Musculoskeletal: Denies: pain Allergies: Coded Allergies: HYDROCODONE BIT (Verified Allergy, Severe, Hives, 05/16/13) Objective Last 24 Hour Vital Signs Date Time Temp Pulse Resp B/P (MAP) Pulse Ox O2 Delivery O2 Flow Rate FiO2 08/01/20 08:51 88 139/68 08/01/20 04:00 88 08/01/20 04:00 97.5 88 20 139/68 (91) 96 08/01/20 00:00 74 08/01/20 00:00 98.1 89 16 151/68 (95) 99 07/31/20 21:00 Room Air 07/31/20 20:40 87 147/52 07/31/20 20:00 109 07/31/20 20:00 100.2 83 20 147/52 (83) 97 07/31/20 16:00 99.7 81 18 127/86 (100) 97 07/31/20 16:00 92 07/31/20 12:00 86 07/31/20 12:00 98.8 81 19 146/66 (92) 97 Intake and Output 07/31/20 08/01/20 19:00 07:00 Intake Total 800 ml 500 ml Output Total 1000 ml 1000 ml Balance -200 ml -500 ml Intake Oral 800 ml 500 ml Output Urine Total 1000 ml 1000 ml # Voids 3 4 # Bowel Movements 4 2 General Appearance: no acute distress HEENT: normocephalic Respiratory: chest wall non-tender, lungs clear Cardiovascular: normal peripheral pulses, normal rate Abdomen: normal bowel sounds Laboratory Tests 07/31/20 15:30: POC Whole Blood Glucose 113H 07/31/20 15:40: Sodium Level 140, Potassium Level 3.2L, Chloride Level 105, Carbon Dioxide Level 26, Anion Gap 9, Blood Urea Nitrogen 5L, Creatinine 0.8, Estimat Glomerular Filtration Rate > 60, Glucose Level 109H, Calcium Level 8.7 07/31/20 17:18: POC Whole Blood Glucose 121H 07/31/20 20:26: POC Whole Blood Glucose 132H 08/01/20 05:45: POC Whole Blood Glucose 114H 08/01/20 06:30: White Blood Count 12.9H, Red Blood Count 4.22, Hemoglobin 12.6, Hematocrit 36.7L , Mean Corpuscular Volume 87, Mean Corpuscular Hemoglobin 29.8, Mean Corpuscular Hemoglobin Concent 34.2, Red Cell Distribution Width 15.3H, Platelet Count 371, Mean Platelet Volume 7.5, Neutrophils (%) (Auto) 65.5, Lymphocytes (%) (Auto) 23.7, Monocytes (%) (Auto) 8.4, Eosinophils (%) (Auto) 1.0, Basophils (%) (Auto) 1.4 Current Medications Medications (Trade) Dose Ordered Sig/Gabriel Route PRN Reason Start Time Stop Time Status Last Admin Dose Admin Acetaminophen (Tylenol) 650 mg Q4H PRN ORAL Mild Pain (Pain Scale 1-3) 07/28/20 11:00 08/27/20 10:59 07/30/20 00:31 Acetaminophen/ Hydrocodone Bitart ([place] 10/325) 1 tab Q4H PRN ORAL Severe Pain (Pain Scale 7-10) 07/26/20 09:45 08/02/20 09:44 08/01/20 05:41 Acetaminophen/ Hydrocodone Bitart ([place] 5/325) 1 tab Q4H PRN ORAL Moderate Pain (Pain Scale 4-6) 07/26/20 09:45 08/02/20 09:44 07/30/20 06:15 Alprazolam (Xanax) 1 mg DAILY ORAL 07/26/20 10:00 08/02/20 09:59 08/01/20 08:51 Aspirin (ASA) 81 mg DAILY ORAL 07/25/20 09:00 09/08/20 08:59 08/01/20 08:51 Atorvastatin Calcium (Lipitor) 80 mg DAILY ORAL 07/25/20 09:00 10/23/20 08:59 08/01/20 08:51 Ceftriaxone Sodium 1 gm/ Dextrose 50 ml @ 100 mls/hr Q24H IVPB 07/28/20 14:00 08/04/20 13:59 07/31/20 14:00 Dextrose (Dextrose 50%) 25 ml Q30M PRN IV Hypoglycemia 07/26/20 10:15 10/24/20 10:14 Dextrose (Dextrose 50%) 50 ml Q30M PRN IV Hypoglycemia 07/26/20 10:15 10/24/20 10:14 Docusate Sodium (Colace) 100 mg BID PRN ORAL Constipation 07/27/20 09:15 08/26/20 09:14 Gabapentin (Neurontin) 300 mg TID ORAL 07/25/20 09:00 08/24/20 08:59 08/01/20 08:51 Heparin Sodium (Porcine) (Heparin 5000 units/ml) 5,000 units EVERY 12 HOURS SUBQ 07/27/20 21:00 09/10/20 20:59 08/01/20 08:54 Hydralazine HCl (Apresoline) 10 mg Q4H PRN IV For High Blood Pressure 07/27/20 17:15 10/25/20 17:14 07/27/20 17:49 Insulin Aspart (NovoLOG) BEFORE MEALS AND HS SUBQ 07/26/20 11:30 10/24/20 11:29 Metoprolol Tartrate (Lopressor) 25 mg Q12HR ORAL 07/27/20 21:00 10/25/20 20:59 08/01/20 08:51 Ondansetron HCl (Zofran) 4 mg Q8H PRN IVP Nausea & Vomiting 07/27/20 12:45 08/26/20 12:44 Pantoprazole (Protonix) 40 mg BID ORAL 07/25/20 09:00 08/24/20 08:59 08/01/20 08:51 Prochlorperazine (Compazine) 10 mg Q6H PRN IVP Nausea & Vomiting 07/25/20 12:15 08/24/20 12:14 07/27/20 12:35 Sucralfate (Carafate) 1 gm BEFORE MEALS ORAL 07/25/20 11:30 10/23/20 11:29 08/01/20 05:40 Assessment/Plan Assessment/Plan IMPRESSION: 1. Non-ST elevation IA. 2. Rheumatoid arthritis. 3. Hypokalemia. 4. Marked leukocytosis. Improved to 14 K now DISCUSSION: Broad spectrum abx for pyelonephritis Saturating well on RA Zuly Fernández Omar Syed MD Aug 01, 2020 09:19
--- NOTE | 2020-08-01 09:26 | Nephrology Progress Note ---
Assessment/Plan Plan #Septic shock due to UTi and pyelnephritis #hypokalemia and hypophosphatemia #NSTEMI #MANDY #UTI #Sinus tach #RA - plan to transfer to [facility] or [facility] for [facility] - IV abx-, cevtriaxone - ID eval - follow cx - ASA - statin - cardiology eval - pain control - hold pred for now - hold infliximab for now Subjective ROS Limited/Unobtainable: No Constitutional: Reports: weakness HEENT: Denies: no symptoms, eye pain, blurred vision, tearing, double vision, ear pain, ear discharge, nose pain, nose congestion, throat pain, throat swelling, mouth pain, mouth swelling, other Genitourinary: Denies: no symptoms, burning, discharge, frequency, flank pain, hematuria, incontinence, pain, urgency, other Neurologic/Psychiatric: Denies: no symptoms, anxiety, depressed, emotional problems, headache, numbness, paresthesia, pre-existing deficit, seizure, tin gling, tremors, weakness, other Subjective WBC now downtrending K and phos low -repleted plan to transfer to [facility] or [facility] for [facility] Objective Objective Last 24 Hour Vital Signs Date Time Temp Pulse Resp B/P (MAP) Pulse Ox O2 Delivery O2 Flow Rate FiO2 08/01/20 08:51 88 139/68 08/01/20 04:00 88 08/01/20 04:00 97.5 88 20 139/68 (91) 96 08/01/20 00:00 74 08/01/20 00:00 98.1 89 16 151/68 (95) 99 07/31/20 21:00 Room Air 07/31/20 20:40 87 147/52 07/31/20 20:00 109 07/31/20 20:00 100.2 83 20 147/52 (83) 97 07/31/20 16:00 99.7 81 18 127/86 (100) 97 07/31/20 16:00 92 07/31/20 12:00 86 07/31/20 12:00 98.8 81 19 146/66 (92) 97 Intake and Output 07/31/20 08/01/20 19:00 07:00 Intake Total 800 ml 500 ml Output Total 1000 ml 1000 ml Balance -200 ml -500 ml Intake Oral 800 ml 500 ml Output Urine Total 1000 ml 1000 ml # Voids 3 4 # Bowel Movements 4 2 Laboratory Tests 07/31/20 15:30: POC Whole Blood Glucose 113H 07/31/20 15:40: Sodium Level 140, Potassium Level 3.2L, Chloride Level 105, Carbon Dioxide Level 26, Anion Gap 9, Blood Urea Nitrogen 5L, Creatinine 0.8, Estimat Glomerular Filtration Rate > 60, Glucose Level 109H, Calcium Level 8.7 07/31/20 17:18: POC Whole Blood Glucose 121H 07/31/20 20:26: POC Whole Blood Glucose 132H 08/01/20 05:45: POC Whole Blood Glucose 114H 08/01/20 06:30: White Blood Count 12.9H, Red Blood Count 4.22, Hemoglobin 12.6, Hematocrit 36.7L , Mean Corpuscular Volume 87, Mean Corpuscular Hemoglobin 29.8, Mean Corpuscular Hemoglobin Concent 34.2, Red Cell Distribution Width 15.3H, Platelet Count 371, Mean Platelet Volume 7.5, Neutrophils (%) (Auto) 65.5, Lymphocytes (%) (Auto) 23.7, Monocytes (%) (Auto) 8.4, Eosinophils (%) (Auto) 1.0, Basophils (%) (Auto) 1.4 Height (Feet): 5 Height (Inches): 0.00 Weight (Pounds): 155 Ross Cates M.D. Aug 01, 2020 09:26
--- NOTE | 2020-08-01 09:30 | NUR ---
NURSE NOTES: Patient finished physical therapy for today, able to ambulate with assistance. denies pain at this time. No sign of acute distress noted. Will continue to monitor.
--- NOTE | 2020-08-01 09:34 | NUR ---
DISCHARGE PLANNING/TRANSFER PATIENT HAS BEEN ACCEPTED AT 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
--- NOTE | 2020-08-01 10:15 | Cardiac Electrophysiology PN ---
Assessment/Plan Assessment/Plan 1. Non-ST elevation myocardial infarction with troponin peak of 6.9. Now down to 0.714 Denies any chest pain or shortness of breath and ECG shows no ST elevation. The patient however also has renal failure, creatinine 1.4, and she is septic, lactic acid [place] 6.8[place] [address]. EF 65%. Continue on aspirin,Lipitor and Lopressor 25 bid Awaiting transfer to [facility] for Cardiac cath( Insurance denied [facility]) 2. Sinus tachycardia due to sepsis. Already on antibiotics. On Lopressor 3. Hyperlipidemia on Lipitor. 4. Gram neg uti/pyelonephritis, bacteremia/sepsis with WBC 50K, Fever, cough, and body ache. COVID test is negative On Abx per Dr Gallego 5. Severe back pain. On prednisone, gabapentin, and Xanax at home. Further evaluation by Rheumatology. 6. Renal failure, creatinine 1.4, resolved Cr 1.[address] RN and Dr Cates Subjective Subjective Off isolation as Covid PCR is negative. Troponin peak was 6.9 that is down to 0.714. No CP or SOB. Awaiting transfer to [facility] or [facility] for cardiac cath( Insurance denied [facility]) Objective Last 24 Hour Vital Signs Date Time Temp Pulse Resp B/P (MAP) Pulse Ox O2 Delivery O2 Flow Rate FiO2 08/01/20 08:51 88 139/68 08/01/20 04:00 88 08/01/20 04:00 97.5 88 20 139/68 (91) 96 08/01/20 00:00 74 08/01/20 00:00 98.1 89 16 151/68 (95) 99 07/31/20 21:00 Room Air 07/31/20 20:40 87 147/52 07/31/20 20:00 109 07/31/20 20:00 100.2 83 20 147/52 (83) 97 07/31/20 16:00 99.7 81 18 127/86 (100) 97 07/31/20 16:00 92 07/31/20 12:00 86 07/31/20 12:00 98.8 81 19 146/66 (92) 97 Intake and Output 07/31/20 08/01/20 19:00 07:00 Intake Total 800 ml 500 ml Output Total 1000 ml 1000 ml Balance -200 ml -500 ml Intake Oral 800 ml 500 ml Output Urine Total 1000 ml 1000 ml # Voids 3 4 # Bowel Movements 4 2 Laboratory Tests Test 07/31/20 15:30 07/31/20 15:40 07/31/20 17:18 07/31/20 20:26 POC Whole Blood Glucose 113 MG/DL (74-106) H 121 MG/DL (74-106) H 132 MG/DL (74-106) H Sodium Level 140 MMOL/L (136-145) Potassium Level 3.2 MMOL/L (3.5-5.1) L Chloride Level 105 MMOL/L (98-107) Carbon Dioxide Level 26 MMOL/L (21-32) Anion Gap 9 mmol/L (5-15) Blood Urea Nitrogen 5 mg/dL (7-18) L Creatinine 0.8 MG/DL (0.55-1.30) Estimat Glomerular Filtration Rate > 60 mL/min (>60) Glucose Level 109 MG/DL (74-106) H Calcium Level 8.7 MG/DL (8.5-10.1) Test 08/01/20 05:45 08/01/20 06:30 POC Whole Blood Glucose 114 MG/DL (74-106) H White Blood Count 12.9 K/UL (4.8-10.8) H Red Blood Count 4.22 M/UL (4.20-5.40) Hemoglobin 12.6 G/DL (12.0-16.0) Hematocrit 36.7 % (37.0-47.0) L Mean Corpuscular Volume 87 FL (80-99) Mean Corpuscular Hemoglobin 29.8 PG (27.0-31.0) Mean Corpuscular Hemoglobin Concent 34.2 G/DL (32.0-36.0) Red Cell Distribution Width 15.3 % (11.6-14.8) H Platelet Count 371 K/UL (150-450) Mean Platelet Volume 7.5 FL (6.5-10.1) Neutrophils (%) (Auto) 65.5 % (45.0-75.0) Lymphocytes (%) (Auto) 23.7 % (20.0-45.0) Monocytes (%) (Auto) 8.4 % (1.0-10.0) Eosinophils (%) (Auto) 1.0 % (0.0-3.0) Basophils (%) (Auto) 1.4 % (0.0-2.0) Objective HEAD AND NECK: No JVD. LUNGS: Clear. CARDIOVASCULAR: Regular S1 and S2 with no gallop or murmur, tachycardic. ABDOMEN: Soft. EXTREMITIES: No pitting edema. Augustine Che MD Aug 01, 2020 10:15
[2020-08-01 12:00] VITALS: BP 132/60
[2020-08-01] MEDS: cefTRIAXone 1 GM in D5W 50 ML IVPB SCH (14:18)
--- NOTE | 2020-08-01 14:39 | NUR ---
CASE MANAGEMENT:REVIEW 08/01/20 SI: SEPSIS D/T E COLI BACTEREMIA 99.0 81 20 140/78 98% ON RA WBC+12.4 K+5.6 LAST TROPONIN(+) 0.311 IS: IV ROCEPHIN Q24 HEPARIN SQ Q12 LOPRESSOR PO Q12 ASA PO QD LIPITOR PO QHS : NOW ON TELEMETRY UNIT DCP: FROM HOME PLAN: TRANSFER TO HIGHER LEVEL OF CARE FOR CARDIAC CATH PATIENT HAS BEEN ACCEPTED AT [facility] ~ WAITING FOR AVAILABLE BED DEMARCUS SIMONS [facility]
--- NOTE | 2020-08-01 14:59 | Infectious Diseases Prog Note ---
Assessment/Plan Assessment/Plan ASSESSMENT AND PLAN: 1. e.coli uti/pyelonephritis, e.coli bacteremia/sepsis, severe sepsis, sirs, leukocytosis, fevers - ceftriaxone - day # 8 antibiotics total - monitor labs, surveillance blood cultures negative - CT abdomen and pelvis with right perinephric stranding - d/w RN and patient - plan on transfer to [facility] for heart cath - d/w Dr. Lugo 2. MANDY - improved 3. Patient has history of rheumatoid arthritis and been immunocompromised with history of steroids and also Remicade. 4. Patient has osteoarthritis. 5. Osteoporosis. 6. Non-STEMI - to transfer to [facility] for heart cath per d/w RN and patient 7. CAD. 8. NAFLD. 9. Rheumatoid arthritis and immunocompromised. 10. Continue care per primary consultants. 11. Allergies to hydrocodone. 12. Social history is negative. 13. Family history is noncontributory. 14. MAR is noted. 15. Case was discussed with RN. 16. Orders were noted and entered. 17. Patient is COVID negative and isolation will be removed. 18. Case also discussed at length with nursing staff about antibiotic management and the patient's care. Subjective Constitutional: Reports: fever - lgt x 1, fatigue HEENT: Denies: congestion Respiratory: Denies: shortness of breath Cardiovascular: Denies: chest pain Gastrointestinal/Abdominal: Denies: nausea Neurologic: Denies: headache Psychiatric: Denies: depression Skin: Denies: rash Hematologic: Denies: bleeding Musculoskeletal: Denies: pain Allergies: Coded Allergies: HYDROCODONE BIT (Verified Allergy, Severe, Hives, 05/16/13) Objective Last 24 Hour Vital Signs Date Time Temp Pulse Resp B/P (MAP) Pulse Ox O2 Delivery O2 Flow Rate FiO2 08/01/20 12:00 80 08/01/20 12:00 96.8 86 18 132/60 (84) 96 08/01/20 09:00 Room Air 08/01/20 08:51 88 139/68 08/01/20 08:00 92 08/01/20 08:00 98.0 92 20 152/73 (99) 99 08/01/20 04:00 88 08/01/20 04:00 97.5 88 20 139/68 (91) 96 08/01/20 00:00 74 08/01/20 00:00 98.1 89 16 151/68 (95) 99 07/31/20 21:00 Room Air 07/31/20 20:40 87 147/52 07/31/20 20:00 109 07/31/20 20:00 100.2 83 20 147/52 (83) 97 07/31/20 16:00 99.7 81 18 127/86 (100) 97 07/31/20 16:00 92 Height (Feet): 5 Height (Inches): 0.00 Weight (Pounds): 155 General Appearance: no acute distress HEENT: normocephalic, atraumatic, anicteric, mucous membranes moist Respiratory/Chest: lungs clear, normal breath sounds, no respiratory distress, no accessory muscle use Cardiovascular: normal rate, regular rhythm, no gallop/murmur, no JVD Abdomen: normal bowel sounds, soft, non tender, no organomegaly, non distended Genitourinary: other - no rodrigez Extremities: no cyanosis Skin: no rash Neurologic/Psychiatric: supervisor home energy consultant II-XII grossly normal, alert, oriented x 3, responsive Lymphatic: no neck adenopathy Musculoskeletal: no effusion Chest x-ray -07/27/20 - Procedure: XRAY Chest 1v Indication: Cough Technique: One view of the chest Comparison: 07/25/2020 Findings: Lungs and pleural spaces are clear. Heart size is normal. No significant change Impression: No acute process CT abdomen and pelvis: IMPRESSION: 1. No visible intra-abdominal or intrapelvic abscess. 2. Mild wall thickening in the duodenal C-loop. This may represent a mild duodenitis or may be reactive inflammation from a subtle pancreatitis along the duodenal groove. The pancreas otherwise appears unremarkable. Recommend correlation with serum amylase and lipase. 3. Right perinephric stranding. No hydronephrosis or hydroureter. No visible radiodense stones. This raises possibility of UTI or pyelonephritis. Recommend correlation with urinalysis. 4. Bilateral trace pleural effusions. Dependent atelectasis in bilateral lung bases. 5. Status post cholecystectomy. Microbiology Date/Time Source Procedure Growth Status 07/28/20 03:35 Blood Blood Culture - Preliminary NO GROWTH AFTER 72 HOURS Resulted 07/25/20 18:45 Nasal Aspirate MRSA Culture - Final NO METHICILLIN RESISTANT STAPH AUREUS... Complete 07/25/20 02:10 Urine,Clean Catch Urine Culture - Final Escherichia Coli Complete Microbiology Date/Time Source Procedure Growth Status 07/28/20 03:35 Blood Blood Culture - Preliminary NO GROWTH AFTER 72 HOURS Resulted 07/25/20 18:45 Nasal Aspirate MRSA Culture - Final NO METHICILLIN RESISTANT STAPH AUREUS... Complete 07/25/20 02:10 Urine,Clean Catch Urine Culture - Final Escherichia Coli Complete Laboratory Tests Test 07/31/20 15:30 07/31/20 15:40 07/31/20 17:18 07/31/20 20:26 POC Whole Blood Glucose 113 MG/DL (74-106) H 121 MG/DL (74-106) H 132 MG/DL (74-106) H Sodium Level 140 MMOL/L (136-145) Potassium Level 3.2 MMOL/L (3.5-5.1) L Chloride Level 105 MMOL/L (98-107) Carbon Dioxide Level 26 MMOL/L (21-32) Anion Gap 9 mmol/L (5-15) Blood Urea Nitrogen 5 mg/dL (7-18) L Creatinine 0.8 MG/DL (0.55-1.30) Estimat Glomerular Filtration Rate > 60 mL/min (>60) Glucose Level 109 MG/DL (74-106) H Calcium Level 8.7 MG/DL (8.5-10.1) Test 08/01/20 05:45 08/01/20 06:30 POC Whole Blood Glucose 114 MG/DL (74-106) H White Blood Count 12.9 K/UL (4.8-10.8) H Red Blood Count 4.22 M/UL (4.20-5.40) Hemoglobin 12.6 G/DL (12.0-16.0) Hematocrit 36.7 % (37.0-47.0) L Mean Corpuscular Volume 87 FL (80-99) Mean Corpuscular Hemoglobin 29.8 PG (27.0-31.0) Mean Corpuscular Hemoglobin Concent 34.2 G/DL (32.0-36.0) Red Cell Distribution Width 15.3 % (11.6-14.8) H Platelet Count 371 K/UL (150-450) Mean Platelet Volume 7.5 FL (6.5-10.1) Neutrophils (%) (Auto) 65.5 % (45.0-75.0) Lymphocytes (%) (Auto) 23.7 % (20.0-45.0) Monocytes (%) (Auto) 8.4 % (1.0-10.0) Eosinophils (%) (Auto) 1.0 % (0.0-3.0) Basophils (%) (Auto) 1.4 % (0.0-2.0) Current Medications Medications (Trade) Dose Ordered Sig/Gabriel Route PRN Reason Start Time Stop Time Status Last Admin Dose Admin Acetaminophen (Tylenol) 650 mg Q4H PRN ORAL Mild Pain (Pain Scale 1-3) 07/28/20 11:00 08/27/20 10:59 07/30/20 00:31 Acetaminophen/ Hydrocodone Bitart (Nelson 10/325) 1 tab Q4H PRN ORAL Severe Pain (Pain Scale 7-10) 07/26/20 09:45 08/02/20 09:44 08/01/20 12:43 Acetaminophen/ Hydrocodone Bitart (Nelson 5/325) 1 tab Q4H PRN ORAL Moderate Pain (Pain Scale 4-6) 07/26/20 09:45 08/02/20 09:44 07/30/20 06:15 Alprazolam (Xanax) 1 mg DAILY ORAL 07/26/20 10:00 08/02/20 09:59 08/01/20 08:51 Aspirin (ASA) 81 mg DAILY ORAL 07/25/20 09:00 09/08/20 08:59 08/01/20 08:51 Atorvastatin Calcium (Lipitor) 80 mg DAILY ORAL 07/25/20 09:00 10/23/20 08:59 08/01/20 08:51 Ceftriaxone Sodium 1 gm/ Dextrose 50 ml @ 100 mls/hr Q24H IVPB 07/28/20 14:00 08/04/20 13:59 08/01/20 14:18 Dextrose (Dextrose 50%) 25 ml Q30M PRN IV Hypoglycemia 07/26/20 10:15 10/24/20 10:14 Dextrose (Dextrose 50%) 50 ml Q30M PRN IV Hypoglycemia 07/26/20 10:15 10/24/20 10:14 Docusate Sodium (Colace) 100 mg BID PRN ORAL Constipation 07/27/20 09:15 08/26/20 09:14 Gabapentin (Neurontin) 300 mg TID ORAL 07/25/20 09:00 08/24/20 08:59 08/01/20 12:42 Heparin Sodium (Porcine) (Heparin 5000 units/ml) 5,000 units EVERY 12 HOURS SUBQ 07/27/20 21:00 09/10/20 20:59 08/01/20 08:54 Hydralazine HCl (Apresoline) 10 mg Q4H PRN IV For High Blood Pressure 07/27/20 17:15 10/25/20 17:14 07/27/20 17:49 Insulin Aspart (NovoLOG) BEFORE MEALS AND HS SUBQ 07/26/20 11:30 10/24/20 11:29 Metoprolol Tartrate (Lopressor) 25 mg Q12HR ORAL 07/27/20 21:00 10/25/20 20:59 08/01/20 08:51 Ondansetron HCl (Zofran) 4 mg Q8H PRN IVP Nausea & Vomiting 07/27/20 12:45 08/26/20 12:44 Pantoprazole (Protonix) 40 mg BID ORAL 07/25/20 09:00 08/24/20 08:59 08/01/20 08:51 Prochlorperazine (Compazine) 10 mg Q6H PRN IVP Nausea & Vomiting 07/25/20 12:15 08/24/20 12:14 07/27/20 12:35 Sucralfate (Carafate) 1 gm BEFORE MEALS ORAL 07/25/20 11:30 10/23/20 11:29 08/01/20 11:30 Brice Call MD Aug 01, 2020 14:59
[2020-08-01 16:00] VITALS: BP 148/68
--- NOTE | 2020-08-01 18:01 | Surgery Progress Note ---
Surgery Progress Note Subjective Additional Comments no acute events Objective Last 24 Hour Vital Signs Date Time Temp Pulse Resp B/P (MAP) Pulse Ox O2 Delivery O2 Flow Rate FiO2 08/01/20 16:00 98.1 91 19 148/68 (94) 98 08/01/20 16:00 113 08/01/20 12:00 80 08/01/20 12:00 96.8 86 18 132/60 (84) 96 08/01/20 09:00 Room Air 08/01/20 08:51 88 139/68 08/01/20 08:00 92 08/01/20 08:00 98.0 92 20 152/73 (99) 99 08/01/20 04:00 88 08/01/20 04:00 97.5 88 20 139/68 (91) 96 08/01/20 00:00 74 08/01/20 00:00 98.1 89 16 151/68 (95) 99 07/31/20 21:00 Room Air 07/31/20 20:40 87 147/52 07/31/20 20:00 109 07/31/20 20:00 100.2 83 20 147/52 (83) 97 I&O Intake and Output 07/31/20 08/01/20 19:00 07:00 Intake Total 800 ml 500 ml Output Total 1000 ml 1000 ml Balance -200 ml -500 ml Intake Oral 800 ml 500 ml Output Urine Total 1000 ml 1000 ml # Voids 3 4 # Bowel Movements 4 2 Dressing: saturated Cardiovascular: RSR Respiratory: decreased breath sounds Abdomen: non-tender, present bowel sounds Extremities: no tenderness, no cyanosis Laboratory Tests Test 07/31/20 20:26 08/01/20 05:45 08/01/20 06:30 08/01/20 15:50 POC Whole Blood Glucose 132 MG/DL (74-106) H 114 MG/DL (74-106) H White Blood Count 12.9 K/UL (4.8-10.8) H Red Blood Count 4.22 M/UL (4.20-5.40) Hemoglobin 12.6 G/DL (12.0-16.0) Hematocrit 36.7 % (37.0-47.0) L Mean Corpuscular Volume 87 FL (80-99) Mean Corpuscular Hemoglobin 29.8 PG (27.0-31.0) Mean Corpuscular Hemoglobin Concent 34.2 G/DL (32.0-36.0) Red Cell Distribution Width 15.3 % (11.6-14.8) H Platelet Count 371 K/UL (150-450) Mean Platelet Volume 7.5 FL (6.5-10.1) Neutrophils (%) (Auto) 65.5 % (45.0-75.0) Lymphocytes (%) (Auto) 23.7 % (20.0-45.0) Monocytes (%) (Auto) 8.4 % (1.0-10.0) Eosinophils (%) (Auto) 1.0 % (0.0-3.0) Basophils (%) (Auto) 1.4 % (0.0-2.0) Troponin I 0.046 ng/mL (0.000-0.056) Plan Problems: (1) Hypokalemia (2) Rheumatoid arthritis (3) Rheumatoid arthritis (4) Rheumatoid arthritis (5) Fatty liver (6) Joint pain (7) Urinary retention (8) Anemia (9) Anxiety (10) Anxiety (11) Arthritis (12) Generalized weakness (13) CAD (coronary artery disease) (14) Cough (15) Cough (16) Diarrhea (17) Diverticulitis (18) Diverticulosis (19) Gastritis (20) Gastroenteritis (21) Infection (22) Leukocytosis (23) Leukocytosis Assessment & Plan: 65-year-old female with abdominal pain lactic acidosis leukocytosis elevated liver enzymes trend febrile septic admitted for the care management IV antibiotics per infectious disease currently no imaging pending. Labs noted lactic acidosis improved with fluids UTI noted likely urosepsis.. Abd ominal examination fairly benign no nausea vomiting. Okay for diet IV fluids KUB ordered Ultrasound ordered given liver enzyme elevation Elevated liver enzymes trend Unlikely bowel insult or ischemia. We will follow with recommendations thank you Mehran adame patient's care kub and us okay diet okay bowel regimen labs improved DAILY ESTIMATED NEEDS: Needs based on Sepsis, obese 51.8kg abw 25-30kcal/kg kcals/kg 4281-2539 total kcals 1-2 g protein/kg 52-104 g total protein 25-30 mL/kg 5973-9870 total fluid mLs NUTRITION DIAGNOSIS: Altered nutrition related lab values R/T Sepsis as evidence by WBC on adm 32.3, now trending down, febrile (Tmax 100.4). CURRENT DIET:cardiac PO DIET RECOMMENDATIONS: Low Na diet/ liberalized w/ variable po intake ADDITIONAL RECOMMENDATIONS: 1) Add Glucerna 1 tetra BID in b/w meals 2) Maintain calibrated bed scale wts 3) replete lytes as needed (Low K) 4) W/ elev BG and >50% po intake rec carb control diet (24) Leukocytosis (25) Sepsis Assessment & Plan: iv abx iv fluids trend labs imaging ordered will follow with rec Liver: Diffusely hypodense liver, suggesting fatty infiltration. Gallbladder and bile ducts: Status post cholecystectomy. No ductal dilation. Pancreas: Unremarkable. No ductal dilation. Spleen: Unremarkable. No splenomegaly. Adrenals: Unremarkable. No mass. Kidneys and ureters: Right perinephric stranding. No hydronephrosis or hydroureter. No visible radiodense stones. Stomach and bowel: Mild wall thickening in the duodenal C-loop. Postsurgical changes in the rectosigmoid junction. Colon and small bowel otherwise appear unremarkable. No evidence of bowel obstruction. PELVIS: Appendix: No findings to suggest acute appendicitis. Bladder: Unremarkable. No stones. Reproductive: The uterus and ovaries are not visualized and may be surgically absent. ABDOMEN and PELVIS: Intraperitoneal space: Unremarkable. No free air. No significant fluid collection. Bones/joints: Multilevel degenerative disc space loss. No acute fracture. No dislocation. Soft tissues: Unremarkable. Vasculature: Unremarkable. No abdominal aortic aneurysm. Lymph nodes: Unremarkable. No enlarged lymph nodes. Other findings: No visible intra-abdominal or intrapelvic abscess. IMPRESSION: 1. No visible intra-abdominal or intrapelvic abscess. 2. Mild wall thickening in the duodenal C-loop. This may represent a mild duodenitis or may be reactive inflammation from a subtle pancreatitis along the duodenal groove. The pancreas otherwise appears unremarkable. Recommend correlation with serum amylase and lipase. 3. Right perinephric stranding. No hydronephrosis or hydroureter. No visible radiodense stones. This raises possibility of UTI or pyelonephritis. Recommend correlation with urinalysis. 4. Bilateral trace pleural effusions. Dependent atelectasis in bilateral lung bases. 5. Status post cholecystectomy.a (26) UTI (urinary tract infection) (27) Reflux esophagitis (28) Abdominal pain (29) Abdominal pain (30) Abdominal pain (31) Abdominal pain (32) Abdominal pain (33) Bronchitis (34) Chest pain (35) Chest pain (36) Chest pain (37) Hemorrhoids (38) Vomiting (39) Multiple joint pain (40) Acute gastrointestinal bleeding (41) Acute gastrointestinal bleeding (42) Acute gastrointestinal bleeding (43) Acute gastrointestinal bleeding (44) Hepatic steatosis (45) Nausea & vomiting (46) Dehydration, moderate (47) Reflux gastritis (48) C. 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
--- NOTE | 2020-08-01 19:35 | NUR ---
NURSE HAND-OFF REPORT: Important Events on Shift:Transfer orders received Patient Status: Stable Diet: Regular Pending Orders: Pending Results/Labs: Pending MD notification: Latest Vital Signs: Temperature 98.1 , Pulse 91 , B/P 148 /68 , Respiratory Rate 19 , O2 SAT 98 , Room Air, O2 Flow Rate . Vital Sign Comment: EKG Rhythm: Sinus Rhythm Rhythm change?: Y Notified?: N Aisha Cates MD Response: Order Received& Read Back Latest Perez Fall Score: 50 Fall Risk: High Risk Safety Measures: Call light Within Reach, Bed Alarm Zone 1, Side Rails Side Rails x2, Bed position Low and Locked. Fall Precautions: Yellow Socks Yellow Gown Patient Fall Education Report given to YOGI oBwens.
--- NOTE | 2020-08-01 19:40 | NUR ---
NURSE NOTES: Patient received from Filipe RN. Patient is A/O x4. Able to make need known. Patient is on room air. No acute distress noted. No pain reported at this time. Patient has no IV site at this time. Patient is awaiting Room at [facility] for a cardiac cath. Patient is able to ambulate with assistance and walker. Patient is on fall precaution. Bed alarm is on, brakes locked, side rails up x3. Call light with in reach; patint is encraged and reminded to use call light for assistance and before trying to get up. Will continue to monitor.
[2020-08-01 20:00] VITALS: BP 149/67
--- NOTE | 2020-08-01 21:11 | General Progress Note ---
Subjective Date patient seen: Aug 01, 2020 ROS Limited/Unobtainable: No Allergies: Coded Allergies: HYDROCODONE BIT (Verified Allergy, Severe, Hives, 05/16/13) Subjective Constitutional: Reports: weakness; Denies: chills, fever HEENT: Denies: eye pain, ear pain, ear discharge, throat pain, mouth pain Cardiovascular: Denies: chest pain, irregular heart rate, lightheadedness Respiratory: Denies: cough, shortness of breath Gastrointestinal/Abdominal: Denies: abdomen distended, blood in stool, constipated, diarrhea, difficulty swallowing, nausea, poor appetite Genitourinary: Reports flank pain. Denies: burning, discharge, frequency Neurologic/Psychiatric: Denies: headache, numbness, paresthesia Endocrine: Denies: excessive sweating, intolerance to cold, intolerance to heat Hematologic/Lymphatic: Denies: anemia, easy bleeding No acute events overnight. Patient still pending transfer, now will go to [facility] once bed available. Patient feeling better today with more energy. Otherwise no new complaints. Objective Last 24 Hour Vital Signs Date Time Temp Pulse Resp B/P (MAP) Pulse Ox O2 Delivery O2 Flow Rate FiO2 08/01/20 16:00 98.1 91 19 148/68 (94) 98 08/01/20 16:00 113 08/01/20 12:00 80 08/01/20 12:00 96.8 86 18 132/60 (84) 96 08/01/20 09:00 Room Air 08/01/20 08:51 88 139/68 08/01/20 08:00 92 08/01/20 08:00 98.0 92 20 152/73 (99) 99 08/01/20 04:00 88 08/01/20 04:00 97.5 88 20 139/68 (91) 96 08/01/20 00:00 74 08/01/20 00:00 98.1 89 16 151/68 (95) 99 Intake and Output 07/31/20 08/01/20 19:00 07:00 Intake Total 800 ml 500 ml Output Total 1000 ml 1000 ml Balance -200 ml -500 ml Intake Oral 800 ml 500 ml Output Urine Total 1000 ml 1000 ml # Voids 3 4 # Bowel Movements 4 2 Laboratory Tests 08/01/20 05:45: POC Whole Blood Glucose 114H 08/01/20 06:30: White Blood Count 12.9H, Red Blood Count 4.22, Hemoglobin 12.6, Hematocrit 36.7L , Mean Corpuscular Volume 87, Mean Corpuscular Hemoglobin 29.8, Mean Corpuscular Hemoglobin Concent 34.2, Red Cell Distribution Width 15.3H, Platelet Count 371, Mean Platelet Volume 7.5, Neutrophils (%) (Auto) 65.5, Lymphocytes (%) (Auto) 23.7, Monocytes (%) (Auto) 8.4, Eosinophils (%) (Auto) 1.0, Basophils (%) (Auto) 1.4 08/01/20 15:50: Troponin I 0.046 Height (Feet): 5 Height (Inches): 0.00 Weight (Pounds): 155 Objective General Appearance: no apparent distress, alert, oriented x3 EENT: PERRL/EOMI, pharynx normal Neck: supple, normal inspection, abnormal alignment Cardiovascular: normal peripheral pulses, normal rate, regular rhythm, no gallop/murmur Respiratory/Chest: chest wall non-tender, lungs clear, normal breath sounds, no respiratory distress, no accessory muscle use Abdomen: normal bowel sounds, soft, no mass, mildly tender in flank Extremities: normal range of motion, normal inspection Edema: no edema noted Arm (L), no edema noted Arm (R), no edema noted Leg (L), no edema noted Leg (R) Neurologic: product development consultant II-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 Coli Bacteremia # UTI # Anion Gap Metabolic Acidosis 2/2 Lactic Acid - resolved # Severe Lactic Acidosis - resolved # MNADY 2/2 pre-renal azotemia vs Sepsis ATN - resolved # Prolong Qt # Leukocytosis - improving # Thrombocytopenia likely 2/2 sepsis - improving # New Diagnosis Type 2 DM # Hx of Rheumatoid Arthritis on Biologic infusion # Hx of OA # Hx of osteoporosis # NAFLD P: - hemodynamically stable - keep MAP > 65, monitor for BP support with need for pressors - Still pending transfer to [facility] for cardiac cath with Dr. Che - On Rocephin per ID, considering transition to PO ciprofloxacin 500 mg BID for 1 week upon discharge - BC +gram negative rods, Ecoli - CT A/P reviewed showing right sided perinephric stranding likely pyelonephritis - avoid prolonging qt agents - ISS - trend plateletsimproving - hold anticoags < 50 - leukocytosis continuing to improve - Dr. Cates, Nephrology, recs appreciated - consult Dr. Gallego, ID, recs appreciated - consult Dr. Che Cardiology, recs appreciated - plan for transfer to [facility] for cardiac cath given troponin elevation - consult Dr. Ann, Pulm, recs appreciated - PT CODE: Full GI: none DVT: Heparin 5000U BID Diet: cardio Dispo: possible transfer to [facility] tomorrow for cardiac cath by Dr. Che Time spent on this encounter was 37 minutes which included 20 minutes of counseling and care coordination. I discussed with the nurse and patient and at bedside, consulting physicians from cardiology, nephrology, infectious disease regarding patient's cardiac condition, pyelonephritis, and antibiotic regimen. Time of note may not reflect time patient was seen. Edenilson Lugo M.D. Aug 01, 2020 21:11
--- NOTE | 2020-08-01 22:13 | NUR ---
NURSE NOTES: Report was given to Laura CALIX at [facility] [place]. Patient does not have an IV at this time will attempt to insert a new one before pt leaves.
--- NOTE | 2020-08-01 22:15 | NUR ---
NURSE NOTES: Called [facility] and set up transport with [facility]. Estimated time is 2330.
[2020-08-02] VITALS: BP 148/79
--- NOTE | 2020-08-02 00:02 | NUR ---
NURSE NOTES: [facility] just called and updated that the estimated wait of 45 to 1hr.
[2020-08-02 03:36] VITALS: BP 151/67
--- NOTE | 2020-08-02 03:36 | NUR ---
HAND-OFF: Report given to EMT with RN transporting patient to [facility]. Patient left in stable condition
--- NOTE | 2020-08-02 03:36 | NUR ---
NURSE NOTES: Called Lrist RN at [facility] and let her know patient is on her way and that we where able to place an IV.
--- NOTE | 2020-08-02 12:43 | Nephrology Progress Note ---
Assessment/Plan Plan #Septic shock due to UTi and pyelnephritis #hypokalemia and hypophosphatemia #NSTEMI #MANDY #UTI #Sinus tach #RA - plan to transfer to [facility] or [facility] for [facility] - IV abx-, cevtriaxone - ID eval - follow cx - ASA - statin - cardiology eval - pain control - hold pred for now - hold infliximab for now Subjective Subjective WBC now downtrending K and phos low -repleted plan to transfer to [facility] or [facility] for [facility] Objective Objective Last 24 Hour Vital Signs Date Time Temp Pulse Resp B/P (MAP) Pulse Ox O2 Delivery O2 Flow Rate FiO2 08/02/20 03:36 99.0 84 16 151/67 (95) 94 08/02/20 00:00 106 08/02/20 00:00 98.2 63 20 148/79 (102) 96 08/01/20 21:42 89 149/67 08/01/20 21:00 Room Air 08/01/20 20:00 99.0 89 20 149/67 (94) 98 08/01/20 20:00 94 08/01/20 16:00 98.1 91 19 148/68 (94) 98 08/01/20 16:00 113 Intake and Output 08/01/20 08/02/20 19:00 07:00 Intake Total 1200 ml Balance 1200 ml Intake Oral 1200 ml # Bowel Movements 1 1 Laboratory Tests 08/01/20 15:50: Troponin I 0.046 08/01/20 21:39: POC Whole Blood Glucose 131H Height (Feet): 5 Height (Inches): 0.00 Weight (Pounds): 155 Ross Cates M.D. Aug 02, 2020 12:43
== END 2020-08-02 03:36 | disposition short-term general hospital (02) | DRG 720 ==
LOC: EDBD 00:36 → EMR 00:47 → 2W 02:30 → EDBEDREQ 03:26 → 2W 04:21 → 2E 07-29 18:38
DX: A41.9 Sepsis, unspecified organism (principal); R65.21 Severe sepsis with septic shock; N39.0 Urinary tract infection, site not specified; D69.6 Thrombocytopenia, unspecified; N17.9 Acute kidney failure, unspecified; N10 Acute pyelonephritis; B96.20 Unspecified Escherichia coli [E. coli] as the cause of diseases classified elsewhere; E87.6 Hypokalemia; M06.9 Rheumatoid arthritis, unspecified; I21.A1 Myocardial infarction type 2; M54.9 Dorsalgia, unspecified; E78.5 Hyperlipidemia, unspecified; F41.9 Anxiety disorder, unspecified; I25.10 Atherosclerotic heart disease of native coronary artery without angina pectoris; M81.0 Age-related osteoporosis without current pathological fracture; Z20.828 Contact with and (suspected) exposure to other viral communicable diseases; E83.39 Other disorders of phosphorus metabolism; E11.9 Type 2 diabetes mellitus without complications
CPT/HCPCS: 36415; 71045; 74018; 74176; 76700; 80048; 80053; 80061; 80150; 81003; 82550; 82553; 82728; 82962; 83036; 83605; 83615; 83690; 83735; 83880; 84100; 84439; 84443; 84484; 85007; 85025; 85379; 85610; 85730; 86140; 86703; 86705; 86709; 86710; 86803; 87040; 87081; 87086; 87181; 87340; 93005; 93306; 93970; 96361; 96365; 96368; 96372; 96375; 99291; C9399; J1815; J2405; J7030; J8499; U0002